=== PATIENT | female | born 1960 | race Caucasian/White ===

== ENCOUNTER 2017-08-02 22:30 | Emergency (ER) | payer OTHER ==
[2017-08-02] MEDS ORDERED: HYDROCODONE/APAP 5/325 MG TAB ONE (22:58)
--- NOTE | 2017-08-02 23:36 | EDPHYS ---
Physician Documentation [facility] Name: Vivian Fatima Age: 57 yrs Sex: Female : 1960 Arrival Date: 08/02/2017 Time: 22:31 Bed 12 Private MD: ED Physician Daniel White HPI: 08/03 03:52 This 57 yrs old Female presents to ER via Ambulatory with complaints of Foot tw4 Injury - Right/metal gate fell on foot. 03:52 The patient presents with an injury. The complaints affect the right foot. Context: The tw4 problem was sustained at home. Onset: The symptoms/episode began/occurred today. Modifying factors: The symptoms are alleviated by nothing, the symptoms are aggravated by nothing. Associated signs and symptoms: The patient has no apparent associated signs or symptoms. Severity of symptoms: At their worst the symptoms were moderate, in the emergency department the symptoms are unchanged. The patient has not experienced similar symptoms in the past. Historical: - Allergies: 08/02 22:41 Latex, Natural Rubber; fc - Home Meds: 22:41 Lamictal 300 mg Oral 1 tab once daily [Active]; Prozac 60 mg Oral once daily [Active]; fc Wellbutrin 150 mg Oral nightly [Active]; gabapentin 400 mg oral cap 2 cap nightly [Active]; - PMHx: 22:41 Bipolar disorder; fc - PSHx: 22:41 ; Hysterectomy; fc - Immunization history:: Last tetanus immunization: up to date. - Social history:: Smoking status: Patient/guardian denies using tobacco. - Ebola Screening: : Patient negative for fever greater than or equal to 101.5 degrees Fahrenheit, and additional compatible Ebola Virus Disease symptoms Patient denies exposure to infectious person Patient denies travel to an Ebola-affected area in the 21 days before illness onset. ROS: 08/03 03:52 MS/extremity: Positive for injury or acute deformity, pain, swelling, tenderness, tw4 Negative for abrasion, bite, contusion, decreased range of motion. Constitutional: Negative for fever, chills, and weight loss, Cardiovascular: Negative for chest pain, palpitations, and edema, Respiratory: Negative for shortness of breath, cough, wheezing, and pleuritic chest pain, Abdomen/GI: Negative for abdominal pain, nausea, vomiting, diarrhea, and constipation, Back: Negative for injury and pain. Exam: 03:52 Constitutional: This is a well developed, well nourished patient who is awake, alert, tw4 and in no acute distress. Chest/axilla: Normal chest wall appearance and motion. Nontender with no deformity. No lesions are appreciated. Cardiovascular: Regular rate and rhythm with a normal S1 and S2. No gallops, murmurs, or rubs. Normal PMI, no JVD. No pulse deficits. Respiratory: Lungs have equal breath sounds bilaterally, clear to auscultation and percussion. No rales, rhonchi or wheezes noted. No increased work of breathing, no retractions or nasal flaring. Abdomen/GI: Soft, non-tender, with normal bowel sounds. No distension or tympany. No guarding or rebound. No evidence of tenderness throughout. 03:52 Musculoskeletal/extremity: Extremities: grossly normal except: noted in the right first toe: decreased ROM, pain, There is no evidence of abrasion, laceration, puncture, ROM: no acute changes, Circulation is intact in all extremities. Vital Signs: 08/02 22:37 BP 141 / 84; Pulse 107; Resp 18; Temp 99.1(O); Pulse Ox 100% on R/A; Weight 78.93 kg fc (R); Height 5 ft. 6 in. (167.64 cm) (R); Pain 6/10; 22:37 Body Mass Index 28.08 (78.93 kg, 167.64 cm) fc MDM: 22:50 Patient medically screened. tw4 08/03 03:52 Differential diagnosis: fracture, sprain. Data reviewed: vital signs, nurses notes. tw4 Test interpretation: by ED physician or midlevel provider: ECG. Counseling: I had a detailed discussion with the patient and/or guardian regarding: the historical points, exam findings, and any diagnostic results supporting the discharge/admit diagnosis. Medication response: norco. Response to treatment: the patient's symptoms have markedly improved after treatment, and as a result, I will discharge patient. 08/02 22:46 Order name: Foot Right 3 View XRAY fc Administered Medications: 08/02 23:01 Drug: [place] 5 mg-325 mg 1 tabs Route: PO; 23:44 Follow up: Response: No adverse reaction; Pain is decreased bb Disposition: 08/02/17 23:36 Discharged to Home. Impression: Contusion of right foot. - Condition is Stable. - Discharge Instructions: Contusion. - Prescriptions for Ibuprofen 800 mg Oral Tablet - take 1 tablet by ORAL route every 8 hours As needed take with food; 30 tablet. Tylenol- Codeine #3 300-30 mg Oral Tablet - take 2 tablet by ORAL route every 6 hours As needed; 6 tablet. - Medication Reconciliation Form, Thank You Letter, Antibiotic Education, Prescription Opioid Use form. - Follow up: Private Physician; When: As needed; Reason: Recheck today's complaints, Continuance of care, Re-evaluation by your physician. - Problem is new. - Symptoms have improved. Signatures: Dispatcher [employer] EDAle Snow RN RN Maria A Pfeiffer RN RN Daniel Alba MD MD tw4 Corrections: (The following items were deleted from the chart) 23:45 23:36 08/02/2017 23:36 Discharged to Home. Impression: Contusion of right foot. bb Condition is Stable. Forms are Medication Reconciliation Form, Thank You Letter, Antibiotic Education, Prescription Opioid Use. Follow up: Private Physician; When: As needed; Reason: Recheck today's complaints, Continuance of care, Re-evaluation by your physician. Problem is new. Symptoms have improved. tw4
--- NOTE | 2017-08-02 23:36 | ER ---
Nurse's Notes [facility] Name: Vivian Fatima Age: 57 yrs Sex: Female : 1960 Arrival Date: 08/02/2017 Time: 22:31 Bed 12 Private MD: Diagnosis: Contusion of right foot Presentation: 08/02 22:36 Presenting complaint: Patient states: that a large gate feel on her right foot today. fc Area is red, swollen and tender to touch. 22:38 Transition of care: patient was not received from another setting of care. Onset of fc symptoms was August 02, 2017 at 12:00. Risk Assessment: Do you want to hurt yourself or someone else? Patient reports no desire to harm self or others. Initial Sepsis Screen: Does the patient meet any 2 criteria? HR > 90 bpm. Yes Does the patient have a suspected source of infection? No. Patient's initial sepsis screen is negative. Care prior to arrival: None. 22:38 Method Of Arrival: Ambulatory 22:38 Acuity: LAYO 4 Triage Assessment: 22:41 General: Appears uncomfortable, slender, Behavior is calm, cooperative, appropriate for age. Pain: Complains of pain in right foot Pain currently is 6 out of 10 on a pain scale. at worst was 10 out of 10 on a pain scale. Quality of pain is described as aching, dull, Pain began at noon Is continuous, Aggravated by increased activity, repositioning, weight bearing. EENT: No deficits noted. Neuro: Level of Consciousness is awake, alert, obeys commands, Oriented to person, place, time, situation. Cardiovascular: No deficits noted. Respiratory: No deficits noted. GI: No deficits noted. Derm: Skin is pink, warm \T\ dry. Bruising that is bright red, on dorsum of right foot. Musculoskeletal: Circulation, motion, and sensation intact. Capillary refill < 3 seconds, Range of motion: intact in all extremities, Reports pain in right foot. Injury Description: Bruise sustained to right foot is red. Historical: - Allergies: 22:41 Latex, Natural Rubber; fc - Home Meds: 22:41 Lamictal 300 mg Oral 1 tab once daily [Active]; Prozac 60 mg Oral once daily [Active]; fc Wellbutrin 150 mg Oral nightly [Active]; gabapentin 400 mg oral cap 2 cap nightly [Active]; - PMHx: 22:41 Bipolar disorder; fc - PSHx: 22:41 ; Hysterectomy; fc - Immunization history:: Last tetanus immunization: up to date. - Social history:: Smoking status: Patient/guardian denies using tobacco. - Ebola Screening: : Patient negative for fever greater than or equal to 101.5 degrees Fahrenheit, and additional compatible Ebola Virus Disease symptoms Patient denies exposure to infectious person Patient denies travel to an Ebola-affected area in the 21 days before illness onset. Screenin:43 Abuse screen: Denies threats or abuse. Nutritional screening: No deficits noted. fc Tuberculosis screening: No symptoms or risk factors identified. Fall Risk None identified. Assessment: 22:43 Reassessment: No changes from previously documented assessment. Patient and/or family fc updated on plan of care and expected duration. Pain level reassessed. Patient is alert, oriented x 3, equal unlabored respirations, skin warm/dry/pink. see triage assessment. 22:50 Reassessment: Dr White in to see and examine pt. fc 23:01 Reassessment: Radiology in room performing xrays on foot. fc 23:43 Reassessment: Patient is alert, oriented x 3, equal unlabored respirations, skin bb warm/dry/pink. pt instructed on crutch walking, demonstrated good technique, verbalized understanding of and agrees to plan of care discharge instructions given pt assisted to exit accompanied by family. Vital Signs: 22:37 BP 141 / 84; Pulse 107; Resp 18; Temp 99.1(O); Pulse Ox 100% on R/A; Weight 78.93 kg fc (R); Height 5 ft. 6 in. (167.64 cm) (R); Pain 6/10; 22:37 Body Mass Index 28.08 (78.93 kg, 167.64 cm) ED Course: 22:31 Patient arrived in ED. am2 22:38 Triage completed. fc 22:38 Arm band placed on Patient placed in waiting room, Patient notified of wait time. fc 22:43 Patient has correct armband on for positive identification. Call light in reach. fc 22:44 No provider procedures requiring assistance completed. Patient did not have IV access fc during this emergency room visit. 22:50 Daniel White MD is Attending Physician. tw4 22:53 Maria A Pfeiffer, RN is Primary Nurse. bb 23:15 X-ray completed. Portable x-ray completed in exam room. Patient tolerated procedure kw well. 23:15 Foot Right 3 View XRAY In Process Unspecified. EDMS 23:44 Crutch training done. Steven wrap to right foot. bb Administered Medications: 23:01 Drug: [place] 5 mg-325 mg 1 tabs Route: PO; 23:44 Follow up: Response: No adverse reaction; Pain is decreased bb Outcome: 23:36 Discharge ordered by . tw4 23:45 Discharged to home with crutches, with family. bb 23:45 Condition: stable 23:45 Discharge instructions given to patient, Instructed on discharge instructions, follow up and referral plans. no driving heavy equipment, medication usage, crutch walking, Demonstrated understanding of instructions, follow-up care, medications, crutch walking, Prescriptions given X 2. 23:45 Patient left the ED. bb Signatures: Dispatcher [employer] EDNJ Ale Faith RN RN Maria A Pfeiffer, JUAN RN Sada Kathleen Amanda am2 Daniel White MD MD tw4
--- NOTE | 2017-08-03 09:08 | RAD REPORT ---
EXAM DESCRIPTION: RAD - Foot Right 3 View - 08/02/2017 11:15 pm CLINICAL HISTORY: Right foot pain. COMPARISON: None. FINDINGS: Soft tissue swelling is seen at the level of the first MTP joint. No acute fracture or dis location is seen. Prominent posterior calcaneal spur.
== END 2017-08-02 23:45 | disposition home or self-care (01) ==
LOC: ER 22:30
DX: S90.31XA Contusion of right foot, initial encounter (principal); W23.0XXA Caught, crushed, jammed, or pinched between moving objects, initial encounter; Y93.9 Activity, unspecified; Y92.009 Unspecified place in unspecified non-institutional (private) residence as the place of occurrence of the external cause; Y99.9 Unspecified external cause status; Z91.040 Latex allergy status
CPT/HCPCS: 99284

== ENCOUNTER 2017-08-17 20:49 | Emergency (ER) | payer OTHER ==
[2017-08-17] MEDS ORDERED: KETOROLAC 30 MG/ML INJ ONE (21:58)
[2017-08-17] MEDS ORDERED: DIPHENHYDRAMINE 25 MG TAB/CAP ONE (23:20)
[2017-08-17] MEDS ORDERED: MORPHINE 4 MG/ML SYR ONE (23:20)
[2017-08-17] MEDS ORDERED: ONDANSETRON 4 MG (ODT) TAB ONE (23:21)
--- NOTE | 2017-08-17 23:35 | EDPHYS ---
Physician Documentation [facility] Name: Vivian Fatima Age: 57 yrs Sex: Female : 1960 Arrival Date: 08/17/2017 Time: 20:50 Bed 30 Private MD: ED Physician Jose Roberto Willett HPI: 08/17 23:35 This 57 yrs old Female presents to ER via Ambulatory with complaints of Fall ps1 Injury, rib pain, Back Pain. 23:35 patient fell out of chair at home. No hit head. No LOC. Patient has left rib pain. No ps1 obvious signs of trauma. Hurts to breathe. Pain rated moderate. . Historical: - Allergies: 21:01 Latex, Natural Rubber; fc - Home Meds: 21:01 gabapentin 400 mg Oral cap 2 cap nightly [Active]; Lamictal 300 mg Oral 1 tab once fc daily [Active]; Prozac 60 mg Oral once daily [Active]; Wellbutrin 150 mg Oral nightly [Active]; - PMHx: 21:01 Bipolar disorder; fc - PSHx: 21:01 ; Hysterectomy; fc - Immunization history:: Last tetanus immunization: up to date. - Social history:: Smoking status: Patient/guardian denies using tobacco. - Ebola Screening: : Patient negative for fever greater than or equal to 101.5 degrees Fahrenheit, and additional compatible Ebola Virus Disease symptoms Patient denies exposure to infectious person Patient denies travel to an Ebola-affected area in the 21 days before illness onset. ROS: 23:35 Constitutional: Negative for fever, chills, and weight loss, Eyes: Negative for injury, ps1 pain, redness, and discharge, Cardiovascular: Negative for chest pain, palpitations, and edema, Respiratory: Negative for shortness of breath, cough, wheezing, and pleuritic chest pain, Abdomen/GI: Negative for abdominal pain, nausea, vomiting, diarrhea, and constipation, Skin: Negative for injury, rash, and discoloration, Neuro: Negative for headache, weakness, numbness, tingling, and seizure. 23:35 MS/extremity: Positive for pain, of the left lateral anterior chest. Exam: 23:35 Constitutional: This is a well developed, well nourished patient who is awake, alert, ps1 and in no acute distress. Head/Face: Normocephalic, atraumatic. Eyes: Pupils equal round and reactive to light, extra-ocular motions intact. Lids and lashes normal. Conjunctiva and sclera are non-icteric and not injected. Chest/axilla: Normal chest wall appearance and motion. Nontender with no deformity. No lesions are appreciated. Cardiovascular: Regular rate and rhythm. No gallops, murmurs, or rubs. Normal PMI, no JVD. No pulse deficits. Respiratory: Lungs have equal breath sounds bilaterally, clear to auscultation and percussion. No rales, rhonchi or wheezes noted. No increased work of breathing, no retractions or nasal flaring. Abdomen/GI: Soft, non-tender, with normal bowel sounds. No distension or tympany. No guarding or rebound. No evidence of tenderness throughout. Skin: Warm, dry with normal turgor. Normal color with no rashes, no lesions, and no evidence of cellulitis. Neuro: Awake and alert, GCS 15, oriented to person, place, time, and situation. Cranial nerves II-XII grossly intact. Sensory grossly intact. Psych: Awake, alert, with orientation to person, place and time. Behavior, mood, and affect are within normal limits. 23:35 Musculoskeletal/extremity: Extremities: grossly normal except: noted in the left lateral anterior chest: pain. Vital Signs: 21:01 BP 136 / 97; Pulse 102; Resp 16; Temp 98.2; Pulse Ox 97% on R/A; Weight 78.47 kg (R); Height 5 ft. 6 in. (167.64 cm) (R); Pain 8/10; 23:45 BP 141 / 90; Pulse 75; Resp 16; Pulse Ox 99% ; rk2 21:01 Body Mass Index 27.92 (78.47 kg, 167.64 cm) Joe Coma Score: 21:01 Eye Response: spontaneous(4). Verbal Response: oriented(5). Motor Response: obeys commands(6). Total: 15. Trauma Score (Adult): 21:01 Eye Response: spontaneous(1); Verbal Response: oriented(1); Motor Response: obeys commands(2); Systolic BP: > 89 mm Hg(4); Respiratory Rate: 10 to 29 per min(4); Joe Score: 15; Trauma Score: 12 MDM: 21:55 Patient medically screened. ps1 23:37 Data reviewed: vital signs, nurses notes, radiologic studies, CT scan. ED course: ps1 incidental finding of pulmonary nodule. Follow up CT with primary care for change in 6 months. Incentive Spirometry given. Home with T3 and Anaprox. . 08/17 21:51 Order name: CT Chest Wo Con ps1 08/17 21:51 Order name: INCENTIVE SPIROMETRY ps1 Administered Medications: 22:02 Drug: TORadol 30 mg Route: IM; Site: left deltoid; rk2 23:48 Follow up: Response: No adverse reaction rk2 23:22 Drug: morphine 4 mg Route: IM; Site: right deltoid; rk2 23:48 Follow up: Response: No adverse reaction rk2 23:22 Drug: Benadryl 25 mg Route: PO; rk2 23:47 Follow up: Response: No adverse reaction rk2 23:22 Drug: Zofran 4 mg Route: PO; rk2 23:47 Follow up: Response: No adverse reaction rk2 Disposition: 08/17/17 23:34 Discharged to Home. Impression: Fall, Left Rib Contusion, Pulmonary Nodule. - Condition is Stable. - Discharge Instructions: Rib Contusion, Pulmonary Nodule. - Prescriptions for Anaprox DS 550 mg Oral Tablet - take 1 tablet by ORAL route every 12 hours As needed; 20 tablet. Tylenol- Codeine #3 300-30 mg Oral Tablet - take 2 tablet by ORAL route every 6 hours As needed; 30 tablet. Zofran 4 mg Oral Tablet - take 1 tablet by ORAL route every 12 hours As needed; 20 tablet. - Medication Reconciliation Form, Thank You Letter, Antibiotic Education, Prescription Opioid Use form. - Follow up: Private Physician; When: As needed; Reason: Recheck today's complaints, Continuance of care, Re-evaluation by your physician. Follow up: Emergency Department; When: As needed; Reason: Fever > 102 F, Trouble breathing, Worsening of condition. - Problem is new. - Symptoms have improved. Signatures: Dispatcher [employer] EDMS Ale Faith, RN RN fc Jose Roberto Willett MD MD ps1 Tamiko Zazueta RN RN rk2 Corrections: (The following items were deleted from the chart) 23:47 23:34 08/17/2017 23:34 Discharged to Home. Impression: Fall; Left Rib Contusion; rk2 Pulmonary Nodule. Condition is Stable. Forms are Medication Reconciliation Form, Thank You Letter, Antibiotic Education, Prescription Opioid Use. Follow up: Private Physician; When: As needed; Reason: Recheck today's complaints, Continuance of care, Re-evaluation by your physician. Follow up: Emergency Department; When: As needed; Reason: Fever > 102 F, Trouble breathing, Worsening of condition. Problem is new. Symptoms have improved. ps1
--- NOTE | 2017-08-17 23:35 | ER ---
Nurse's Notes [facility] Name: Vivian Fatima Age: 57 yrs Sex: Female : 1960 Arrival Date: 08/17/2017 Time: 20:50 Bed 30 Private MD: Diagnosis: Fall;Left Rib Contusion;Pulmonary Nodule Presentation: 08/17 20:59 Presenting complaint: Patient states: that she was standing on a chair and fell off. fc Hit left side and left back on stool. Has increased pain to left ribs when she breathes. Care prior to arrival: Ice pack applied to injury. Mechanism of Injury: Fall out of chair. Trauma event details: Injury occurred in the [facility], Injury occurred: at home. Injury occurred: August 17, 2017 Injury occurred at: 20:15. 20:59 Acuity: LAYO 4 20:59 Method Of Arrival: Ambulatory 21:00 Transition of care: patient was not received from another setting of care. Onset of fc symptoms was August 17, 2017 at 20:15. Risk Assessment: Do you want to hurt yourself or someone else? Patient reports no desire to harm self or others. Initial Sepsis Screen: Does the patient meet any 2 criteria? No. Patient's initial sepsis screen is negative. Does the patient have a suspected source of infection? No. Patient's initial sepsis screen is negative. Triage Assessment: 21:04 General: Appears uncomfortable, slender, Behavior is calm, cooperative, appropriate for age. Pain: Complains of pain in left side and left back Quality of pain is described as aching, Pain began suddenly, Is continuous. EENT: No deficits noted. Neuro: Level of Consciousness is awake, alert, obeys commands, Oriented to person, place, time, situation. Historical: - Allergies: 21:01 Latex, Natural Rubber; fc - Home Meds: 21:01 gabapentin 400 mg Oral cap 2 cap nightly [Active]; Lamictal 300 mg Oral 1 tab once fc daily [Active]; Prozac 60 mg Oral once daily [Active]; Wellbutrin 150 mg Oral nightly [Active]; - PMHx: 21:01 Bipolar disorder; fc - PSHx: 21:01 ; Hysterectomy; fc - Immunization history:: Last tetanus immunization: up to date. - Social history:: Smoking status: Patient/guardian denies using tobacco. - Ebola Screening: : Patient negative for fever greater than or equal to 101.5 degrees Fahrenheit, and additional compatible Ebola Virus Disease symptoms Patient denies exposure to infectious person Patient denies travel to an Ebola-affected area in the 21 days before illness onset. Screenin:29 Abuse screen: Denies threats or abuse. Nutritional screening: No deficits noted. rk2 Tuberculosis screening: No symptoms or risk factors identified. Fall Risk None identified. Assessment: 21:22 General: Appears in no apparent distress. uncomfortable, slender, well groomed, well rk2 developed, well nourished, Behavior is calm, cooperative, appropriate for age. Pain: Complains of pain in Left side/ribs and left back. Neuro: Level of Consciousness is alert, obeys commands, Oriented to person, place, time, situation, Appropriate for age. Respiratory: Reports pain with respiration. Respiratory: Breath sounds are clear Pt. having difficult time taking deep breath due to pain. GI: No signs and/or symptoms were reported involving the gastrointestinal system. EENT: No signs and/or symptoms were reported regarding the EENT system. Derm: Skin is pink, warm \T\ dry. 21:24 Injury Description: No obvious deformity noted to injury area. rk2 22:30 Reassessment: Patient appears in no apparent distress at this time. No changes from rk2 previously documented assessment. Patient and/or family updated on plan of care and expected duration. Pain level reassessed. 23:28 Reassessment: Patient appears in no apparent distress at this time. No changes from rk2 previously documented assessment. Patient and/or family updated on plan of care and expected duration. Pain level reassessed. \T\ bedside. No needs voiced \T\ this time. Vital Signs: 21:01 BP 136 / 97; Pulse 102; Resp 16; Temp 98.2; Pulse Ox 97% on R/A; Weight 78.47 kg (R); fc Height 5 ft. 6 in. (167.64 cm) (R); Pain 8/10; 23:45 BP 141 / 90; Pulse 75; Resp 16; Pulse Ox 99% ; rk2 21:01 Body Mass Index 27.92 (78.47 kg, 167.64 cm) fc Rumely Coma Score: 21:01 Eye Response: spontaneous(4). Verbal Response: oriented(5). Motor Response: obeys fc commands(6). Total: 15. Trauma Score (Adult): 21:01 Eye Response: spontaneous(1); Verbal Response: oriented(1); Motor Response: obeys fc commands(2); Systolic BP: > 89 mm Hg(4); Respiratory Rate: 10 to 29 per min(4); Rumely Score: 15; Trauma Score: 12 ED Course: 20:50 Patient arrived in ED. am2 21:00 Triage completed. fc 21:01 Arm band placed on right wrist. Patient placed in an exam room, on a stretcher. fc 21:13 Jose Roberto Willett MD is Attending Physician. ps1 21:14 Tamiko Zazueta RN is Primary Nurse. rk2 22:02 INCENTIVE SPIROMETRY Sent. rk2 22:[address] nj 22:24 CT Chest Wo Con In Process Unspecified. EDMS 22:27 CT completed. Patient tolerated procedure well. Patient moved back from CT. nj 23:29 Patient has correct armband on for positive identification. Placed in gown. Bed in low rk2 position. Call light in reach. cardiac monitor on. Pulse ox on. 23:46 No provider procedures requiring assistance completed. Patient did not have IV access rk2 during this emergency room visit. Administered Medications: 22:02 Drug: TORadol 30 mg Route: IM; Site: left deltoid; rk2 23:48 Follow up: Response: No adverse reaction rk2 23:22 Drug: morphine 4 mg Route: IM; Site: right deltoid; rk2 23:48 Follow up: Response: No adverse reaction rk2 23:22 Drug: Benadryl 25 mg Route: PO; rk2 23:47 Follow up: Response: No adverse reaction rk2 23:22 Drug: Zofran 4 mg Route: PO; rk2 23:47 Follow up: Response: No adverse reaction rk2 Outcome: 23:34 Discharge ordered by . ps1 23:46 Discharged to home ambulatory. rk2 23:46 Condition: good 23:46 Discharge instructions given to patient, Prescriptions given X 3. 23:47 Patient left the ED. rk2 Signatures: Dispatcher [employer] EDMS Ale Faith RN RN Sebastien Mari Amanda am2 Jose Roberto Willett MD MD ps1 Tamiko Zazueta RN RN rk2 Corrections: (The following items were deleted from the chart) 21:05 21:01 Pulse 102bpm; Resp 16bpm; Pulse Ox 97% RA; Temp 98.2F; 78.47 kg Reported; Height fc 5 ft. 6 in. Reported; BMI: 27.9; Pain 8/10; fc 23:30 23:29 Inserted saline lock: 24 gauge in left wrist, using aseptic technique. rk2 rk2
--- NOTE | 2017-08-18 07:41 | RAD REPORT ---
EXAM DESCRIPTION: CT - Thorax Wo Con - 08/18/2017 5:32 am CLINICAL HISTORY: Chest injury with chest pain status post fall. COMPARISON: None TECHNIQUE: Computed axial tomography of the chest was obtained. Contrast was not requested. A preliminary report was generated by [employer] and reviewed prior to this dictation All CT scans are performed using dose optimization technique as appropriate and may include automated exposure control or mA/KV adjustment according to patient size. FINDINGS: The evaluation of mediastinum, paco and vessels is limited secondary to lack of IV contras t administration. A lung contusion is not present. Calcified granuloma is present within the right lung. Multiple, tiny nodules are present within the lungs bilaterally. A mediastinal hematoma is not seen. A pleural effusion is not present. A trace pericardial effusion or thickening is seen. Low-density lesions within the liver are nonspecific without IV contrast but may represent cysts. IMPRESSION: No acute traumatic injury to the chest is seen. Multiple tiny lung nodules are nonspecific but probably benign. Per Fleischner guidelines if the rishi ent is high risk followup CT chest in 12 months would be recommended
== END 2017-08-17 23:47 | disposition home or self-care (01) ==
LOC: ER 20:49
DX: S20.219A Contusion of unspecified front wall of thorax, initial encounter (principal); R91.1 Solitary pulmonary nodule; F31.9 Bipolar disorder, unspecified; W07.XXXA Fall from chair, initial encounter; Y93.9 Activity, unspecified; Y92.009 Unspecified place in unspecified non-institutional (private) residence as the place of occurrence of the external cause; Z91.040 Latex allergy status; Z91.048 Other nonmedicinal substance allergy status
CPT/HCPCS: 71250; 96372; 99285

== ENCOUNTER 2018-11-16 15:35 | Emergency (ER) | payer OTHER ==
[2018-11-16] MEDS ORDERED: HYDROCODONE/APAP 7.5/325 MG TAB ONE (16:32)
--- NOTE | 2018-11-16 17:06 | RAD REPORT ---
EXAM DESCRIPTION: RAD - Chest Single View - 11/16/2018 4:42 pm CLINICAL HISTORY: Chest pain, shortness of breath, history of left ninth and tenth rib fractures 1 m onth earlier COMPARISON: Rib series October 21 TECHNIQUE: AP portable chest image was obtained 1636 hours . FINDINGS: No focal lung parenchymal process. Interstitial pattern matches comparison. Heart and vasc ulature are normal. No measurable pleural effusion and no pneumothorax. No acute bone finding. Prior rib fractures are poorly visualized on portable imaging. No gross evidence for a new rib process. No acute aortic findings suspected. IMPRESSION: No acute cardiopulmonary process.
--- NOTE | 2018-11-16 17:25 | ER ---
Nurse's Notes [facility] Name: Vivian Fatima Age: 58 yrs Sex: Female : 1960 Arrival Date: 11/16/2018 Time: 15:38 Bed 20 Private MD: Diagnosis: Chest pain, unspecified-chest wall pain Presentation: 11/16 15:49 Presenting complaint: Pt reports she fractured 9th and 10th left ribs approx 1 month hb ago, pain suddenly worse upon waking today. Transition of care: patient was not received from another setting of care. Onset of symptoms was November 16, 2018. Risk Assessment: Do you want to hurt yourself or someone else? Patient reports no desire to harm self or others. Initial Sepsis Screen: Does the patient meet any 2 criteria? No. Patient's initial sepsis screen is negative. Does the patient have a suspected source of infection? No. Patient's initial sepsis screen is negative. Care prior to arrival: Medication(s) given: naproxen sodium at 1300. 15:49 Method Of Arrival: Ambulatory hb 15:49 Acuity: LAYO 4 hb Historical: - Allergies: 15:52 Latex, Natural Rubber; hb - Immunization history:: Adult Immunizations up to date. - Social history:: Smoking status: Patient/guardian denies using tobacco. - Ebola Screening: : No symptoms or risks identified at this time. Screenin:39 Abuse screen: Denies threats or abuse. Denies injuries from another. Nutritional ca1 screening: No deficits noted. Tuberculosis screening: No symptoms or risk factors identified. Fall Risk Fall in past 12 months (25 points). Assessment: 16:39 General: Appears in no apparent distress. comfortable, Behavior is calm, cooperative, ca1 appropriate for age. Pain: Complains of pain in left lateral anterior chest Pain does not radiate. Pain currently is 4 out of 10 on a pain scale. at worst was 8 out of 10 on a pain scale. Pain began today Aggravated by repositioning. Neuro: Level of Consciousness is awake, alert, obeys commands, Oriented to person, place, time, situation. Cardiovascular: Heart tones S1 S2 present Capillary refill < 3 seconds Patient's skin is warm and dry. Pulses are all present. Respiratory: Airway is patent Respiratory effort is even, unlabored, Respiratory pattern is regular, symmetrical, Breath sounds are clear bilaterally. GI: Abdomen is flat, non-distended, Bowel sounds present X 4 quads. : No deficits noted. No signs and/or symptoms were reported regarding the genitourinary system. EENT: No deficits noted. No signs and/or symptoms were reported regarding the EENT system. Derm: Skin is intact, is healthy with good turgor, Skin is pink, warm \T\ dry. Musculoskeletal: Circulation, motion, and sensation intact. Capillary refill < 3 seconds, Range of motion: intact in all extremities. 17:32 Reassessment: Patient appears in no apparent distress at this time. Patient is alert, ca1 oriented x 3, equal unlabored respirations, skin warm/dry/pink. Vital Signs: 15:52 BP 153 / 83; Pulse 77; Resp 16; Temp 98.6; Pulse Ox 100% on R/A; Weight 76.2 kg; Height hb 5 ft. 5 in. (165.10 cm); Pain 8/10; 16:47 BP 138 / 45; Pulse 75; Resp 16 S; Pulse Ox 100% on R/A; ca1 17:32 BP 112 / 89; Pulse 67; Resp 17 S; Pulse Ox 99% on R/A; ca1 15:52 Body Mass Index 27.96 (76.20 kg, 165.10 cm) hb ED Course: 15:38 Patient arrived in ED. mr 15:51 Triage completed. hb 15:52 Arm band placed on. hb 16:18 Marie Dolan, JUAN is Primary Nurse. ca1 16:20 Brandie Tirado FNP-C is [facility]. kb 16:20 Epifanio Vargas MD is Attending Physician. kb 16:39 Patient has correct armband on for positive identification. Placed in gown. Call light ca1 in reach. Side rails up X 1. Pulse ox on. NIBP on. Warm blanket given. 16:39 No provider procedures requiring assistance completed. Patient did not have IV access ca1 during this emergency room visit. 16:43 Chest Single View XRAY In Process Unspecified. EDMS Administered Medications: 16:39 Drug: Red Devil (7.5 mg-325 mg) 1 tabs Route: PO; ca1 17:33 Follow up: Response: No adverse reaction; Pain is decreased ca1 Outcome: 17:24 Discharge ordered by . kb 17:33 Discharged to home ambulatory, with family. ca1 17:33 Condition: stable 17:33 Discharge instructions given to patient, Instructed on discharge instructions, follow up and referral plans. medication usage, Demonstrated understanding of instructions, follow-up care, medications, Prescriptions given X 1. 17:34 Patient left the ED. ca1 Signatures: Dispatcher [employer] EDMT Brandie Tirado, TAVIA ROBERTSON-Opal AsheraWendy Leticia Ibrahim RN RN Marie Dolan RN RN ca1 Corrections: (The following items were deleted from the chart) 15:51 15:49 Presenting complaint: hb hb
--- NOTE | 2018-11-16 17:25 | EDPHYS ---
Physician Documentation [facility] Name: Vivian Fatima Age: 58 yrs Sex: Female : 1960 Arrival Date: 11/16/2018 Time: 15:38 Bed 20 Private MD: ED Physician Epifanio Vargas HPI: 11/16 16:42 This 58 yrs old Female presents to ER via Ambulatory with complaints of Rib kb pain. 16:43 The patient or guardian reports chest pain that is located primarily in the left kb lateral anterior chest. Onset: 3 week(s) ago, and became worse this morning. The pain does not radiate. Associated signs and symptoms: Pertinent positives: None. Pertinent negatives: recent travel, shortness of breath. The chest pain is described as sharp. Duration: The patient or guardian reports a single episode. Modifying factors: The symptoms are alleviated by remaining still, rest, the symptoms are aggravated by activity, movement, palpation of area. Severity of pain: At its worst the pain was moderate in the emergency department the pain is unchanged. The patient has not experienced similar symptoms in the past. The patient has not recently seen a physician. 16:45 Pt reports she broke her ribs about 3 weeks ago. States she woke up with more pain than kb she had had previously. States the pain goes away when she is still. Pain only comes on when she moves. Historical: - Allergies: 15:52 Latex, Natural Rubber; hb - Immunization history:: Adult Immunizations up to date. - Social history:: Smoking status: Patient/guardian denies using tobacco. - Ebola Screening: : No symptoms or risks identified at this time. ROS: 16:41 Constitutional: Negative for fever, chills, and weight loss, ENT: Negative for injury, kb pain, and discharge, Neck: Negative for injury, pain, and swelling, Respiratory: Negative for shortness of breath, cough, wheezing, and pleuritic chest pain, Abdomen/GI: Negative for abdominal pain, nausea, vomiting, diarrhea, and constipation, Back: Negative for injury and pain, : Negative for injury, bleeding, discharge, and swelling, MS/Extremity: Negative for injury and deformity, Skin: Negative for injury, rash, and discoloration, Neuro: Negative for headache, weakness, numbness, tingling, and seizure. 16:41 Cardiovascular: Positive for chest pain, with movement, of the left lateral anterior chest, Negative for edema, orthopnea, palpitations, paroxysmal nocturnal dyspnea. Exam: 16:41 Constitutional: This is a well developed, well nourished patient who is awake, alert, kb and in no acute distress. Head/Face: Normocephalic, atraumatic. ENT: Nares patent. No nasal discharge, no septal abnormalities noted. Tympanic membranes are normal and external auditory canals are clear. Oropharynx with no redness, swelling, or masses, exudates, or evidence of obstruction, uvula midline. Mucous membranes moist. Neck: Trachea midline, no thyromegaly or masses palpated, and no cervical lymphadenopathy. Supple, full range of motion without nuchal rigidity, or vertebral point tenderness. No Meningismus. Cardiovascular: Regular rate and rhythm with a normal S1 and S2. No gallops, murmurs, or rubs. Normal PMI, no JVD. No pulse deficits. Respiratory: Lungs have equal breath sounds bilaterally, clear to auscultation and percussion. No rales, rhonchi or wheezes noted. No increased work of breathing, no retractions or nasal flaring. Abdomen/GI: Soft, non-tender, with normal bowel sounds. No distension or tympany. No guarding or rebound. No evidence of tenderness throughout. Back: No spinal tenderness. No costovertebral tenderness. Full range of motion. Skin: Warm, dry with normal turgor. Normal color with no rashes, no lesions, and no evidence of cellulitis. MS/ Extremity: Pulses equal, no cyanosis. Neurovascular intact. Full, normal range of motion. Neuro: Awake and alert, GCS 15, oriented to person, place, time, and situation. Cranial nerves II-XII grossly intact. Motor strength 5/5 in all extremities. Sensory grossly intact. Cerebellar exam normal. Normal gait. 16:41 Chest/axilla: Inspection: ecchymosis, that is mild, of the left lateral anterior chest Palpation: tenderness, that is moderate, of the left lateral anterior chest, that totally reproduces the patient's complaints. Vital Signs: 15:52 BP 153 / 83; Pulse 77; Resp 16; Temp 98.6; Pulse Ox 100% on R/A; Weight 76.2 kg; Height hb 5 ft. 5 in. (165.10 cm); Pain 8/10; 16:47 BP 138 / 45; Pulse 75; Resp 16 S; Pulse Ox 100% on R/A; ca1 17:32 BP 112 / 89; Pulse 67; Resp 17 S; Pulse Ox 99% on R/A; ca1 15:52 Body Mass Index 27.96 (76.20 kg, 165.10 cm) hb MDM: 16:21 Patient medically screened. kb 16:41 Data reviewed: vital signs, nurses notes. Data interpreted: Pulse oximetry: on room air kb is 100 %. Interpretation: normal. 17:20 The patient's pulmonary embolism risk score was calculated as follows: No Risks (0 kb Pts). Counseling: I had a detailed discussion with the patient and/or guardian regarding: the historical points, exam findings, and any diagnostic results supporting the discharge/admit diagnosis, radiology results, the need for outpatient follow up, a family practitioner, to return to the emergency department if symptoms worsen or persist or if there are any questions or concerns that arise at home. 11/16 16:25 Order name: Chest Single View XRAY; Complete Time: 17:19 kb Administered Medications: 16:39 Drug: Reading (7.5 mg-325 mg) 1 tabs Route: PO; ca1 17:33 Follow up: Response: No adverse reaction; Pain is decreased ca1 Disposition: 11/17 07:28 Co-signature as Attending Physician, Epifanio Vargas MD I agree with the assessment and kdr plan of care. Disposition: 11/16/18 17:24 Discharged to Home. Impression: Chest pain, unspecified - chest wall pain . - Condition is Stable. - Discharge Instructions: Chest Wall Pain, [id number], Rib Fracture, [id number]. - Prescriptions for Diclofenac Sodium 75 mg Oral Tablet, Delayed Release (E.C.) - take 1 tablet by ORAL route 2 times per day As needed; 30 tablet. - Medication Reconciliation Form, Thank You Letter, Antibiotic Education, Prescription Opioid Use form. - Follow up: Emergency Department; When: As needed; Reason: Worsening of condition. Follow up: Private Physician; When: 2 - 3 days; Reason: Recheck today's complaints, Continuance of care, Re-evaluation by your physician. Signatures: Dispatcher [employer] Brandie Boogie FNP-C FNP-Ckb Epifanio Vargas MD MD [facility] Leticia Ibrahim RN RN Marie Dolan RN RN ca1 Corrections: (The following items were deleted from the chart) 11/16 17:34 17:24 11/16/2018 17:24 Discharged to Home. Impression: Chest pain, unspecified - chest ca1 wall pain . Condition is Stable. Discharge Instructions: Chest Wall Pain, [id number], Rib Fracture, [id number]. Forms are Medication Reconciliation Form, Thank You Letter, Antibiotic Education, Prescription Opioid Use. Follow up: Emergency Department; When: As needed; Reason: Worsening of condition. Follow up: Private Physician; When: 2 - 3 days; Reason: Recheck today's complaints, Continuance of care, Re-evaluation by your physician. kb
[2018-11-16 17:58] VITALS: TEMP 98.6
[2018-11-16 18:00] VITALS: BP 112/89; O2SAT 99
== END 2018-11-16 17:34 | disposition home or self-care (01) ==
LOC: ER 15:35
DX: R07.89 Other chest pain (principal); Z91.040 Latex allergy status; Z91.048 Other nonmedicinal substance allergy status
CPT/HCPCS: 71045; 99284

== ENCOUNTER 2018-11-23 22:00 | Emergency (ER) | payer OTHER ==
[2018-11-23] MEDS ORDERED: LIDOCAINE 1% MPF 5 ML VIAL ONE ×2 (23:06→23:33)
--- NOTE | 2018-11-24 00:13 | ER ---
Nurse's Notes [facility] Name: Vivian Fatima Age: 58 yrs Sex: Female : 1960 Arrival Date: 11/23/2018 Time: 22:06 Bed 28 Private MD: Diagnosis: Laceration without foreign body of left hand Presentation: 11/23 22:14 Presenting complaint: Patient states: right hand with lac from box car washer while doing ak1 craft work. bleeding controlled. Transition of care: patient was not received from another setting of care. Complicating Factors: There are no complicating factors for this patient. Onset of symptoms was November 23, 2018. Risk Assessment: Do you want to hurt yourself or someone else? Patient reports no desire to harm self or others. Initial Sepsis Screen: Does the patient meet any 2 criteria? No. Patient's initial sepsis screen is negative. Does the patient have a suspected source of infection? No. Patient's initial sepsis screen is negative. Care prior to arrival: None. 22:14 Method Of Arrival: Ambulatory ak1 22:14 Acuity: LAYO 4 ak1 Triage Assessment: 22:15 General: Appears in no apparent distress. Behavior is calm, cooperative. ak1 Historical: - Allergies: 22:15 Latex, Natural Rubber; ak1 - Home Meds: 22:15 gabapentin 400 mg Oral cap 2 cap nightly [Active]; Lamictal 300 mg Oral 1 tab once ak1 daily [Active]; Wellbutrin 150 mg Oral nightly [Active]; Prozac 60 mg Oral once daily [Active]; - PMHx: 22:15 Bipolar disorder; ak1 - Immunization history:: Adult Immunizations unknown. - Social history:: Smoking status: Patient/guardian denies using tobacco. - Ebola Screening: : No symptoms or risks identified at this time. Screenin:55 Abuse screen: Denies threats or abuse. Denies injuries from another. Nutritional rv screening: No deficits noted. Tuberculosis screening: No symptoms or risk factors identified. Fall Risk None identified. Assessment: 22:54 General: Appears in no apparent distress. comfortable, Behavior is calm, cooperative. rv Pain: Complains of pain in left hand. Neuro: Level of Consciousness is awake, alert, obeys commands, Oriented to person, place, time, situation. Cardiovascular: Patient's skin is warm and dry. Respiratory: Airway is patent. GI: No signs and/or symptoms were reported involving the gastrointestinal system. : No signs and/or symptoms were reported regarding the genitourinary system. EENT: No signs and/or symptoms were reported regarding the EENT system. Derm: Wound noted left hand Wound is LACERATION. Musculoskeletal: Swelling absent. Injury Description: Laceration sustained to left hand is clean, 2.6 to 7.5 cm long, not bleeding. Vital Signs: 22:15 BP 130 / 74; Pulse 80; Resp 16; Temp 97.6; Pulse Ox 100% on R/A; Weight 76.2 kg (R); ak1 Height 5 ft. 6 in. (167.64 cm) (R); Pain 04/10; 11/24 00:30 BP 125 / 76; Pulse 76; Resp 16; Pulse Ox 100% on R/A; rv 11/23 22:15 Body Mass Index 27.12 (76.20 kg, 167.64 cm) ak1 ED Course: 11/23 22:06 Patient arrived in ED. cl3 22:15 Triage completed. ak1 22:15 Arm band placed on Patient placed in an exam room, on a stretcher, Patient notified of ak1 wait time. 22:36 Giuseppe Owusu RN is Primary Nurse. rv 22:56 Patient has correct armband on for positive identification. Call light in reach. Side rv rails up X 1. Pulse ox on. NIBP on. 22:59 Vernell Lovelace FNP-C is PHCP. snw 22:59 Ellis Juarez MD is Attending Physician. w 11/24 00:29 Assist provider with laceration repair on left hand that was between 2.6 to 7.5 cm rv using sutures. Set up tray. Performed by Vernell SQUIRES Dressed with 4X4s, Patient tolerated well. Patient did not have IV access during this emergency room visit. Administered Medications: 00:28 Drug: KeFLEX 500 mg Route: PO; rv 00:29 Follow up: Response: Medication administered at discharge. rv 00:28 Drug: traMADol 25 mg {Note: rass 0.} Route: PO; rv 00:29 Follow up: Response: Medication administered at discharge. rv 00:29 Drug: Tetanus-Diphtheria Toxoid Adult 0.5 ml {Community Health Advisor: [employer]. Exp: rv 07/12/2020. Lot #: [id number]. } {Note: rass 0.} Route: IM; Site: right deltoid; 00:29 Follow up: Response: Medication administered at discharge. rv Outcome: 00:12 Discharge ordered by . snleon 00:30 Discharged to home ambulatory, with family. rv 00:30 Condition: good 00:30 Discharge instructions given to patient, Instructed on discharge instructions, follow up and referral plans. medication usage, wound care, Demonstrated understanding of instructions, follow-up care, medications, Prescriptions given X 2. 00:31 Patient left the ED. rv Signatures: Vernell Lovelace, BEVELING MACHINE OPERATOR-C BEVELING MACHINE OPERATOR-Csnw Niki Nguyen RN RN ak1 Giuseppe Owusu RN RN Elizabet Flores cl3
--- NOTE | 2018-11-24 00:14 | EDPHYS ---
Physician Documentation [facility] Name: Vivian Fatima Age: 58 yrs Sex: Female : 1960 Arrival Date: 11/23/2018 Time: 22:06 Bed 28 Private MD: ED Physician Ellis Juarez HPI: 11/24 00:57 This 58 yrs old Female presents to ER via Ambulatory with complaints of snw Laceration To Hand. 00:57 The patient has a laceration related to: doing crafts, from a knife, occurred at home, snw and there are no complicating factors. The laceration(s) is(are) located on the heel of left hand. Onset: The symptoms/episode began/occurred suddenly, just prior to arrival. Associated signs and symptoms: The patient has no apparent associated signs or symptoms. The patient has not experienced similar symptoms in the past. It is unknown whether or not the patient has recently seen a physician. Historical: - Allergies: 11/23 22:15 Latex, Natural Rubber; ak1 - Home Meds: 22:15 gabapentin 400 mg Oral cap 2 cap nightly [Active]; Lamictal 300 mg Oral 1 tab once ak1 daily [Active]; Wellbutrin 150 mg Oral nightly [Active]; Prozac 60 mg Oral once daily [Active]; - PMHx: 22:15 Bipolar disorder; ak1 - Immunization history:: Adult Immunizations unknown. - Social history:: Smoking status: Patient/guardian denies using tobacco. - Ebola Screening: : No symptoms or risks identified at this time. ROS: 11/24 00:57 Constitutional: Negative for fever, chills, and weight loss, Eyes: Negative for injury, snw pain, redness, and discharge, ENT: Negative for injury, pain, and discharge, Neck: Negative for injury, pain, and swelling, Cardiovascular: Negative for chest pain, palpitations, and edema, Respiratory: Negative for shortness of breath, cough, wheezing, and pleuritic chest pain, Abdomen/GI: Negative for abdominal pain, nausea, vomiting, diarrhea, and constipation, Back: Negative for injury and pain, : Negative for injury, bleeding, discharge, and swelling, MS/Extremity: Negative for injury and deformity, Neuro: Negative for headache, weakness, numbness, tingling, and seizure, Psych: Negative for depression, anxiety, suicide ideation, homicidal ideation, and hallucinations. Skin: Positive for laceration(s), of the heel of left hand. Exam: 00:43 Constitutional: This is a well developed, well nourished patient who is awake, alert, snw and in no acute distress. Head/Face: Normocephalic, atraumatic. Eyes: Pupils equal round and reactive to light, extra-ocular motions intact. Lids and lashes normal. Conjunctiva and sclera are non-icteric and not injected. Cornea within normal limits. Periorbital areas with no swelling, redness, or edema. ENT: Nares patent. No nasal discharge, no septal abnormalities noted. Tympanic membranes are normal and external auditory canals are clear. Oropharynx with no redness, swelling, or masses, exudates, or evidence of obstruction, uvula midline. Mucous membranes moist. Neck: Trachea midline, no thyromegaly or masses palpated, and no cervical lymphadenopathy. Supple, full range of motion without nuchal rigidity, or vertebral point tenderness. No Meningismus. Chest/axilla: Normal chest wall appearance and motion. Nontender with no deformity. No lesions are appreciated. Cardiovascular: Regular rate and rhythm with a normal S1 and S2. No gallops, murmurs, or rubs. Normal PMI, no JVD. No pulse deficits. Respiratory: Lungs have equal breath sounds bilaterally, clear to auscultation and percussion. No rales, rhonchi or wheezes noted. No increased work of breathing, no retractions or nasal flaring. Abdomen/GI: Soft, non-tender, with normal bowel sounds. No distension or tympany. No guarding or rebound. No evidence of tenderness throughout. Back: No spinal tenderness. No costovertebral tenderness. Full range of motion. MS/ Extremity: Pulses equal, no cyanosis. Neurovascular intact. Full, normal range of motion. Neuro: Awake and alert, GCS 15, oriented to person, place, time, and situation. Cranial nerves II-XII grossly intact. Motor strength 5/5 in all extremities. Sensory grossly intact. Cerebellar exam normal. Normal gait. Psych: Awake, alert, with orientation to person, place and time. Behavior, mood, and affect are within normal limits. 00:43 Skin: Appearance: normal except for affected area, injury, laceration(s), the wound is approximately 3 cm(s), with a depth of 2 cm(s), of the heel of left hand, no weakness, muscle belly visible but intact, full rom and strength to left wrist. Vital Signs: 11/23 22:15 BP 130 / 74; Pulse 80; Resp 16; Temp 97.6; Pulse Ox 100% on R/A; Weight 76.2 kg (R); ak1 Height 5 ft. 6 in. (167.64 cm) (R); Pain 2/10; 11/24 00:30 BP 125 / 76; Pulse 76; Resp 16; Pulse Ox 100% on R/A; rv 11/23 22:15 Body Mass Index 27.12 (76.20 kg, 167.64 cm) ak1 MDM: 11/23 23:12 Patient medically screened. josh 11/24 00:57 Data reviewed: vital signs, nurses notes. Data interpreted: Pulse oximetry: on is 100 snw %. Interpretation: normal. Counseling: I had a detailed discussion with the patient and/or guardian regarding: the historical points, exam findings, and any diagnostic results supporting the discharge/admit diagnosis, the need for outpatient follow up, to return to the emergency department if symptoms worsen or persist or if there are any questions or concerns that arise at home. Special discussion: I discussed in detail with the patient the higher chance of wound infection based on his presenting history. Based on the history and exam findings, there is no indication for further emergent testing or inpatient evaluation. I discussed with the patient/guardian the need to see the primary care provider for further evaluation of the symptoms. 11/24 00:16 Order name: Wound dressing; Complete Time: :29 snw Administered Medications: 00:28 Drug: KeFLEX 500 mg Route: PO; rv 00:29 Follow up: Response: Medication administered at discharge. 00: Drug: traMADol 25 mg {Note: rass 0.} Route: PO; rv 00:29 Follow up: Response: Medication administered at discharge. 00:29 Drug: Tetanus-Diphtheria Toxoid Adult 0.5 ml {Engineer Byproduct: Electrolytic Ozone. Exp: 07/12/2020. Lot #: [id number]. } {Note: rass 0.} Route: IM; Site: right deltoid; 00:29 Follow up: Response: Medication administered at discharge. rv Disposition: 09:05 Co-signature as Attending Physician, Ellis Juarez MD I agree with the assessment and [facility] plan of care. Disposition: 11/24/18 00:12 Discharged to Home. Impression: Laceration without foreign body of left hand. - Condition is Stable. - Discharge Instructions: Laceration Care, Adult, Sutured Wound Care. - Prescriptions for Keflex 500 mg Oral Capsule - take 1 capsule by ORAL route every 8 hours for 10 days; 30 capsule. Mobic 7.5 mg Oral Tablet - take 1 tablet by ORAL route once daily take with food; 20 tablet. - Medication Reconciliation Form, Thank You Letter, Antibiotic Education, Prescription Opioid Use form. - Follow up: Private Physician; When: 7 - 10 days; Reason: Recheck today's complaints, Continuance of care, Staple/Suture removal, Re-evaluation by your physician. Follow up: Emergency Department; When: 7 - 10 days; Reason: Staple/Suture removal. Signatures: Ellis Juarez MD MD cha Therrien, Shelly, TOP TAPER MACHINE-C TOP TAPER MACHINE-CsnNiki Ahn, RN RN ak1 Giuseppe Owusu, RN RN rv Corrections: (The following items were deleted from the chart) 00:31 00:12 11/24/2018 00:12 Discharged to Home. Impression: Laceration without foreign body rv of left hand. Condition is Stable. Forms are Medication Reconciliation Form, Thank You Letter, Antibiotic Education, Prescription Opioid Use. Follow up: Private Physician; When: 7 - 10 days; Reason: Recheck today's complaints, Continuance of care, Staple/Suture removal, Re-evaluation by your physician. Follow up: Emergency Department; When: 7 - 10 days; Reason: Staple/Suture removal. snw
[2018-11-24] MEDS ORDERED: CEPHALEXIN 250 MG CAP ONE (00:21)
[2018-11-24] MEDS ORDERED: TRAMADOL HCL 50 MG TAB ONE (00:22)
[2018-11-24] MEDS ORDERED: TETANUS & DIPHTHERIA TOX,ADULT 0.5 ML VIAL ONE (00:22)
[2018-11-24] MEDS ORDERED: PROPOFOL 200 MG/20 ML VIAL IV ONE (01:25)
[2018-11-24] MEDS ORDERED: ROCURONIUM 50 MG/5 ML VIAL IV ONE (01:34)
[2018-11-24] MEDS ORDERED: OXYTOCIN 10 UNIT/ML ML IV ONE (01:35)
[2018-11-24 01:41] VITALS: TEMP 97.6; O2SAT 100
[2018-11-24 01:42] VITALS: BP 125/76
[2018-11-24] MEDS ORDERED: FENTANYL CITR 250 MCG/5 ML ONE (01:52)
[2018-11-24] MEDS ORDERED: SUCCINYLCHOLINE 20 MG/ML (10 ML) IV ONE (01:55)
[2018-11-24] MEDS ORDERED: GLYCOPYRROLATE 0.2 MG/ML SYR ONE (01:56)
[2018-11-24] MEDS ORDERED: NEOSTIGMINE 1 MG/ML -10 ML VIAL ONE (01:56)
== END 2018-11-24 00:31 | disposition home or self-care (01) ==
LOC: ER 22:00
DX: S61.412A Laceration without foreign body of left hand, initial encounter (principal); W26.0XXA Contact with knife, initial encounter; Y93.89 Activity, other specified; Y92.9 Unspecified place or not applicable; Z23 Encounter for immunization
CPT/HCPCS: 90471; 90714; 99284; J2704; J2590; J0330; J2710; J3010

== ENCOUNTER 2019-12-14 10:59 | Emergency (ER) | payer BC, OTHER ==
[2019-12-14] MEDS ORDERED: MORPHINE 4 MG/ML SYR ONE (11:39)
[2019-12-14] MEDS ORDERED: ONDANSETRON 4 MG/2 ML VIAL ONE (11:39)
--- NOTE | 2019-12-14 12:10 | RAD REPORT ---
EXAM DESCRIPTION: CT - Spine Lumbar Wo Con - 12/14/2019 11:54 am CLINICAL HISTORY: Radiculopathy. LOWER BACK PAIN COMPARISON: No comparisons TECHNIQUE: Axial noncontrast CT imaging of the lumbar spine was performed with coronal and sagittal re-formatted images. All CT scans are performed using dose optimization technique as appropriate and may include automated exposure control or mA/KV adjustment according to patient size. FINDINGS: Moderate anterior wedge compression fracture affects the T12 vertebral body, acute in appe arance. Loss of vertebral body height is estimated at 50%. Mild posterior retropulsion of the superio r vertebral body fracture component results in moderate central canal narrowing. Mild thickening of the paraspinal tissues at this level. Elsewhere, there is mild degenerative spondylosis of the lower lumbar spine with bulging of disc mate rial. No high-grade central canal stenosis seen. Tiny gallstone may be present in the gallbladder. IMPRESSION: Acute, moderate compression fracture of the T12 vertebral body with moderate central can al stenosis. Loss of vertebral body height estimated at 50%.
--- NOTE | 2019-12-14 12:17 | RAD REPORT ---
EXAM DESCRIPTION: RAD - Hip Right 2 View - 12/14/2019 12:02 pm CLINICAL HISTORY: PAIN Fall, pain COMPARISON: No comparisons FINDINGS: Bpel-[id number] osteoarthritis affects the right hip. No acute fracture, dislocation or A VN pattern observed.
--- NOTE | 2019-12-14 12:17 | RAD REPORT ---
EXAM DESCRIPTION: RAD - Pelvis - 12/14/2019 12:01 pm CLINICAL HISTORY: right hip pain Fall, right hip pain COMPARISON: Hip Right 2 View dated 12/14/2019; Spine Lumbar Wo Con dated 12/14/2019 FINDINGS: Mild osteoarthritic changes are present involving the hips. No acute fracture, dislocation or AVN.
[2019-12-14] MEDS ORDERED: FENTANYL CITR 100 MCG/2 ML ONE (12:32)
[2019-12-14] MEDS ORDERED: NA CHLORIDE 0.9% 100 ML IV ONE (14:00)
[2019-12-14] MEDS ORDERED: HYDROMORPHONE HCL 2 MG/ML inj ONE (14:00)
--- NOTE | 2019-12-14 14:04 | ER ---
Nurse's Notes [facility] Name: Vivian Fatima Age: 59 yrs Sex: Female : 1960 Arrival Date: 12/14/2019 Time: 11:05 Bed 14 Private MD: Diagnosis: T12 Compression fracature with 50% loss of height and retropulsion with moderate canal stenosis Presentation: 12/13 11:05 Chief complaint: EMS states: Low back and right hip pain that radiates to right thigh hb after mechanical fall from standing this morning. Denies other injuries. Pt ambulated to EMS stretcher with assistance. 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 Care prior to arrival: IV initiated. 20 GA, in the left antecubital area. Mechanism of Injury: Fall from standing position. Trauma event details: Injury occurred in the [facility], Injury occurred: at home. Injury occurred: December 14, 2019. 11:05 Acuity: LAYO 3 hb 11:05 Method Of Arrival: EMS: [facility] hb 11:07 Coronavirus screen: At this time, the client does not indicate any symptoms associated hb with coronavirus-19. Ebola Screen: No symptoms or risks identified at this time. Initial Sepsis Screen: Does the patient meet any 2 criteria? No. Patient's initial sepsis screen is negative. Does the patient have a suspected source of infection? No. Patient's initial sepsis screen is negative. Risk Assessment: Do you want to hurt yourself or someone else? Patient reports no desire to harm self or others. Onset of symptoms was December 14, 2019. Trauma Activation: Not Applicable Physician: ED Physician; Name: ; Notified At: ; Arrived At: Physician: General Surgeon; Name: ; Notified At: ; Arrived At: Physician: Radiology; Name: ; Notified At: ; Arrived At: Physician: Respiratory; Name: ; Notified At: ; Arrived At: Physician: Lab; Name: ; Notified At: ; Arrived At: Historical: - Allergies: 11: Latex, Natural Rubber; hb - Home Meds: 11: gabapentin 400 mg Oral cap 2 cap nightly [Active]; Lamictal 300 mg Oral 1 tab once hb daily [Active]; Prozac 60 mg Oral once daily [Active]; Wellbutrin 150 mg Oral nightly [Active]; - PMHx: 11:09 Bipolar disorder; hb - PSHx: 11:09 None; hb - Immunization history:: Adult Immunizations up to date. - Social history:: Smoking status: Patient denies any tobacco usage or history of. - Immunization history: Last tetanus immunization: - up to date. Screenin:10 Abuse screen: Denies threats or abuse. Denies injuries from another. Nutritional hb screening: No deficits noted. Tuberculosis screening: No symptoms or risk factors identified. Fall Risk None identified. Primary Survey: 11:05 NO uncontrolled hemorrhage observed. A: The patient is alert. Airway: patent, No hb supplemental oxygen in use on arrival. Breathing/Chest: Respiratory pattern: regular, Respiratory effort: spontaneous, unlabored, Chest inspection: symmetrical rise and fall of the chest. Circulation: Pulses: palpable . Skin color: pink, Skin temperature: warm, dry. Disability Alert. Exposure/Environment: There is no evidence of uncontrolled external bleeding. A warming method has been applied: A warm blanket has been provided to the patient. 11:45 Reassessment Airway Airway Patent Breathing/Chest Respiratory pattern Regular hb Respiratory effort Spontaneous Unlabored Chest inspection Symmetrical Circulation Color [place] Disability Alert. 12:45 Reassessment Airway Airway Patent Breathing/Chest Respiratory pattern Regular hb Respiratory effort Spontaneous Unlabored Chest inspection Symmetrical Circulation Color [place] Disability Alert. 13:45 Reassessment Airway Airway Patent Breathing/Chest Respiratory pattern Regular hb Respiratory effort Spontaneous Unlabored Chest inspection Symmetrical Circulation Color [place] Disability Alert. 14:45 Reassessment Airway Airway Patent Breathing/Chest Respiratory pattern Regular hb Respiratory effort Spontaneous Unlabored Chest inspection Symmetrical Circulation Color [place] Disability Alert. Secondary Survey: 11:05 HEENT: No deficits noted. Gastrointestinal: No deficits noted. : No deficits noted. hb No signs and/or symptoms were reported regarding the genitourinary system. Musculoskeletal: Reports right hip and low back pain. Assessment: 11:06 General: Appears in no apparent distress. uncomfortable, Behavior is cooperative, hb restless. Pain: Pain currently is 9 out of 10 on a pain scale. Neuro: Level of Consciousness is awake, alert, obeys commands, Oriented to person, place, time, situation. EENT: No signs and/or symptoms were reported regarding the EENT system. Cardiovascular: Capillary refill < 3 seconds Patient's skin is warm and dry. Respiratory: Airway is patent Respiratory effort is even, unlabored, Respiratory pattern is regular, symmetrical. GI: No signs and/or symptoms were reported involving the gastrointestinal system. : No signs and/or symptoms were reported regarding the genitourinary system. Derm: Skin is pink, warm \T\ dry. Musculoskeletal: Reports low back and right hip pain. 11:45 Reassessment: Patient appears in no apparent distress at this time. Patient and/or hb family updated on plan of care and expected duration. Pain level reassessed. Patient is alert, oriented x 3, equal unlabored respirations, skin warm/dry/pink. 11:56 Reassessment: Pt to radiology via stretcher. hb 12:17 Reassessment: Pt returned from radiology. hb 12:22 Reassessment: Pt c/o pain 7-8, requesting pain medication. Dr. Vargas notified, hb Fentanyl administered as ordered. 13:15 Reassessment: Patient appears in no apparent distress at this time. Patient and/or hb family updated on plan of care and expected duration. Pain level reassessed. Patient is alert, oriented x 3, equal unlabored respirations, skin warm/dry/pink. 13:46 Reassessment: Report called to Isa MARTINEZ at [facility]. hb 14:45 Reassessment: Patient appears in no apparent distress at this time. Patient and/or hb family updated on plan of care and expected duration. Pain level reassessed. Patient is alert, oriented x 3, equal unlabored respirations, skin warm/dry/pink. Vital Signs: 11:07 BP 147 / 100; Pulse 69; Resp 16; Temp 97.8; Pulse Ox 100% ; Weight 76.2 kg; Height 5 hb ft. 6 in. (167.64 cm); Pain 10/10; 11:45 BP 141 / 95; Pulse 66; Resp 15; Pulse Ox 99% on R/A; hb 12:45 BP 149 / 95; Pulse 64; Resp 14; Pulse Ox 97% on R/A; hb 13:45 BP 148 / 83; Pulse 71; Resp 15; Pulse Ox 99% ; Pain 8/10; hb 14:45 BP 123 / 57; Pulse 67; Resp 16; Temp 97.9; Pulse Ox 97% on R/A; Pain 7/10; hb 11:07 Body Mass Index 27.12 (76.20 kg, 167.64 cm) hb Prospect Coma Score: 11:05 Eye Response: spontaneous(4). Verbal Response: oriented(5). Motor Response: obeys hb commands(6). Total: 15. Trauma Score (Adult): 11:05 Eye Response: spontaneous(1); Verbal Response: oriented(1); Motor Response: obeys hb commands(2); Systolic BP: > 89 mm Hg(4); Respiratory Rate: 10 to 29 per min(4); Joe Score: 15; Trauma Score: 12 11:45 Eye Response: spontaneous(1); Verbal Response: oriented(1); Motor Response: obeys hb commands(2); Systolic BP: > 89 mm Hg(4); Respiratory Rate: 10 to 29 per min(4); Joe Score: 15; Trauma Score: 12 12:45 Eye Response: spontaneous(1); Verbal Response: oriented(1); Motor Response: obeys hb commands(2); Systolic BP: > 89 mm Hg(4); Respiratory Rate: 10 to 29 per min(4); Joe Score: 15; Trauma Score: 12 13:45 Eye Response: spontaneous(1); Verbal Response: oriented(1); Motor Response: obeys hb commands(2); Systolic BP: > 89 mm Hg(4); Respiratory Rate: 10 to 29 per min(4); Prospect Score: 15; Trauma Score: 12 14:45 Eye Response: spontaneous(1); Verbal Response: oriented(1); Motor Response: obeys hb commands(2); Systolic BP: > 89 mm Hg(4); Respiratory Rate: 10 to 29 per min(4); Joe Score: 15; Trauma Score: 12 ED Course: 11:05 Patient arrived in ED. hb 11:07 Triage completed. hb 11:08 Epifanio Vargas MD is Attending Physician. kdr 11:09 Arm band placed on. hb 11:11 Patient has correct armband on for positive identification. Bed in low position. Call hb light in reach. Side rails up X 1. 11:11 Maintain EMS IV. Dressing intact. Good blood return noted. Site clean \T\ dry. Gauge \T\ hb site: 20g LAC. 11:12 Patient maintains SpO2 saturation greater than 95% on room air. Thermoregulation: warm hb blanket given to patient. 11:28 Aliza Acevedo, RN is Primary Nurse. sv 11:31 Leticia Ibrahim, RN is Primary Nurse. hb 11:54 CT Lumbar Spine Wo Con In Process Unspecified. EDMS 12:01 Pelvis XRAY In Process Unspecified. EDMS 12:01 Hip Right 2 View XRAY In Process Unspecified. EDMS 12:36 Transfer initiated to [facility]. mt 12:55 Dr. crystal Rushing report given. mt 13:15 Dr. Vargas gave report to Dr. Potter, hospitalist, at [facility]. mt 13:45 Nurse to Nurse Report given. mt 13:47 [facility] called for transfer request, 15 min ETA. mt 13:56 No provider procedures requiring assistance completed. Patient transferred, IV remains hb in place. Administered Medications: 11:29 Drug: morphine 4 mg Route: IVP; Site: left antecubital; sv 12:22 Follow up: Response: No adverse reaction hb 11:29 Drug: Zofran (Ondansetron) 4 mg Route: IVP; Site: left antecubital; sv 12:22 Follow up: Response: No adverse reaction hb 11:33 CANCELLED (Duplicate Order): Zofran (Ondansetron) 4 mg IVP once; over 2 minutes hb 12:22 Drug: fentaNYL (PF) 50 mcg Route: IVP; Site: left antecubital; hb 13:00 Follow up: Response: No adverse reaction hb 13:57 Drug: Dilaudid 2 mg Route: IVP; Infused Over: 1 hrs; Site: left antecubital; hb 14:58 Follow up: Response: No adverse reaction hb Intake: 11:05 PO: 0ml; Total: 0ml. hb Output: 11:05 Urine: 0ml; Total: 0ml. hb Outcome: 13:56 Transferred by ground EMS to [facility]. hb 13:56 Condition: stable 13:56 Instructed on the need for transfer, Demonstrated understanding of instructions. 13:58 Patient's length of stay in the Emergency Department was greater than 2 hours. awaiting hb transfer to higher level of carePatient's length of stay extended due to 14:04 ER care complete, transfer ordered by . kdr 14:58 Patient left the ED. hb Signatures: Dispatcher [employer] Aliza Stock RN RN sv Rittger, Kevin, MD MD kdr Baxter, Heather, RN RN hb Thompson, Moriah wa
--- NOTE | 2019-12-14 14:05 | EDPHYS ---
Physician Documentation [facility] Name: Vivian Fatima Age: 59 yrs Sex: Female : 1960 Arrival Date: 12/14/2019 Time: 11:05 Bed 14 Private MD: ED Physician Epifanio Vargas HPI: 12/13 16:20 This 59 yrs old Female presents to ER via EMS with complaints of Fall Injury. kdr 16:20 Details of fall: The patient fell from an upright position, while walking. Onset: The kdr symptoms/episode began/occurred suddenly, just prior to arrival. Associated injuries: The patient sustained upper back injury, pain, pain with movement, injury to the low back. Severity of symptoms: At their worst the symptoms were moderate. 16:28 The patient has not experienced similar symptoms in the past. The patient has not kdr recently seen a physician. Slipped on 2 liter volume bottle an landed on bottom. Historical: - Allergies: 11:09 Latex, Natural Rubber; hb - Home Meds: 11:09 gabapentin 400 mg Oral cap 2 cap nightly [Active]; Lamictal 300 mg Oral 1 tab once hb daily [Active]; Prozac 60 mg Oral once daily [Active]; Wellbutrin 150 mg Oral nightly [Active]; - PMHx: 11:09 Bipolar disorder; hb - PSHx: 11:09 None; hb - Immunization history:: Adult Immunizations up to date. - Social history:: Smoking status: Patient denies any tobacco usage or history of. - Immunization history: Last tetanus immunization: - up to date. ROS: 16:28 Constitutional: Negative for fever, chills, and weight loss, Eyes: Negative for injury, kdr pain, redness, and discharge, Neck: Negative for injury, pain, and swelling, Cardiovascular: Negative for chest pain, palpitations, and edema, Respiratory: Negative for shortness of breath, cough, wheezing, and pleuritic chest pain, Abdomen/GI: Negative for abdominal pain, nausea, vomiting, diarrhea, and constipation, : Negative for injury, bleeding, discharge, and swelling, MS/Extremity: Negative for injury and deformity, Skin: Negative for injury, rash, and discoloration, Neuro: Negative for headache, weakness, numbness, tingling, and seizure activity. Psych: Negative for depression, anxiety, suicide ideation, homicidal ideation, and hallucinations, Allergy/Immunology: Negative for hives, rash, and allergies, Endocrine: Negative for neck swelling, polydipsia, polyuria, polyphagia, and marked weight changes, Hematologic/Lymphatic: Negative for swollen nodes, abnormal bleeding, and unusual bruising. 16:28 Back: Positive for pain at rest, pain with movement, of the lumbar area. Exam: 16:28 Constitutional: This is a well developed, well nourished patient who is awake, alert, kdr and in no acute distress. Head/Face: Normocephalic, atraumatic. Eyes: Pupils equal round and reactive to light, extra-ocular motions intact. Lids and lashes normal. Conjunctiva and sclera are non-icteric and not injected. Cornea within normal limits. Periorbital areas with no swelling, redness, or edema. Neck: Trachea midline, no thyromegaly or masses palpated, and no cervical lymphadenopathy. Supple, full range of motion without nuchal rigidity, or vertebral point tenderness. No Meningismus. Chest/axilla: Normal chest wall appearance and motion. Nontender with no deformity. No lesions are appreciated. Cardiovascular: Regular rate and rhythm with a normal S1 and S2. No gallops, murmurs, or rubs. Normal PMI, no JVD. No pulse deficits. Respiratory: Lungs have equal breath sounds bilaterally, clear to auscultation and percussion. No rales, rhonchi or wheezes noted. No increased work of breathing, no retractions or nasal flaring. Abdomen/GI: Soft, non-tender, with normal bowel sounds. No distension or tympany. No guarding or rebound. No evidence of tenderness throughout. Skin: Warm, dry with normal turgor. Normal color with no rashes, no lesions, and no evidence of cellulitis. MS/ Extremity: Pulses equal, no cyanosis. Neurovascular intact. Full, normal range of motion. Neuro: Awake and alert, GCS 15, oriented to person, place, time, and situation. Cranial nerves II-XII grossly intact. Motor strength 5/5 in all extremities. Sensory grossly intact. Cerebellar exam normal. Normal gait. Psych: Awake, alert, with orientation to person, place and time. Behavior, mood, and affect are within normal limits. 16:28 Back: pain, that is severe, of the lumbar area, ROM is painful, normal spinal alignment noted, CVA tenderness, is absent, vertebral tenderness, is appreciated at T11, T12, L1 and L2. Vital Signs: 11:07 BP 147 / 100; Pulse 69; Resp 16; Temp 97.8; Pulse Ox 100% ; Weight 76.2 kg; Height 5 hb ft. 6 in. (167.64 cm); Pain 10/10; 11:45 BP 141 / 95; Pulse 66; Resp 15; Pulse Ox 99% on R/A; hb 12:45 BP 149 / 95; Pulse 64; Resp 14; Pulse Ox 97% on R/A; hb 13:45 BP 148 / 83; Pulse 71; Resp 15; Pulse Ox 99% ; Pain 8/10; hb 14:45 BP 123 / 57; Pulse 67; Resp 16; Temp 97.9; Pulse Ox 97% on R/A; Pain 7/10; hb 11:07 Body Mass Index 27.12 (76.20 kg, 167.64 cm) hb Newkirk Coma Score: 11:05 Eye Response: spontaneous(4). Verbal Response: oriented(5). Motor Response: obeys hb commands(6). Total: 15. Trauma Score (Adult): 11:05 Eye Response: spontaneous(1); Verbal Response: oriented(1); Motor Response: obeys hb commands(2); Systolic BP: > 89 mm Hg(4); Respiratory Rate: 10 to 29 per min(4); Joe Score: 15; Trauma Score: 12 11:45 Eye Response: spontaneous(1); Verbal Response: oriented(1); Motor Response: obeys hb commands(2); Systolic BP: > 89 mm Hg(4); Respiratory Rate: 10 to 29 per min(4); Joe Score: 15; Trauma Score: 12 12:45 Eye Response: spontaneous(1); Verbal Response: oriented(1); Motor Response: obeys hb commands(2); Systolic BP: > 89 mm Hg(4); Respiratory Rate: 10 to 29 per min(4); Joe Score: 15; Trauma Score: 12 13:45 Eye Response: spontaneous(1); Verbal Response: oriented(1); Motor Response: obeys hb commands(2); Systolic BP: > 89 mm Hg(4); Respiratory Rate: 10 to 29 per min(4); Joe Score: 15; Trauma Score: 12 14:45 Eye Response: spontaneous(1); Verbal Response: oriented(1); Motor Response: obeys hb commands(2); Systolic BP: > 89 mm Hg(4); Respiratory Rate: 10 to 29 per min(4); Newkirk Score: 15; Trauma Score: 12 MDM: 14:04 Patient medically screened. kdr 16:28 Data reviewed: vital signs, nurses notes, radiologic studies. Counseling: I had a kdr detailed discussion with the patient and/or guardian regarding: the historical points, exam findings, and any diagnostic results supporting the discharge/admit diagnosis, radiology results, the need to transfer to another facility. ED course: The patient remained neurologically intact and without deficit in the ED prior to trransfer. 12/13 11:27 Order name: CT Lumbar Spine Wo Con; Complete Time: 12:30 kdr 12/13 11:27 Order name: Pelvis XRAY; Complete Time: 12:30 kdr 12/13 11:27 Order name: Hip Right 2 View XRAY; Complete Time: 12:30 kdr Administered Medications: 11:29 Drug: morphine 4 mg Route: IVP; Site: left antecubital; sv 12:22 Follow up: Response: No adverse reaction hb 11:29 Drug: Zofran (Ondansetron) 4 mg Route: IVP; Site: left antecubital; sv 12:22 Follow up: Response: No adverse reaction hb 11:33 CANCELLED (Duplicate Order): Zofran (Ondansetron) 4 mg IVP once; over 2 minutes hb 12:22 Drug: fentaNYL (PF) 50 mcg Route: IVP; Site: left antecubital; hb 13:00 Follow up: Response: No adverse reaction hb 13:57 Drug: Dilaudid 2 mg Route: IVP; Infused Over: 1 hrs; Site: left antecubital; hb 14:58 Follow up: Response: No adverse reaction hb Disposition: 12/14/19 14:04 Transfer ordered to [facility]. 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 - Reason for transfer: Higher level of care. - Accepting physician is Dr. Bland/Neuro \T\ Hospitalist. - Condition is Fair. - Problem is new. - Symptoms have improved. Signatures: Dispatcher [employer] Aliza Stock, RN RN Epifanio Vargas MD MD [facility] Leticia Ibrahim RN RN Corrections: (The following items were deleted from the chart) 11:33 11:31 Zofran (Ondansetron) 4 mg IVP once; over 2 minutes ordered. [facility] 14:58 14:04 12/14/2019 14:04 Transfer ordered to [facility]. 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 Reason for transfer: Higher level of care. Accepting physician is Dr. Bland/Neuro \T\ Hospitalist. Condition is Fair. Problem is new. Symptoms have improved. kdr
[2019-12-14 15:31] VITALS: BP 123/57; TEMP 97.9; O2SAT 97
== END 2019-12-14 14:58 | disposition short-term general hospital (02) ==
LOC: ER 10:59
DX: S22.089A Unspecified fracture of T11-T12 vertebra, initial encounter for closed fracture (principal); W01.0XXA Fall on same level from slipping, tripping and stumbling without subsequent striking against object, initial encounter; Y93.9 Activity, unspecified; Y92.9 Unspecified place or not applicable; Z91.040 Latex allergy status; Z91.048 Other nonmedicinal substance allergy status; F31.9 Bipolar disorder, unspecified
CPT/HCPCS: 72131; 72170; 73502; 96375; 96374; 99285; J1170; J3010; J2405

== ENCOUNTER 2020-01-31 14:22 | Emergency (ER) | payer BC ==
--- OUTSIDE RECORDS SUMMARY | 2020-01-31 14:33 | XMS REPORT | Clinical Summary ---
:1960 Author Organization [facility] Address [address] [place] [address] Care Team Providers Name Role Phone Unavailable Primary Care Provider Unavailable Allergies Active Allergy Reactions Severity Noted Date Comments Latex 12/14/2019 Medications Medication Sig Dispensed Refills Start Date End Date Status lamoTRIgine Take 150 mg by 0 Act chinyere (LaMICtal) 150 MG mouth daily tablet Bipolar disorder . buPROPion (WELLBUTRIN Take 150 mg by 0 Active XL) 150 MG 24 hr mouth daily. tabletIndications: depression associated with bipolar disorder fLUoxetine (PROzac) Take 20 mg by 0 Active 20 MG mouth daily. capsuleIndications: depression associated with bipolar disorder, adjunct senna-docusate Take 2 tablets by 30 tablet 0 12/20/20192020 Active (SENOKOT S) 8.6-50 mg mouth nightly. per tablet Additional Information Patient not taking. Reported on 01/02/2020 11:11 AM polyethylene glycol Take 17 g by mouth 10 each 0 12/21/2019 12/31/2019 (GLYCOLAX) 17 gram daily for 10 days. packet HYDROcodone-acetaminophe Take 1 tablet by 30 tablet 0 12/20/19 20 12/27/2019 n (NORCO 10-325) 10-325 mouth every 6 (six) mg per tablet hours as needed for Pain for up to 7 days. Max Daily Amount: 4 tablets Active Problems Problem Noted Date T12 compression fracture, initial encounter 12/15/2019 Bipolar affective disorder in remission 12/14/2019 T12 compression fracture 12/14/2019 Accident due to mechanical fall 12/14/2019 Encounters Date Type Specialty Care Team Description 01/02/2020 Office Visit Jcarlos Marc II, MD 12/19/2019 Anesthesia Event Mauricio Heart MD 12/19/2019 Surgery Virtual, Surgeon PROCEDURE D ONE OUTSIDE OR 12/14/2019 - Hospital Encounter General Internal Tariq, Roslyn T12 compression 12/20/2019 Medicine MD Angelia fracture, initial [place], encounter (HCC) MD Leo Draper Yashash D, MD 12/14/2019 Travel after 01/30/2019 Immunizations Name Administration Dates Next Due Influenza Four-QIV PF 3YR+ 12/15/2019 Social History Tobacco Use Types Packs/Day Years Used Date Former Smoker 6 Quit: 03/01/19 13 Smokeless Tobacco: Never Used Tobacco Cessation: Counseling Given: No Alcohol Use Drinks/Week oz/Week Comments Not Currently 0 Glasses of wine 0.0 socials only 0 Cans of beer 0 Shots of liquor Sex Assigned at Date Recorded Not on file Last Filed Vital Signs Vital Sign Reading Time Taken Comments Blood Pressure 128/72 01/02/2020 11:08 AM [employer] Pulse 73 01/02/2020 11:08 AM [employer] Temperature 36.8 C (98.3 F) 01/02/2020 11:08 AM [employer] Respiratory Rate 18 01/02/2020 11:08 AM [employer] Oxygen Saturation 100% 01/02/2020 11:08 AM [employer] Inhaled Oxygen Concentration - - Weight 76.7 kg (169 lb) 01/02/2020 11:08 AM [employer] Height 167.7 cm (5' 6.02") 01/02/2020 11:08 AM [employer] Body Mass Index 27.26 01/02/2020 11:08 AM [employer] Plan of Treatment Health Maintenance Due Date Last Done Comments BREAST CANCER SCREENING 1960 COLON CANCER SCREENING COLONOSCOPY 1960 CERVICAL CANCER SCREENING PAP ONLY (Age 21-65) 1981 LIPID PANEL 2005 INFLUENZA VACCINE Completed 12/15/2019 Procedures Procedure Name Priority Date/Time Associated Diagnosis Comme nts CBC W/PLT COUNT & Routine 12/20/2019 4:27 Result s for this AUTO DIFFERENTIAL AM CDT procedure are in the results section. BASIC METABOLIC PANEL Routine 12/20/2019 4:27 Re sults for this (7) AM CDT procedure are i n the results section. CBC W/PLT COUNT & Routine 12/20/2019 4:27 Result s for this AUTO DIFFERENTIAL AM CDT procedure are in the results section. IR KYPHOPLASTY Routine 12/19/2019 1:06 Results f or this THORACIC PM CDT procedure are i n the results section. PROCEDURE DONE 12/19/2019 10:00 Compression fracture OUTSIDE OR AM CDT of T12 vertebra, initial encounter (HCC) SARS-COV2/RT-PCR STAT 12/19/2019 8:48 Results for this ([facility]) AM CDT procedure are in the results section. CBC W/PLT COUNT & Routine 12/19/2019 4:20 Result s for this AUTO DIFFERENTIAL AM CDT procedure are in the results section. BASIC METABOLIC PANEL Routine 12/19/2019 4:20 Re sults for this (7) AM CDT procedure are i n the results section. CBC W/PLT COUNT & Routine 12/19/2019 4:20 Result s for this AUTO DIFFERENTIAL AM CDT procedure are in the results section. CBC W/PLT COUNT & Routine 12/18/2019 5:48 Result s for this AUTO DIFFERENTIAL AM CDT procedure are in the results section. BASIC METABOLIC PANEL Routine 12/18/2019 5:48 Re sults for this (7) AM CDT procedure are i n the results section. CBC W/PLT COUNT & Routine 12/18/2019 5:48 Result s for this AUTO DIFFERENTIAL AM CDT procedure are in the results section. CBC W/PLT COUNT & Routine 12/17/2019 4:31 Result s for this AUTO DIFFERENTIAL AM CDT procedure are in the results section. BASIC METABOLIC PANEL Routine 12/17/2019 4:31 Re sults for this (7) AM CDT procedure are i n the results section. CBC W/PLT COUNT & Routine 12/17/2019 4:31 Result s for this AUTO DIFFERENTIAL AM CDT procedure are in the results section. MR THORACIC SPINE Routine 12/15/2019 9:12 Result s for this WITH & WITHOUT IV PM CDT procedure are in CONTRAST the results section. CBC W/PLT COUNT & Routine 12/15/2019 6:09 Result s for this AUTO DIFFERENTIAL AM CDT procedure are in the results section. PROTHROMBIN TIME/INR Routine 12/15/2019 6:09 Res ults for this AM CDT procedure are i n the results section. BASIC METABOLIC PANEL Routine 12/15/2019 6:09 Re sults for this (7) AM CDT procedure are i n the results section. CBC W/PLT COUNT & Routine 12/15/2019 6:09 Result s for this AUTO DIFFERENTIAL AM CDT procedure are in the results section. CT LUMBAR SPINE STAT 12/14/2019 11:57 Results for this WITHOUT IV CONTRAST PM CDT procedur e are in the results section. CT THORACIC SPINE STAT 12/14/2019 11:57 Result s for this WITHOUT IV CONTRAST PM CDT procedur e are in the results section. after 01/30/2019 Results CBC with platelet count + automated diff (12/20/2019 4:27 AM CDT)Only the most recent of5 resultswithin the time period is included. Pathologist Sig nature WBC 6.0 3.5 - 10.5 [facility] K/L [facility] RBC 3.40 (L) 3.93 - 5.22 [facility] Hemoglobin 10.1 (L) 11.2 - 15.7 [facility] GM/DL [facility] Hematocrit 31.7 (L) 34.1 - 44.9 % [facility] MCV 93.2 79.4 - 94.8 fL [facility] MCH 29.7 25.6 - 32.2 pg [facility] MCHC 31.9 (L) 32.2 - 35.5 [facility] GM/DL [facility] RDW 13.0 11.7 - 14.4 % [facility] Platelets 239 150 - 450 K/CU [facility] MPV 9.6 9.4 - 12.3 fL [facility] nRBC 0 0 - 0 /100 WBC [facility] % Neutros 63 % [facility] % Lymphs 20 % [facility] % Monos 12 % [facility] % Eos 3 % [facility] % Baso 1 % [facility] # Neutros 3.79 1.56 - 6.13 [facility] # Lymphs 1.22 1.18 - 3.74 [facility] K/L [facility] # Monos 0.74 (H) 0.24 - 0.36 [facility]/L [facility] # Eos 0.20 0.04 - 0.36 [facility]/L [facility] # Baso 0.03 0.01 - 0.08 [facility]/L [facility] Immature 1 0 - 1 % [facility] Granulocytes-Relative [facility] Specimen Blood Performing Organization Address City/[facility]/Zipcode Phone Number [facility] [address] [place] [address] CENTER Basic Metabolic Panel (12/20/2019 4:27 AM CDT)Only the most recent of5 results within the time period is included. Sodium 134 (L) 136 - 145 meq/L [facility] Potassium 4.3 3.5 - 5.1 meq/L [facility] Chloride 101 98 - 107 meq/L [facility] CO2 26 22 - 29 meq/L [facility] BUN 12 7 - 21 mg/dL [facility] Creatinine 0.77 0.57 - 1.25 [facility] mg/dL [facility] Glucose 88 70 - 105 mg/dL [facility] Calcium 8.9 8.4 - 10.2 [facility] mg/dL [facility] EGFR 77Comment: ESTIMATED mL/min/1.[address] [facility] GFR IS NOT m [facility] ACCURATE [place] CREATININE CLEARANCE IN PREDICTING GLOMERULAR FILTRATION RATE. ESTIMATED GFR IS NOT APPLICABLE FOR DIALYSIS PATIENTS. Specimen Blood Narrative Performed At Shaft Repairer ID - PIA[facility] L [facility] [place] Performing Organization Address City/State/Zipcode Phone Number [facility] [address] [place] [address] CENTER IR kyphoplasty thoracic (12/19/2019 1:06 PM CDT) Specimen Narrative Performed At FINAL REPORT [facility] History: T12 vertebral compression fract ure and severe back pain despite conservative therapy. PROCEDURE: Following informed written consent, gene ral endotracheal anesthesia was administered and the patient was abby jessica in a prone position on the angiographic table. The patient's ba ck was prepped and draped in the usual sterile manner. Patient was gi ton 2 g IV Ancef prior the procedure for antibiotic prophylaxis. Us ing fluoroscopic guidance access was gained to the T12 vertebral b renetta using access cannulas and a bilateral transpedicular approach. The access cannulas were exchanged over K wires for a reamer gwen ce which was used to create tracts in each side of the T12 vertebral body. The reamer device was then removed and 5.0 spine jacks were pl aced into these cavities within the T12 vertebral body bilaterall y, again using the posterior transpedicular access. Under constant la teral fluoroscopic visualization, both jacks were deployed in the T12 vertebral body compression fracture was reduced. Approx imately 3 cc of methyl methacrylate was then infused into the T 12 vertebral body under AP and lateral fluoroscopic visualization. The working cannulas were then removed, hemostasis was achieved wi th manual compression and the small skin access sites in the back were closed using 3-0 Monocryl resorbable suture. Sterile bandages were applied. Overall, the patient tolerated the procedure well wit hout immediate complications and was discharged from the department i n stable condition. FINDINGS: Multiple images obtained during the proc edure show first the access cannulas and the reamer is in expected p osition within the T12 vertebral body bilaterally. Following de ployment of the bilateral spine jacks within the T12 vertebral bod y, the vertebral compression fracture is near completely reduced. Ector ority of the T12 vertebral body height loss was restored. Methacryl ate distribution within the T12 vertebral body surrounding the jacks is excellent. No extravasation. IMPRESSION: 1. Technically successful uncomplicated fluoroscopically guided T12 spine vikki vertebral augmentation as silas cribed in detail above. Total fluoroscopy time: 16.4 minutes. Estimated total patient dose reported as (Ka,r): 1425 mGy Signed: Jcarlos Wilson MD Report Verified Date/Time: 12/19/2019 18:11:28 Reading Location: [facility] P048 Angio Body Reading Room Procedure Note Interface, External Ris In - 12/19/2019 6:13 PM CDT FINAL REPORT History: T12 vertebral compression fract ure and severe back pain despite conservative therapy. PROCEDURE: Following informed written consent, gene ral endotracheal anesthesia was administered and the patient was abby jessica in a prone position on the angiographic table. The patient's ba ck was prepped and draped in the usual sterile manner. Patient was gi ton 2 g IV Ancef prior the procedure for antibiotic prophylaxis. Us ing fluoroscopic guidance access was gained to the T12 vertebral b renetta using access cannulas and a bilateral transpedicular approach. The access cannulas were exchanged over K wires for a reamer gwen ce which was used to create tracts in each side of the T12 vertebral body. The reamer device was then removed and 5.0 spine jacks were pl aced into these cavities within the T12 vertebral body bilaterall y, again using the posterior transpedicular access. Under constant la teral fluoroscopic visualization, both jacks were deployed in the T12 vertebral body compression fracture was reduced. Approx imately 3 cc of methyl methacrylate was then infused into the T 12 vertebral body under AP and lateral fluoroscopic visualization. The working cannulas were then removed, hemostasis was achieved wi th manual compression and the small skin access sites in the back were closed using 3-0 Monocryl resorbable suture. Sterile bandages were applied. Overall, the patient tolerated the procedure well wit hout immediate complications and was discharged from the department i n stable condition. FINDINGS: Multiple images obtained during the proc edure show first the access cannulas and the reamer is in expected p osition within the T12 vertebral body bilaterally. Following de ployment of the bilateral spine jacks within the T12 vertebral bod y, the vertebral compression fracture is near completely reduced. Ector ority of the T12 vertebral body height loss was restored. Methacryl ate distribution within the T12 vertebral body surrounding the jacks is excellent. No extravasation. IMPRESSION: 1. Technically successful uncomplicated fluoroscopically guided T12 spine vikki vertebral augmentation as silas cribed in detail above. Total fluoroscopy time: 16.4 minutes. Estimated total patient dose reported as (Ka,r): 1425 mGy Signed: Jcarlos Wilson MD Report Verified Date/Time: 12/19/2019 1 8:11:28 Reading Location: [facility] B1 P048 Angio Body Reading Room Performing Organization Address City/State/Zipcode Phone Number GE RIS SARS-CoV2/RT-PCR ([facility]) (12/19/2019 8:48 AM CDT) SARS-COV2/RT-PCR Negative Not Detected, [facility] Negative, See [facility] external report CENTER for linked test SARS-COV-2 [facility] PERFORMING LAB [facility] Specimen Other - Nasopharyngeal wall structure (b renetta structure) Narrative Performed At Negative results do not preclude SARS-CoV-2 [facility] infection and should not be used as the sole basis for patient management decisions. Negative results must be combined with clinical observations, patient history, and epidemiological information. A false negative result may occur if a specimen is improperly collected, transported or handled. The limit of detection for this assay is 250 copies/mL. This SARS CoV-2 test is a rapid, real-time RT-PCR test intended for the qualitative detection of nucleic acid from SARS-CoV-2 in a nasopharyngeal swab specimen collected from individuals suspected of COVID-19 by their healthcare provider. This test has not been Food and Drug Administration (FDA) cleared or approved and has been authorized by FDA under an Emergency Use Authorization (EUA). This EUA will be effective until the declaration that circumstances exist justifying the authorization of the emergency use of in vitro diagnostic tests for detection and/or diagnosis of COVID-19 is terminated under Section 564(b)(2) of the Act or the EUA is revoked under Section 564(g) of the Act. Fact Sheet for Healthcare Providers: https://www.[employer].OnBeep/Documents/Xpert%20Xpre ss%20SARS%20CoV-2/Fact%20Sheets/302-3584%20SAR S-COV-2%20HEALTHCARE%20PROVIDERS%20FACT%20SHEE T.pdf Fact Sheet for Healthcare Patients: https://www.[employer].OnBeep/Documents/Xpert%20Xpre ss%20SARS%20CoV-2/Fact%20Sheets/302-6191%20SAR S-COV-2%20PATIENT%20FACT%20SHEET.pdf Performing Laboratory: [address] [place] [address] Performing Organization Address City/State/Zipcode Phone Number [facility] [address] [place] [phone] CENTER MR thoracic spine without & with IV contrast (12/15/2019 9:12 PM CDT) Specimen Narrative Performed At FINAL REPORT [employer] MR Thoracic spine with and without contr ast. CLINICAL HISTORY: Mid-back pain, cornelio arturo fracture suspected T12 vertebral compression fracture TECHNIQUE: MRI of the thoracic spine uti lizing sagittal T1, T2, STIR, axial T1, T2; and postgadolinium axial a nd sagittal T1-weighted images. COMPARISON: None FINDINGS: Acute compression fracture of the T12 ve rtebral body with associated marrow edema. There is associated focal kyphosis at this level. Triple of posterior fracture fragments i nto the canal by approximately 3 mm resulting in mild spi nal canal stenosis. No significant neural foraminal stenosis. Otherwise no vertebral body height loss or marrow abnormality is identified. Prevertebral edema at T12. T here is disruption of the anterior longitudinal ligament at T11-12 . Increased signal in the posterior longitudinal ligament suggesti ng sprain. The ligamentum flavum is intact. The thoracic cord i s normal in contour and caliber without signal change. There is no abnormal enhancement in the thoracic spine or cord. No epidural hematoma is identified. Trace bilateral pleural effusions with a djacent atelectasis. Degenerative changes of the cervical sp ine with reversal the normal cervical lordosis centered at C5-6 seen on the after school tutor view. IMPRESSION: Acute compression fracture of the T12 ve rtebral body with 3 mm retropulsion of posterior fracture fragm ents into the canal resulting in mild spinal canal stenosis. There is likely disruption of the anterior longitudinal ligament at T11-12 with sprain of the posterior longitudinal ligament. No mass effect co rd signal abnormality. No abnormal enhancement in the thoracic spine. Signed: Rose Avina MD Report Verified Date/Time: 12/16/2019 01:29:28 Procedure Note Interface, External Ris In - 12/16/2019 1:31 AM CDT FINAL REPORT MR Thoracic spine with and without contr ast. CLINICAL HISTORY: Mid-back pain, cornelio arturo fracture suspected T12 vertebral compression fracture TECHNIQUE: MRI of the thoracic spine uti lizing sagittal T1, T2, STIR, axial T1, T2; and postgadolinium axial a nd sagittal T1-weighted images. COMPARISON: None FINDINGS: Acute compression fracture of the T12 ve rtebral body with associated marrow edema. There is associated focal kyphosis at this level. Triple of posterior fracture fragments i nto the canal by approximately 3 mm resulting in mild spi nal canal stenosis. No significant neural foraminal stenosis. Otherwise no vertebral body height loss or marrow abnormality is identified. Prevertebral edema at T12. T here is disruption of the anterior longitudinal ligament at T11-12 . Increased signal in the posterior longitudinal ligament suggesti ng sprain. The ligamentum flavum is intact. The thoracic cord is normal in contour and caliber without signal change. There is no abnormal enhancement in the thoracic spine or cord. No epidural hematoma is identified. Trace bilateral pleural effusions with a djacent atelectasis. Degenerative changes of the cervical sp ine with reversal the normal cervical lordosis centered at C5-6 seen on the after school tutor view. IMPRESSION: Acute compression fracture of the T12 ve rtebral body with 3 mm retropulsion of posterior fracture fragm ents into the canal resulting in mild spinal canal stenosis. There is likely disruption of the anterior longitudinal ligament at T11-12 with sprain of the posterior longitudinal ligament. No mass effect co rd signal abnormality. No abnormal enhancement in the thoracic spine. Signed: Rose Avina MD Report Verified Date/Time: 12/16/2019 0 1:29:28 Performing Organization Address City/State/Zipcode Phone Number RIS Prothrombin time/INR (12/15/2019 6:09 AM CDT) Pathologist Sig nature Protime 14.1 11.9 - 14.2 seconds [facility] INR 1.12 <=5.90 [facility] Specimen Blood Narrative Performed At Effective 07/27/2018: PT Reference Range [facility] Change New: 11.9-14.2 Previous: 11.7-14.7 RECOMMENDED COUMADIN/WARFARIN INR THERAPY RANGES STANDARD DOSE: 2.0-3.0 Includes: PROPHYLAXIS for venous thrombosis, systemic embolization; TREATMENT for venous thrombosis and/or pulmonary embolus. HIGH RISK: Target INR is 2.5-3.5 for patients wiht mechanical heart valves. Performing Organization Address City/State/Zipcode Phone Number [facility] [address] [place] [address] spine lumbar without IV contrast (12/14/2019 11:57 PM CDT) Specimen Narrative Performed At FINAL REPORT [employer] CT Thoracic and lumbar spine CLINICAL HISTORY: T-spine fracture, trau matic TECHNIQUE: Contiguous axial images of th e thoracic and lumbar spine with coronal and sagittal reformations t o assess the alignment. This exam was performed according to the depa rtmental dose optimization program which includes automated exposur e control, adjustment of the mA and/or kV according to the patient si ze, and/or use of an iterative reconstruction technique. COMPARISON: None FINDINGS: Thoracic spine: Age indeterminate compre ssion deformity of the T12 vertebral body with retropulsion of the posterior fracture fragments into the canal by approximately 3 mm res ulting in mild spinal canal stenosis. There is mild associated focal thoracic kyphosis at this level. Otherwise there is maintenance of the thoracic alignment and curvature. Remainder of the vertebral body heights are maintained. The visualized soft tissues are grossly unremarkable. Bilateral lower lobe dependent atelectasis. 4 mm pulmona ry nodule in the left upper lobe. No pleural effusion. Small hiatal hernia. 2.5 cm cyst in the left hepatic lobe. Lumbar spine: No lumbar spine or sacral fractures are evident. Levocurvature of the lumbar spine centered at L3.. Vertebral body heights are preserved. Paravertebral soft tissues are within no rmal limits. Please note that the lack of intrathecal contrast somewhat limits evaluation of the soft tissue contents o f the central canal. Multilevel degenerative changes with dis c space narrowing, facet hypertrophy and osteophytosis, worst at L2-3 where there is vacuum disc phenomenon.. Vascular calcifications of the normal ca liber thoracic aorta. IMPRESSION: Age indeterminate compression fracture o f T12 with retropulsion of the posterior fracture fragments into th e canal by approximately 3 mm resulting in mild spinal canal stenosis. No lumbar fracture or dislocation. 4 mm pulmonary nodule in the left upper lobe. Recommend follow-up CT chest in 12 months to ensure stability i f patient is high risk. Signed: Rose Avina MD Report Verified Date/Time: 12/15/2019 00:51:27 Procedure Note Interface, External Ris In - 12/15/2019 12:53 AM CDT FINAL REPORT CT Thoracic and lumbar spine CLINICAL HISTORY: T-spine fracture, trau matic TECHNIQUE: Contiguous axial images of th e thoracic and lumbar spine with coronal and sagittal reformations t o assess the alignment. This exam was performed according to the depa rtmental dose optimization program which includes automated exposur e control, adjustment of the mA and/or kV according to the patient si ze, and/or use of an iterative reconstruction technique. COMPARISON: None FINDINGS: Thoracic spine: Age indeterminate compre ssion deformity of the T12 vertebral body with retropulsion of the posterior fracture fragments into the canal by approximately 3 mm res ulting in mild spinal canal stenosis. There is mild associated focal thoracic kyphosis at this level. Otherwise there is maintenance o f the thoracic alignment and curvature. Remainder of the vertebral b renetta heights are maintained. The visualized soft tissues are grossly unremarkable. Bilateral lower lobe dependent atelectasis. 4 mm pulmona ry nodule in the left upper lobe. No pleural effusion. Small hiatal hernia. 2.5 cm cyst in the left hepatic lobe. Lumbar spine: No lumbar spine or sacral fractures are evident. Levocurvature of the lumbar spine centered at L3.. Vertebral body heights are preserved. Paravertebral soft tissues are within no rmal limits. Please note that the lack of intrathecal contrast somewhat limits evaluation of the soft tissue contents o f the central canal. Multilevel degenerative changes with dis c space narrowing, facet hypertrophy and osteophytosis, worst at L2-3 where there is vacuum disc phenomenon.. Vascular calcifications of the normal ca liber thoracic aorta. IMPRESSION: Age indeterminate compression fracture o f T12 with retropulsion of the posterior fracture fragments into th e canal by approximately 3 mm resulting in mild spinal canal stenosis. No lumbar fracture or dislocation. 4 mm pulmonary nodule in the left upper lobe. Recommend follow-up CT chest in 12 months to ensure stability i f patient is high risk. Signed: Rose Avina MD Report Verified Date/Time: 12/15/2019 0 0:51:27 Performing Organization Address City/State/Zipcode Phone Number [facility] [employer] [facility] spine thoracic without IV contrast (12/14/2019 11:57 PM CDT) Specimen Narrative Performed At FINAL REPORT [facility] Thoracic and lumbar spine CLINICAL HISTORY: T-spine fracture, trau matic TECHNIQUE: Contiguous axial images of th e thoracic and lumbar spine with coronal and sagittal reformations t o assess the alignment. This exam was performed according to the [facility] rtmental dose optimization program which includes automated exposur e control, adjustment of the mA and/or kV according to the patient si ze, and/or use of an iterative reconstruction technique. COMPARISON: None FINDINGS: Thoracic spine: Age indeterminate compre ssion deformity of the T12 vertebral body with retropulsion of the posterior fracture fragments into the canal by approximately 3 mm res ulting in mild spinal canal stenosis. There is mild associated focal thoracic kyphosis at this level. Otherwise there is maintenance of the thoracic alignment and curvature. Remainder of the vertebral body heights are maintained. The visualized soft tissues are grossly unremarkable. Bilateral lower lobe dependent atelectasis. 4 mm pulmona ry nodule in the left upper lobe. No pleural effusion. Small hiatal hernia. 2.5 cm cyst in the left hepatic lobe. Lumbar spine: No lumbar spine or sacral fractures are evident. Levocurvature of the lumbar spine centered at L3.. Vertebral body heights are preserved. Paravertebral soft tissues are within no rmal limits. Please note that the lack of intrathecal contrast somewhat limits evaluation of the soft tissue contents o f the central canal. Multilevel degenerative changes with dis c space narrowing, facet hypertrophy and osteophytosis, worst at L2-3 where there is vacuum disc phenomenon.. Vascular calcifications of the normal ca liber thoracic aorta. IMPRESSION: Age indeterminate compression fracture o f T12 with retropulsion of the posterior fracture fragments into th e canal by approximately 3 mm resulting in mild spinal canal stenosis. No lumbar fracture or dislocation. 4 mm pulmonary nodule in the left upper lobe. Recommend follow-up CT chest in 12 months to ensure stability i f patient is high risk. Signed: Rose Avina MD Report Verified Date/Time: 12/15/2019 00:51:27 Procedure Note Interface, External Ris In - 12/15/2019 12:53 AM CDT FINAL REPORT CT Thoracic and lumbar spine CLINICAL HISTORY: T-spine fracture, trau matic TECHNIQUE: Contiguous axial images of th e thoracic and lumbar spine with coronal and sagittal reformations t o assess the alignment. This exam was performed according to the [facility] rtmental dose optimization program which includes automated exposur e control, adjustment of the mA and/or kV according to the patient si ze, and/or use of an iterative reconstruction technique. COMPARISON: None FINDINGS: Thoracic spine: Age indeterminate compre ssion deformity of the T12 vertebral body with retropulsion of the posterior fracture fragments into the canal by approximately 3 mm res ulting in mild spinal canal stenosis. There is mild associated focal thoracic kyphosis at this level. Otherwise there is maintenance o f the thoracic alignment and curvature. Remainder of the vertebral b renetta heights are maintained. The visualized soft tissues are grossly unremarkable. Bilateral lower lobe dependent atelectasis. 4 mm pulmona ry nodule in the left upper lobe. No pleural effusion. Small hiatal hernia. 2.5 cm cyst in the left hepatic lobe. Lumbar spine: No lumbar spine or sacral fractures are evident. Levocurvature of the lumbar spine centered at L3.. Vertebral body heights are preserved. Paravertebral soft tissues are within no rmal limits. Please note that the lack of intrathecal contrast somewhat limits evaluation of the soft tissue contents o f the central canal. Multilevel degenerative changes with dis c space narrowing, facet hypertrophy and osteophytosis, worst at L2-3 where there is vacuum disc phenomenon.. Vascular calcifications of the normal ca liber thoracic aorta. IMPRESSION: Age indeterminate compression fracture o f T12 with retropulsion of the posterior fracture fragments into th e canal by approximately 3 mm resulting in mild spinal canal stenosis. No lumbar fracture or dislocation. 4 mm pulmonary nodule in the left upper lobe. Recommend follow-up CT chest in 12 months to ensure stability i f patient is high risk. Signed: Rose Avina MD Report Verified Date/Time: 12/15/2019 0 0:51:27 Performing Organization Address City/State/Zipcode Phone Number GE RIS after 01/30/2019 Insurance Payer Benefit Plan / Subscriber ID Effective Dates Phone Addre ss Type Group BLUE BCBS PPO POS [id number] 2019-Presen [phone] [id number] PPO CROSS/BLUE EPO CHOICE t 2 [facility] [id number] Advance Directives For more information, please contact: [phone] Code Status Date Activated Date Inactivated Comments Full Code 12/19/2019 2:35 PM 12/20/2019 8:38 PM This code status was determined by: Patient
--- OUTSIDE RECORDS SUMMARY | 2020-01-31 14:34 | XMS REPORT | Continuity of Care Document ---
:1960 Author Organization [facility] t Address [address] [place] [address] Care Team Providers Name Role Phone Martin Zepeda MD Attending Clinician Angelia Potter MD Attending Clinician Rhett Eid MD Attending Clinician Annie Bailey MD Attending Clinician Domingo Heart MD Attending Clinician Virtual Attending Clinician Unavailable ANGELIA POTTER Attending Clinician Unavailable RHETT EID Admitting Clinician Unavailable Payers Payer Name Policy Type Policy Effective Date Expiration Date Sour ce Number BLUE CROSS/BLUE [id number] [address] [facility] SHIELDBCBS PPO 00:00:00 - Medical POS EPO Center [id number] 2019-Present [phone] [id number], [place] [address]DJY Problems Condition Condition Condition Status Onset Resolution Last Treating Co mments Source Name Details Category Date Date Treatment Clinician Date T12 T12 Disease Active 2019-[address] [facility] compressio compressio 0-16 Mary kes - n n 00:00: Medical fracture, fracture, 00 Cent er initial initial encounter encounter Bipolar Bipolar Disease Active 2019-[address] [facility] [address] affective affective 0-15 [facility] - disorder disorder 00:00: Medica l in in 00 Center remission remission T12 T12 Disease Active 2019-[address] [facility] [address] compressio compressio 0-15 Mary kes - n fracture n fracture 00:00: Me dical 00 Center Accident Accident Disease Active 2019-03 [facility] due to due to 0[facility]15 [facility] - mechanical mechanical 00:00: Me dical fall Center Allergies, Adverse Reactions, Alerts Allergy Allergy Status Severity Reaction(s) Onset Inactive Treating Comm ents Source Name Type Date Date Clinician Latex Propensi Active 2019-[address] [facility] [address] ty to 0-15 [facility] - adverse 00:00: Medical reaction 00 Center s Social History Social Habit Start Date Stop Date Quantity Comments Source Sex Assigned At [facility] Mary kes [facility] Tobacco use and 2020-01-02 2020-01-[address] [facility] k[facility] - exposure 00:00:00 00:00:00 [facility] Alcohol intake 2020-01-02 2020-01-02 Ex-drinker [facility] - 00:00:00 00:00:00 (finding) [facility] Alcohol Comment 2019-12-14 2019-12-[address] [facility] - 00:00:00 00:00:00 [facility] History of 2012-03-[address] [facility] - tobacco use 00:00:00 [facility] r Smoking Status Start Date Stop Date Source Former smoker 2020-01-02 00:00:00 2020-01-02 00:00:[address] [facility] Medications Ordered Filled Start Stop Current Ordering Indication Dosage Frequency Signature Comments Components Source Medication Medication Date Date Medication? Clinician (SIG) Name Name polyethylen 2019-03- 17g QD Take [address] e glycol 0-22 12-30 by mouth [facility] - (GLYCOLAX) 00:00: 23:59 daily for Paul rodriguez 17 gram 00 :00 10 days. Center packet lamoTRIgine 2019-03 Yes 150mg QD Take [address] (LaMICtal) 0-21 mg by [facility] - 150 MG 18:38: mouth Medical tablet 44 daily Center Bipolar disorder . buPROPion 2019-03 Yes depression 150mg QD Take [address] (WELLBUTRIN 0-21 associated mg by L ukes - XL) 150 MG 18:38: with mouth Medica l 24 hr 44 bipolar daily. Center tablet disorder fLUoxetine 2019-03 Yes depression 20mg QD Take [address] (PROzac) 20 0-21 associated by mouth [facility] - MG capsule 18:38: with daily. Medic al 44 bipolar Center disorder, adjunct senna-docus 2019-03- Yes 2{tbl} QD Take [address] ate 0-21 10-21 tablets by Federica - (SENOKOT S) 00:00: 23:59 mouth Medi devang 8.6-50 mg 00 :00 nightly. Center per tablet HYDROcodone 2019-03 2020- No 1{tbl} Take [address] -acetaminop 0-21 10-28 tablet by Mary rousseau (NORCO 00:00: 23:59 mouth Medic al 10-325) 00 :00 every 6 Center 10-325 mg (six) per tablet hours as needed for Pain for up to 7 days. Max Daily Amount: 4 tablets Immunizations Ordered Immunization Filled Immunization Date Status Commen ts Source Name Name Influenza Four-QIV 2019-12-15 Completed [facility] 3YR+ 00:00:00 [facility] Vital Signs Vital Name Observation Time Observation Value Comments Source Systolic blood 2020-01-02 11:08:00 128 mm[Hg] [facility] Diastolic blood 2020-01-02 11:08:00 72 mm[Hg] [facility] Heart rate 2020-01-02 11:08:00 73 /min [facility] Body temperature 2020-01-02 11:08:00 36.83 [facility]ynn [facility] Respiratory rate 2020-01-02 11:08:00 18 /min [facility] Body height 2020-01-02 11:08:00 167.7 cm [facility] Body weight 2020-01-02 11:08:00 76.658 kg [facility] BMI 2020-01-02 11:08:00 27.26 kg/m2 [facility] Oxygen saturation in 2020-01-02 11:08:00 100 /min [facility] Arterial blood by Medical Ce nter Pulse oximetry Procedures Procedure Date / Time Performed Performing Clinician Sourc e BASIC METABOLIC PANEL 2019-12-20 04:27:00 Deni Bailey [facility] (7) [facility] CBC W/PLT COUNT & AUTO 2019-12-20 04:27:00 Deni Bailey [facility] IR KYPHOPLASTY THORACIC 2019-12-19 13:06:00 Emilia Eid [facility] PROCEDURE DONE OUTSIDE 2019-12-19 10:00:00 Virtual, Surgeon [facility] SARS-COV2/RT-PCR ([facility] & 2019-12-19 08:48:00 Kyra Cruz on [facility] - REF LABS) [facility] BASIC METABOLIC PANEL 2019-12-19 04:[facility] - (7) [facility] CBC W/PLT COUNT & AUTO 2019-12-19 04:20:00 [facility] - DIFFERENTIAL [facility] BASIC METABOLIC PANEL 2019-12-18 05:48:00 [facility] (7) [facility] CBC W/PLT COUNT & AUTO 2019-12-18 05:48:00 [facility] BASIC METABOLIC PANEL 2019-12-17 04:31:00 [facility] (7) [facility] CBC W/PLT COUNT & AUTO 2019-12-17 04:31:00 [facility] MR THORACIC SPINE WITH & 2019-12-15 21:12:00 Kyra Cruz on [facility] - WITHOUT IV CONTRAST Medical Cent er BASIC METABOLIC PANEL 2019-12-15 06:09:[address] Em[address] [facility] (7) [facility] PROTHROMBIN TIME/INR 2019-12-15 06:09:00 Emilia Eid [facility] CBC W/PLT COUNT & AUTO 2019-12-15 06:09:[address] [facility] DI[facility] CT THORACIC SPINE 2019-12-14 23:57:00 [facility]resham [facility]AST Medical Cent er CT LUMBAR SPINE WITHOUT 2019-12-14 23:57:[address] [facility] IV CONTRAST [facility] Plan of Care Planned Activity Planned Date Details Comments Source Future Scheduled 2005 Lipid panel [facility] - Test 00:00:00 (procedure) [code = Medical Center 12182169] Future Scheduled [address] [facility] [facility] - Test 00:00:00 malignant neoplasm Medical C enter of cervix (procedure) [code = 512413130] Future Scheduled [address] [facility] - Test 00:00:00 malignant neoplasm Medical C enter of breast (procedure) [code = 644874828] Future Scheduled [address] [facility] - Test 00:00:00 malignant neoplasm Medical C enter of colon (procedure) [code = 491875151] Results Test Description Test Time Test Comments Results Result Comments Source Basic Metabolic Panel 2019-12-20 05:32:00 Test Item Value Reference Range Interpretation Comme nts Sodium (test code = 134 meq/L 136-145 L 2951-2) Potassium (test code = 4.3 meq/L 3.5-5.1 2823-3) Chloride (test code = 101 meq/L 98-107 2075-0) CO2 (test code = 2027-9) 26 meq/L - BUN (test code = 3094-0) 12 mg/dL 7-21 Creatinine (test code = 0.77 mg/dL 0.57-1.25 2160-0) Glucose (test code = 88 mg/dL 70-105 2345-7) Calcium (test code = 8.9 mg/dL 8.4-10.2 87662-2) EGFR (test code = 24787-4) 77 mL/min/1.73 sq m ESTIMATED GFR IS NOT ACCURATE CREATININE DEDE PEDRO IN PREDICTING GLOMERULAR FILT RATION RATE. ESTIMATED GFR IS NOT APPLICAB LE FOR DIALYSIS PATIEN TSAaron SANJAY (test code = SANJAY) Wellness Coordinator ID - PIAYA L Lab Interpretation (test Abnormal code = 20578-8) [facility] [id number] 05:32:00 Test Item Value Reference Range Interpretation Comments SODIUM (BEAKER) 134 meq/L 136-145 L (test code = 381) POTASSIUM (BEAKER) 4.3 meq/L 3.5-5.1 (test code = 379) CHLORIDE (BEAKER) 101 meq/L 98-107 (test code = 382) CO2 (BEAKER) (test 26 meq/L -29 code = 355) BLOOD UREA NITROGEN 12 mg/dL 7-21 (BEAKER) (test code = 354) CREATININE (BEAKER) 0.77 mg/dL 0.57-1.25 (test code = 358) GLUCOSE RANDOM 88 mg/dL 70-105 (BEAKER) (test code = 652) CALCIUM (BEAKER) 8.9 mg/dL 8.4-10.2 (test code = 697) EGFR (BEAKER) (test 77 mL/min/1.73 ESTIMA LD GFR IS code = 1092) sq m NOT ACCURATE CREATININE CLEARANCE IN PREDICTING GLOMERULAR FILTRATION RATE . ESTIMATED GFR I S NOT APPLICABLE FOR DIALYSIS PATIEN TS. Wellness Coordinator ID - PIAYA LCBC with platelet count + automated [id number] 04:53:00 Test Item Value Reference Range Interpretation Comments WBC (test code = 6690-2) 6.0 3.5- 10.5 K/L RBC (test code = 789-8) 3.40 3.93- 5.22 M/L L MCHC (test code = 786-4) 31.9 32.2- 35.5 GM/DL L Hematocrit (test code = 4544-3) 31.7 % 34.1-44.9 L MCV (test code = 787-2) 93.2 fL 79.4-94.8 MCH (test code = 785-6) 29.7 pg 25.6-32.2 RDW (test code = 788-0) 13.0 % 11.7-14.4 Platelets (test code = 777-3) 239 150- 450 K/CU MM MPV (test code = 23048-4) 9.6 fL 9.4-12.3 nRBC (test code = 413) 0 0- 0 /100 WBC % Neutros (test code = 429) 63 % % Lymphs (test code = 430) 20 % % Monos (test code = 431) 12 % % Eos (test code = 432) 3 % % Baso (test code = 437) 1 % # Neutros (test code = 670) 3.79 1.56- 6.13 K/L # Lymphs (test code = 414) 1.22 1.18- 3.74 K/L # Monos (test code = 415) 0.74 0.24- 0.36 K/L H # Eos (test code = 416) 0.20 0.04- 0.36 K/L # Baso (test code = 417) 0.03 0.01- 0.08 K/L Immature Granulocytes-Relative 1 % 0-1 (test code = 2801) Lab Interpretation (test code = Abnormal 17042-9) [facility] W/PLT COUNT & AUTO [id number] 04:53:00 Test Item Value Reference Range Interpretation Comments WHITE BLOOD CELL COUNT (BEAKER) 6.0 K/ L 3.5-10.5 (test code = 775) RED BLOOD CELL COUNT (BEAKER) 3.40 M/ L 3.93-5.22 L (test code = 761) HEMOGLOBIN (BEAKER) (test code = 10.1 GM/DL 11.2-15.7 L 410) HEMATOCRIT (BEAKER) (test code = 31.7 % 34.1-44.9 L 411) MEAN CORPUSCULAR VOLUME (BEAKER) 93.2 fL 79.4-94.8 (test code = 753) MEAN CORPUSCULAR HEMOGLOBIN 29.7 pg 25.6-32.2 (BEAKER) (test code = 751) MEAN CORPUSCULAR HEMOGLOBIN CONC 31.9 GM/DL 32.2-35.5 L (BEAKER) (test code = 752) RED CELL DISTRIBUTION WIDTH 13.0 % 11.7-14.4 (BEAKER) (test code = 412) PLATELET COUNT (BEAKER) (test 239 K/CU MM 150-450 code = 756) MEAN PLATELET VOLUME (BEAKER) 9.6 fL 9.4-12.3 (test code = 754) NUCLEATED RED BLOOD CELLS 0 /100 WBC 0-0 (BEAKER) (test code = 413) NEUTROPHILS RELATIVE PERCENT 63 % (BEAKER) (test code = 429) LYMPHOCYTES RELATIVE PERCENT 20 % (BEAKER) (test code = 430) MONOCYTES RELATIVE PERCENT 12 % (BEAKER) (test code = 431) EOSINOPHILS RELATIVE PERCENT 3 % (BEAKER) (test code = 432) BASOPHILS RELATIVE PERCENT 1 % (BEAKER) (test code = 437) NEUTROPHILS ABSOLUTE COUNT 3.79 K/ L 1.56-6.13 (BEAKER) (test code = 670) LYMPHOCYTES ABSOLUTE COUNT 1.22 K/ L 1.18-3.74 (BEAKER) (test code = 414) MONOCYTES ABSOLUTE COUNT (BEAKER) 0.74 K/ L 0.24-0.36 H (test code = 415) EOSINOPHILS ABSOLUTE COUNT 0.20 K/ L 0.04-0.36 (BEAKER) (test code = 416) BASOPHILS ABSOLUTE COUNT (BEAKER) 0.03 K/ L 0.01-0.08 (test code = 417) IMMATURE GRANULOCYTES-RELATIVE 1 % 0-1 PERCENT (BEAKER) (test code = 2801) ANG, KYPHOPLASTY, THORACIC, [id number] 18:11:00What level(s) should be performed->V39Youxtp for exam:->compresion fracture 50 % [facility] 1960 Sex: FFINAL REPORT History: T12 vertebral compression fracture and severe back pain despite conservative therapy. PROCEDURE: Following informed written consent, general endotracheal anesthesia was administered and the patient was placed in a prone position on the angiographic table. The patient's back was prepped and draped in the usual sterile manner. Patient was given 2 g IV Ancef prior the procedure for antibiotic prophylaxis. Using fluoroscopic guidance access was gained to the T12 vertebral body using access cannulas and a bilateral transpedicular approach. The access cannulas were exchanged over K wires for a reamer device which was used to create tracts in each side of the T12 vertebral body. The reamer device was then removed and 5.0 spine jacks were placed into these cavities within the T12 vertebral body bilaterally, again using the posterior transpedicular access. Under constant lateral fluoroscopic visualization, both jacks were deployed in the T12 vertebral body compression fracture was reduced. Approximately 3 cc of methyl methacrylate was then infused intothe T12 vertebral body under AP and lateral fluoroscopic visualization. The working cannulas were then removed, hemostasis was achieved with manual compression and the small skin access sites in the back were closed using 3-0 Monocryl resorbable suture. Sterile bandages were applied. Overall, the patient tolerated the procedure well without immediate complications and was discharged from the department in stable condition. FINDINGS: Multiple images obtained during the procedure show first the accesscannulas and the reamer is in expected position within the T12 vertebral body bilaterally. Followingdeployment of the bilateral spine jacks within the T12 vertebral body, the vertebral compression fracture is near completely reduced. Majority of the T12 vertebral body height loss was restored. Methacrylate distribution within the T12 vertebral body surrounding the jacks is excellent. No extravasation. IMPRESSION: 1. Technically successful uncomplicated fluoroscopically guided T12 spine vikki vertebral augmentation as described in detail above. Total fluoroscopy time: 16.4 minutes. Estimated totalpatient dose reported as (Ka,r): 1425 mGy Signed: Jcarlos Zepedaeport Verified Date/Time: 12/19/2019 18:11:28 Reading Location: [place] [address] Angio Body Reading Room IR kyphoplasty [id number] 18:11:00Interface, External Ris In - 12/19/2019 6:13 PM CDTFINAL REPORT History: [id number] compression fracture and severe back pain despite conservative therapy. PROCEDURE: Following informed written consent, general endotracheal anesthesia was administered and the patient was placed in a prone position on the angiographic table. The patient's back was prepped and draped in the usual sterile manner. Patient was given 2 g IV Ancef prior the procedure for antibiotic prophylaxis. Using fluoroscopic guidance access was gained to the T12 vertebral body using access cannulas and a bilateral transpedicular approach. The access cannulas were exchanged over K wires for a reamer device which was used to create tracts in each side of the T12 vertebral body. The reamer device was then removed and 5.0 spine jacks were placed into these cavities within the T12 vertebral body bilaterally, again using the posterior transpedicular access. Under constant lateral fluoroscopic visualization, both jacks were deployed in the T12 vertebral body compression fracture was reduced. Approximately 3 cc of methyl methacrylate was then infused into the T12 vertebral body under AP and lateral fluoroscopic visualization. The working cannulas were then removed, hemostasis was achieved with manual compress ion and the small skin access sites in the back were closed using 3-0 Monocryl resorbable suture. Sterile bandages were applied. Overall, the patient tolerated the procedure well without immediate complications and was discharged from the department in stable condition. FINDINGS: Multiple images obtained during the procedure show first the access cannulas and the reamer is in expected position withinthe T12 vertebral body bilaterally. Following deployment of the bilateral spine jacks within the [id number] body, the vertebral compression fracture is near completely reduced. Majority of the T12 vertebral body height loss was restored. Methacrylate distribution within the T12 vertebral body surrounding the jacks is excellent. No extravasation. IMPRESSION: 1. Technically successful uncomplicated fluoroscopically guided T12 spine vikki vertebral augmentation as described in detail above. Total fluoroscopy time: 16.4 minutes. Estimated total patient dose reported as (Ka,r): 1425 mGy Signed: Jcarlos Zepeda MDReport Verified Date/Time: 12/19/2019 18:11:28 Reading Location: [place] [address] Angio Body [facility] & Ref Labs)2019-12-19 10:30:00 Test Item Value Reference Range Interpretation Comments SARS-COV2/RT-PCR Negative Not Detected, (test code = Negative, See 28696-7) external report for linked test SARS-COV-2 [facility] PERFORMING LAB (test code = 59496-3) SANJAY (test code = Negative results do not SANJAY) preclude SARS-CoV-2 infection and should not be used as [...] of the Act. Fact Sheet for Healthcare Providers:https://www.S3Bubble/Documents/Xper t%20Xpress%20SARS%20CoV- 2/Fact%20Sheets/302-3802 %41CDAX-CVL-6%20HEALTHCA RE%20PROVIDERS%20FACT%20 SHEET.pdf Fact Sheet for Healthcare Patients:https://www.Aircare/Documents/Xpert %20Xpress%20SARS%20CoV-2 /Fact%20Sheets/302-3801% 42WAGJ-BEB-1%20PATIENT%2 0FACT%20SHEET.pdf Performing Laboratory:[facility] [facility] [place] [address] [facility] & REF LABS)2019-12-19 10:30:00 Test Item Value Reference Range Interpretation Comments SARS-COV2/RT-PCR (test code Negative Not Detected, Negative, = [id number]) See external report for linked test SARS-COV-2 PERFORMING LAB [facility] (test code = 9475152) Negative results do not preclude SARS-CoV-2 infection and should not be used as the sole basis for patient management decisions. Negative results must be combined with clinical observations, patient history, and epidemiological information. A false negative result may occur if a specimen is improperly collected, transported or handled.The limit of detection for this assay is 250 copies/mL.This SARS CoV-2 test is a rapid, real-time RT-PCR test intended for the qualitative detection of nucleic acid from SARS-CoV-2 in a nasopharyngeal swab specimen collected from individuals suspected of COVID-19 by their healthcare provider.This test has not been Food and Drug [...] is revoked under Section 564(g) of the Act.Fact Sheet for Healthcare Pro viders:https://www.[employer]view Technologies/Documents/Xpert%20Xpress%20SARS%20CoV-2/Fact%20Sh eets/302-3802%52JACR-DAA-1%20HEALTHCARE%20PROVIDERS%20FACT%20SHEET.pdfFact Sheet for Healthcare Patients:https://www.iProcure.I-Tech/Documents/Xpert%20Xpress%20SARS%20CoV-2/Fact%20Sheets/302-3801%20SARS-COV -2%20PATIENT%20FACT%20SHEET.pdfPerforming Laboratory:[facility] [place] [address] 327[address]UCJCY METABOLIC [id number] 05:08:00 Test Item Value Reference Range Interpretation Comments SODIUM (BEAKER) 136 meq/L 136-145 (test code = 381) POTASSIUM (BEAKER) 3.8 meq/L 3.5-5.1 (test code = 379) CHLORIDE (BEAKER) 100 meq/L 98-107 (test code = 382) CO2 (BEAKER) (test 27 meq/L 22-29 code = 355) BLOOD UREA NITROGEN 13 mg/dL 7-21 (BEAKER) (test code = 354) CREATININE (BEAKER) 0.81 mg/dL 0.57-1.25 (test code = 358) GLUCOSE RANDOM 89 mg/dL 70-105 (BEAKER) (test code = 652) CALCIUM (BEAKER) 8.7 mg/dL 8.4-10.2 (test code = 697) EGFR (BEAKER) (test 72 mL/min/1.73 ESTIMA LD GFR IS code = 1092) sq m NOT ACCURATE CREATININE CLEARANCE IN PREDICTING GLOMERULAR FILTRATION RATE . ESTIMATED GFR I S NOT APPLICABLE FOR DIALYSIS PATIEN TS. Wellness Coordinator ID - EDASICBC W/PLT COUNT & AUTO [id number] 04:31:00 Test Item Value Reference Range Interpretation Comments WHITE BLOOD CELL COUNT (BEAKER) 6.0 K/ L 3.5-10.5 (test code = 775) RED BLOOD CELL COUNT (BEAKER) 3.62 M/ L 3.93-5.22 L (test code = 761) HEMOGLOBIN (BEAKER) (test code = 10.8 GM/DL 11.2-15.7 L 410) HEMATOCRIT (BEAKER) (test code = 33.2 % 34.1-44.9 L 411) MEAN CORPUSCULAR VOLUME (BEAKER) 91.7 fL 79.4-94.8 (test code = 753) MEAN CORPUSCULAR HEMOGLOBIN 29.8 pg 25.6-32.2 (BEAKER) (test code = 751) MEAN CORPUSCULAR HEMOGLOBIN CONC 32.5 GM/DL 32.2-35.5 (BEAKER) (test code = 752) RED CELL DISTRIBUTION WIDTH 12.8 % 11.7-14.4 (BEAKER) (test code = 412) PLATELET COUNT (BEAKER) (test 230 K/CU MM 150-450 code = 756) MEAN PLATELET VOLUME (BEAKER) 9.6 fL 9.4-12.3 (test code = 754) NUCLEATED RED BLOOD CELLS 0 /100 WBC 0-0 (BEAKER) (test code = 413) NEUTROPHILS RELATIVE PERCENT 55 % (BEAKER) (test code = 429) LYMPHOCYTES RELATIVE PERCENT 26 % (BEAKER) (test code = 430) MONOCYTES RELATIVE PERCENT 15 % (BEAKER) (test code = 431) EOSINOPHILS RELATIVE PERCENT 4 % (BEAKER) (test code = 432) BASOPHILS RELATIVE PERCENT 1 % (BEAKER) (test code = 437) NEUTROPHILS ABSOLUTE COUNT 3.29 K/ L 1.56-6.13 (BEAKER) (test code = 670) LYMPHOCYTES ABSOLUTE COUNT 1.56 K/ L 1.18-3.74 (BEAKER) (test code = 414) MONOCYTES ABSOLUTE COUNT (BEAKER) 0.88 K/ L 0.24-0.36 H (test code = 415) EOSINOPHILS ABSOLUTE COUNT 0.21 K/ L 0.04-0.36 (BEAKER) (test code = 416) BASOPHILS ABSOLUTE COUNT (BEAKER) 0.04 K/ L 0.01-0.08 (test code = 417) IMMATURE GRANULOCYTES-RELATIVE 1 % 0-1 PERCENT (BEAKER) (test code = 2801) BASIC METABOLIC [id number] 06:27:00 Test Item Value Reference Range Interpretation Comments SODIUM (BEAKER) 132 meq/L 136-145 L (test code = 381) POTASSIUM (BEAKER) 4.0 meq/L 3.5-5.1 (test code = 379) CHLORIDE (BEAKER) 98 meq/L 98-107 (test code = 382) CO2 (BEAKER) (test 27 meq/L 22-29 code = 355) BLOOD UREA NITROGEN 14 mg/dL 7-21 (BEAKER) (test code = 354) CREATININE (BEAKER) 0.91 mg/dL 0.57-1.25 (test code = 358) GLUCOSE RANDOM 98 mg/dL 70-105 (BEAKER) (test code = 652) CALCIUM (BEAKER) 8.9 mg/dL 8.4-10.2 (test code = 697) EGFR (BEAKER) (test 63 mL/min/1.73 ESTIMA LD GFR IS code = 1092) sq m NOT ACCURATE CREATININE CLEARANCE IN PREDICTING GLOMERULAR FILTRATION RATE . ESTIMATED GFR I S NOT APPLICABLE FOR DIALYSIS PATIEN TS. Wellness Coordinator ID - DBCBC W/PLT COUNT & AUTO [id number] 06:04:00 Test Item Value Reference Range Interpretation Comments WHITE BLOOD CELL COUNT (BEAKER) 6.3 K/ L 3.5-10.5 (test code = 775) RED BLOOD CELL COUNT (BEAKER) 3.57 M/ L 3.93-5.22 L (test code = 761) HEMOGLOBIN (BEAKER) (test code = 10.6 GM/DL 11.2-15.7 L 410) HEMATOCRIT (BEAKER) (test code = 33.3 % 34.1-44.9 L 411) MEAN CORPUSCULAR VOLUME (BEAKER) 93.3 fL 79.4-94.8 (test code = 753) MEAN CORPUSCULAR HEMOGLOBIN 29.7 pg 25.6-32.2 (BEAKER) (test code = 751) MEAN CORPUSCULAR HEMOGLOBIN CONC 31.8 GM/DL 32.2-35.5 L (BEAKER) (test code = 752) RED CELL DISTRIBUTION WIDTH 12.9 % 11.7-14.4 (BEAKER) (test code = 412) PLATELET COUNT (BEAKER) (test 213 K/CU MM 150-450 code = 756) MEAN PLATELET VOLUME (BEAKER) 9.7 fL 9.4-12.3 (test code = 754) NUCLEATED RED BLOOD CELLS 0 /100 WBC 0-0 (BEAKER) (test code = 413) NEUTROPHILS RELATIVE PERCENT 55 % (BEAKER) (test code = 429) LYMPHOCYTES RELATIVE PERCENT 25 % (BEAKER) (test code = 430) MONOCYTES RELATIVE PERCENT 15 % (BEAKER) (test code = 431) EOSINOPHILS RELATIVE PERCENT 3 % (BEAKER) (test code = 432) BASOPHILS RELATIVE PERCENT 1 % (BEAKER) (test code = 437) NEUTROPHILS ABSOLUTE COUNT 3.44 K/ L 1.56-6.13 (BEAKER) (test code = 670) LYMPHOCYTES ABSOLUTE COUNT 1.59 K/ L 1.18-3.74 (BEAKER) (test code = 414) MONOCYTES ABSOLUTE COUNT (BEAKER) 0.97 K/ L 0.24-0.36 H (test code = 415) EOSINOPHILS ABSOLUTE COUNT 0.20 K/ L 0.04-0.36 (BEAKER) (test code = 416) BASOPHILS ABSOLUTE COUNT (BEAKER) 0.05 K/ L 0.01-0.08 (test code = 417) IMMATURE GRANULOCYTES-RELATIVE 1 % 0-1 PERCENT (BEAKER) (test code = 2801) BASIC METABOLIC [id number] 05:22:00 Test Item Value Reference Range Interpretation Comments SODIUM (BEAKER) 136 meq/L 136-145 (test code = 381) POTASSIUM (BEAKER) 4.3 meq/L 3.5-5.1 (test code = 379) CHLORIDE (BEAKER) 102 meq/L 98-107 (test code = 382) CO2 (BEAKER) (test 25 meq/L 22-29 code = 355) BLOOD UREA NITROGEN 11 mg/dL 7-21 (BEAKER) (test code = 354) CREATININE (BEAKER) 0.75 mg/dL 0.57-1.25 (test code = 358) GLUCOSE RANDOM 101 mg/dL 70-105 (BEAKER) (test code = 652) CALCIUM (BEAKER) 9.1 mg/dL 8.4-10.2 (test code = 697) EGFR (BEAKER) (test 79 mL/min/1.73 ESTIMA LD GFR IS code = 1092) sq m NOT ACCURATE CREATININE CLEARANCE IN PREDICTING GLOMERULAR FILTRATION RATE . ESTIMATED GFR I S NOT APPLICABLE FOR DIALYSIS PATIEN TS. Wellness Coordinator ID - EDASICBC W/PLT COUNT & AUTO [id number] 04:49:00 Test Item Value Reference Range Interpretation Comments WHITE BLOOD CELL COUNT (BEAKER) 7.8 K/ L 3.5-10.5 (test code = 775) RED BLOOD CELL COUNT (BEAKER) 3.69 M/ L 3.93-5.22 L (test code = 761) HEMOGLOBIN (BEAKER) (test code = 11.0 GM/DL 11.2-15.7 L 410) HEMATOCRIT (BEAKER) (test code = 34.6 % 34.1-44.9 411) MEAN CORPUSCULAR VOLUME (BEAKER) 93.8 fL 79.4-94.8 (test code = 753) MEAN CORPUSCULAR HEMOGLOBIN 29.8 pg 25.6-32.2 (BEAKER) (test code = 751) MEAN CORPUSCULAR HEMOGLOBIN CONC 31.8 GM/DL 32.2-35.5 L (BEAKER) (test code = 752) RED CELL DISTRIBUTION WIDTH 12.8 % 11.7-14.4 (BEAKER) (test code = 412) PLATELET COUNT (BEAKER) (test 223 K/CU MM 150-450 code = 756) MEAN PLATELET VOLUME (BEAKER) 10.0 fL 9.4-12.3 (test code = 754) NUCLEATED RED BLOOD CELLS 0 /100 WBC 0-0 (BEAKER) (test code = 413) NEUTROPHILS RELATIVE PERCENT 71 % (BEAKER) (test code = 429) LYMPHOCYTES RELATIVE PERCENT 15 % (BEAKER) (test code = 430) MONOCYTES RELATIVE PERCENT 12 % (BEAKER) (test code = 431) EOSINOPHILS RELATIVE PERCENT 1 % (BEAKER) (test code = 432) BASOPHILS RELATIVE PERCENT 0 % (BEAKER) (test code = 437) NEUTROPHILS ABSOLUTE COUNT 5.52 K/ L 1.56-6.13 (BEAKER) (test code = 670) LYMPHOCYTES ABSOLUTE COUNT 1.13 K/ L 1.18-3.74 L (BEAKER) (test code = 414) MONOCYTES ABSOLUTE COUNT (BEAKER) 0.95 K/ L 0.24-0.36 H (test code = 415) EOSINOPHILS ABSOLUTE COUNT 0.11 K/ L 0.04-0.36 (BEAKER) (test code = 416) BASOPHILS ABSOLUTE COUNT (BEAKER) 0.02 K/ L 0.01-0.08 (test code = 417) IMMATURE GRANULOCYTES-RELATIVE 0 % 0-1 PERCENT (BEAKER) (test code = 2801) MR, SPINE, THORACIC, [id number] 01:29:00Unlisted Reason for Exam - Click Yes and Enter Reason Below->YesUnlisted Reason for Exam->T12 vertebral compression [facility] 1960 Sex: FFINAL REPORT MR Thoracic spine with and without contrast. CLINICAL HISTORY: Mid-back pain, compression fracture [id number] vertebral compression fracture TECHNIQUE: MRI of the thoracic spine utilizing sagittal T1, T2, STIR, axial T1, T2; and postgadolinium axial and sagittal T1-weighted images. COMPARISON: None FINDINGS: Acute compression fracture of the T12 vertebral body with associated marrow edema. There is associated focal kyphosis at this level. Triple of posterior fracture fragments into the canal by approximately 3 mm resulting in mild spinal canal stenosis. No significant neural foraminal stenosis. Otherwise no vertebral body height loss or marrow abnormality is identified. Prevertebral edema at T12. There is disruption of the anterior longitudinal ligament at T11-12. Increased signal in the posterior longitudinal ligament suggesting sprain. The ligamentum flavum is intact. The thoracic cord is normal in contour and caliber without signal change. There is no abnormal enhancement in the thoracic spine or cord.No epidural hematoma is identified. Trace bilateral pleural effusions with adjacent atelectasis. Degenerative changes of the cervical spine with reversal the normal cervical lordosis centered at C5-6 seen on the direct customer service representative view. IMPRESSION: Acute compression fracture of the T12 vertebral body with 3 mm retropulsion of posterior fracture fragments into the canal resulting in mild spinal canal stenosis. There is likely disruption of the anterior longitudinal ligament at T11-12 with sprain of the posterior longitudinal ligament. No mass effect cord signal abnormality. No abnormal enhancement in the thoracic spine. Signed: Rose Avina [facility] Verified Date/Time: 12/16/2019 01:29:28 MR thoracic spine without & with IV [id number] 01:29:00Interface, External Ris In - 12/16/2019 1:31 AM CDTFINAL REPORT MR Thoracic spine with and without contrast. CLINICAL HISTORY: Mid-back pain, compression fracture [id number] ve rtebral compression fracture TECHNIQUE: MRI of the thoracic spine utilizing sagittal T1, T2, STIR, axial T1, T2; and postgadolinium axial and sagittal T1- weighted images. COMPARISON: None FINDINGS: Acute compression fracture of the T12 vertebral body with associated marrow edema. There is associated focal kyphosis at this level. Triple of posterior fracture fragments into the canal by approximately 3mm resulting in mild spinal canal stenosis. No significant neural foraminal stenosis. Otherwise novertebral body height loss or marrow abnormality is identified. Prevertebral edema at T12. There is disruption of the anterior longitudinal ligament at T11-12. Increased signal in the posterior longitudinal ligament suggesting sprain. The ligamentum flavum is intact. The thoracic cord is normal in contour and caliber without signal change. There is no abnormal enhancement in the thoracic spine or cord.No epidural hematoma is identified. Trace bilateral pleural effusions with adjacent atelectasis. D egenerative changes of the cervical spine with reversal the normal cervical lordosis centered at C5-6 seen on the direct customer service representative view. IMPRESSION: Acute compression fracture of the T12 vertebral body with 3 mm retropulsion of posterior fracture fragments into the canal resulting in mild spinal canal stenosis. There is likely disruption of the anterior longitudinal ligament at T11-12 with sprain of the posterior longitudinal ligament. No mass effect cord signal abnormality. No abnormal enhancement in the thoracic spine. Signed: Rose Avina Verified Date/Time: 12/16/2019 01:29:28 [facility] [id number] 07:17:00 Test Item Value Reference Range Interpretation Comments SODIUM (BEAKER) 136 meq/L 136-145 (test code = 381) POTASSIUM (BEAKER) 4.6 meq/L 3.5-5.1 (test code = 379) CHLORIDE (BEAKER) 103 meq/L 98-107 (test code = 382) CO2 (BEAKER) (test 26 meq/L 22-29 code = 355) BLOOD UREA NITROGEN 18 mg/dL 7-21 (BEAKER) (test code = 354) CREATININE (BEAKER) 0.87 mg/dL 0.57-1.25 (test code = 358) GLUCOSE RANDOM 114 mg/dL 70-105 H (BEAKER) (test code = 652) CALCIUM (BEAKER) 9.0 mg/dL 8.4-10.2 (test code = 697) EGFR (BEAKER) (test 67 mL/min/1.73 ESTIMA LD GFR IS code = 1092) sq m NOT ACCURATE CREATININE CLEARANCE IN PREDICTING GLOMERULAR FILTRATION RATE . ESTIMATED GFR I S NOT APPLICABLE FOR DIALYSIS PATIEN TS. Wellness Coordinator ID - PIAYA LProthrombin time/[id number] 06:50:00 Test Item Value Reference Range Interpretation Comments Protime (test code = 14.1 11.9- 14.2 5902-2) seconds INR (test code = 1.12 <=5.90 6301-6) SANJAY (test code = SANJAY) Effective 07/27/2018: PT Reference Range ChangeNew: 11.9-14.2 Previous: 11.7-14.7 RECOMMENDED COUMADIN/WARFARIN INR THERAPY RANGESSTANDARD DOSE: 2.0-3.0 Includes: PROPHYLAXIS for venous thrombosis, systemic embolization; TREATMENT for venous thrombosis and/or pulmonary embolus.HIGH RISK: Target INR is 2.5-3.5 for patients wiht mechanical heart valves. Lab Interpretation Normal (test code = 81043-6) [facility]/[id number] 06:50:00 Test Item Value Reference Range Interpretation Comments PROTIME (BEAKER) (test code = 14.1 seconds 11.9-14.2 759) INR (BEAKER) (test code = 370) 1.12 <=5.90 Effective 07/27/2018: PT Reference Range ChangeNew: 11.9-14.2 Previous: 11.7- 14.7RECOMMENDED COUMADIN/WARFARIN INR THERAPY RANGESSTANDARD DOSE: 2.0-3.0 Includes: PROPHYLAXIS for venous thrombosis, systemic embolization; TREATMENT for venous thrombosis and/or pulmonary embolus.HIGH RISK: Target INR is2.5-3.5 for patients wiht mechanical heart valves.CBC W/PLT COUNT & AUTO [id number] 06:38:00 Test Item Value Reference Range Interpretation Comments WHITE BLOOD CELL COUNT (BEAKER) 6.9 K/ L 3.5-10.5 (test code = 775) RED BLOOD CELL COUNT (BEAKER) 3.64 M/ L 3.93-5.22 L (test code = 761) HEMOGLOBIN (BEAKER) (test code = 10.9 GM/DL 11.2-15.7 L 410) HEMATOCRIT (BEAKER) (test code = 34.9 % 34.1-44.9 411) MEAN CORPUSCULAR VOLUME (BEAKER) 95.9 fL 79.4-94.8 H (test code = 753) MEAN CORPUSCULAR HEMOGLOBIN 29.9 pg 25.6-32.2 (BEAKER) (test code = 751) MEAN CORPUSCULAR HEMOGLOBIN CONC 31.2 GM/DL 32.2-35.5 L (BEAKER) (test code = 752) RED CELL DISTRIBUTION WIDTH 13.2 % 11.7-14.4 (BEAKER) (test code = 412) PLATELET COUNT (BEAKER) (test 244 K/CU MM 150-450 code = 756) MEAN PLATELET VOLUME (BEAKER) 9.9 fL 9.4-12.3 (test code = 754) NUCLEATED RED BLOOD CELLS 0 /100 WBC 0-0 (BEAKER) (test code = 413) NEUTROPHILS RELATIVE PERCENT 77 % (BEAKER) (test code = 429) LYMPHOCYTES RELATIVE PERCENT 13 % (BEAKER) (test code = 430) MONOCYTES RELATIVE PERCENT 9 % (BEAKER) (test code = 431) EOSINOPHILS RELATIVE PERCENT 1 % (BEAKER) (test code = 432) BASOPHILS RELATIVE PERCENT 0 % (BEAKER) (test code = 437) NEUTROPHILS ABSOLUTE COUNT 5.31 K/ L 1.56-6.13 (BEAKER) (test code = 670) LYMPHOCYTES ABSOLUTE COUNT 0.89 K/ L 1.18-3.74 L (BEAKER) (test code = 414) MONOCYTES ABSOLUTE COUNT (BEAKER) 0.60 K/ L 0.24-0.36 H (test code = 415) EOSINOPHILS ABSOLUTE COUNT 0.07 K/ L 0.04-0.36 (BEAKER) (test code = 416) BASOPHILS ABSOLUTE COUNT (BEAKER) 0.03 K/ L 0.01-0.08 (test code = 417) IMMATURE GRANULOCYTES-RELATIVE 0 % 0-1 PERCENT (BEAKER) (test code = 2801) CT, SPINE, THORACIC, WO [id number] 00:51:00Unlisted Reason for Exam - Click Yes and Enter Reason Below->No [facility] : 1960 Sex: FFINAL REPORT CT Thoracic and lumbar spine CLINICAL HISTORY: T-spine fracture, traumatic TECHNIQUE: Contiguous axial images of the thoracic and lumbar spine with coronal andsagittal reformations to assess the alignment. This exam [facility] which includes automated exposure control, adjustment of the mA and/or kV according to the patient size, and/or use of an iterative reconstruction technique. COMPARISON: NoneFINDINGS:Thoracic spine: Age indeterminate compression deformity of the T12 vertebral body with retropulsion of the posterior fracture fragments into the canal by approximately 3 mm resulting in mild spinal canal stenosis. There is mild associated focal thoracic kyphosis at this level. Otherwise there is maintenance of the thoracic alignment and curvature. Remainder of the vertebral body heights are maintained. The visualized soft tissues are grossly unremarkable. Bilateral lower lobe dependent atelectasis. 4 mm pulmonary nodule in the left upper lobe. No pleural effusion. Small hiatal hernia.2.5cm cyst in the left hepatic lobe. Lumbar spine:No lumbar spine or sacral fractures are evident. Levocurvature of the lumbar spine centered at L3.. Vertebral body heights are preserved. Paravertebral soft tissues are within normal limits.Please note that the lack of intrathecal contrast somewhat limits evaluation of the soft tissue contents of the central canal. Multilevel degenerative changes with disc space narrowing, facet hypertrophy and osteophytosis, worst at L2-3 where there is vacuum disc phenomenon.. Vascular calcifications of the normal caliber thoracic aorta. IMPRESSION:Age indeterminatecompression fracture of T12 with retropulsion of the posterior fracture fragments into the canal by approximately 3 mm resulting in mild spinal canal stenosis. No lumbar fracture or dislocation. 4 mm pulmonary nodule in the left upper lobe. Recommend follow-up CT chest in 12 months to ensure stabilityif patient is high risk. Signed: Rose Avina [facility] Verified Date/Time: 12/15/2019 00:51:27 CT, SPINE, LUMBAR, WO [id number] 00:51:00Unlisted Reason for Exam - Click Yes and Enter Reason Below->No [facility] : 1960 Sex: FFINAL REPORT CT Thoracic and lumbar spine CLINICAL HISTORY: T-spine fracture, traumatic TECHNIQUE: Contiguous axial images of the thoracic and lumbar spine with coronal andsagittal reformations to assess the alignment. This exam was performed [facility] to the [facility] which includes automated exposure control, adjustment of the mA and/or kV according to the patient size, and/or use of an iterative reconstruction technique. COMPARISON: NoneFINDINGS:Thoracic spine: Age indeterminate compression deformity of the T12 vertebral body with retropulsion of the posterior fracture fragments into the canal by approximately 3 mm resulting in mild spinal canal stenosis. There is mild associated focal thoracic kyphosis at this level. Otherwise there is maintenance of the thoracic alignment and curvature. Remainder of the vertebral body heights are maintained. The visualized soft tissues are grossly unremarkable. Bilateral lower lobe dependent atelectasis. 4 mm pulmonary nodule in the left upper lobe. No pleural effusion. Small hiatal hernia.2.5cm cyst in the left hepatic lobe. Lumbar spine:No lumbar spine or sacral fractures are evident. Levocurvature of the lumbar spine centered at L3.. Vertebral body heights are preserved. Paravertebral soft tissues are within normal limits.Please note that the lack of intrathecal contrast somewhat limits evaluation of the soft tissue contents of the central canal. Multilevel degenerative changes with disc space narrowing, facet hypertrophy and osteophytosis, worst at L2-3 where there is vacuum disc phenomenon.. Vascular calcifications of the normal caliber thoracic aorta. IMPRESSION:Age indeterminatecompression fracture of T12 with retropulsion of the posterior fracture fragments into the canal by approximately 3 mm resulting in mild spinal canal stenosis. No lumbar fracture or dislocation. 4 mm pulmonary nodule in the left upper lobe. Recommend follow-up CT chest in 12 months to ensure stabilityif patient is high risk. Signed: Rose Avina [facility] Verified Date/Time: 12/15/2019 00:51:27 CT spine thoracic without IV [id number] 00:51:00 Interface, External Ris In - 12/15/2019 12:[address] Thoracic and lumbar spine CLINICAL HISTORY: T-spine fracture, traumatic TECHNIQUE: Contiguous axial images of the thoracic and lumbar spine with coronal and sagittal reformations to assess the alignment. This exam was performed according to the departmental dose optimization program which includes automated exposure control, adjustment of the mA and/or kV according to the patient size, and/or use of an iterative reconstruction technique. COMPARISON: None FINDINGS:Thoracic spine: Age indeterminate compressiondeformity of the T12 vertebral body with retropulsion of the posterior fracture fragments into the ca nal by approximately 3 mm resulting in mild spinal canal stenosis. There is mild associated focal thoracic kyphosis at this level. Otherwise there is maintenance of the thoracic alignment and curvature. Remainder of the vertebral body heights are maintained. The visualized soft tissues are grossly un remarkable. Bilateral lower lobe dependent atelectasis. 4 mm pulmonary nodule in the left upper lobe. No pleural effusion. Small hiatal hernia.2.5 cm cyst in the left hepatic lobe. Lumbar spine:No lumbar spine or sacral fractures are evident. Levocurvature of the lumbar spine centered at L3.. Vertebral body heights are preserved. Paravertebral soft tissues are within normal limits.Please note that the lack of intrathecal contrast somewhat limits evaluation of the soft tissue contents of the centralcanal. Multilevel degenerative changes with disc space narrowing, facet hypertrophy and osteophytosis, worst at L2-3 where there is vacuum disc phenomenon.. Vascular calcifications of the normal caliber thoracic aorta. IMPRESSION:Age indeterminate compression fracture of T12 with retropulsion of the posterior fracture fragments into the canal by approximately 3 mm resulting in mild spinal canal stenosis. No lumbar fracture or dislocation. 4 mm pulmonary nodule in the left upper lobe. Recommend follow-up CT chest in 12 months to ensure stability if patient is high risk. Signed: Rose Avina [facility] Verified Date/Time: 12/15/2019 00:51:27 [facility] [id number] 00:51:00Interface, External Ris In - 12/15/2019 12:[address] Thoracic and lumbar spine CLINICAL HISTORY: T-spine fracture, traumatic TECHNIQUE: Contiguous axial images of the thoracic and lumbar spine with coronal and sagittal reformations to assess the alignment. This exam was performed according to the departmental dose optimization program which includes automated exposure control, adjustment of the mA and/or kV according to the patient size, and/or use of an iterative reconstruction technique. COMPARISON: None FINDINGS:Thoracic spine: Age indeterminate compressiondeformity of the T12 vertebral body with retropulsion of the posterior fracture fragments into the canal by approximately 3 mm resulting in mild spinal canal stenosis. There is mild associated focal thoracic kyphosis at this level. Otherwise there is maintenance of the thoracic alignment and curvature. Remainder of the vertebral body heights are maintained. The visualized soft tissues are grossly unremarkable. Bilateral lower lobe dependent atelectasis. 4 mm pulmonary nodule in the left upper lobe. No pleural effusion. Small hiatal hernia.2.5 cm cyst in the left hepatic lobe. Lumbar spine:No lumbar spine or sacral fractures are evident. Levocurvature of the lumbar spine centered at L3.. Vertebral body heights are preserved. Paravertebral soft tissues are within normal limits.Please note that the lack of intrathecal contrast somewhat limits evaluation of the soft tissue contents of the centralcanal. Multilevel degenerative changes with disc space narrowing, facet hypertrophy and osteophytosis, worst at L2-3 where there is vacuum disc phenomenon.. Vascular calcifications of the normal caliber thoracic aorta.
--- NOTE | 2020-01-31 16:06 | RAD REPORT ---
EXAM DESCRIPTION: RAD - Chest Single View - 01/31/2020 3:54 pm CLINICAL HISTORY: COUGHintermittent fever, chest tightness, close family member admitted for COVID-1 9 symptoms COMPARISON: Portable October 2018 TECHNIQUE: AP portable chest image was obtained 01/31/2020 3:54 pm . FINDINGS: Patient has a baseline prominent interstitial lung pattern. Interstitial and patchy alveol ar opacities are present in both lung bases, left greater than right. Patchy interstitial and alveola r opacities are present in the mid upper right lung field. Trachea is midline. Heart and vasculature are normal. No measurable pleural effusion and no pneumothorax. No acute bony abnormality seen. No ac chemehuevi aortic findings suspected. IMPRESSION: Bilateral interstitial and alveolar opacities are present worse in the left lung base. Bilateral pneumonia is most likely. Given the provided history and current clinical environment, COVI D-19 pneumonia is certainly a primary consideration.
[2020-01-31] MEDS ORDERED: NA CHLORIDE 0.9% 1,000 ML ONE (17:20)
[2020-01-31] MEDS ORDERED: dexAMETHasone 10 MG/ML VIAL ONE (17:20)
[2020-01-31 17:23] LABS: Absolute Lymphocytes (CBC) 0.8 K/uL (0.7-4.9); Basophils % 0.4 % (0-1.3); Hematocrit 34.3 % (36.0-45.0); Lymphocytes % 16.7 % (15.3-44.8); MPV 8.5 fL (7.6-11.3); RBC Red Blood Cell Count 3.97 M/uL (3.86-4.86)
[2020-01-31 17:26] LABS: Protime INR 0.97
[2020-01-31 17:47] LABS: ALT/SGPT 54 U/L (12-78); AST/SGOT 56 U/L (15-37); Albumin 2.9 g/dL (3.4-5.0); Alkaline Phosphatase 116 U/L (45-117); BUN Blood Urea Nitrogen 12 mg/dL (7-18); Bicarbonate 25 mmol/L (21-32); Bilirubin Direct 0.1 mg/dL (0-0.2); Bilirubin Total 0.4 mg/dL (0.2-1.0); Ferritin 970.5 ng/mL (8-388); Glucose Level 93 mg/dL (74-106); Lipase 163 U/L (73-393); Potassium 3.5 mmol/L (3.5-5.1); Protein, Total 6.9 g/dL (6.4-8.2); Sodium Level 133 mmol/L (136-145); Troponin (Emerg Dept Use Only) < 0.02 ng/mL (0.0-0.045)
[2020-01-31] MEDS ORDERED: AZITHROMYCIN IV 500 MG in NA CHLORIDE 0.9% 250 ML IVPB ONE (18:00)
--- NOTE | 2020-01-31 19:02 | RAD REPORT ---
EXAM DESCRIPTION: CT - Chest For Pe Angio - 01/31/2020 6:33 pm CLINICAL HISTORY: DYSPNEA COMPARISON: Thorax Wo Con dated 08/17/2017; Chest Single View dated 01/31/2020 TECHNIQUE: Dynamically enhanced 3 mm thick images of the chest were obtained during administration o f approximately 150mL Isovue 370 IV contrast. Coronal and oblique MIP reconstruction images were gene rated and reviewed. Exam utilizes a protocol to evaluate the pulmonary arterial tree. All CT scans are performed using dose optimization technique as appropriate and may include automated exposure control or mA/KV adjustment according to patient size. FINDINGS: No pulmonary emboli are identified. The aorta as imaged shows no acute or suspicious finding. No pericardial thickening or effusion. Bilateral ground-glass opacification present in each upper lobe in a peripheral distribution. Broader areas of ground-glass opacification are present in the posterior aspect of each lower lobe. No pleur al effusion or pleural thickening. No mediastinal or hilar suspicious masses. No chest wall masses or abnormal axillary lymphadenopathy. IMPRESSION: No pulmonary emboli identified. Bilateral ground-glass opacification present suspicious for viral pneumonia. In the current clinical environment, COVID-19 pneumonia suspected.
--- NOTE | 2020-01-31 19:13 | ER ---
Nurse's Notes [facility] Name: Vivian Fatima Age: 59 yrs Sex: Female : 1960 Arrival Date: 01/31/2020 Time: 14:23 Bed 2 Private MD: Diagnosis: Pneumonia, unspecified organism Presentation: 01/30 14:30 Chief complaint: Patient states: Cough x 4 days. Fever off and on x 4 days. Diarrhea ca1 yesterday. Chest tightness with cough. Denies nasal congestion. Denies N/V. My daughter has just been admitted for Covid yesterday. Coronavirus screen: Client denies travel out of the [place] in the last 14 days. congestion, cough unrelated to allergies, diarrhea, fever, Client presents with at least one sign or symptom that may indicate coronavirus-19. Standard/surgical mask placed on the client. Provider contacted for isolation considerations. Staff notified of need for isolation. Ebola Screen: Patient negative for fever greater than or equal to 101.5 degrees Fahrenheit, and additional compatible Ebola Virus Disease symptoms Patient denies exposure to infectious person. Patient denies travel to an Ebola-affected area in the 21 days before illness onset. No symptoms or risks identified at this time. Initial Sepsis Screen: Does the patient meet any 2 criteria? No. Patient's initial sepsis screen is negative. Does the patient have a suspected source of infection? No. Patient's initial sepsis screen is negative. Risk Assessment: Do you want to hurt yourself or someone else? Patient reports no desire to harm self or others. Onset of symptoms was January 31, 2020. 14:30 Method Of Arrival: Ambulatory ca1 14:30 Acuity: LAYO 3 ca1 Historical: - Allergies: 14:34 Latex, Natural Rubber; ca1 - Home Meds: 14:34 gabapentin 400 mg Oral cap 2 cap nightly [Active]; Lamictal 300 mg Oral 1 tab once ca1 daily [Active]; Prozac 60 mg Oral once daily [Active]; Wellbutrin 150 mg Oral nightly [Active]; - PMHx: 14:34 Bipolar disorder; ca1 - PSHx: 14:34 None; ca1 - Immunization history:: Adult Immunizations up to date, Flu vaccine is up to date. - Social history:: Smoking status: Patient denies any tobacco usage or history of. Screenin:10 Abuse screen: Denies threats or abuse. Denies injuries from another. Nutritional iw screening: No deficits noted. Tuberculosis screening: No symptoms or risk factors identified. 19:30 Fall Risk None identified. rv Assessment: 17:30 General: Appears in no apparent distress. Behavior is calm, cooperative. Pain: Denies iw pain. Neuro: Level of Consciousness is awake, alert, obeys commands, Oriented to person, place, time, situation, Moves all extremities. Full function. Respiratory: Reports cough that is productive. Derm: Skin is intact, is healthy with good turgor. Vital Signs: 14:30 BP 100 / 62; Pulse 91; Resp 18 S; Temp 97.9(TE); Pulse Ox 95% on R/A; Weight 74.84 kg ca1 (R); Height 5 ft. 5 in. (165.10 cm) (R); Pain 0/10; 18:08 BP 116 / 65; Pulse 89; Resp 16; Pulse Ox 100% on R/A; iw 19:29 BP 121 / 66; Pulse 86; Resp 17; Temp 98; Pulse Ox 100% on R/A; rv 14:30 Body Mass Index 27.46 (74.84 kg, 165.10 cm) ca1 ED Course: 14:23 Patient arrived in ED. ag5 14:34 Triage completed. ca1 14:34 Arm band placed on right wrist. ca1 15:25 Flu Sent. ca1 15:27 Brandie Tirado FNP-C is [facility]. kb 15:27 Epifanio Vargas MD is Attending Physician. kb 15:49 Chest Single View XRAY In Process Unspecified. EDMS 16:40 Chasity Biggs, JUAN is Primary Nurse. iw 17:10 Initial lab(s) drawn, by me, sent to lab. Inserted saline lock: 20 gauge in right iw antecubital area, using aseptic technique. Blood collected. 17:31 Notified Nurse Practitioner and/or Physician Reel Film Inspector of a critical lab result(s), jd3 D-Dimer of [id number]. 18:33 CT Chest For PE Angio In Process Unspecified. EDMS 19:00 Patient has correct armband on for positive identification. rv 19:29 No provider procedures requiring assistance completed. IV discontinued, intact, rv bleeding controlled, No redness/swelling at site. Pressure dressing applied. Administered Medications: 17:34 Drug: NS 0.9% 1000 ml Route: IV; Rate: 1000 ml; Site: right antecubital; iw 19:29 Follow up: IV Status: Completed infusion; IV Intake: 1000ml rv 17:34 Drug: Zithromax 500 mg Route: IVPB; Infused Over: 1 hrs; Site: right antecubital; iw 19:28 Follow up: IV Status: Completed infusion; IV Intake: 250ml rv 17:35 Drug: Decadron - Dexamethasone 10 mg Route: IVP; Site: right antecubital; iw 19:29 Follow up: Response: No adverse reaction rv Intake: 19:28 IV: 250ml; Total: 250ml. rv 19:29 IV: 1000ml; Total: 1250ml. rv Outcome: 19:12 Discharge ordered by . kb 19:30 Discharged to home ambulatory, with family. rv 19:30 Condition: good 19:30 Discharge instructions given to patient, Instructed on discharge instructions, follow up and referral plans. medication usage, Demonstrated understanding of instructions, follow-up care, medications, Prescriptions given X 2. 19:30 Patient left the ED. rv Addendum: 02/02/2020 15:33 Addendum: COVID-19 Result: Positive result giiven to ED physician to notify pt. i w Physician: Ellis Juarez MD Physician was able to contact pt and pt was notified of positive COVID-19 swab result. Physician answered pt questions. Signatures: Dispatcher [employer] EDID Brandie Tirado, CREDIT RISK OFFICER-C CREDIT RISK OFFICER-Chasity Kwon RN RN Elver Talamantes RN RN jd3 Vicente, Ronaldo, RN RN rv Acob, Cheryl, RN RN ca1 Mei Saul [facility]
--- NOTE | 2020-01-31 19:13 | EDPHYS ---
Physician Documentation [facility] Name: Vivian Fatima Age: 59 yrs Sex: Female : 1960 Arrival Date: 01/31/2020 Time: 14:23 Bed 2 Private MD: ED Physician Epifanio Vargas HPI: 01/31 00:55 This 59 yrs old Female presents to ER via Ambulatory with complaints of kb Fever, Cough. 00:55 The patient or guardian reports cough, that is intermittent, described as moderate, kb with no sputum, flu symptoms, low-grade fever, myalgias. Onset: The symptoms/episode began/occurred 1 week(s) ago. Severity of symptoms: At their worst the symptoms were moderate, in the emergency department the symptoms are unchanged. Modifying factors: The symptoms are alleviated by nothing, the symptoms are aggravated by nothing. Associated signs and symptoms: Pertinent positives: fever, Pertinent negatives: chest pain, diarrhea, ear ache, nausea, rhinorrhea, sore throat, vomiting. The patient has not experienced similar symptoms in the past. The patient has not recently seen a physician. Pt reports she has had cough, body aches, intermittent sob, malaise, headache, fever and diarrhea for a week. Daughter recently tested positive for covid. . Historical: - Allergies: 01/30 14:34 Latex, Natural Rubber; ca1 - Home Meds: 14:34 gabapentin 400 mg Oral cap 2 cap nightly [Active]; Lamictal 300 mg Oral 1 tab once ca1 daily [Active]; Prozac 60 mg Oral once daily [Active]; Wellbutrin 150 mg Oral nightly [Active]; - PMHx: 14:34 Bipolar disorder; ca1 - PSHx: 14:34 None; ca1 - Immunization history:: Adult Immunizations up to date, Flu vaccine is up to date. - Social history:: Smoking status: Patient denies any tobacco usage or history of. ROS: 01/31 00:51 ENT: Negative for injury, pain, and discharge, Neck: Negative for injury, pain, and kb swelling, Cardiovascular: Negative for chest pain, palpitations, and edema, Back: Negative for injury and pain, MS/Extremity: Negative for injury and deformity, Skin: Negative for injury, rash, and discoloration. Constitutional: Positive for body aches, chills, fatigue, fever, malaise. Respiratory: Positive for cough, shortness of breath. Abdomen/GI: Positive for diarrhea. Neuro: Positive for headache. Exam: 00:51 Constitutional: This is a well developed, well nourished patient who is awake, alert, kb and in no acute distress. Head/Face: Normocephalic, atraumatic. Chest/axilla: Normal chest wall appearance and motion. Nontender with no deformity. No lesions are appreciated. Cardiovascular: Regular rate and rhythm with a normal S1 and S2. No gallops, murmurs, or rubs. Normal PMI, no JVD. No pulse deficits. Respiratory: Lungs have equal breath sounds bilaterally, clear to auscultation and percussion. No rales, rhonchi or wheezes noted. No increased work of breathing, no retractions or nasal flaring. Abdomen/GI: Soft, non-tender, with normal bowel sounds. No distension or tympany. No guarding or rebound. No evidence of tenderness throughout. Skin: Warm, dry with normal turgor. Normal color with no rashes, no lesions, and no evidence of cellulitis. MS/ Extremity: Pulses equal, no cyanosis. Neurovascular intact. Full, normal range of motion. Neuro: Awake and alert, GCS 15, oriented to person, place, time, and situation. Cranial nerves II-XII grossly intact. Motor strength 5/5 in all extremities. Sensory grossly intact. Cerebellar exam normal. Normal gait. Vital Signs: 01/30 14:30 BP 100 / 62; Pulse 91; Resp 18 S; Temp 97.9(TE); Pulse Ox 95% on R/A; Weight 74.84 kg ca1 (R); Height 5 ft. 5 in. (165.10 cm) (R); Pain 0/10; 18:08 BP 116 / 65; Pulse 89; Resp 16; Pulse Ox 100% on R/A; iw 19:29 BP 121 / 66; Pulse 86; Resp 17; Temp 98; Pulse Ox 100% on R/A; rv 14:30 Body Mass Index 27.46 (74.84 kg, 165.10 cm) ca1 MDM: 16:23 Patient medically screened. kb 19:11 Data reviewed: vital signs, nurses notes. Data interpreted: Pulse oximetry: on room air kb is 100 %. Interpretation: normal. Counseling: I had a detailed discussion with the patient and/or guardian regarding: the historical points, exam findings, and any diagnostic results supporting the discharge/admit diagnosis, lab results, radiology results, the need for outpatient follow up, a family practitioner, to return to the emergency department if symptoms worsen or persist or if there are any questions or concerns that arise at home. 01/30 14:41 Order name: Flu; Complete Time: 16:28 kb 01/30 16:36 Order name: Blood Culture Adult (2) kb 01/30 16:36 Order name: BMP; Complete Time: 17:50 kb 01/30 16:36 Order name: C-Reactive Protein; Complete Time: 17:50 kb 01/30 16:36 Order name: CBC with Diff; Complete Time: 17:35 kb 01/30 16:36 Order name: COVID-19 kb 01/30 16:36 Order name: D-Dimer; Complete Time: 17:35 kb 01/30 16:36 Order name: Ferritin; Complete Time: 17:50 kb 01/30 16:36 Order name: Lactate; Complete Time: 17:45 kb 01/30 16:36 Order name: LFT's; Complete Time: 17:50 kb 01/30 16:36 Order name: Lipase; Complete Time: 17:50 kb 01/30 16:36 Order name: Procalcitonin; Complete Time: 18:24 kb 01/30 16:36 Order name: PT-INR; Complete Time: 17:35 kb 01/30 16:36 Order name: Ptt, Activated; Complete Time: 17:35 kb 01/30 14:41 Order name: Chest Single View XRAY; Complete Time: 16:12 kb 01/30 16:36 Order name: Droplet/Contact Precautions; Complete Time: 18:09 kb 01/30 16:36 Order name: Strep; Complete Time: 18:53 kb 01/30 16:36 Order name: Troponin (emerg Dept Use Only); Complete Time: 17:50 kb 01/30 16:36 Order name: Cardiac monitoring kb 01/30 16:36 Order name: EKG - Nurse/Tech kb 01/30 16:36 Order name: IV Start kb 01/30 16:36 Order name: Labs collected and sent kb 01/30 16:36 Order name: O2 Per Protocol kb 01/30 16:36 Order name: O2 Sat Monitoring 01/30 17:35 Order name: CT Chest For PE Angio; Complete Time: 19:10 kb 01/30 18:54 Order name: Throat Culture [facility] 01/30 16:36 Order name: Urine Dipstick-Ancillary (obtain specimen) Administered Medications: 17:34 Drug: NS 0.9% 1000 ml Route: IV; Rate: 1000 ml; Site: right antecubital; iw 19:29 Follow up: IV Status: Completed infusion; IV Intake: 1000ml rv 17:34 Drug: Zithromax 500 mg Route: IVPB; Infused Over: 1 hrs; Site: right antecubital; iw 19:28 Follow up: IV Status: Completed infusion; IV Intake: 250ml rv 17:35 Drug: Decadron - Dexamethasone 10 mg Route: IVP; Site: right antecubital; iw 19:29 Follow up: Response: No adverse reaction rv Disposition: 01/31 07:13 Co-signature as Attending Physician, Epifanio Vargas MD I agree with the assessment and kdr plan of care. Disposition: 01/31/20 19:12 Discharged to Home. Impression: Pneumonia, unspecified organism. - Condition is Stable. - Discharge Instructions: Community-Acquired Pneumonia, Adult, [id number], COVID-19. - Prescriptions for Medrol (Armaan) 4 mg Oral Tablets, Dose Pack - take 1 tablet by ORAL route as directed - follow package instructions; 1 packet. Zithromax 500 mg Oral Tablet - take 1 tablet by ORAL route once daily for 5 days; 5 tablet. - Medication Reconciliation Form, Thank You Letter, Antibiotic Education, Prescription Opioid Use form. - Follow up: Emergency Department; When: As needed; Reason: Worsening of condition. Follow up: Private Physician; When: 2 - 3 days; Reason: Recheck today's complaints, Continuance of care, Re-evaluation by your physician. Signatures: Dispatcher [employer] [facility] Brandie Tirado, TAVIA ROBERTSON-Epifanio Lee MD MD kdr Chasity Biggs, RN RN iw Giuseppe Owusu, RN RN rv AcMarie garcia RN RN ca1 Corrections: (The following items were deleted from the chart) 01/30 19:30 19:12 01/31/2020 19:12 Discharged to Home. Impression: Pneumonia, unspecified organism. rv Condition is Stable. Forms are Medication Reconciliation Form, Thank You Letter, Antibiotic Education, Prescription Opioid Use. Follow up: Emergency Department; When: As needed; Reason: Worsening of condition. Follow up: Private Physician; When: 2 - 3 days; Reason: Recheck today's complaints, Continuance of care, Re-evaluation by your physician. kb
== END 2020-01-31 19:30 | disposition home or self-care (01) ==
LOC: ER 14:22
DX: U07.1 COVID-19 (principal); J18.9 Pneumonia, unspecified organism; F31.9 Bipolar disorder, unspecified; Z91.040 Latex allergy status; Z91.048 Other nonmedicinal substance allergy status
CPT/HCPCS: 96365; 87040 ×2; 87070; 85025; 80048; 36415; 85610; 85379; 80076; 87081; 83605; 85730; 84484; 82728; 83690; 84145; 86140; 87804 ×2; 71275; 71045; 96375; 99284; 96366; U0002; Q9967; J0456; J1100; J7050; J7030

== ENCOUNTER 2020-11-19 17:47 | Emergency (ER) | payer BC ==
--- NOTE | 2020-11-19 20:32 | RAD REPORT ---
EXAM DESCRIPTION: CT - [id number] - 11/19/2020 8:05 pm CLINICAL HISTORY: fall, head injury, neck injury COMPARISON: CT head and cervical November 2012 TECHNIQUE: Axial 5 mm thick images of the head were obtained. Axial 2 mm thick images of the cervic al spine were obtained with sagittal and coronal reconstruction images generated and reviewed. All CT scans are performed using dose optimization technique as appropriate and may include automated exposure control or mA/KV adjustment according to patient size. FINDINGS: No intracranial hemorrhage, mass, edema or acute intracranial finding. No suspicion for ac quechan infarction. No extra-axial fluid collections. Mastoid air cells and paranasal sinuses are clear. No globe or orbit abnormality seen. Cervical bodies are normal in height. There is a slight retrolisthesis of C5 relative to C4 and C6. S ignificant C5-6 disc space narrowing and endplate spurring changes are present progressive from 2012. Bony foraminal encroachment is present at this level. No fracture or acute bony abnormality. Centra l canal detail is inherently limited. No paraspinal mass or hematoma. IMPRESSION: Negative CT head examination for acute or significant finding. Significant C5-6 disc and endplate degenerative changes are present with bilateral bony foraminal enc roachment.
--- NOTE | 2020-11-19 22:21 | ER ---
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 R knee pain also. No LOC. Coronavirus screen: Client denies travel out of the [place] in the last 14 days. At this time, the client does not indicate any symptoms associated with coronavirus-19. Ebola Screen: Patient denies travel to an Ebola-affected area in the 21 days before illness onset. Complicating Factors: There are no complicating factors for this patient. Initial Sepsis Screen: Does the patient meet any 2 criteria? No. Patient's initial sepsis screen is negative. Does the patient have a suspected source of infection? No. Patient's initial sepsis screen is negative. Risk Assessment: Do you want to hurt yourself or someone else? Patient reports no desire to harm self or others. Onset of symptoms was November 19, 2020. 18:02 Method Of Arrival: Ambulatory ll1 18:02 Acuity: LAYO 4 ll1 Historical: - Allergies: 18:03 Latex, Natural Rubber; ll1 - PMHx: 18:03 Bipolar disorder; ll1 - PSHx: 18:03 back SX; section; hysterectomy; ll1 - Immunization history:: Client reports receiving the 2nd dose of the Covid vaccine, Last tetanus immunization: < 10 years ago. - Social history:: Smoking status: Patient denies any tobacco usage or history of. Screenin:00 Abuse screen: Denies threats or abuse. Denies injuries from another. Nutritional ld1 screening: No deficits noted. Tuberculosis screening: No symptoms or risk factors identified. Fall Risk None identified. Assessment: 19:00 General: Appears in no apparent distress. comfortable, Behavior is calm, cooperative, ld1 appropriate for age. Pain: Complains of pain in mouth Pain does not radiate. Pain currently is 8 out of 10 on a pain scale. Quality of pain is described as throbbing, Pain began 2 hours ago. Is continuous. 19:00 Neuro: Level of Consciousness is awake, alert, obeys commands, Oriented to person, ld1 place, time, situation, Appropriate for age. Cardiovascular: Capillary refill < 3 seconds Patient's skin is warm and dry. Respiratory: Airway is patent Respiratory effort is even, unlabored, Respiratory pattern is regular, symmetrical. GI: Abdomen is flat, non-distended. : No signs and/or symptoms were reported regarding the genitourinary system. EENT: No signs and/or symptoms were reported regarding the EENT system. Derm: No signs and/or symptoms reported regarding the dermatologic system. Musculoskeletal: No deficits noted. Injury Description: Laceration sustained to upper hang border is clean. Vital Signs: 18:02 BP 161 / 102; Pulse 83; Resp 17; Temp 98.8; Pulse Ox 96% ; Weight 78.47 kg; Height 5 ll1 ft. 6 in. (167.64 cm); Pain 7/10; 19:00 BP 156 / 100; Pulse 86; Resp 18; Pulse Ox 97% on R/A; Pain 8/10; ld1 19:44 BP 143 / 75 RA Sitting (auto/reg); Pulse 64; Resp 16; Temp 97.1; Pulse Ox 98% ; Pain sj1 4/10; 18:02 Body Mass Index 27.92 (78.47 kg, 167.64 cm) ll1 ED Course: 17:48 Patient arrived in ED. as 18:03 Triage completed. 1 18:04 Arm band placed on. 1 18:31 Carlo Pillai PA is PHCP. [facility] 18:31 Sigifredo Angeles MD is Attending Physician. [facility] 19:00 Patient has correct armband on for positive identification. Bed in low position. Call ld1 light in reach. Side rails up X2. Pulse ox on. NIBP on. Door closed. Noise minimized. 19:00 No provider procedures requiring assistance completed. ld1 20:05 CT Head C Spine In Process Unspecified. EDMS 22:31 Patient did not have IV access during this emergency room visit. sj1 Administered Medications: No medications were administered Outcome: 22:20 Discharge ordered by . [facility] 22:30 Discharged to home ambulatory. sj1 22:30 Condition: stable 22:30 Discharge instructions given to patient, Instructed on discharge instructions, follow up and referral plans. Demonstrated understanding of instructions, follow-up care. 22:31 Patient left the ED. sj1 Signatures: Dispatcher [employer] EDMS Carlo Pillai PA PA jmm Martinez, Amelia as Lewis, Lynsay, RN RN ll1 Antionette Teague RN RN ld1 Joanie Cantu RN RN sj1
--- NOTE | 2020-11-19 22:21 | EDPHYS ---
Physician Documentation [facility] Name: Vivian Fatima Age: 60 yrs Sex: Female : 1960 Arrival Date: 11/19/2020 Time: 17:48 Bed Treatment Private MD: ED Physician Sigifredo Angeles HPI: 11/19 22:20 This 60 yrs old Female presents to ER via Ambulatory with complaints of jmm Laceration To Lip. 22:20 Onset: The symptoms/episode began/occurred acutely, just prior to arrival. The patient jmm has not experienced similar symptoms in the past. Patient states she slipped hitting her head against furniture. Denies vomiting, increased pain. . Historical: - Allergies: 18:03 Latex, Natural Rubber; ll1 - PMHx: 18:03 Bipolar disorder; ll1 - PSHx: 18:03 back SX; section; hysterectomy; ll1 - Immunization history:: Client reports receiving the 2nd dose of the Covid vaccine, Last tetanus immunization: < 10 years ago. - Social history:: Smoking status: Patient denies any tobacco usage or history of. ROS: 22:20 Constitutional: Negative for fever, chills, and weight loss, Cardiovascular: Negative jmm for chest pain, palpitations, and edema, Respiratory: Negative for shortness of breath, cough, wheezing, and pleuritic chest pain. 22:20 All other systems are negative. Exam: 22:20 Constitutional: This is a well developed, well nourished patient who is awake, alert, jmm and in no acute distress. Eyes: EOMI, no conjunctival erythema appreciated ENT: Moist Mucus Membranes Neck: Trachea midline, Supple Chest/axilla: Normal chest wall appearance and motion. 22:20 Respiratory: Normal respirations, no respiratory distress appreciated Abdomen/GI: Non distended, soft Back: Normal ROM Skin: General appearance color normal MS/ Extremity: Moves all extremities, no obvious deformities appreciated, no edema noted to the lower extremities Neuro: Awake and alert, normal gait Psych: Behavior is normal, Mood is normal, Patient is cooperative and pleasant 22:20 Head/face: 2 cm laceration noted to the upper lip. Vital Signs: 18:02 BP 161 / 102; Pulse 83; Resp 17; Temp 98.8; Pulse Ox 96% ; Weight 78.47 kg; Height 5 ll1 ft. 6 in. (167.64 cm); Pain 7/10; 19:00 BP 156 / 100; Pulse 86; Resp 18; Pulse Ox 97% on R/A; Pain 8/10; ld1 19:44 BP 143 / 75 RA Sitting (auto/reg); Pulse 64; Resp 16; Temp 97.1; Pulse Ox 98% ; Pain sj1 4/10; 18:02 Body Mass Index 27.92 (78.47 kg, 167.64 cm) ll1 Laceration: 22:19 Wound Repair of 2cm ( 0.8in ) subcutaneous laceration to face. Distal jmm neuro/vascular/tendon intact. Anesthesia: Local anesthetic administered with 2 mls of 1% lidocaine. Wound prep: Simple cleansing with betadine by me. Skin closed with 4 5-0 Prolene using simple sutures and sterile technique. Patient tolerated well. MDM: 18:49 Patient medically screened. [facility] 22:19 Data reviewed: vital signs, nurses notes. Counseling: I had a detailed discussion with roxann the patient and/or guardian regarding: the historical points, exam findings, and any diagnostic results supporting the discharge/admit diagnosis, radiology results, the need for outpatient follow up, to return to the emergency department if symptoms worsen or persist or if there are any questions or concerns that arise at home. 11/19 19:05 Order name: CT Head C Spine; Complete Time: 20:33 [facility] Administered Medications: No medications were administered Disposition Summary: 11/19/20 22:20 Discharge Ordered Location: Home [facility] Condition: Stable [facility] Diagnosis - Head Injury [facility] - Laceration of Face [facility] Followup: [facility] - With: Private Physician - When: 7 - 10 days - Reason: Recheck today's complaints, Continuance of care, Staple/Suture removal, Re-evaluation by your physician Discharge Instructions: - Discharge Summary Sheet [facility] - Head Injury, Adult [facility] - Facial Laceration [facility] Forms: - Medication Reconciliation Form [facility] - Thank You Letter [facility] - Antibiotic Education [facility] - Prescription Opioid Use [facility] Addendum: 11/23/2020 19:34 Co-signature as Attending Physician, Sigifredo Angeles MD I agree with the assessment and r n plan of care. Attestation: The patient's history, exam findings, diagnostics, and a summary of any interventions or procedures was reviewed in detail with Carlo SANTIAGO. Signatures: Dispatcher [employer] Carlo Cho PA PA jmm Nieto, Roman, MD MD rn Lewis, Lynsay, RN RN ll1
[2020-11-20 00:34] VITALS: BP 143/75; TEMP 97.1; O2SAT 98
== END 2020-11-19 22:31 | disposition home or self-care (01) ==
LOC: ER 17:47
PROC: 0CQ0XZZ Repair Upper Lip, External Approach (ICD-10-PCS; principal; 2020-11-19)
DX: S01.511A Laceration without foreign body of lip, initial encounter (principal); S09.90XA Unspecified injury of head, initial encounter; W01.190A Fall on same level from slipping, tripping and stumbling with subsequent striking against furniture, initial encounter; Z91.040 Latex allergy status; Z91.048 Other nonmedicinal substance allergy status
CPT/HCPCS: 70450; 72125; 99283

== ENCOUNTER 2021-02-04 19:32 | Emergency (ER) | payer BC ==
--- OUTSIDE RECORDS SUMMARY | 2021-02-04 19:35 | XMS REPORT | Continuity of Care Document ---
:1960 Author Organization [facility] t Address [address] [place] [address] Care Team Providers Name Role Phone KAUSHAL SWAIN Attending Clinician Unavailable KAUSHAL SWAIN Admitting Clinician Unavailable RHETT CAPUTO Admitting Clinician Unavailable Payers Payer Name Policy Type Policy Number Effective Date Expiration Date S ource BCBS PPO POS EPO [id number] 2019 00:00:00 CHOICE Problems This patient has no known problems. Allergies, Adverse Reactions, Alerts Allergy Allergy Status Severity Reaction(s) Onset Inactive Treating Comm ents Source Name Type Date Date Clinician LATEX Allergy Active 2019-[address] [facility] Medications This patient has no known medications. Vital Signs Vital Name Observation Time Observation Value Comments Source HEIGHT 2019-12-14 17:00:00 167.6 cm WEIGHT 2019-12-14 17:00:00 80.74 kg HEIGHT 2019-12-14 17:00:00 167.6 cm WEIGHT 2019-12-14 17:00:00 80.74 kg Procedures This patient has no known procedures. Encounters Start End Encounter Admission Attending Care Care Encounter Source Date/Time Date/Time Type Type Clinicians Facility Department ID 2019-12-14 Inpatient ER WILIAM, JULIO Neurosurger [id number] SLE 16:09:00 CHIMKAMA y 2020-01-02 2020-01-02 Outpatient [facility] [id number] [facility] 00:00:00 00:00:00 Results Test Description Test Time Test Comments Results Result Comments Source BASIC METABOLIC PANEL 2019-12-20 05:32:00 Test Item Value Reference Range Interpretation Comme nts SODIUM (BEAKER) (test code 134 meq/L 136-145 L = 381) POTASSIUM (BEAKER) (test 4.3 meq/L 3.5-5.1 code = 379) CHLORIDE (BEAKER) (test 101 meq/L 98-107 code = 382) CO2 (BEAKER) (test code = 26 meq/L 22-29 355) BLOOD UREA NITROGEN 12 mg/dL 7-21 (BEAKER) (test code = 354) CREATININE (BEAKER) (test 0.77 mg/dL 0.57-1.25 code = 358) GLUCOSE RANDOM (BEAKER) 88 mg/dL 70-105 (test code = 652) CALCIUM (BEAKER) (test code 8.9 mg/dL 8.4-10.2 = 697) EGFR (BEAKER) (test code = 77 mL/min/1.73 sq m ESTIMATED GFR IS NOT 1092) ACCURATE CRE ATININE CLEARANCE IN WI EDICTING GLOMERULAR FILT RATION RATE. ESTIMATED GFR IS NOT APPLICABLE FOR DIALYSIS PATIENTS. [employer]person [employer] ID - PIAYA LCBC W/PLT COUNT & AUTO [id number] 04:53:00 Test Item Value Reference Range Interpretation [...] (test code = 2801) ANG, KYPHOPLASTY, THORACIC, [id number] 18:11:00What level(s) should be performed->[id number] for exam:->compresion fracture 50 % [facility] 1960 Sex: FFINAL [...] dose reported as (Ka,r): 1425 mGy Signed: [facility] Verified Date/Time: 12/19/2019 18:11:28 Reading Location: [place] [address] Angio Body Reading Room SARS-COV2/RT-PCR ([facility]) 2019-12-19 10:30:00 Test Item Value Reference Range Interpretation Comments SARS-COV2/RT-PCR (test code Negative Not Detected, Negative, = [id number]) See external report for linked test SARS-COV-2 PERFORMING LAB [facility] (test code = 1113507) Negative results do not preclude SARS-CoV-2 infection [...] of the Act.Fact Sheet for Healthcare Pro viders:https://www.[employer]/Documents/Xpert%20Xpress%20SARS%20CoV-2/Fact%20Sh eets/302-3802%72BPBJ-JYU-5%20HEALTHCARE%20PROVIDERS%20FACT%20SHEET.pdfFact Sheet for Healthcare Patients:https://www.[employer]thing/Documents/Xpert%20Xpress%20SARS%20CoV-2/Fact%20Sheets/302-3801%20SARS-COV -2%20PATIENT%20FACT%20SHEET.pdfPerforming Laboratory:[facility].[place], [place] [address]FHYBT METABOLIC [id number] 05:08:00 Test Item Value Reference Range Interpretation [...] S NOT APPLICABLE FOR DIALYSIS PATIEN TS. [employer] ID - EDASICBC W/PLT COUNT & AUTO [id number] 04:31:00 Test Item Value Reference Range Interpretation [...] (BEAKER) (test code = 2801) BASIC METABOLIC [id number] 06:27:00 Test Item Value Reference Range Interpretation [...] S NOT APPLICABLE FOR DIALYSIS PATIEN TS. [employer] ID - DBCBC W/PLT COUNT & AUTO [id number] 06:04:00 Test Item Value Reference Range Interpretation [...] (BEAKER) (test code = 2801) BASIC METABOLIC [id number] 05:22:00 Test Item Value Reference Range Interpretation [...] S NOT APPLICABLE FOR DIALYSIS PATIEN TS. [employer] ID - EDASICBC W/PLT COUNT & AUTO [id number] 04:49:00 Test Item Value Reference Range Interpretation [...] (test code = 2801) MR, SPINE, THORACIC, [id number] 01:29:00Unlisted Reason for Exam - Click Yes and Enter Reason Below->YesUnlisted Reason for Exam->T12 vertebral compression fracture [facility] 1960 Sex: FFINAL REPORT MR Thoracic spine with and without contrast. CLINICAL HISTORY: Mid-back pain, compression fracture [id number] vertebral compression fracture TECHNIQUE: MRI of the [...] lordosis centered at C5-6 seen on the ux designer view. IMPRESSION: Acute compression fracture of the T12 vertebral body with 3 mm retropulsion of posterior fracture fragments into the canal resulting in mild spinal canal stenosis. There is likely disruption of the anterior longitudinal ligament at T11-12 with sprain of the posterior longitudinal ligament. No mass effect cord signal abnormality. No abnormal enhancement in the thoracic spine. Signed: Rose Avina [facility] Verified Date/Time: 12/16/2019 01:29:28 BASIC METABOLIC [id number] 07:17:00 Test Item Value Reference Range Interpretation [...] S NOT APPLICABLE FOR DIALYSIS PATIEN TS. [employer] ID - PIAYA LPROTHROMBIN [id number] 06:50:00 Test Item Value Reference Range Interpretation [...] mechanical heart valves.CBC W/PLT COUNT & AUTO [id number] 06:38:00 Test Item Value Reference Range Interpretation [...] code = 2801) CT, SPINE, THORACIC, WO [id number] 00:51:00Unlisted Reason for Exam - Click Yes and Enter Reason Below->No [facility] [place] : 1960 Sex: FFINAL REPORT CT Thoracic and lumbar spine CLINICAL HISTORY: T-spine fracture, traumatic TECHNIQUE: Contiguous axial images of the thoracic and lumbar spine with coronal andsagittal reformations to assess the alignment. This exam was performed according to the departmentfranciscan health optimization program which includes automated exposure control, [...] patient is high risk. Signed: Rose Avina [facility] Verified Date/Time: 12/15/2019 00:51:27 CT, SPINE, LUMBAR, WO [id number] 00:51:00Unlisted Reason for Exam - Click Yes and Enter Reason Below->No [facility] : 1960 Sex: FFINAL REPORT CT Thoracic and lumbar spine CLINICAL HISTORY: T-spine fracture, traumatic TECHNIQUE: Contiguous axial images of the thoracic and lumbar spine with coronal andsagittal reformations to assess the alignment. This exam was performed according to the departmentaldose optimization program which includes automated exposure control, [...] stabilityif patient is high risk. Signed: Rose [facility]estern [facility] Verified Date/Time: 12/15/2019 00:51:27
[2021-02-04] MEDS ORDERED: ACETAMINOPHEN 500 MG TAB ONE (21:35)
--- NOTE | 2021-02-04 22:03 | RAD REPORT ---
EXAM DESCRIPTION: RAD - Forearm Right - 02/04/2021 9:56 pm CLINICAL HISTORY: Right arm pain status post fall FINDINGS: No fracture is seen.
--- NOTE | 2021-02-04 22:05 | RAD REPORT ---
EXAM DESCRIPTION: RAD - Hand Right 3 View - 02/04/2021 9:56 pm CLINICAL HISTORY: Right hand pain status post injury FINDINGS: No fracture or dislocation is seen.
[2021-02-04] MEDS ORDERED: TETANUS & DIPHTHERIA TOX,ADULT 0.5 ML VIAL ONE (22:37)
--- NOTE | 2021-02-04 23:12 | EDPHYS ---
Physician Documentation [facility] Name: Vivian Fatima Age: 60 yrs Sex: Female : 1960 Arrival Date: 02/04/2021 Time: 19:34 Bed 10 Private MD: ED Physician Maurice Maynard HPI: 02/04 21:50 This 60 yrs old Female presents to ER via Wheelchair with complaints of Closed Head mh7 Injury-Adult, Fall Injury. 21:50 Details of fall: The patient fell from a height, down approximately 3 stairs, and mh7 struck wood dianelys. Onset: The symptoms/episode began/occurred today, at 19:00. Associated injuries: The patient sustained injury to the head, abrasion, contusion, pain, swelling. Associated injuries: The patient sustained Right forearm, abrasion, contusion, right hand, painful injury. Severity of symptoms: At their worst the symptoms were moderate, earlier today, in the emergency department the symptoms have improved, moderately. Patient states that she tripped and fell down 3 stairs this evening. She states that she hit her head, right forearm, right hand. She denies any LOC or neck pain. She denies any symptoms prior to falling including headache, chest pain, abdominal pain, shortness of breath, fever, cough, nausea, vomiting, dizziness, numbness/tingling, or weakness.. Historical: - Allergies: 21:30 Latex, Natural Rubber; as6 - Home Meds: 21:30 gabapentin 400 mg Oral cap 2 cap nightly [Active]; Lamictal 300 mg Oral 1 tab once as6 daily [Active]; Prozac 60 mg Oral once daily [Active]; Wellbutrin 150 mg Oral nightly [Active]; - PMHx: 21:30 Bipolar disorder; as6 - PSHx: 21:30 back sx; section; hysterectomy; as6 - Immunization history:: Adult Immunizations Client reports receiving the 2nd dose of the Covid vaccine. - Social history:: Smoking status: unknown. ROS: 21:50 Constitutional: Negative for fever, chills, and weight loss, Eyes: Negative for injury, mh7 pain, redness, and discharge, ENT: Negative for injury, pain, and discharge, Neck: Negative for injury, pain, and swelling, Cardiovascular: Negative for chest pain, palpitations, and edema, Respiratory: Negative for shortness of breath, cough, wheezing, and pleuritic chest pain, Abdomen/GI: Negative for abdominal pain, nausea, vomiting, diarrhea, and constipation, Back: Negative for injury and pain, : Negative for injury, bleeding, discharge, and swelling, Neuro: Negative for headache, weakness, numbness, tingling, and seizure, Psych: Negative for depression, anxiety, suicide ideation, homicidal ideation, and hallucinations, Allergy/Immunology: Negative for hives, rash, and allergies, Endocrine: Negative for neck swelling, polydipsia, polyuria, polyphagia, and marked weight changes, Hematologic/Lymphatic: Negative for swollen nodes, abnormal bleeding, and unusual bruising. Exam: 21:50 Constitutional: This is a well developed, well nourished patient who is awake, alert, mh7 and in no acute distress. Eyes: Pupils equal round and reactive to light, extra-ocular motions intact. Lids and lashes normal. Conjunctiva and sclera are non-icteric and not injected. Cornea within normal limits. Periorbital areas with no swelling, redness, or edema. ENT: Nares patent. No nasal discharge, no septal abnormalities noted. Tympanic membranes are normal and external auditory canals are clear. Oropharynx with no redness, swelling, or masses, exudates, or evidence of obstruction, uvula midline. Mucous membranes moist. Neck: Trachea midline, no thyromegaly or masses palpated, and no cervical lymphadenopathy. Supple, full range of motion without nuchal rigidity, or vertebral point tenderness. No Meningismus. Chest/axilla: Normal chest wall appearance and motion. Nontender with no deformity. No lesions are appreciated. Cardiovascular: Regular rate and rhythm with a normal S1 and S2. No gallops, murmurs, or rubs. Normal PMI, no JVD. No pulse deficits. Respiratory: Lungs have equal breath sounds bilaterally, clear to auscultation and percussion. No rales, rhonchi or wheezes noted. No increased work of breathing, no retractions or nasal flaring. Abdomen/GI: Soft, non-tender, with normal bowel sounds. No distension or tympany. No guarding or rebound. No evidence of tenderness throughout. Back: No spinal tenderness. No costovertebral tenderness. Full range of motion. Neuro: Awake and alert, GCS 15, oriented to person, place, time, and situation. Cranial nerves II-XII grossly intact. Motor strength 5/5 in all extremities. Sensory grossly intact. Cerebellar exam normal. Normal gait. Psych: Awake, alert, with orientation to person, place and time. Behavior, mood, and affect are within normal limits. 21:50 Head/face: Noted is abrasion(s), that are mild, of the forehead, contusion, that is superficial, of the forehead. 21:50 Musculoskeletal/extremity: Extremities: noted in the Right forearm: abrasion, contusion, noted in the right hand: tenderness, ROM: intact in all extremities, Circulation is intact in all extremities. Sensation intact. Compartment Syndrome exam of affected extremity: is normal. no numbness, no tingling, no sensation deficit, no palor, no weak pulses, Joints: All joints appear normal with full range of motion. Weight bearing: able to fully bear weight, without difficulty, Tendon exam: specific tendon testing normal through active and passive range of motion 21:50 Skin: injury, abrasion(s), very small abrasion noted, of the forehead, right forearm, contusion(s), that are superficial, of the Forehead, right forearm. Vital Signs: 19:52 BP 175 / 81; Pulse 87; Resp 22; Temp 98.7; Pulse Ox 99% on R/A; Weight 77.11 kg; Height da3 5 ft. 6 in. (167.64 cm); 23:16 BP 146 / 68; Pulse 61; Resp 18 S; Pulse Ox 98% on R/A; as6 19:52 Body Mass Index 27.44 (77.11 kg, 167.64 cm) da3 Distant Coma Score: 19:52 Eye Response: spontaneous(4). Verbal Response: oriented(5). Motor Response: obeys da3 commands(6). Total: 15. MDM: 23:09 Differential diagnosis: abrasion, closed head injury, contusion, fracture. Data 7 reviewed: vital signs, nurses notes, radiologic studies, CT scan, plain films. Data interpreted: Pulse oximetry: on room air is 99 %. Interpretation: normal. Counseling: I had a detailed discussion with the patient and/or guardian regarding: the historical points, exam findings, and any diagnostic results supporting the discharge/admit diagnosis, the presence of at least one elevated blood pressure reading (>120/80) during this emergency department visit, radiology results, the need for outpatient follow up, to return to the emergency department if symptoms worsen or persist or if there are any questions or concerns that arise at home. Response to treatment: the patient's symptoms have markedly improved after treatment. 23:11 Patient medically screened. 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 Exp: as6 05/03/2022. Lot #: [id number]. } Route: IM; Site: right deltoid; 23:30 Follow up: Response: No adverse reaction as6 Disposition Summary: 02/04/21 23:11 Discharge Ordered Location: Home [facility] Problem: new 7 Symptoms: have improved mh7 Condition: Stable 7 Diagnosis - Fall (on) (from) other stairs and steps mh7 - Contusion-Head, Right Forearm, Right Hand mh7 - Abrasions 7 Followup: mh7 - With: Private Physician - When: 1 - 2 days - Reason: Worsening of condition, Recheck today's complaints, Continuance of care, Re-evaluation by your physician Discharge Instructions: - Discharge Summary Sheet 7 - Hand Contusion, Pfln-so-Qosn mh7 - Contusion, Yrvt-uj-Sukc mh7 - Abrasion, Jxqt-am-Oboh 7 - Fall Prevention in the Home, Adult, Yqcx-sl-Nymc mh7 - Facial or Scalp Contusion, Jgpb-nc-Gxju 7 Forms: - Medication Reconciliation Form 7 - Thank You Letter 7 - Antibiotic Education 7 - Prescription Opioid Use 7 Signatures: Dispatcher [employer] Maurice Caal MD MD mh7 Lee Nugent RN RN da3 Eduardo Stokes RN RN as6
--- NOTE | 2021-02-04 23:12 | ER ---
Nurse's Notes [facility] Name: Vivian Fatima Age: 60 yrs Sex: Female : 1960 Arrival Date: 02/04/2021 Time: 19:34 Bed 10 Private MD: Diagnosis: Fall (on) (from) other stairs and steps;Contusion-Head, Right Forearm, Right Hand;Abrasions Presentation: 02/04 19:52 Chief complaint: Patient states: head injury secondary to fall. Coronavirus screen: da3 Vaccine status: Patient reports receiving the 2nd dose of the covid vaccine. Ebola Screen: No symptoms or risks identified at this time. Mechanism of Injury: The problem was sustained at home, resulted from Fall from height greater than 5 stairs;. Risk considerations:. 19:52 Method Of Arrival: Wheelchair da3 19:52 Acuity: LAYO 3 da3 21:00 Initial Sepsis Screen: Does the patient meet any 2 criteria? No. Patient's initial as6 sepsis screen is negative. Does the patient have a suspected source of infection? No. Patient's initial sepsis screen is negative. Risk Assessment: Do you want to hurt yourself or someone else? Patient reports no desire to harm self or others. 21:00 Onset of symptoms was February 04, 2021. as6 Triage Assessment: 19:55 General: Appears in no apparent distress. uncomfortable, Behavior is calm, cooperative, da3 appropriate for age, Reports Denies Patient fell down about 3-4 steeps denies loc. Pt states tripped fall ,was not from loc.. Pain: Complains of pain in pain to both hands, forehead, both kees and forearm Pain currently is 7 out of 10 on a pain scale. Historical: - Allergies: 21:30 Latex, Natural Rubber; as6 - Home Meds: 21:30 gabapentin 400 mg Oral cap 2 cap nightly [Active]; Lamictal 300 mg Oral 1 tab once as6 daily [Active]; Prozac 60 mg Oral once daily [Active]; Wellbutrin 150 mg Oral nightly [Active]; - PMHx: 21:30 Bipolar disorder; as6 - PSHx: 21:30 back sx; section; hysterectomy; as6 - Immunization history:: Adult Immunizations Client reports receiving the 2nd dose of the Covid vaccine. - Social history:: Smoking status: unknown. Screenin:25 Abuse screen: Denies threats or abuse. Nutritional screening: No deficits noted. bb Tuberculosis screening: No symptoms or risk factors identified. Fall Risk None identified. Assessment: 21:37 General: Appears in no apparent distress. Neuro: Level of Consciousness is awake, as6 alert, obeys commands, Oriented to person, place, time, situation. 23:24 Reassessment: Patient and/or family updated on plan of care and expected duration. Pain bb level reassessed. Patient is alert, oriented x 3, equal unlabored respirations, skin warm/dry/pink. pt verbalized understanding of and agrees to plan of care discharge instructions given pt ambulated with steady gait to exit accompanied by family. Vital Signs: 19:52 BP 175 / 81; Pulse 87; Resp 22; Temp 98.7; Pulse Ox 99% on R/A; Weight 77.11 kg; Height da3 5 ft. 6 in. (167.64 cm); 23:16 BP 146 / 68; Pulse 61; Resp 18 S; Pulse Ox 98% on R/A; as6 19:52 Body Mass Index 27.44 (77.11 kg, 167.64 cm) da3 Gladys Coma Score: 19:52 Eye Response: spontaneous(4). Verbal Response: oriented(5). Motor Response: obeys da3 commands(6). Total: 15. ED Course: 19:34 Patient arrived in ED. bp1 19:54 Triage completed. da3 21:17 Maurice Maynard MD is Attending Physician. mh7 21:32 Eduardo Stokes, JUAN is Primary Nurse. as6 21:55 Forearm Right XRAY In Process Unspecified. EDMS 21:56 Hand Right 3 View XRAY In Process Unspecified. EDMS 21:56 CT Head Brain wo Cont In Process Unspecified. EDMS 23:25 Patient has correct armband on for positive identification. bb 23:25 No provider procedures requiring assistance completed. Patient did not have IV access bb during this emergency room visit. 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 Exp: as6 05/03/2022. Lot #: [id number]. } Route: IM; Site: right deltoid; 23:30 Follow up: Response: No adverse reaction as6 Outcome: 23:11 Discharge ordered by . anisa 23:25 Discharged to home ambulatory, with family. chalino 23:25 Condition: stable 23:25 Discharge instructions given to patient, Instructed on discharge instructions, follow up and referral plans. Demonstrated understanding of instructions, follow-up care. 23:26 Patient left the ED. chalino Signatures: Dispatcher [employer] EDMaria A Benítez, RN RN bb Debra Caballero Maurice, MD MD mh7 Lee Nugent, RN RN da3 Eduardo Stokes RN RN as6
[2021-02-04 23:31] VITALS: TEMP 98.7
[2021-02-04 23:32] VITALS: BP 146/68; O2SAT 98
--- NOTE | 2021-02-05 13:24 | RAD REPORT ---
EXAM DESCRIPTION: CT - Head Brain Wo Cont - 02/05/2021 6:47 am CLINICAL HISTORY: 60 years Female TRAUMA COMPARISON: None TECHNIQUE: Contiguous axial images of the brain were obtained without the administration of intraven ous contrast.This exam was performed according to our departmental dose-optimization program which in cludes use of Automated Exposure Control, adjustment of the mA and/or kV according to patient size an d/or use of iterative reconstruction technique. DLP: 894 mGy*cm FINDINGS: Brain: No acute intracranial hemorrhage. No extra-axial collection. No mass effect or scott iation. Mild prominence of the sulci and cisterns. Confluent periventricular and subcortical white matter hypodensity is noted. Ventricles: Within normal limits in size. Globes and orbits: No acute abnormality. Bones: No acute osseous finding Paranasal sinuses: Paranasal sinuses are clear. Mastoid air cells: Well pneumatized. Soft tissues: Right frontal/supraorbital swelling and hematoma IMPRESSION: No acute intracranial hemorrhage, hydrocephalus or herniation. Mild cerebral volume loss and chronic small vessel ischemic changes. Consider MRI brain for further e valuation. Right frontal/supraorbital swelling and hematoma Electronically signed by: Patrice Rojas DO 02/04/2021 10:36 PM GAMING COMMISSIONER Due to temporary technical issues with the PACS/Fluency reporting system, reports are being signed by the in house radiologist without review as a courtesy to ensure prompt reporting. The interpreting r adiologist is fully responsible for the content of the report.
== END 2021-02-04 23:26 | disposition home or self-care (01) ==
LOC: ER 19:32
DX: S00.83XA Contusion of other part of head, initial encounter (principal); S60.221A Contusion of right hand, initial encounter; S50.11XA Contusion of right forearm, initial encounter; W10.8XXA Fall (on) (from) other stairs and steps, initial encounter; F31.9 Bipolar disorder, unspecified; Z23 Encounter for immunization
CPT/HCPCS: 70450; 90471; 90714; 99283

== ENCOUNTER 2021-05-09 16:39 | Emergency (ER) | payer BC ==
--- OUTSIDE RECORDS SUMMARY | 2021-05-09 16:42 | XMS REPORT | Continuity of Care Document ---
:1960 Author Organization [facility] t Address [address] [place] [address] Care Team Providers Name Role Phone Graham Attending Clinician Unavailable KAUSHAL SWAIN Attending Clinician Unavailable KAUSHAL SWAIN Admitting Clinician Unavailable RHETT CAPUTO Admitting Clinician Unavailable Payers Payer Name Policy Type Policy Number Effective Date Expiration Date S ource BCBS PPO POS EPO [id number] 2019 00:00:00 CHOICE Problems This patient has [...] Date/Time Type Type Clinicians Facility Department ID 2021-03-26 Out[facility] [id number] 14:19:10 Maria Esther [address] [facility] 2019-12-14 Inpatient ER WILIAM, JULIO Neurosurger [id number] [facility] 16:09:00 CHIMKAMA y 2020-01-02 2020-01-02 Outpatient [facility] [id number] [facility] 00:00:00 00:00:00 Results Test Description [...] GFR IS NOT APPLICABLE FOR DIALYSIS PATIENTS. [place] Roofer ID - PIAYA LCBC W/PLT COUNT & AUTO [id number] 04:53:00 Test Item Value Reference Range Interpretation [...] (test code = 2801) ANG, KYPHOPLASTY, THORACIC, [id number] 18:11:00What level(s) should be performed->[id number] for exam:->compresion fracture 50 % [facility] 1960 Sex: FFINAL REPORT [...] reported as (Ka,r): 1425 mGy Signed: Remy Zepeda Verified Date/Time: 12/19/2019 18:11:28 Reading Location: [facility] B1 P048 Angio Body Reading Room SARS-COV2/RT-PCR ([facility]) 2019-12-19 10:30:00 Test Item Value Reference Range Interpretation Comments SARS-COV2/RT-PCR (test code Negative Not Detected, Negative, = [id number]) See external report for linked test SARS-COV-[address] [facility] (test code = 4229846) Negative results do not preclude SARS-CoV-2 infection [...] of the Act.Fact Sheet for Healthcare Pro viders:https://www.[employer]Documents/Xpert%20Xpress%20SARS%20CoV-2/Fact%20Sh eets/3023802%49WRQO-KDD-7%20HEALTHCARE%20PROVIDERS%20FACT%20SHEET.pdfFact Sheet for Healthcare Patients:https://www.[employer]/Documents/Xpert%20Xpress%20SARS%20CoV-2/Fact%20Sheets/3023801%20SARS-COV -2%20PATIENT%20FACT%20SHEET.pdfPerforming Laboratory:[facility], [place] [address]BFSSA METABOLIC [id number] 05:08:00 Test Item Value Reference Range Interpretation [...] S NOT APPLICABLE FOR DIALYSIS PATIEN TS. [place] Roofer ID - EDASICBC W/PLT COUNT & AUTO [id number] 04:31:00 Test Item Value Reference Range Interpretation [...] (BEAKER) (test code = 2801) BASIC METABOLIC [id number] 06:27:00 Test Item Value Reference Range Interpretation [...] S NOT APPLICABLE FOR DIALYSIS PATIEN TS. [place] Roofer ID - DBCBC W/PLT COUNT & AUTO [id number] 06:04:00 Test Item Value Reference Range Interpretation [...] (BEAKER) (test code = 2801) BASIC METABOLIC [id number] 05:22:00 Test Item Value Reference Range Interpretation [...] S NOT APPLICABLE FOR DIALYSIS PATIEN TS. [place]ta Roofer ID - EDASICBC W/PLT COUNT & AUTO [id number] 04:49:00 Test Item Value Reference Range Interpretation [...] (test code = 2801) MR, SPINE, THORACIC, [id number] 01:29:00Unlisted Reason for Exam - Click Yes and Enter Reason Below->YesUnlisted Reason for Exam->T12 vertebral compression [facility] 1960 Sex: FFINAL REPORT MR Thoracic spine with and without contrast. CLINICAL HISTORY: Mid-back pain, compression fracture [id number] vertebral compression fracture TECHNIQUE: MRI of the [...] lordosis centered at C5-6 seen on the report writer view. IMPRESSION: Acute compression fracture of the T12 vertebral body with 3 mm retropulsion of posterior fracture fragments into the canal resulting in mild spinal canal stenosis. There is likely disruption of the anterior longitudinal ligament at T11-12 with sprain of the posterior longitudinal ligament. No mass effect cord signal abnormality. No abnormal enhancement in the thoracic spine. Signed: Rose Avina [facility] Verified Date/Time: 12/16/2019 01:29:28 BASIC METABOLIC [id number] 07:17:00 Test Item Value Reference Range Interpretation [...] S NOT APPLICABLE FOR DIALYSIS PATIEN TS. [place]ra [place]ta Roofer ID - PIAYA LPROTHROMBIN [id number] 06:50:00 Test Item Value Reference Range Interpretation [...] mechanical heart valves.CBC W/PLT COUNT & AUTO [id number] 06:38:00 Test Item Value Reference Range Interpretation [...] code = 2801) CT, SPINE, THORACIC, WO [id number] 00:51:00Unlisted Reason for Exam - Click Yes and Enter Reason Below->No [facility] : 1960 Sex: FFINAL REPORT CT Thoracic and lumbar spine CLINICAL HISTORY: T-spine fracture, traumatic TECHNIQUE: Contiguous axial images of the thoracic and lumbar spine with coronal andsagittal reformations to assess the alignment. This exam was performed according to the [facility] optimization program which includes automated exposure control, [...] patient is high risk. Signed: Rose [facility] Verified Date/Time: 12/15/2019 00:51:27 CT, SPINE, LUMBAR, WO [id number] 00:51:00Unlisted Reason for Exam - Click Yes and Enter Reason Below->No [facility] : 1960 Sex: FFINAL REPORT CT Thoracic and lumbar spine CLINICAL HISTORY: T-spine fracture, traumatic TECHNIQUE: Contiguous axial images of the thoracic and lumbar spine with coronal andsagittal reformations to assess the alignment. This exam was performed according to the [facility] optimization program which includes automated exposure control, [...] patient is high risk. Signed: Rose Avina Verified Date/Time: 12/15/2019 00:51:27
--- NOTE | 2021-05-09 20:50 | RAD REPORT ---
EXAM DESCRIPTION: USExtremity Venous Uni Ltd05/09/2021 8:36 pm CLINICAL HISTORY: Right arm pain COMPARISON: None FINDINGS: The right internal jugular, right subclavian, right cephalic, right axillary, right brach ial, right basilic, right ulnar and right radial veins are generally compressible and demonstrate au gmentation. Doppler demonstrates good flow. Grayscale, color and spectral analysis performed on all vessels IMPRESSION: No evidence of thrombus within the veins of the right upper extremity
--- NOTE | 2021-05-09 21:00 | EDPHYS ---
Physician Documentation [facility] Name: Vivian Fatima Age: 60 yrs Sex: Female : 1960 Arrival Date: 05/09/2021 Time: 16:41 Bed 27 Private MD: ED Physician Sigifredo Angeles HPI: 05/09 20:29 This 60 yrs old Female presents to ER via Ambulatory with complaints of Arm Pain. rn 20:29 The patient or guardian complains of pain, that is acute. The complaints affect the rn right antecubital area. Onset: The symptoms/episode began/occurred 5 day(s) ago. Modifying factors: The symptoms are alleviated by remaining still, the symptoms are aggravated by movement, bending arm. Severity of symptoms: At their worst the symptoms were mild, in the emergency department the symptoms are unchanged. The patient has not experienced similar symptoms in the past. REports donated blood 5 days ago, immediately bruised, and swelling worse now with painful ROM. NO hx of dvt/PE. Pt came to make sure nothing serious. No chest pain or sob.. Historical: - Allergies: 17:22 Latex, Natural Rubber; ap3 - Home Meds: 17:22 gabapentin 400 mg Oral cap 2 cap nightly [Active]; Prozac 60 mg Oral once daily ap3 [Active]; Wellbutrin 150 mg Oral nightly [Active]; Lamictal 300 mg Oral 1 tab once daily [Active]; - PMHx: 17:22 Bipolar disorder; ap3 - PSHx: 17:22 back sx; section; hysterectomy; ap3 - Immunization history:: Client reports receiving the 2nd dose of the Covid vaccine, Flu vaccine is up to date. - Social history:: Smoking status: Patient denies any tobacco usage or history of. - Family history:: not pertinent. - Hospitalizations: : No recent hospitalization is reported. ROS: 20:29 Constitutional: Negative for fever, chills, and weight loss, Neck: Negative for injury, rn pain, and swelling, Cardiovascular: Negative for chest pain, palpitations, and edema, Respiratory: Negative for shortness of breath, cough, wheezing, and pleuritic chest pain, MS/Extremity: + swelling and bruising to RUE Skin: + bruising to RUE Neuro: Negative for weakness, numbness, tingling Exam: 20:29 Constitutional: This is a well developed, well nourished patient who is awake, alert, rn and in no acute distress. Neck: Trachea midline, no masses palpated, and no cervical lymphadenopathy. Supple, full range of motion without nuchal rigidity, or vertebral point tenderness. No Meningismus. Cardiovascular: Regular rate and rhythm. No pulse deficits. Respiratory: Speaking full sentences, unlabored. No increased work of breathing, no retractions or nasal flaring. Abdomen/GI: soft, non-tender MS/ Extremity: Pulses equal, no cyanosis. Neurovascular intact. Full, normal range of motion. + mild ecchymoss to right antecubital region, no masses palpated. No cellulitis. No tenderness along deep venous system. Vital Signs: 17:20 BP 133 / 103 LA Sitting (auto/reg); Pulse 83; Resp 17; Temp 97.9; Pulse Ox 100% ; ap3 Weight 80.74 kg; Height 5 ft. 6 in. (167.64 cm); Pain 7/10; 20:23 BP 119 / 67 LA Supine (auto/reg); Pulse 67 MON; Resp 16 S; Temp 97.7; Pulse Ox 100% on sv1 R/A; 21:20 BP 127 / 74 LA Supine (auto/reg); Pulse 78 MON; Resp 18 S; Pulse Ox 100% on R/A; Pain sv1 2/10; 17:20 Body Mass Index 28.73 (80.74 kg, 167.64 cm) ap3 MDM: 19:40 Patient medically screened. rn 20:57 Differential diagnosis: superficial phlebitis, DVT, trauma from blood draw. Data rn reviewed: vital signs, nurses notes, radiologic studies, ultrasound, and as a result, I will discharge patient. Counseling: I had a detailed discussion with the patient and/or guardian regarding: the historical points, exam findings, and any diagnostic results supporting the discharge/admit diagnosis, radiology results, the need for outpatient follow up, to return to the emergency department if symptoms worsen or persist or if there are any questions or concerns that arise at home. Special discussion: I discussed with the patient/guardian in detail that at this point there is no indication for admission to the hospital. It is understood, however, that if the symptoms persist or worsen the patient needs to return immediately for re-evaluation. 05/09 19:38 Order name: Extremity Venous Uni Ltd US; Complete Time: 20:57 rn Administered Medications: No medications were administered Disposition Summary: 05/09/21 20:59 Discharge Ordered Location: Home rn Problem: new rn Symptoms: have improved rn Condition: Stable rn Diagnosis - Phlebitis of superficial vessels of right upper extremity rn Followup: rn - With: Private Physician - When: As needed - Reason: Recheck today's complaints, Re-evaluation by your physician Discharge Instructions: - Discharge Summary Sheet rn - Phlebitis rn Forms: - Medication Reconciliation Form rn - Thank You Letter rn - 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
--- NOTE | 2021-05-09 21:00 | ER ---
Nurse's Notes [facility] Name: Vivian Fatima Age: 60 yrs Sex: Female : 1960 Arrival Date: 05/09/2021 Time: 16:41 Bed 27 Private MD: Diagnosis: Phlebitis of superficial vessels of right upper extremity Presentation: 05/09 17:20 Chief complaint: Patient states: she gave blood on Wednesday05/05/2021. She reports that ap3 the arm that was accessed for the blood donation immediately bruised. Patient reports the bruising has gotten worse, and now is swelling. She is concerned about the swelling under the bruised and is here to have it evaluated. Coronavirus screen: At this time, the client does not indicate any symptoms associated with coronavirus-19. Ebola Screen: No symptoms or risks identified at this time. Initial Sepsis Screen: Does the patient meet any 2 criteria? No. Patient's initial sepsis screen is negative. Does the patient have a suspected source of infection? No. Patient's initial sepsis screen is negative. Risk Assessment: Do you want to hurt yourself or someone else? Patient reports no desire to harm self or others. Onset of symptoms was May 05, 2021. 17:20 Method Of Arrival: Ambulatory ap3 17:20 Acuity: LAYO 4 ap3 Triage Assessment: 17:23 General: Appears in no apparent distress. Behavior is calm, cooperative, appropriate ap3 for age. Pain: Complains of pain in right arm. Neuro: Level of Consciousness is awake, alert, obeys commands, Oriented to person, place, time, situation, Appropriate for age. Respiratory: Airway is patent Respiratory effort is even, unlabored, Respiratory pattern is regular, symmetrical. Derm: Bruising that is dark purple, on right bicep and right antecubital area. Historical: - Allergies: 17:22 Latex, Natural Rubber; ap3 - Home Meds: 17:22 gabapentin 400 mg Oral cap 2 cap nightly [Active]; Prozac 60 mg Oral once daily ap3 [Active]; Wellbutrin 150 mg Oral nightly [Active]; Lamictal 300 mg Oral 1 tab once daily [Active]; - PMHx: 17:22 Bipolar disorder; ap3 - PSHx: 17:22 back sx; section; hysterectomy; ap3 - Immunization history:: Client reports receiving the 2nd dose of the Covid vaccine, Flu vaccine is up to date. - Social history:: Smoking status: Patient denies any tobacco usage or history of. - Family history:: not pertinent. - Hospitalizations: : No recent hospitalization is reported. Screenin:24 Abuse screen: Denies threats or abuse. Nutritional screening: No deficits noted. ap3 Tuberculosis screening: No symptoms or risk factors identified. Fall Risk Fall in past 12 months (25 points). Assessment: 20:25 Reassessment: radiology completed. sv1 21:24 Reassessment: Cleared for discharge to home byu the provider. . sv1 Vital Signs: 17:20 BP 133 / 103 LA Sitting (auto/reg); Pulse 83; Resp 17; Temp 97.9; Pulse Ox 100% ; ap3 Weight 80.74 kg; Height 5 ft. 6 in. (167.64 cm); Pain 7/10; 20:23 BP 119 / 67 LA Supine (auto/reg); Pulse 67 MON; Resp 16 S; Temp 97.7; Pulse Ox 100% on sv1 R/A; 21:20 BP 127 / 74 LA Supine (auto/reg); Pulse 78 MON; Resp 18 S; Pulse Ox 100% on R/A; Pain sv1 2/10; 17:20 Body Mass Index 28.73 (80.74 kg, 167.64 cm) ap3 ED Course: 16:41 Patient arrived in ED. ds1 17:22 Triage completed. ap3 17:24 Arm band placed on right wrist. ap3 19:40 Sigifredo Angeles MD is Attending Physician. rn 20:18 Leonel Nelson RN is Primary Nurse. sv1 20:25 Patient has correct armband on for positive identification. Placed in gown. Bed in low sv1 position. Call light in reach. Side rails up X2. Adult w/ patient. 20:36 Extremity Venous Uni Ltd US In Process Unspecified. EDMS 21:20 No provider procedures requiring assistance completed. Patient did not have IV access sv1 during this emergency room visit. Administered Medications: No medications were administered Outcome: 20:59 Discharge ordered by MD. rn 21:24 Discharged to home ambulatory, with family. sv1 21:24 Condition: stable 21:24 Discharge instructions given to patient, family. 21:25 Patient left the ED. sv1 Signatures: Dispatcher [employer] EDMS Brittany Lama ds1 Sigifredo Angeles MD MD rn Prokisch, Amanda, RN RN ap3 Leonel Nelson RN RN sv1
[2021-05-09 21:59] VITALS: O2SAT 100
[2021-05-09 22:26] VITALS: TEMP 97.7
[2021-05-09 22:27] VITALS: BP 127/74
== END 2021-05-09 21:25 | disposition home or self-care (01) ==
LOC: ER 16:39
DX: I80.8 Phlebitis and thrombophlebitis of other sites (principal); F31.9 Bipolar disorder, unspecified; Z91.040 Latex allergy status; Z91.048 Other nonmedicinal substance allergy status
CPT/HCPCS: 93971; 99283

== ENCOUNTER 2022-10-20 14:44 | Emergency (ER) | payer BC ==
--- OUTSIDE RECORDS SUMMARY | 2022-10-20 14:51 | XMS REPORT | Continuity of Care Document ---
:1960 Author Organization [facility] t Address [address] [facility] [address] [place] [address] Care Team Providers Name Role Phone GISELL ERDDY Primary Care Physician Unavailable Maria Esther Stevenson Attending Clinician Unavailable GILSON SWAIN Attending Clinician Unavailable GISELL REDDY Attending Clinician Unavailable GISELL REDDY Attending Clinician Unavailable Taryn Skelton MD Attending Clinician TARYN SKELTON Attending Clinician Unavailable Doctor Unassigned, [place] Attending Clinician Unavailable MADDIE SCHAFER Attending Clinician Unavailable Maddie Schafer DPM Attending Clinician DENISSE LOZANO Attending Clinician Unavailable Denisse Renee Attending Clinician Lab, Ang - Db Attending Clinician Unavailable GILSON SWAIN Admitting Clinician Unavailable GISELL REDDY Admitting Clinician Unavailable TARYN SKELTON Admitting Clinician Unavailable Taryn Skelton MD Admitting Clinician MADDIE SCHAFER Admitting Clinician Unavailable Maddie Schafer DPM Admitting Clinician WONG CAPUTO Admitting Clinician Unavailable Payers Payer Name Policy Type Policy Number Effective Date Expiration Date S sriramcarlos BCBS PPO POS EPO [id number] 2019 00:00:00 CHOICE [place] [facility] [id number] 2019 00:00:00 Problems Condition Condition Condition Status Onset Resolution Last Treating Co mments Source Name Details Category Date Date Treatment Clinician Date Obesity Obesity Disease Active 2021-03 Univers (BMI (BMI 1-11 ity of 30-39.9) 30-39.9) 00:00: [place] 00 Medical Branch Encounter Encounter Disease Active 2021-03 Overview: Univers for for 03-04 Formattin ity of colorectal colorectal 00:00: g of this [place] cancer cancer 00 note Medical screening screening might be Br anch different from the original. Added automatic ally from request for surgery [id number] Family Family Disease Active 2021-03 Overview: Univer s history of history of 03-04 Formattin ity of colon colon 00:00: g of this [place] cancer cancer 00 note Medical might be Branch different from the original. Added automatic ally from request for surgery [id number] T12 T12 Disease Recurre 2019-[address] [facility] compressio compressio nce 0-16 Mary kes n n 00:00: Medical fracture, fracture, 00 Cent er initial initial encounter encounter Bipolar Bipolar Disease Recurre 2019-[address] [facility] affective affective nce 0-15 [facility] s disorder disorder 00:00: Medica l in in 00 Center remission remission T12 T12 Disease Recurre 2019-[address] [facility] [address] compressio compressio nce 0-15 Mary kes n fracture n fracture 00:00: Me dical 00 Center Accident Accident Disease Active 2019-03 [facility] mechanical mechanical 00:[facility]: Me dical fall fall 00 Center No known No known Disease Unive rs active active ity of problems problems [facility] Allergies, Adverse Reactions, Alerts Allergy Allergy Status Severity Reaction(s) Onset Inactive Treating Comm ents Source Name Type Date Date Clinician Latex Propensi Active Rash 2021-03 Patient Univers ty to 0-13 states ity of adverse 00:00: that she [place] reaction 00 gets Medical s blisters Branch LATEX DRUG Active Low Rash 2021-03 Univers INGREDI 0-13 ity of 00:00: [place] 00 Medical Branch Latex Propensi Active Rash 2021-03 Patient Univers ty to 0-13 states ity of adverse 00:00: that she [place] reaction 00 gets Medical s to blisters Branch drug LATEX Allergy Active 2019-[address] [facility] 0-15 [facility] 00:[facility]: Medical 00 Center Latex Propensi Active 2019-[address] [facility] ty to 0-15 [facility] adverse 00:00: Medical reaction 00 Center s NO KNOWN Drug Active [facility] ALLERGIE Class ity of S [facility] Social History Social Habit Start Date Stop Date Quantity Comments Source History SDOH University o f Alcohol Frequency [place] M edical Branch History SDOH University o f Alcohol Std Drinks [facility] History [facility] University o f Alcohol Binge [place] Medic al Branch Exposure to 2022-07-11 2022-07-21 Not sure University SARS-CoV-2 (event) 00:00:00 13:27:00 [facility] Cigarettes smoked 2021-12-11 2021-12-11 Univers ity of current (pack per 00:00:00 00:00:00 [facility] ) - Reported Branch Tobacco use and 2021-12-11 2021-12-11 Smokeless Universit y of exposure 00:00:00 00:00:00 tobacco non-user [facility] dical [place] Tobacco Comment 2021-12-11 2021-12-11 Quit 8 years Univers ity of 00:00:00 00:00:00 ago, 40 pack [place] Medic l year history Branch Alcohol intake 2020-01-02 2020-01-02 Ex-drinker [facility] 00:00:00 00:00:00 (finding) [facility] Alcohol Comment 2019-12-14 2019-12-[address] [facility] 00:00:00 00:00:00 [facility] History of tobacco 1973-03-01 2013-03-01 Cigarette Smoker University of use 00:00:00 00:00:00 [facility] Sex Assigned At [address] [facility] 00:00:00 00:00:00 [facility] Smoking Status Start Date Stop Date Source Tobacco smoking [facility] [place] consumption unknown Medical Bran ch Ex-smoker 2021-12-11 00:00:00 2021-12-11 University o f [place] 00:00:00 [facility] Medications Ordered Filled Start Stop Current Ordering Indication Dosage Frequency Signature Comments Components Source Medication Medication Date Date Medication? Clinician (SIG) Name Name FLUoxetine Yes .5{caps Take 0.5 Univers 40 mg 6-19 ule} capsules ity of capsule 00:00: by mouth [place] 00 in the Medical morning. Branch FLUoxetine Yes .5{caps Take 0.5 Univers 40 mg 6-19 ule} capsules ity of capsule 00:00: by mouth [place] 00 in the Medical morning. Branch buPROPion 2023-0 Yes 300mg Take 1 Unive rs XL 300 mg 5-23 tablet by ity o f 24 hr 13:41: mouth in [place] tablet 44 the Medical morning. Branch lamoTRIgine 2023-0 Yes 150mg Take 1 Uni vers 150 mg 5-23 tablet by ity of tablet 13:41: mouth in [place] [address] the Medical morning. Branch FLUoxetine 2023-0 Yes 40mg Take 2 Unive rs 20 mg 5-23 capsules ity of capsule 13:41: by mouth [place] [address] in the Medical morning. Branch propranoloL 2023-0 Yes 40mg Take 1 Univ ers 40 mg 5-23 tablet by ity of tablet 13:41: mouth in [place] [address] the Medical morning. Branch buPROPion 2023-0 Yes 300mg Take 1 Unive rs XL 300 mg 5-23 tablet by ity o f 24 hr 13:41: mouth in [place] tablet 44 the Medical morning. Branch lamoTRIgine 2023-0 Yes 150mg Take 1 Uni vers 150 mg 5-23 tablet by ity of tablet 13:41: mouth in [place] [address] the Medical morning. Branch FLUoxetine 2023-0 Yes 40mg Take 2 Unive rs 20 mg 5-23 capsules ity of capsule 13:41: by mouth [place] [address] in the Medical morning. Branch propranoloL 2023-0 Yes 40mg Take 1 Univ ers 40 mg 5-23 tablet by ity of tablet 13:41: mouth in [place] [address] the Medical morning. Branch buPROPion 2023-0 Yes 300mg Take 1 Unive rs XL 300 mg 5-23 tablet by ity o f 24 hr 13:41: mouth in [place] tablet 44 the Medical morning. Branch lamoTRIgine 2023-0 Yes 150mg Take 1 Uni vers 150 mg 5-23 tablet by ity of tablet 13:41: mouth in [place] [address] the Medical morning. Branch propranoloL 2023-0 Yes 40mg Take 1 Univ ers 40 mg 5-23 tablet by ity of tablet 13:41: mouth in [place] [address] the Medical morning. Branch buPROPion 2023-0 Yes 300mg Take 1 Unive rs XL 300 mg 5-23 tablet by ity o f 24 hr 13:41: mouth in [place] tablet 44 the Medical morning. Branch lamoTRIgine 2023-0 Yes 150mg Take 1 Uni vers 150 mg 5-23 tablet by ity of tablet 13:41: mouth in [place] 44 the Medical morning. Branch propranoloL 3-0 Yes 40mg Take 1 Univ ers 40 mg 5-23 tablet by ity of tablet 13:41: mouth in [place] 44 the Medical morning. Branch cyclobenzap 2022-0 Yes [id number] 10mg Take 1 Univers rine 10 mg 5-23 tablet by ity of tablet 00:00: mouth 3 [place] 00 (three) Medical times Branch daily as needed for Muscle Spasms (May make sleepy, do not use before driving). cyclobenzap 2022-0 Yes [id number] 10mg Take 1 Univers rine 10 mg 5-23 tablet by ity of tablet 00:00: mouth 3 [place] 00 (three) Medical times Branch daily as needed for Muscle Spasms (May make sleepy, do not use before driving). cyclobenzap 2022-0 Yes [id number] 10mg Take 1 Univers rine 10 mg 5-23 tablet by ity of tablet 00:00: mouth 3 [place] 00 (three) Medical times Branch daily as needed for Muscle Spasms (May make sleepy, do not use before driving). cyclobenzap 2022-0 Yes [id number] 10mg Take 1 Univers rine 10 mg 5-23 tablet by ity of tablet 00:00: mouth 3 [place] 00 (three) Medical times Branch daily as needed for Muscle Spasms (May make sleepy, do not use before driving). buPROPion 3-0 Yes 300mg Take 1 Unive rs XL 300 mg 4-27 tablet by ity o f 24 hr 13:18: mouth in [place] tablet 17 the Medical morning. Branch FLUoxetine 3-0 Yes 40mg Take 2 Unive rs 20 mg 4-27 capsules ity of capsule 13:18: by mouth [place] [address] in the Medical morning. Branch buPROPion 3-0 Yes 300mg Take 1 Unive rs XL 300 mg 4-27 tablet by ity o f 24 hr 13:18: mouth in [place] tablet 17 the Medical morning. Branch FLUoxetine 3-0 Yes 40mg Take 2 Unive rs 20 mg 4-27 capsules ity of capsule 13:18: by mouth [place] 17 in the Medical morning. Branch baclofen 10 2022-0 Yes [id number] 5mg Take 0.5 Univers mg tablet 4-27 tablets by ity of 00:00: mouth in [place] [address] the Medical morning Branch and 0.5 tablets at noon and 0.5 tablets in the evening. baclofen 10 0 Yes [id number] 5mg Take 0.5 Univers mg tablet 4-27 tablets by ity of 00:00: mouth in [place] 00 the morning Branch and 0.5 tablets at noon and 0.5 tablets in the evening. buPROPion 0 Yes 150mg Take 1 Unive rs SR 150 mg 4-27 tablet by ity o f SR tablet 00:00: mouth in [facility] [place] [facility] the morning. Branch buPROPion 0 Yes 150mg Take 1 Unive rs SR 150 mg 4-27 tablet by ity o f SR tablet 00:00: mouth in [facility] [place] [facility] the morning. Branch baclofen 10 2022- No [id number] 5mg Take 0.5 Univers mg tablet 4-25 07-23 tablets by ity of 00:00: 00:00 mouth in [place] 00 :00 the morning Branch and 0.5 tablets at noon and 0.5 tablets in the evening. baclofen 10 0 2022- No [id number] 5mg Take 0.5 Univers mg tablet 4-25 07-23 tablets by ity of 00:00: 00:00 mouth in [place] 00 :00 the morning Branch and 0.5 tablets at noon and 0.5 tablets in the evening. water for 2021-03- No PRN, Univers irrigation 04-02 Starting ity of irrigation 14:58: 16:12 on Wed s solution 00 :43 01/30/22 at Medic al 0858, Branch Until Wed01/30/22 at 1012, Routine, Intra-op simethicone 2021-03- No PRN, Unive rs (GAS RELIEF 04-02 Starting ity of (SIMETHICON 14:58: 16:12 on Wed as E)) 40 00 :43 01/30/22 at Medical mg/0.6 mL 0858, Branch drops Until Wed01/30/22 at 1012, Routine, Intra-op lactated 2021-03- No 1000mL at 42 Unive rs ringers IV 2-02 12-02 mL/hr, ity of infusion 14:15: 14:14 1,000 mL, Rudy as 1,000 mL 00 :00 IV Medical Infusion, Branch ONCE, 1 dose, On Wed01/30/22 at 0815, Routine, DSU Pre-op lactated 2021-03- No 1000mL at 42 Unive rs ringers IV 2-02 12-02 mL/hr, ity of infusion 14:15: 14:14 1,000 mL, Rudy as 1,000 mL 00 :00 IV Medical Infusion, Branch ONCE, 1 dose, On Wed01/30/22 at 0815, Routine, DSU Pre-op buPROPion 2021-03 Yes 150mg Take 150 Uni vers XL 150 mg 2-02 mg by ity of 24 hr 10:56: mouth in [place] [address] the Medical morning. Branch lamoTRIgine 2021-03 Yes 150mg Take 150 U nivers 150 mg 2-02 mg by ity of tablet 10:56: mouth in [place] [address] the Medical morning. Branch FLUoxetine 2021-03 Yes 40mg Take 40 mg U nivers 40 mg 2-02 by mouth ity of capsule 10:56: in the [place] [address] morning. Medical Branch propranoloL 2021-03 Yes 40mg Take 40 mg Univers 40 mg 2-02 by mouth ity of tablet 10:56: in the [place] [address] morning. Medical Branch buPROPion 2021-03 Yes 150mg Take 150 Uni vers XL 150 mg 2-02 mg by ity of 24 hr 10:56: mouth in [place] [address] the Medical morning. Branch lamoTRIgine 2021-03 Yes 150mg Take 150 U nivers 150 mg 2-02 mg by ity of tablet 10:56: mouth in [place] [address] the Medical morning. Branch FLUoxetine 2021-03 Yes 40mg Take 40 mg U nivers 40 mg 2-02 by mouth ity of capsule 10:56: in the [place] [address] morning. Medical Branch propranoloL 2021-03 Yes 40mg Take 40 mg Univers 40 mg 2-02 by mouth ity of tablet 10:56: in the [place] [address] morning. Medical Branch buPROPion 2021-03 Yes 150mg Take 150 Uni vers XL 150 mg 2-02 mg by ity of 24 hr 10:56: mouth in [place] [address] the Medical morning. Branch lamoTRIgine 2022-1 Yes 150mg Take 150 U nivers 150 mg 2-02 mg by ity of tablet 10:56: mouth in [place] the Medical morning. Branch FLUoxetine 2021-03 Yes 40mg Take 40 mg U nivers 40 mg 2-02 by mouth ity of capsule 10:56: in the [place] morning. Medical Branch propranoloL 2021- Yes 40mg Take 40 mg Univers 40 mg 2-02 by mouth ity of tablet 10:56: in the [place] morning. Medical Branch buPROPion 2021-03 Yes 150mg Take 150 Uni vers XL 150 mg 2-02 mg by ity of 24 hr 10:56: mouth in [place] tablet the Medical morning. Branch lamoTRIgine 2021-03 Yes 150mg Take 150 U nivers 150 mg 2-02 mg by ity of tablet 10:56: mouth in [place] [address] the Medical morning. Branch FLUoxetine 2021-03 Yes 40mg Take 40 mg U nivers 40 mg 2-02 by mouth ity of capsule 10:56: in the [place] morning. Medical Branch propranoloL 2021- Yes 40mg Take 40 mg Univers 40 mg 2-02 by mouth ity of tablet 10:56: in the [place] morning. Medical Branch buPROPion 2021-03 Yes 150mg Take 150 Uni vers XL 150 mg 2-02 mg by ity of 24 hr 10:56: mouth in [place] tablet the Medical morning. Branch lamoTRIgine 2021-03 Yes 150mg Take 150 U nivers 150 mg 2-02 mg by ity of tablet 10:56: mouth in [place] [address] the Medical morning. Branch FLUoxetine 2021- Yes 40mg Take 40 mg U nivers 40 mg 2-02 by mouth ity of capsule 10:56: in the [place] morning. Medical Branch propranoloL 2021- Yes 40mg Take 40 mg Univers 40 mg 2-02 by mouth ity of tablet 10:56: in the [place] morning. Medical Branch buPROPion 2021- Yes 150mg Take 150 Uni vers XL 150 mg 2-02 mg by ity of 24 hr 10:56: mouth in [place] tablet the Medical morning. Branch lamoTRIgine 2021-03 Yes 150mg Take 150 U nivers 150 mg 2-02 mg by ity of tablet 10:56: mouth in [place] [address] the Medical morning. Branch FLUoxetine 2021- Yes 40mg Take 40 mg U nivers 40 mg 2-02 by mouth ity of capsule 10:56: in the [place] morning. Medical Branch propranoloL 2021-03 Yes 40mg Take 40 mg Univers 40 mg 2-02 by mouth ity of tablet 10:56: in the [place] morning. Medical Branch lamoTRIgine 2021-03 Yes 150mg Take 150 U nivers 150 mg 2-02 mg by ity of tablet 10:56: mouth in [place] the morning. Branch propranoloL 2021-03 Yes 40mg Take 40 mg Univers 40 mg 2-02 by mouth ity of tablet 10:56: in the [place] morning. Medical Branch lamoTRIgine 2021-03 Yes 150mg Take 150 U nivers 150 mg 2-02 mg by ity of tablet 10:56: mouth in [place] the [facility] morning. Branch propranoloL 2021-03 Yes 40mg Take 40 mg Univers 40 mg 2-02 by mouth ity of tablet 10:56: in the [place] morning. Medical Branch lactated 2021-03 Yes 1000mL at 75 Univer s ringers IV 1-11 mL/hr, ity of infusion 15:30: 1,000 [place], [place] 1,000 [place] 00 IV Medical Infusion, Branch CONTINUOUS , Starting on Wed01/09/22 at 0930, Until Discontinu ed, Routine, PACU lactated 2021-03 1000mL at 75 Unive rs ringers IV 1-11 11-11 mL/hr, ity of infusion 15:30: 18:44 1,000 mL, Rudy as 1,000 mL 00 :30 IV Medical Infusion, Branch CONTINUOUS , Starting on Wed01/09/22 at 0930, Until Wed01/09/22 at 1244, Routine, PACU FENTanyl PF 2021-03 Yes 25ug 25 mcg, Uni vers (SUBLIMAZE 1-11 Slow IV ity of (PF)) 15:26: Push, [place] injection 52 Q5MIN PRN, Medi devang 25 mcg 4 doses, Branch Starting on Wed01/09/22 at 0926, Until Discontinu ed, Routine, Pain (scale 4-6), PACU ondansetron 2021-03 Yes 4mg 4 mg, Slow Univers (ZOFRAN 1-11 IV Push, ity of (PF)) 15:26: PRN, 1 [place] injection 4 52 dose, Medical mg Starting Branch on Wed01/09/22 at 0926, Until Discontinu ed, Routine, Nausea and Vomiting (N/V), PACU FENTanyl PF 2021-03 25ug 25 mcg, Un emily (SUBLIMAZE 03-11 Slow IV ity o f (PF)) 15:26: 18:44 Push, [place] injection 52 :30 Q5MIN PRN, Medi devang 25 mcg 4 doses, Branch Starting on Wed01/09/22 at 0926, Until Wed01/09/22 at 1244, Routine, Pain (scale 4-6), PACU ondansetron 2021-03 4mg 4 mg, Slow Univers (ZOFRAN 03-11 IV Push, ity of (PF)) 15:26: 18:44 PRN, 1 [place] injection 4 52 :30 dose, Medical mg Starting Branch on Wed01/09/22 at 0926, Until Wed01/09/22 at 1244, Routine, Nausea and Vomiting (N/V), PACU sodium 2021-03 No PRN, Univers chloride 03-11 Starting ity of 0.9 % 14:55: 15:26 on Wed [place] irrigation 00 :39 01/09/22 Medic al solution at 0855, Branch Until Wed01/09/22 at 0926, Intra-op bupivacaine 2021-03 No PRN, Unive rs (preserv 03-11 Starting ity of free) 0.5% 14:11: 15:26 on Wed [place] (SENSORCAIN 00 :39 01/09/22 Medi devang E MPF) 0.5 at 0811, Branc h % (5 mg/mL) Intra-op 5 mL, lidocaine 1% (PF) (XYLOCAINE) 5 mL lactated 2021-03- No 1000mL at 42 Unive rs ringers IV 03-11 mL/hr, ity of infusion 12:45: 13:13 1,000 mL, [place] 1,000 mL 00 :00 IV Medical Infusion, Branch ONCE, 1 dose, On Wed01/09/22 at 0645, Routine, DSU Pre-op lactated 2021-03- No 1000mL at 42 Unive rs ringers IV 1-11 11-11 mL/hr, ity of infusion 12:45: 13:13 1,000 mL, [place] as 1,000 mL 00 :00 IV Medical Infusion, [place] ONCE, 1 dose, On Wed01/09/22 at 0645, Routine, DSU Pre-op buPROPion 2021-03 Yes 150mg Take 150 Uni vers XL 150 mg 1-11 mg by ity of 24 hr 10:39: mouth in [place] tablet 24 the Medical morning. Branch Takes 3 a day lamoTRIgine 2021-03 Yes 150mg Take 150 U nivers 150 mg 1-11 mg by ity of tablet 10:39: mouth in [place] [address] the Medical morning. Branch FLUoxetine 2021-03 Yes 40mg Take 40 mg U nivers 40 mg 1-11 by mouth ity of capsule 10:39: in the [place] [address] morning. Medical Branch propranoloL 2021-03 Yes 40mg Take 40 mg Univers 40 mg 1-11 by mouth ity of tablet 10:39: in the [place] [address] morning. Medical Branch buPROPion 2021-03 Yes 150mg Take 150 Uni vers XL 150 mg 1-11 mg by ity of 24 hr 10:39: mouth in [place] tablet 24 the Medical morning. Branch Takes 3 a day lamoTRIgine 2021-03 Yes 150mg Take 150 U nivers 150 mg 1-11 mg by ity of tablet 10:39: mouth in [place] [address] the Medical morning. Branch FLUoxetine 2021-03 Yes 40mg Take 40 mg U nivers 40 mg 1-11 by mouth ity of capsule 10:39: in the [place] [address] morning. Medical Branch propranoloL 2021-03 Yes 40mg Take 40 mg Univers 40 mg 1-11 by mouth ity of tablet 10:39: in the [place] [address] morning. Medical Branch buPROPion 2021-03 Yes 150mg Take 150 Uni vers XL 150 mg 1-11 mg by ity of 24 hr 10:39: mouth in [place] tablet 24 the Medical morning. Branch Takes 3 a day lamoTRIgine 2021-03 Yes 150mg Take 150 U nivers 150 mg 1-11 mg by ity of tablet 10:39: mouth in [place] [address] the Medical morning. Branch FLUoxetine 2021-03 Yes 40mg Take 40 mg U nivers 40 mg 1-11 by mouth ity of capsule 10:39: in the [place] 24 morning. Medical Branch propranoloL 2021-03 Yes 40mg Take 40 mg Univers 40 mg 1-11 by mouth ity of tablet 10:39: in the [place] 24 morning. [facility] aspirin 325 2021-03- No [id number] 325mg Take 1 Univers mg tablet 1- 12-10 tablet by ity of 00:00: 05:59 mouth in [place] 00 :00 the [facility] and 1 tablet in the evening. Take with meals. Do all this for 28 days. aspirin 325 2021-03- No [id number] 325mg Take 1 Univers mg tablet - 12-10 tablet by ity of 00:00: 05:59 mouth in [place] 00 :00 the [facility] and 1 tablet in the evening. Take with meals. Do all this for 28 days. aspirin 325 2021-03- No [id number] 325mg Take 1 Univers mg tablet - 12-10 tablet by ity of 00:00: 05:59 mouth in [place] 00 :00 the [facility] and 1 tablet in the evening. Take with meals. Do all this for 28 days. aspirin 325 2021-03- No [id number] 325mg Take 1 Univers mg tablet - 12-10 tablet by ity of 00:00: 05:59 mouth in [place] 00 :00 the [facility] and 1 tablet in the evening. Take with meals. Do all this for 28 days. aspirin 325 2021-03- No [id number] 325mg Take 1 Univers mg tablet - 12-10 tablet by ity of 00:00: 05:59 mouth in [place] 00 :00 the [facility] and 1 tablet in the evening. Take with meals. Do all this for 28 days. aspirin 325 2021-03- No [id number] 325mg Take 1 Univers mg tablet - 12-10 tablet by ity of 00:00: 05:59 mouth in [place] 00 :00 [facility] and 1 tablet in the evening. Take with meals. Do all this for 28 days. sodium,pota 2021-03- No 117mL Take 117 Univers ssium,mag - 11-05 mL by ity of sulfates 00:00: 04:59 mouth once [place] 17.5-3.13-1 00 :00 now for 1 Med ical .6 gram dose. Branch sodium,krystlea 2021-03- No 117mL Take 117 Univers ssium,mag -04 11-05 mL by ity of sulfates 00:00: 04:59 mouth once [place] 17.5-3.13-1 00 :00 now for 1 Med ical .6 gram dose. Branch sodium,pota 2021-03- No 117mL Take 117 Univers ssium,mag -04 11-05 mL by ity of sulfates 00:00: 04:59 mouth once [place] 17.5-3.13-1 00 :00 now for 1 Med ical .6 gram dose. Branch buPROPion 2021-03 Yes 150mg Take 150 Uni vers XL 0-13 mg by ity of (WELLBUTRIN 13:07: mouth in [place] XL) 150 mg 47 the Medical 24 hr morning. Branch tablet Takes 3 a day lamoTRIgine 2021-03 Yes 150mg Take 150 U nivers (LAMICTAL) 0-13 mg by ity of 150 mg 13:07: mouth in [place] tablet the Medical morning Branch and 150 mg in the evening. FLUoxetine 2021-03 Yes 40mg Take 40 mg U nivers (PROZAC) 40 0-13 by mouth ity of mg capsule 13:07: in the [place] [address] morning Medical and 40 mg Branch in the evening. propranoloL 2021-03 Yes 20mg Take 20 mg Univers 20 mg 0-13 by mouth ity of tablet 13:07: in the [place] [address] morning Medical and 20 mg Branch in the evening. buPROPion 2021-03 Yes 150mg Take 150 Uni vers XL 0-13 mg by ity of (WELLBUTRIN 13:07: mouth in [place] XL) 150 mg 47 the Medical 24 hr morning. Branch tablet Takes 3 a day lamoTRIgine 2021-03 Yes 150mg Take 150 U nivers (LAMICTAL) 0-13 mg by ity of 150 mg 13:07: mouth in [place] tablet 47 the Medical morning Branch and 150 mg in the evening. FLUoxetine 2021-03 Yes 40mg Take 40 mg U nivers (PROZAC) 40 0-13 by mouth ity of mg capsule 13:07: in the [place] [address] morning Medical and 40 mg Branch in the evening. propranoloL 2021-03 Yes 20mg Take 20 mg Univers 20 mg 0-13 by mouth ity of tablet 13:07: in the [place] [address] morning Medical and 20 mg Branch in the evening. buPROPion 2021-03 Yes 150mg Take 150 Uni vers XL 0-13 mg by ity of (WELLBUTRIN 13:07: mouth in [place] XL) 150 mg 47 the Medical 24 hr morning. Branch tablet Takes 3 a day lamoTRIgine 2021-03 Yes 150mg Take 150 U nivers (LAMICTAL) 0-13 mg by ity of 150 mg 13:07: mouth in [place] tablet 47 the Medical morning Branch and 150 mg in the evening. FLUoxetine 2021-03 Yes 40mg Take 40 mg U nivers (PROZAC) 40 0-13 by mouth ity of mg capsule 13:07: in the [place] [address] morning Medical and 40 mg Branch in the evening. propranoloL 2021-03 Yes 20mg Take 20 mg Univers 20 mg 0-13 by mouth ity of tablet 13:07: in the [place] [address] morning Medical and 20 mg Branch in the evening. buPROPion 2021-03 Yes 150mg Take 150 Uni vers XL 0-13 mg by ity of (WELLBUTRIN 13:07: mouth in [place] XL) 150 mg 47 the Medical 24 hr morning. Branch tablet Takes 3 a day lamoTRIgine 2021-03 Yes 150mg Take 150 U nivers (LAMICTAL) 0-13 mg by ity of 150 mg 13:07: mouth in [place] tablet 47 the Medical morning Branch and 150 mg in the evening. FLUoxetine 2021-03 Yes 40mg Take 40 mg U nivers (PROZAC) 40 0-13 by mouth ity of mg capsule 13:07: in the [place] [address] morning Medical and 40 mg Branch in the evening. propranoloL 2021-03 Yes 20mg Take 20 mg Univers 20 mg 0-13 by mouth ity of tablet 13:07: in the [place] [address] morning Medical and 20 mg Branch in the evening. buPROPion 2021-03 Yes 150mg Take 150 Uni vers XL 0-13 mg by ity of (WELLBUTRIN 13:07: [place] in [place] XL) 150 mg 47 the Medical 24 hr morning. Branch tablet Takes 3 a day lamoTRIgine 2021-03 Yes 150mg Take 150 U nivers (LAMICTAL) 0-13 mg by ity of 150 mg 13:07: mouth in [place] tablet 47 the Medical morning Branch and 150 mg in the evening. FLUoxetine 2021-03 Yes 40mg Take 40 mg U nivers (PROZAC) 40 0-13 by mouth ity of mg capsule 13:07: in the [place] [address] morning Medical and 40 mg Branch in the evening. propranoloL 2021-03 Yes 20mg Take 20 mg [facility] 20 mg 0-13 by mouth ity of tablet 13:07: in the [place] [address] morning Medical and 20 mg Branch in the evening. buPROPion 2021-03 Yes 150mg Take 150 Uni vers XL 0-13 mg by ity of (WELLBUTRIN 13:07: mouth in [place] XL) 150 mg 47 the Medical 24 hr morning. Branch tablet Takes 3 a day lamoTRIgine 2021-03 Yes 150mg Take 150 [facility]ivers (LAMICTAL) 0-13 mg by ity of 150 mg 13:07: mouth in [place] tablet the Medical morning Branch and 150 mg in the evening. FLUoxetine 2021-03 Yes 40mg Take 40 mg [facility] (PROZAC) 40 0-13 by mouth ity of mg capsule 13:07: in the [place] [address] morning Medical and 40 mg Branch in the evening. propranoloL 2021-03 Yes 20mg Take 20 mg [facility] 20 mg 0-13 by mouth ity of tablet 13:07: in the [place] [address] morning Medical and 20 mg Branch in the evening. buPROPion 2021-03 Yes 150mg Take 150 Uni vers XL 0-13 mg by ity of (WELLBUTRIN 13:07: mouth in [place] XL) 150 mg 47 the Medical 24 hr morning. Branch tablet Takes 3 a day lamoTRIgine 2021-03 Yes 150mg Take 150 [facility] (LAMICTAL) 0-13 mg by ity of 150 mg 13:07: mouth in [place] tablet 47 the Medical morning Branch and 150 mg in the evening. FLUoxetine 2021-03 Yes 40mg Take 40 mg [facility]ivers (PROZAC) 40 0-13 by mouth ity of mg capsule 13:07: in the [place] [address] morning Medical and 40 mg Branch in the evening. propranoloL 2021-03 Yes 20mg Take 20 mg [facility] 20 mg 0-13 by mouth ity of tablet 13:07: in the [place] [address] morning Medical and 20 mg Branch in the evening. buPROPion 2021-03 Yes 150mg Take 150 Uni vers XL 0-13 mg by ity of (WELLBUTRIN 13:07: mouth in [place] XL) 150 mg 47 the Medical 24 hr morning. Branch tablet Takes 3 a day lamoTRIgine 2021-03 Yes 150mg Take 150 [facility]ivers (LAMICTAL) 0-13 mg by ity of 150 mg 13:07: mouth in [place] tablet 47 the Medical morning Branch and 150 mg in the evening. FLUoxetine 2021-03 Yes 40mg Take 40 mg [facility]ivers (PROZAC) 40 0-13 by mouth ity of mg capsule 13:07: in the [place] [address] morning Medical and 40 mg Branch in the evening. propranoloL 2021-03 Yes 20mg Take 20 mg [facility] 20 mg 0-13 by mouth ity of tablet 13:07: in the [place] [address] morning Medical and 20 mg Branch in the evening. buPROPion 2021-03 Yes 150mg Take 150 Uni vers XL 0-13 mg by ity of (WELLBUTRIN 13:07: mouth in [place] XL) 150 mg 47 the Medical 24 hr morning. Branch tablet Takes 3 a day lamoTRIgine 2021-03 Yes 150mg Take 150 [facility]ivers (LAMICTAL) 0-13 mg by ity of 150 mg 13:07: mouth in [place] tablet 47 the Medical morning Branch and 150 mg in the evening. FLUoxetine 2021-03 Yes 40mg Take 40 mg [facility] (PROZAC) 40 0-13 by mouth ity of mg capsule 13:07: in the [place] [address] morning Medical and 40 mg Branch in the evening. propranoloL 2021-03 Yes 20mg Take 20 mg [facility] 20 mg 0-13 by mouth ity of tablet 13:07: in the [place] [address] morning Medical and 20 mg Branch in the evening. buPROPion 2021-03 Yes 150mg Take 150 Uni vers XL 0-13 mg by ity of (WELLBUTRIN 13:07: mouth in [place] XL) 150 mg 47 the Medical 24 hr morning. Branch tablet Takes 3 a day lamoTRIgine 2021-03 Yes 150mg Take 150 [facility]ivers (LAMICTAL) 0-13 mg by ity of 150 mg 13:07: mouth in [place] tablet 47 the Medical morning Branch and 150 mg in the evening. FLUoxetine 2021-03 Yes 40mg Take 40 mg [facility] (PROZAC) 40 0-13 by mouth ity of mg capsule 13:07: in the [place] [address] morning Medical and 40 mg Branch in the evening. propranoloL 2021-03 Yes 20mg Take 20 mg [facility] 20 mg 0-13 by mouth ity of tablet 13:07: in the [place] [address] morning Medical and 20 mg Branch in the evening. clonazePAM 2021-03 Yes 1{tbl} Take 1 Uni vers 1 mg tablet 0-11 tablet by ity of 00:00: mouth as [place] 00 needed. Medical Branch clonazePAM 2021-03 Yes 1{tbl} Take 1 Uni vers 1 mg tablet 0-11 tablet by ity of 00:00: mouth as [place] 00 needed. Medical Branch clonazePAM 2021-03 Yes 1{tbl} Take 1 Uni vers 1 mg tablet 0-11 tablet by ity of 00:00: mouth as [place] 00 needed. Medical Branch clonazePAM 2021-03 Yes 1{tbl} Take 1 Uni vers 1 mg tablet 0-11 tablet by ity of 00:00: mouth as [place] 00 needed. Medical Branch clonazePAM 2021-03 Yes 1{tbl} Take 1 Uni vers 1 mg tablet 0-11 tablet by ity of 00:00: mouth as [place] 00 needed. Medical Branch clonazePAM 2021-03 Yes 1{tbl} Take 1 Uni vers 1 mg tablet 0-11 tablet by ity of 00:00: mouth as [place] 00 needed. Medical Branch clonazePAM 2021-03 Yes 1{tbl} Take 1 Uni vers 1 mg tablet 0-11 tablet by ity of 00:00: mouth as [place] 00 needed. Medical Branch clonazePAM 2021-03 Yes 1{tbl} Take 1 Uni vers 1 mg tablet 0-11 tablet by ity of 00:00: mouth as [place] 00 needed. Medical Branch clonazePAM 2021- Yes 1{tbl} Take 1 Uni vers 1 mg tablet 0-11 tablet by ity of 00:00: mouth as [place] 00 needed. Medical Branch clonazePAM 2021- Yes 1{tbl} Take 1 Uni vers 1 mg tablet 0-11 tablet by ity of 00:00: mouth as [place] 00 needed. Medical Branch clonazePAM 2021- Yes 1{tbl} Take 1 Uni vers 1 mg tablet 0-11 tablet by ity of 00:00: mouth as [place] 00 needed. Medical Branch clonazePAM 2021-1 Yes 1{tbl} Take 1 Uni vers 1 mg tablet 0-11 tablet by ity of 00:00: mouth as [place] 00 needed. Medical Branch clonazePAM 2021-1 Yes 1{tbl} Take 1 Uni vers 1 mg tablet 0-11 tablet by ity of 00:00: mouth as [place] 00 needed. Medical Branch clonazePAM 2021-1 Yes 1{tbl} Take 1 Uni vers 1 mg tablet 0-11 tablet by ity of 00:00: mouth as [place] 00 needed. Medical Branch clonazePAM 2021- Yes 1{tbl} Take 1 Uni vers 1 mg tablet 0-11 tablet by ity of 00:00: mouth as [place] 00 needed. Medical Branch clonazePAM 2021- Yes 1mg Take 1 Unive rs 1 mg tablet 0-11 tablet by ity of 00:00: mouth as [place] 00 needed. Medical Branch clonazePAM 2021- Yes 1mg Take 1 Unive rs 1 mg tablet 0-11 tablet by ity of 00:00: mouth as [place] 00 needed. Medical Branch clonazePAM 2021- Yes 1mg Take 1 Unive rs 1 mg tablet 0-11 tablet by ity of 00:00: mouth as [place] 00 needed. Medical Branch clonazePAM 2021- Yes 1mg Take 1 Unive rs 1 mg tablet 0-11 tablet by ity of 00:00: mouth as [place] 00 needed. Medical Branch temazepam 2-0 Yes 1{capsu Take 1 Uni vers 15 mg 9-20 le} capsule by ity of capsule 00:00: mouth as [place] 00 needed. Medical Branch temazepam 2021-0 Yes 1{capsu Take 1 Uni vers 15 mg 9-20 le} capsule by ity of capsule 00:00: mouth as [place] 00 needed. Medical Branch temazepam 2-0 Yes 1{capsu Take 1 Uni vers 15 mg 9-20 le} capsule by ity of capsule 00:00: mouth as [place] 00 needed. Medical Branch temazepam 2021-0 Yes 1{capsu Take 1 Uni vers 15 mg 9-20 le} capsule by ity of capsule 00:00: mouth as [place] 00 needed. Medical Branch temazepam 2021-0 Yes 1{capsu Take 1 Uni vers 15 mg 9-20 le} capsule by ity of capsule 00:00: mouth as [place] 00 needed. Medical Branch temazepam 2021-0 Yes 1{capsu Take 1 Uni vers 15 mg 9-20 le} capsule by ity of capsule 00:00: mouth as [place] 00 needed. Medical Branch temazepam 2021-0 Yes 1{capsu Take 1 Uni vers 15 mg 9-20 le} capsule by ity of capsule 00:00: mouth as [place] 00 needed. Medical Branch temazepam 2021-0 Yes 1{capsu Take 1 Uni vers 15 mg 9-20 le} capsule by ity of capsule 00:00: mouth as [place] 00 needed. Medical Branch temazepam 0 Yes 1{capsu Take 1 Uni vers 15 mg 9-20 le} capsule by ity of capsule 00:00: mouth as [place] 00 needed. Medical Branch temazepam 0 Yes 1{capsu Take 1 Uni vers 15 mg 9-20 le} capsule by ity of capsule 00:00: mouth as [place] 00 needed. Medical Branch temazepam 2021-0 Yes 1{capsu Take 1 Uni vers 15 mg 9-20 le} capsule by ity of capsule 00:00: mouth as [place] 00 needed. Medical Branch temazepam 0 Yes 1{capsu Take 1 Uni vers 15 mg 9-20 le} capsule by ity of capsule 00:00: mouth as [place] 00 needed. Medical Branch temazepam 2021-0 Yes 1{capsu Take 1 Uni vers 15 mg 9-20 le} capsule by ity of capsule 00:00: mouth as [place] 00 needed. Medical Branch temazepam 2021-0 Yes 1{capsu Take 1 Uni vers 15 mg 9-20 le} capsule by ity of capsule 00:00: mouth as [place] 00 needed. Medical Branch temazepam 2021-0 Yes 1{capsu Take 1 Uni vers 15 mg 9-20 le} capsule by ity of capsule 00:00: mouth as [place] 00 needed. Medical Branch temazepam 2021-0 Yes 15mg Take 1 Univer s 15 mg 9-20 capsule by ity of capsule 00:00: mouth as [place] 00 needed. Medical Branch temazepam 2021-0 Yes 15mg Take 1 Univer s 15 mg 9-20 capsule by ity of capsule 00:00: mouth as [place] 00 needed. Medical Branch temazepam 2021-0 Yes 15mg Take 1 Univer s 15 mg 9-20 capsule by ity of capsule 00:00: mouth as [place] 00 needed. Medical Branch temazepam Yes 15mg Take 1 Univer s 15 mg 9-20 capsule by ity of capsule 00:00: mouth as [place] 00 needed. Medical Branch lamoTRIgine 2019-03 Yes 150mg QD Take [address] [facility] (LaMICtal) 0-21 [facility] 18:38: mouth Medical tablet 44 daily Center Bipolar disorder . buPROPion 2019-03 Yes depression 150mg QD Take [address] [facility] (WELLBUTRIN 0-21 associated mg by [facility] XL) 150 MG 18:38: with mouth Medica l 24 hr 44 bipolar daily. Center tablet disorder fLUoxetine 2019-03 Yes depression 20mg QD Take [address] [facility] (PROzac) 20 0-21 associated by [facility] MG capsule 18:38: with daily. Medic al 44 bipolar Center disorder, adjunct Immunizations Ordered Filled Immunization Date Status Comments [facility] e Immunization Name Name SARS-COV-2 COVID-19 2021-12-11 Completed Unive rsity of VACCINE 18 YRS+, 00:00:00 [place] [facility] BIVALENT 0.5ML, IM, Branc h (MODERNA BOOSTER) Influenza Virus 2021-12-11 Completed Universit y of Vaccine Quad IM, 00:00:00 [place] [facility] Preserv and ABX Branch Free 6 MO-64 YRS SARS-COV-2 COVID-19 2021-12-11 Completed Unive rsity of VACCINE 18 YRS+, 00:00:00 [place] [facility] BIVALENT 0.5ML, IM, Branc h (MODERNA BOOSTER) Influenza Virus 2021-12-11 Completed Universit y of Vaccine Quad IM, 00:00:00 [place] [facility] Preserv and ABX Branch Free 6 MO-64 YRS SARS-COV-2 COVID-19 2021-12-11 Completed Unive rsity of VACCINE 18 YRS+, 00:00:00 [place] [facility] BIVALENT 0.5ML, IM, Branc h (MODERNA BOOSTER) Influenza Virus 2021-12-11 Completed Universit y of Vaccine Quad IM, 00:00:00 [place] [facility] Preserv and ABX Branch Free 6 MO-64 YRS SARS-COV-2 COVID-19 2021-12-11 Completed Unive rsity of VACCINE 12 YRS+, 00:00:00 [place] [facility] BIVALENT 0.5ML, IM, Branc h (MODERNA BOOSTER) Influenza Virus 2021-12-11 Completed Universit y of Vaccine Quad IM, 00:00:00 [place] [facility] Preserv and ABX Branch Free 6 MO-64 YRS SARS-COV-2 COVID-19 2021-12-11 Completed Unive rsity of VACCINE 12 YRS+, 00:00:00 [place] [facility] BIVALENT 0.5ML, IM, Branc h (MODERNA BOOSTER) Influenza Virus 2021-12-11 Completed Universit y of Vaccine Quad IM, 00:00:00 [place] [facility] Preserv and ABX Branch Free 6 MO-64 YRS SARS-COV-2 COVID-19 2021-12-11 Completed Unive rsity of VACCINE 12 YRS+, 00:00:00 [place] [facility] BIVALENT 0.5ML, IM, Branc h (MODERNA BOOSTER) Influenza Virus 2021-12-11 Completed Universit y of Vaccine Quad IM, 00:00:00 [place] [facility] Preserv and ABX Branch Free 6 MO-64 YRS SARS-COV-2 COVID-19 2021-12-11 Completed Unive rsity of VACCINE 12 YRS+, 00:00:00 [place] [facility] BIVALENT 0.5ML, IM, Branc h (MODERNA BOOSTER) Influenza Virus 2021-12-11 Completed Universit y of Vaccine Quad IM, 00:00:00 [place] [facility] Preserv and ABX Branch Free 6 MO-64 YRS SARS-COV-2 COVID-19 2021-12-11 Completed Unive rsity of VACCINE 12 YRS+, 00:00:00 [place] [facility] BIVALENT 0.5ML, IM, Branc h (MODERNA BOOSTER) Influenza Virus 2021-12-11 Completed Universit y of Vaccine Quad IM, 00:00:00 [place] [facility] Preserv and ABX Branch Free 6 MO-64 YRS SARS-COV-2 COVID-19 2021-12-11 Completed Unive rsity of VACCINE 12 YRS+, 00:00:00 [place] [facility] BIVALENT 0.5ML, IM, Branc h (MODERNA BOOSTER) Influenza Virus 2021-12-11 Completed Universit y of Vaccine Quad IM, 00:00:00 [place] [facility] Preserv and ABX Branch Free 6 MO-64 YRS SARS-COV-2 COVID-19 2021-12-11 Completed Unive rsity of VACCINE 12 YRS+, 00:00:00 [place] [facility] BIVALENT 0.5ML, IM, Branc h (MODERNA BOOSTER) Influenza Virus 2021-12-11 Completed Universit y of Vaccine Quad IM, 00:00:00 [place] [facility] Preserv and ABX Branch Free 6 MO-64 YRS SARS-COV-2 COVID-19 2021-12-11 Completed Unive rsity of VACCINE 12 YRS+, 00:00:00 [place] [facility] BIVALENT 0.5ML, IM, Branc h (MODERNA BOOSTER) Influenza Virus 2021-12-11 Completed Universit y of Vaccine Quad IM, 00:00:00 [place] [facility] Preserv and ABX Branch Free 6 MO-64 YRS SARS-COV-2 COVID-19 2021-12-11 Completed Unive rsity of VACCINE 12 YRS+, 00:00:00 [place] [facility] BIVALENT 0.5ML, IM, Branc h (MODERNA BOOSTER) Influenza Virus 2021-12-11 Completed Universit y of Vaccine Quad IM, 00:00:00 [place] [facility] Preserv and ABX Branch Free 6 MO-64 YRS SARS-COV-2 COVID-19 2021-12-11 Completed Unive rsity of VACCINE 12 YRS+, 00:00:00 [place] [facility] BIVALENT 0.5ML, IM, Branc h (MODERNA BOOSTER) Influenza Virus 2021-12-11 Completed Universit y of Vaccine Quad IM, 00:00:00 [place] [facility] Preserv and ABX Branch Free 6 MO-64 YRS SARS-COV-2 COVID-19 2021-12-11 Completed Unive rsity of VACCINE 12 YRS+, 00:00:00 [place] [facility] BIVALENT 0.5ML, IM, Branc h (MODERNA BOOSTER) Influenza Virus 2021-12-11 Completed Universit y of Vaccine Quad IM, 00:00:00 [place] [facility] Preserv and ABX Branch Free 6 MO-64 YRS SARS-COV-2 COVID-19 2021-12-11 Completed Unive rsity of VACCINE 12 YRS+, 00:00:00 [place] [facility] BIVALENT 0.5ML, IM, Branc h (MODERNA BOOSTER) Influenza Virus 2021-12-11 Completed Universit y of Vaccine Quad IM, 00:00:00 [place] [facility] Preserv and ABX Branch Free 6 MO-64 YRS SARS-COV-2 COVID-19 2021-12-11 Completed Unive rsity of VACCINE 12 YRS+, 00:00:00 [place] [facility] BIVALENT 0.5ML, IM, Branc h (MODERNA BOOSTER) Influenza Virus 2021-12-11 Completed Universit y of Vaccine Quad IM, 00:00:00 [place] [facility] Preserv and ABX Branch Free 6 MO-64 YRS SARS-COV-2 COVID-19 2021-12-11 Completed Unive rsity of VACCINE 12 YRS+, 00:00:00 [place] [facility] BIVALENT 0.5ML, IM, Branc h (MODERNA) Influenza Virus 2021-12-11 Completed Universit y of Vaccine Quad IM, 00:00:00 [place] [facility] Preserv and ABX Branch Free 6 MO-64 YRS Influenza Virus 2021-12-11 Completed Universit y of Vaccine Quad IM, 00:00:00 [place] [facility] Preserv and ABX Branch Free 6 MO-64 YRS SARS-COV-2 COVID-19 2021-12-11 Completed Unive rsity of VACCINE 12 YRS+, 00:00:00 [place] [facility] BIVALENT 0.5ML, IM, Branc h (MODERNA) SARS-COV-2 COVID-19 2021-12-11 Completed Unive rsity of VACCINE 18 YRS+, 00:00:00 [place] [facility] BIVALENT 0.5ML, IM, Branc h (MODERNA BOOSTER) Influenza Virus 2021-12-11 Completed Universit y of Vaccine Quad IM, 00:00:00 [place] [facility] Preserv and ABX Branch Free 6 MO-64 YRS SARS-COV-2 COVID-19 2021-12-11 Completed Unive rsity of VACCINE 12 YRS+, 00:00:00 [place] [facility] BIVALENT 0.5ML, IM, Branc h (MODERNA-BLUE TOP) Influenza Virus 2021-12-11 Completed Universit y of Vaccine Quad IM, 00:00:00 [place] [facility] Preserv and ABX Branch Free 6 MO-64 YRS SARS-COV-2 COVID-19 2021-12-11 Completed Unive rsity of VACCINE 12 YRS+, 00:00:00 [place] [facility] BIVALENT 0.5ML, IM, Branc h (MODERNA-BLUE TOP) Influenza Virus 2021-12-11 Completed Universit y of Vaccine Quad IM, 00:00:00 [place] [facility] Preserv and ABX Branch Free 6 MO-64 YRS SARS-COV-2 COVID-19 2021-12-11 Completed Unive rsity of VACCINE 12 YRS+, 00:00:00 [place] [facility] BIVALENT 0.5ML, IM, Branc h (MODERNA-BLUE TOP) Influenza Virus 2021-12-11 Completed Universit y of Vaccine Quad IM, 00:00:00 [place] [facility] Preserv and ABX Branch Free 6 MO-64 YRS SARS-COV-2 COVID-19 2021-12-11 Completed Unive rsity of VACCINE 12 YRS+, 00:00:00 [place] [facility] BIVALENT 0.5ML, IM, Branc h (MODERNA-BLUE TOP) Influenza Virus 2021-12-11 Completed Universit y of Vaccine Quad IM, 00:00:00 [place] [facility] Preserv and ABX Branch Free 6 MO-64 YRS SARS-COV-2 COVID-19 2021-12-11 Completed Unive rsity of VACCINE 18 YRS+, 00:00:00 [place] [facility] BIVALENT 0.5ML, IM, Branc h (MODERNA BOOSTER) Influenza Virus 2021-12-11 Completed Universit y of Vaccine Quad IM, 00:00:00 [place] [facility] Preserv and ABX Branch Free 6 MO-64 YRS SARS-COV-2 COVID-19 2021-12-11 Completed Unive rsity of VACCINE 18 YRS+, 00:00:00 [place] [facility] BIVALENT 0.5ML, IM, Branc h (MODERNA BOOSTER) Influenza Virus 2021-12-11 Completed Universit y of Vaccine Quad IM, 00:00:00 [place] [facility] Preserv and ABX Branch Free 6 MO-64 YRS SARS-COV-2 COVID-19 2020-05-15 Completed Unive rsity of MODERNA 12+ YRS 00:00:00 [facility] VACCINE Branch SARS-COV-2 COVID-19 2020-05-15 Completed Unive rsity of MODERNA 12+ YRS 00:00:00 [place] [facility] VACCINE Branch SARS-COV-2 COVID-19 2020-05-15 Completed Unive rsity of MODERNA 12+ YRS 00:00:00 [place] [facility] VACCINE Branch SARS-COV-2 COVID-19 2020-05-15 Completed Unive rsity of MODERNA 12+ YRS 00:00:00 [place] [facility] VACCINE Branch SARS-COV-2 COVID-19 2020-05-15 Completed Unive rsity of MODERNA 12+ YRS 00:00:00 [place] [facility] VACCINE Branch SARS-COV-2 COVID-19 2020-05-15 Completed Unive rsity of MODERNA 12+ YRS 00:00:00 [place] [facility] VACCINE Branch SARS-COV-2 COVID-19 2020-05-15 Completed Unive rsity of MODERNA 12+ YRS 00:00:00 [place] [facility] ical VACCINE Branch SARS-COV-2 COVID-19 2020-05-15 Completed Unive rsity of MODERNA 12+ YRS 00:00:00 [place] [facility] VACCINE Branch SARS-COV-2 COVID-19 2020-05-15 Completed Unive rsity of MODERNA 12+ YRS 00:00:00 [place] [facility] ical VACCINE Branch SARS-COV-2 COVID-19 2020-05-15 Completed Unive rsity of MODERNA 12+ YRS 00:00:00 [place] [facility] VACCINE Branch SARS-COV-2 COVID-19 2020-05-15 Completed Unive rsity of MODERNA 12+ YRS 00:00:00 [place] [facility] ical VACCINE Branch SARS-COV-2 COVID-19 2020-05-15 Completed Unive rsity of MODERNA 12+ YRS 00:00:00 [place] [facility] ical VACCINE Branch SARS-COV-2 COVID-19 2020-05-15 Completed Unive rsity of MODERNA 12+ YRS 00:00:00 [place] [facility] VACCINE Branch SARS-COV-2 COVID-19 2020-05-15 Completed Unive rsity of MODERNA 12+ YRS 00:00:00 [place] [facility] VACCINE Branch SARS-COV-2 COVID-19 2020-05-15 Completed Unive rsity of MODERNA 12+ YRS 00:00:00 [place] [facility] ical VACCINE Branch SARS-COV-2 COVID-19 2020-05-15 Completed Unive rsity of MODERNA 12+ YRS 00:00:00 [place] [facility] VACCINE Branch SARS-COV-2 COVID-19 2020-05-15 Completed Unive rsity of MODERNA 12+ YRS 00:00:00 [place] [facility] VACCINE Branch SARS-COV-2 COVID-19 2020-05-15 Completed Unive rsity of MODERNA 12+ YRS 00:00:00 [place] [facility] ical VACCINE Branch SARS-COV-2 COVID-19 2020-05-15 Completed Unive rsity of MODERNA 12+ YRS 00:00:00 [place] [facility] ical VACCINE Branch SARS-COV-2 COVID-19 2020-05-15 Completed Unive rsity of MODERNA 12+ YRS 00:00:00 [place] [facility] ical VACCINE Branch SARS-COV-2 COVID-19 2020-05-15 Completed Unive rsity of MODERNA 12+ YRS 00:00:00 [place] [facility] VACCINE Branch SARS-COV-2 COVID-19 2020-05-15 Completed Unive rsity of MODERNA 12+ YRS 00:00:00 [place] [facility] VACCINE Branch SARS-COV-2 COVID-19 2020-05-15 Completed Unive rsity of MODERNA 12+ YRS 00:00:00 [place] [facility] VACCINE Branch SARS-COV-2 COVID-19 2020-05-15 Completed Unive rsity of MODERNA 12+ YRS 00:00:00 [place] [facility] VACCINE Branch SARS-COV-2 COVID-19 2020-05-15 Completed Unive rsity of MODERNA 12+ YRS 00:00:00 [place] [facility] VACCINE Branch SARS-COV-2 COVID-19 2020-05-15 Completed Unive rsity of MODERNA 12+ YRS 00:00:00 [place] [facility] VACCINE Branch SARS-COV-2 COVID-19 2020-03-20 Completed Unive rsity of MODERNA 12+ YRS 00:00:00 [place] [facility] VACCINE Branch SARS-COV-2 COVID-19 2020-03-20 Completed Unive rsity of MODERNA 12+ YRS 00:00:00 [place] [facility] VACCINE Branch SARS-COV-2 COVID-19 2020-03-20 Completed Unive rsity of MODERNA 12+ YRS 00:00:00 [place] [facility] VACCINE Branch SARS-COV-2 COVID-19 2020-03-20 Completed Unive rsity of MODERNA 12+ YRS 00:00:00 [place] [facility] VACCINE Branch SARS-COV-2 COVID-19 2020-03-20 Completed Unive rsity of MODERNA 12+ YRS 00:00:00 [place] [facility] VACCINE Branch SARS-COV-2 COVID-19 2020-03-20 Completed Unive rsity of MODERNA 12+ YRS 00:00:00 [place] [facility] VACCINE Branch SARS-COV-2 COVID-19 2020-03-20 Completed Unive rsity of MODERNA 12+ YRS 00:00:00 [place] [facility] ical VACCINE Branch SARS-COV-2 COVID-19 2020-03-20 Completed Unive rsity of MODERNA 12+ YRS 00:00:00 [place] [facility] VACCINE Branch SARS-COV-2 COVID-19 2020-03-20 Completed Unive rsity of MODERNA 12+ YRS 00:00:00 [place] [facility] VACCINE Branch SARS-COV-2 COVID-19 2020-03-20 Completed Unive rsity of MODERNA 12+ YRS 00:00:00 [place] [facility] VACCINE Branch SARS-COV-2 COVID-19 2020-03-20 Completed Unive rsity of MODERNA 12+ YRS 00:00:00 [place] [facility] VACCINE Branch SARS-COV-2 COVID-19 2020-03-20 Completed Unive rsity of MODERNA 12+ YRS 00:00:00 [place] [facility] VACCINE Branch SARS-COV-2 COVID-19 2020-03-20 Completed Unive rsity of MODERNA 12+ YRS 00:00:00 [place] [facility] VACCINE Branch SARS-COV-2 COVID-19 2020-03-20 Completed Unive rsity of MODERNA 12+ YRS 00:00:00 [place] [facility] VACCINE Branch SARS-COV-2 COVID-19 2020-03-20 Completed Unive rsity of MODERNA 12+ YRS 00:00:00 [place] [facility] VACCINE Branch SARS-COV-2 COVID-19 2020-03-20 Completed Unive rsity of MODERNA 12+ YRS 00:00:00 [place] [facility] VACCINE Branch SARS-COV-2 COVID-19 2020-03-20 Completed Unive rsity of MODERNA 12+ YRS 00:00:00 [place] [facility] VACCINE Branch SARS-COV-2 COVID-19 2020-03-20 Completed Unive rsity of MODERNA 12+ YRS 00:00:00 [place] [facility] VACCINE Branch SARS-COV-2 COVID-19 2020-03-20 Completed Unive rsity of MODERNA 12+ YRS 00:00:00 [place] [facility] ical VACCINE Branch SARS-COV-2 COVID-19 2020-03-20 Completed Unive rsity of MODERNA 12+ YRS 00:00:00 [place] [facility] VACCINE Branch SARS-COV-2 COVID-19 2020-03-20 Completed Unive rsity of MODERNA 12+ YRS 00:00:00 [place] [facility] ical VACCINE Branch SARS-COV-2 COVID-19 2020-03-20 Completed Unive rsity of MODERNA 12+ YRS 00:00:00 [place] [facility] ical VACCINE Branch SARS-COV-2 COVID-19 2020-03-20 Completed Unive rsity of MODERNA 12+ YRS 00:00:00 [place] [facility] ical VACCINE Branch SARS-COV-2 COVID-19 2020-03-20 Completed Unive rsity of MODERNA 12+ YRS 00:00:00 [place] [facility] ical VACCINE Branch SARS-COV-2 COVID-19 2020-03-20 Completed Unive rsity of MODERNA 12+ YRS 00:00:00 [facility] ical VACCINE Branch SARS-COV-2 COVID-19 2020-03-20 Completed Unive rsity of MODERNA 12+ YRS 00:00:00 [facility] VACCINE Branch Influenza Virus 2019-12-15 Completed Universit y of Vaccine Quad IM 3+ 00:00:00 [facility] Influenza Virus 2019-12-15 Completed Universit y of Vaccine Quad IM 3+ 00:00:00 [facility] Influenza Four-QIV 2019-12-[address] [facility] PF 3YR+ (LPT662) 00:00:00 [facility] TDAP 2016-03-03 Completed University of 00:00:00 [facility] TDAP 2016-03-03 Completed University of 00:00:00 [facility] TDAP 2016-03-03 Completed University of 00:00:00 [facility] TD 2016-03-03 Completed University of 00:00:00 [facility] Branch TDAP 2016-03-03 Completed University of 00:00:00 [facility] Branch TDAP 2016-03-03 Completed University of 00:00:00 [facility] Branch TDAP 2016-03-03 Completed University of 00:00:00 [facility] TDAP 2016-03-03 Completed University of 00:00:00 [facility] Branch TDAP 2016-03-03 Completed University of 00:00:00 [facility] Branch TDAP 2016-03-03 Completed University of 00:00:00 [facility] Branch TDAP 2016-03-03 Completed University of 00:00:00 [facility] Branch TDAP 2016-03-03 Completed University of 00:00:00 [facility] Branch TDAP 2016-03-03 Completed University of 00:00:00 [facility] TDAP 2016-03-03 Completed University of 00:00:00 [facility] TDAP 2016-03-03 Completed University of 00:00:00 [facility] TDAP 2016-03-03 Completed University of 00:00:00 [facility] TDAP 2016-03-03 Completed University of 00:00:00 [facility] TDAP 2016-03-03 Completed University of 00:00:00 [facility] TDAP 2016-03-03 Completed University of 00:00:00 [facility] TDAP 2016-03-03 Completed [facility] 00:[facility]00 [facility] [facility]AP 2016-03-03 Completed [facility] of 00:00:00 [facility] TDAP 2016-03-03 Completed [facility] of 00:00:00 [facility] TDAP 2016-03-03 Completed [facility] of 00:00:00 [facility] TDAP 2016-03-03 Completed [facility] of 00:00:00 [facility] TDAP 2016-03-03 Completed [facility] of 00:00:00 [facility] TDAP 2016-03-03 Completed [facility] of 00:00:00 [facility] Vital Signs Vital Name Observation Time Observation Value Comments Source HEIGHT 2019-12-14 17:00:00 167.6 cm WEIGHT 2019-12-14 17:00:00 80.74 kg Systolic blood 2022-08-24 18:27:00 118 mm[Hg] Univer sity of pressure [facility] Diastolic blood 2022-08-24 18:27:00 70 mm[Hg] Unive rsity of pressure [facility] Heart rate 2022-08-24 18:27:00 77 /min [facility] Body temperature 2022-08-24 18:27:00 36.61 Carolynn Univ ers[facility] Respiratory rate 2022-08-24 18:27:00 16 /min Univ [facility] Body height 2022-08-24 18:27:00 167.6 cm [facility] Body weight 2022-08-24 18:27:00 83.462 kg [facility] BMI 2022-08-24 18:27:00 29.70 kg/m2 [facility] Oxygen saturation in 2022-08-24 18:27:00 99 /min University of Arterial blood by [facility] Pulse oximetry Branch Systolic blood 2022-07-21 18:35:00 104 mm[Hg] Univer sity of pressure [facility] Diastolic blood 2022-07-21 18:35:00 65 mm[Hg] Unive rsity of pressure [facility] Heart rate 2022-07-21 18:35:00 73 /min [facility] Body height 2022-07-21 18:35:00 167.6 cm [facility] Body weight 2022-07-21 18:35:00 83.19 kg [facility] BMI 2022-07-21 18:35:00 29.60 kg/m2 [facility] Oxygen saturation in 2022-07-21 18:35:00 98 /min University of Arterial blood by [facility] [employer] Pulse oximetry Branch Systolic blood 2022-06-25 18:12:00 118 mm[Hg] Univer sity of pressure [facility] Diastolic blood 2022-06-25 18:12:00 70 mm[Hg] Unive rsity of pressure [facility] Heart rate 2022-06-25 18:12:00 60 /min [facility] Body temperature 2022-06-25 18:12:00 36.78 Carolynn [facility] Body height 2022-06-25 18:12:00 167.6 cm [facility] Body weight 2022-06-25 18:12:00 83.915 kg [facility] BMI 2022-06-25 18:12:00 29.86 kg/m2 [facility] Oxygen saturation in 2022-06-25 18:12:00 100 /min University of Arterial blood by [facility] Pulse oximetry Branch Systolic blood 2022-01-30 16:35:00 134 mm[Hg] Univer sity of pressure [facility] Diastolic blood 2022-01-30 16:35:00 59 mm[Hg] Unive rsity of pressure [facility] Heart rate 2022-01-30 16:35:00 64 /min [facility] Respiratory rate 2022-01-30 16:35:00 16 /min Univ [facility] Oxygen saturation in 2022-01-30 16:35:00 100 /min University of Arterial blood by [facility] Pulse oximetry Branch Body temperature 2022-01-30 14:06:00 37.11 Carolynn [facility] Body weight 2022-01-21 20:00:00 79.833 kg [facility] BMI 2022-01-21 20:00:00 27.98 kg/m2 [facility] Systolic blood 2022-01-30 16:35:00 134 mm[Hg] Univer sity of pressure [facility] Diastolic blood 2022-01-30 16:35:00 59 mm[Hg] Unive rsity of pressure [facility] Heart rate 2022-01-30 16:35:00 64 /min [facility] Respiratory rate 2022-01-30 16:35:00 16 /min Univ [facility] Oxygen saturation in 2022-01-30 16:35:00 100 /min University of Arterial blood by [facility] Pulse oximetry Branch Body temperature 2022-01-30 14:06:00 37.11 Carolynn [facility] Body weight 2022-01-21 20:00:00 79.833 kg [facility] BMI 2022-01-21 20:00:00 27.98 kg/m2 [facility] Systolic blood 2022-01-09 16:06:00 128 mm[Hg] Univer sity of pressure [facility] Diastolic blood 2022-01-09 16:06:00 65 mm[Hg] Unive rsity of pressure [facility] Respiratory rate 2022-01-09 16:03:00 13 /min Univ [facility] Heart rate 2022-01-09 16:02:00 64 /min [facility] Oxygen saturation in 2022-01-09 16:02:00 96 /min University of Arterial blood by [place] [employer] Pulse oximetry Branch Body temperature 2022-01-09 15:31:00 36.72 Carolynn [facility] Body height 2021-12-30 15:19:00 152.4 cm [facility] Body weight 2021-12-30 15:19:00 83 kg [facility] BMI 2021-12-30 15:19:00 35.74 kg/m2 [facility] Systolic blood 2022-01-09 12:49:00 108 mm[Hg] Univer sity of pressure [facility] Diastolic blood 2022-01-09 12:49:00 53 mm[Hg] Unive rsity of pressure [facility] Heart rate 2022-01-09 12:49:00 64 /min [facility] Body temperature 2022-01-09 12:49:00 36.78 Carolynn [facility] Respiratory rate 2022-01-09 12:49:00 14 /min Univ [facility] Oxygen saturation in 2022-01-09 12:49:00 99 /min University of Arterial blood by [place] [employer] Pulse oximetry Branch Body height 2021-12-30 15:19:00 152.4 cm [facility] Body weight 2021-12-30 15:19:00 83 kg [facility] BMI 2021-12-30 15:19:00 35.74 kg/m2 [facility] Systolic blood 2022-01-02 14:41:00 123 mm[Hg] Univer sity of pressure [facility] Diastolic blood 2022-01-02 14:41:00 84 mm[Hg] Unive rsity of pressure [facility] Heart rate 2022-01-02 14:41:00 68 /min [facility] Body temperature 2022-01-02 14:41:00 36.33 Carolynn Univ ersity of [facility] Respiratory rate 2022-01-02 14:41:00 18 /min Univ ersity of [facility] Body height 2022-01-02 14:41:00 168.9 cm [facility] [place] [facility] [place] Body weight 2022-01-02 14:41:00 81.92 kg Universi ty of [facility] BMI 2022-01-02 14:41:00 28.71 kg/m2 Universi ty of [facility] Oxygen saturation in 2022-01-02 14:41:00 95 /min University of Arterial blood by [facility] Pulse oximetry Branch Systolic blood 2021-12-11 18:09:00 136 mm[Hg] Univer sity of pressure [facility] Diastolic blood 2021-12-11 18:09:00 71 mm[Hg] Unive rsity of pressure [facility] Heart rate 2021-12-11 18:08:00 82 /min Universi ty of [facility] Body height 2021-12-11 18:08:00 152.4 cm [facility] [place] [facility] [place] Body weight 2021-12-11 18:08:00 83.008 kg Universi ty of [facility] BMI 2021-12-11 18:08:00 35.74 kg/m2 Universi ty of [facility] Oxygen saturation in 2021-12-11 18:08:00 98 /min University of Arterial blood by [facility] Pulse oximetry Branch HEIGHT 2019-12-14 17:00:00 167.6 cm WEIGHT 2019-12-14 17:00:00 80.74 kg Procedures Procedure Date / Time Performing Clinician Source Performed COLONOSCOPY (ENDO) 2022-01-30 15:16:30 Doctor Unassigned, No Uni versity of [facility] COLONOSCOPY (ENDO) 2022-01-30 15:16:30 Doctor Unassigned, No Uni versity of [facility] COLONOSCOPY 2022-01-30 15:14:00 Taryn Skelton [facility] DAY SURGERY - [facility] 2022-01-30 06:01:00 Doctor Unassigned, No Univ ersity of [facility] METATARSAL OSTEOTOMY 2022-01-09 13:45:00 Maddie Schafer [facility] ity of [facility] DAY SURGERY - ADC 2022-01-09 06:01:00 Doctor Unassigned, No [facility] Name Medical Branch AUTHORIZATION TO RELEASE 2022-01-02 05:01:00 Doctor Unassigned, No [facility] PHI TO [facility] Name Medical Branch AUTHORIZATION TO RELEASE 2022-01-02 05:01:00 Doctor Unassigned, No [facility] PHI TO [facility] Name Medical Branch EXTERNAL PROVIDER 2021-12-30 05:01:00 Doctor Unassigned, No [facility] RECORDS Name Medical Branch EXTERNAL PROVIDER 2021-12-30 05:01:00 Doctor Unassigned, No [facility] RECORDS Name Medical Branch CBC WITH DIFF 2021-12-15 16:58:00 [facility] o f [facility] FLU VACC ([id number]), 6 2021-12-11 18:49:11 [facility] MO-64 YRS, .5ML, IM, Medical Bra nc QUAD (FLUCELVAX) SARS-COV-2 COVID-19 2021-12-11 18:49:11 [facility] VACCINE 18 YRS+, Medical Branch BIVALENT 0.5ML, IM (MODERNA BOOSTER) HB ECG ROUTINE & RHYTHM 2021-12-11 18:08:41 [facility] MEDICAL 2021-12-07 05:01:00 Doctor Unassigned, No [facility] RELEASE/CLEARANCE FORMS Name [facility] Plan of Care Planned Activity Planned Date Details Comments Source Future Scheduled 2022-10-30 Influenza Vaccine (#1) [facility] 00:[facility]00 [code = Influenza Vaccine [facility] Center (#1)] Future Scheduled 2021-01-[address] [facility] Test 00:00:00 Counseling and Screening [facility] Center (12+) [code = Tobacco Cessation Counseling and Screening (12+)] Future Scheduled 2010 SHINGLES VACCINES ([address] [facility] Test 00:00:00 2) [code = SHINGLES [facility] VACCINES (1 of 2)] Future Scheduled 2005 Lipid panel (procedure) [facility] Test 00:00:00 [code = 06627935] Medical Ce nter Future Scheduled 1981 Screening for malignant [facility] Test 00:00:00 neoplasm of cervix Medical C enter (procedure) [code = 403028913] Future Scheduled 1979-06-03 DTAP/TDAP/TD VACCINES ([address] [facility] Test 00:00:00 - Tdap) [code = Medical Cent er DTAP/TDAP/TD VACCINES (1 - Tdap)] Future Scheduled 1978 HEPATITIS C SCREENING [facility] 00:00:00 [code = HEPATITIS C Medical Center SCREENING] Future Scheduled 1975-06-[address] Human immunodeficiency [facility] 00:00:00 virus screening Medical Cent er (procedure) [code = 003032173] Future Scheduled 1960 COVID-19 VACCINE (#1) [facility] 00:00:00 [code = COVID-19 VACCINE [facility] (#1)] Future Scheduled 1960 Screening for malignant [facility] Test 00:00:00 neoplasm of breast Medical C enter (procedure) [code = 534121806] Future Scheduled 1960 CT Colonography (combo) [facility] Test 00:00:00 [code = CT Colonography [facility] Center (combo)] Future Scheduled 1960 Screening for malignant [facility] Test 00:00:00 neoplasm of colon Medical Ce nter (procedure) [code = 654061354] Future Scheduled 1960 Screening for malignant [facility] Test 00:00:00 neoplasm of colon Medical Ce nter (procedure) [code = 766888751] Future Scheduled 1960 Screening for malignant [facility] Test 00:00:00 neoplasm of colon Medical Ce nter (procedure) [code = 002395046] Future Scheduled 1960 Screening for malignant [facility] Test 00:00:00 neoplasm of colon Medical Ce nter (procedure) [code = 069287172] Future Scheduled 1960 Sigmoidoscopy [code = [facility] 00:[facility]:00 Sigmoidoscopy] Medical Cente r Encounters Start End Encounter Admission Attending Care Care Encounter Source Date/Time Date/Time Type Type Clinicians Facility Department ID 2021-03-26 Outpatient Graham, STLMLC STLMLC [id number] [facility] 14:19:10 Maria Esther 9[address] [facility] 2019-12-14 Inpatient ER WILIAM, [facility] Neurosurger [id number] [facility] 16:09:00 GILSON cotter 2023-02-23 2023-02-23 Outpatient R GISELL REDDY [facility] [id number] Univers 08:00:00 08:00:00 GISELL REDDY [facility] 2022-10-20 2022-10-20 Outpatient R GISELL REDDY [facility] [id number] Univers 14:20:00 14:20:00 GISELL REDDY [facility] 2022-08-24 2022-08-24 Outpatient R GISELL REDDY [facility] [id number] Univers 13:40:00 14:28:19 SEAGISELL Cotter [facility] 2022-08-24 2022-08-[address] [facility] [id number] Univers 13:40:00 14:28:19 Visit [facility] [id number] ity of [facility] 4.2.7.2.686 Rudy as JULIO?BLEA [id number] [address] OFFICE [facility] 2022-08-11 2022-08-11 Outpatient [facility] [id number] Univers 10:20:00 10:20:00 SEAGISELL Cotter [facility] 2022-07-21 2022-07-21 Outpatient R GISELL REDDY [facility] [id number] Univers 14:11:04 23:59:00 GISELL REDDY [facility] 2022-07-21 2022-07-[address] [facility] [id number] Univers 13:40:00 14:14:12 Visit [facility] [id number] ity of [facility] 4.2.7.2.686 Rudy as JULIO?BLEA [id number] [address] OFFICE BUILDING 2022-06-25 2022-06-25 [facility] 1.2.840.114 [id number] Univers 13:20:00 13:40:00 Visit Gisellvernon HUSAIN 350.1.13.10 ity of [facility] 4.2.7.2.686 Rudy as JULIO?BLEA [id number] Ri dana [address] MEDICAL OFFICE BUILDING 2022-06-25 2022-06-25 Outpatient R GISELL REDDY [facility] [id number] Univers 13:20:00 13:20:00 SEALiyah GISELL bocanegra [facility] 2022-03-11 2022-03-11 Outpatient R SEALiyah [facility] [id number] Univers 11:08:26 23:59:00 GISELL ity [facility] 2022-03-11 2022-03-11 [facility] [id number] Univers 11:08:26 23:59:00 Encounter Gisell ANGLECHRISTIANO 350.1.13.10 ity of [place] 4.2.7.2.686 [facility] [id number] [facility] [address] Branch 2022-02-27 2022-02-27 Telephone [facility] [id number] Univers 00:00:00 00:00:00 Taryn HEALTH 350.1.13.10 it y of CANCER 4.2.7.2.686 [facility] [id number] [facility] [address] 2022-01-30 2022-01-[address] [facility] D[facility]TER [id number] Univers 08:02:00 10:45:00 TARYN ity [facility] 2022-01-30 2022-01-30 [facility] 1.2.840.114 [id number] Univers 08:02:00 10:45:00 Encounter Taryn LOWRY 350.1.13.10 ity of [facility] 4.2.7.2.686 [facility] [id number] [facility] 071 Branch 2022-01-30 2022-01-30 Surgery [facility] 1.2.840.114 [id number] Univers 09:25:00 10:42:00 Tarynmei [place] 350.1.13.10 i ty [place] [id number] [facility] 020 Branch 2022-01-30 2022-01-30 Orders Doctor JCARLOS 1.2.840.114 [id number] Univers 00:00:00 00:00:00 Only Unassigned, DAMARIS 350.1.13.10 ity of [place] [facility] 4.2.7.2.686 Rudy as [phone] [address] 2022-01-09 2022-01-09 Outpatient R [facility] SOR [id number] Univers 06:39:00 10:17:00 MADDIE bocanegra of [facility] 2022-01-09 2022-01-09 [facility] 1.2.840.114 [id number] Univers 06:39:00 10:17:00 Encounter Maddie LOWRY 350.1.13.10 [place] [id number] [facility] [address] [place] 2022-01-09 2022-01-09 Surgery [facility] 1.2.840.114 [id number] Univers 07:15:00 08:52:00 Maddie LOWRY 350.1.13.10 [place] [id number] [facility] [address] [place] 2022-01-09 2022-01-09 Orders Doctor JCARLOS 1.2.840.114 [id number] Univers 00:00:00 00:00:00 Only Unassigned, DAMARIS 350.1.13.10 ity of [place] [facility] 4.2.7.2.686 Rudy as [id number] [address] 2022-01-02 2022-01-02 [facility] [id number] Univers 09:30:00 10:09:45 DENISSE wright f [facility] 2022-01-02 2022-01-02 Office [facility] 1.2.840.114 [id number] Univers 09:30:00 10:09:45 Visit Denisse LOWRY 350.1.13.10 ity of [facility] 4.2.[place] [id number] Ri dana MUSTAFA 188 [facility] 2021-12-19 2021-12-19 Telephone [facility] [id number] [id number] Univers 00:00:00 00:00:00 [facility] 350.1.13.10 ity of [place] 4.2.7.2.686 Rudy as JULIO?BLEA [phone] Ri dana MAXWELL 044 [facility] OFFICE [facility] 2021-12-19 2021-12-19 Telephone [facility] [id number] Univers 00:00:00 00:00:00 [facility] 350.1.13.10 ity of [place] 4.2.7.2.686 Rudy as JULIO?BLEA [id number] [facility] [address] 2021-12-15 2021-12-15 Manager [facility], [facility] 1.2.840.1 [id number] Univers 11:45:00 12:00:[address] [facility] 350.1.13.10 ity of [place] 4.2.7.2.686 Rudy as JULIO?BLEA [id number] Ri dana MAXWELL [facility] 2021-12-15 2021-12-15 Outpatient [facility] [id number] Univers 11:45:00 11:45:00 [facility] 2021-12-11 2021-12-11 Office [facility] 1.2.840.114 [id number] Univers 13:00:00 14:24:20 Visit [facility] 350.1.13.10 ity of [place] 4.2.7.2.686 Rudy as JULIO?BLEA [id number] [address] 2021-12-11 2021-12-11 Outpatient R [facility] [id number] Univers 13:00:00 14:24:20 [facility] 2021-12-07 2021-12-07 Orders Doctor JCARLOS 1.2.840.114 [id number] Univers 00:00:00 00:00:00 Only Unassigned, DAMARIS 350.1.13.10 ity of [place] [facility] 4.2.7.2.686 Rudy as [phone] [place] [address] Branch 2020-01-02 2020-01-02 Outpatient SLE SLE [id number] SLE 00:00:00 00:00:00 Results Test Description Test Time Test Comments Results Result Comments Source CBC WITH DIFF 2021-12-15 21:39:56 Test Item Value Reference Range Interpretation Comme nts WBC (test code = 6690-2) See_Comment [A utomated message] The system which ge nerated this result transmit ld reference range: 4.30 - 1 1.10 10*3/?L. The reference r amaury was not used to interpr et this result as normal/abnor mal. RBC (test code = 789-8) See_Comment L [Au tomated message] The system which ge nerated this result transmit ld reference range: 3.93 - 5 .25 10*6/?L. The reference r amaury was not used to interpr et this result as normal/abnor mal. HGB (test code = 718-7) 12.0 g/dL 11.6-15 HCT (test code = 4544-3) 36.0 % 35.7-45.2 MCV (test code = 787-2) 92.1 fL 80.6-95.5 MCH (test code = 785-6) 30.7 pg 25.9-32.8 MCHC (test code = 786-4) 33.3 g/dL 31.6-35.1 RDW-SD (test code = 27429-6) 43.5 fL 39-49.9 RDW-CV (test code = 788-0) 12.9 % 12-15.5 PLT (test code = 777-3) See_Comment [Au tomated message] The system which ge nerated this result transmit ld reference range: 166 - 35 8 10*3/?L. The reference range was not used to interpret th is result as normal/abnormal . MPV (test code = 18783-3) 11.1 fL 9.5-12.9 NRBC/100 WBC (test code = See_Comment [ Automated message] The [id number]) system which [place] nerated this result transmit ld reference range: 0.0 - 10 .0 /100 WBCs. The reference r amaury was not used to interpr et this result as normal/abnor mal. NRBC x10^3 (test code = See_Comment [Au tomated message] The [id number]) system which [place] nerated this result transmit ld reference range: 10*3/?L. The reference range was not u sed to interpret this result as normal/abnormal . GRAN MAT (NEUT) % (test code 66.2 % = 770-8) IMM GRAN % (test code = 0.20 % [id number]) LYMPH % (test code = 736-9) 16.2 % MONO % (test code = 5905-5) 11.9 % EOS % (test code = 713-8) 4.7 % BASO % (test code = 706-2) 0.8 % GRAN MAT x10^3(ANC) (test 3.40 10*3/uL 1.88-7.09 code = 2195097842) IMM GRAN x10^3 (test code = 0-0.06 7550446360) LYMPH x10^3 (test code = 0.83 10*3/uL 1.32-3.29 L 731-0) MONO x10^3 (test code = 0.61 10*3/uL 0.33-0.92 742-7) EOS x10^3 (test code = 0.24 10*3/uL 0.03-0.39 711-2) BASO x10^3 (test code = 0.04 10*3/uL 0.01-0.07 704-7) Lab Interpretation (test Abnormal code = 89976-9) [facility]OL[facility] [id number] 05:32:00 Test Item Value Reference Range Interpretation Comments SODIUM (BEAKER) 134 meq/L 136-145 L (test code = 381) POTASSIUM (BEAKER) 4.3 meq/L 3.5-5.1 (test code = 379) CHLORIDE (BEAKER) 101 meq/L 98-107 (test code = 382) CO2 (BEAKER) (test 26 meq/L 22-29 code = 355) BLOOD UREA NITROGEN 12 [...] S NOT APPLICABLE FOR DIALYSIS PATIEN TS. Receptionist Telephone Operator ID - PIAYA LCBC W/PLT COUNT & AUTO [id number] 04:53:00 Test Item Value Reference Range Interpretation [...] (test code = 2801) ANG, KYPHOPLASTY, THORACIC, [id number] 18:11:00What level(s) should be performed->F68Dmekls for exam:->compresion fracture 50 % [facility] 1960 Sex: FFINAL REPORT History: T12 vertebral compression fracture and severe back pain despite conservative therapy. PROCEDURE: Following informed written consent, general endotracheal anesthesia was administered and the patient was placed in a prone position on the angiographic table. The patient's back was prepped and draped in the usual sterile manner. Patient was given 2 g IV Ancef prior theprocedure for antibiotic prophylaxis. Using fluoroscopic guidance access [...] position within the T12 vertebral body bilaterally. Following deployment of the bilateral spine jacks within the T12 vertebral body, the vertebral compression fracture is near completely reduced. Majority of the T12 vertebral body height loss was restored. Methacrylate distribution within the T12 vertebral body surrounding the jacks is excellent. No extravasation. IMPRESSION: 1. Technically successful uncomplicated fluoroscopically guided T12 spine vikki vertebral augmentationas described in detail above. Total fluoroscopy time: 16.4 minutes. Estimated total patient dose reported as (Ka,r): 1425 mGy Signed: Jcarlos Wilsonort Verified Date/Time: 12/19/2019 18:11:28 Reading Location: [place] [address] Angio Body Reading Room SARS-COV2/RT-PCR ([facility]) 2019-12-19 10:30:00 Test Item Value Reference Range Interpretation Comments SARS-COV2/RT-PCR (test code Negative Not Detected, Negative, = 8107034) See external report for linked test SARS-COV-2 PERFORMING LAB [facility] (test code = 4362020) Negative results do not preclude SARS-CoV-2 infection [...] of the Act.Fact Sheet for Healthcare Pro viders:https://www.[employer]/Documents/Xpert%20Xpress%20SARS%20CoV-2/Fact%20Sh eets/302-3802%41WAVW-FJC-4%20HEALTHCARE%20PROVIDERS%20FACT%20SHEET.pdfFact Sheet for Healthcare Patients:https://www.[employer]/Documents/Xpert%20Xpress%20SARS%20CoV-2/Fact%20Sheets/302-3801%20SARS-COV -2%20PATIENT%20FACT%20SHEET.pdfPerforming Laboratory:[facility] [place] [address].[place], [place] [address]LOIQV METABOLIC [id number] 05:08:00 Test Item Value Reference Range Interpretation [...] S NOT APPLICABLE FOR DIALYSIS PATIEN TS. Receptionist Telephone Operator ID - EDASICBC W/PLT COUNT & AUTO [id number] 04:31:00 Test Item Value Reference Range Interpretation [...] (BEAKER) (test code = 2801) BASIC METABOLIC [id number] 06:27:00 Test Item Value Reference Range Interpretation [...] S NOT APPLICABLE FOR DIALYSIS PATIEN TS. Receptionist Telephone Operator ID - DBCBC W/PLT COUNT & AUTO [id number] 06:04:00 Test Item Value Reference Range Interpretation [...] (BEAKER) (test code = 2801) BASIC METABOLIC [id number] 05:22:00 Test Item Value Reference Range Interpretation [...] S NOT APPLICABLE FOR DIALYSIS PATIEN TS. Receptionist Telephone Operator ID - [id number] W/PLT COUNT & AUTO [id number] 04:49:00 Test Item Value Reference Range Interpretation [...] (test code = 2801) MR, SPINE, THORACIC, [id number] 01:29:00Unlisted Reason for Exam - Click Yes and Enter Reason Below->YesUnlisted Reason for Exam->T12 vertebral compression fracture [facility] 1960 Sex: FFINAL REPORT MR Thoracic spine with and without contrast. CLINICAL HISTORY: Mid-back pain, compression fracture [id number] vertebral compression fracture TECHNIQUE: MRI of the thoracic spine utilizing sagittal T1, T2, STIR, axial T1, T2; and postgadolinium axial and sagittal T1-weightedimages. COMPARISON: None FINDINGS: Acute compression fracture of the T12 vertebral body with associated marrow edema. There is associated focal kyphosis at this level. Triple of posterior fracture fragments into the canal by approximately 3 mm resulting in mild spinal canal stenosis. No significant neural foraminal stenosis. Otherwise no vertebral body height loss or marrow abnormality is identified.Prevertebral edema at T12. There is disruption of [...] lordosis centered at C5-6 seen on the terrapin fisher view. IMPRESSION: Acute compression fracture of the [...] Rose Avina MDReport Verified Date/Time: 12/16/2019 01:29:28 BASIC METABOLIC [id number] 07:17:00 Test Item Value Reference Range Interpretation [...] S NOT APPLICABLE FOR DIALYSIS PATIEN TS. Receptionist Telephone Operator ID - PIAYA [id number] [id number] 06:50:00 Test Item Value Reference Range Interpretation [...] is 2.5-3.5 for patients wiht mechanical heart valves.CBC W/PLT COUNT & AUTO [id number] 06:38:00 Test Item Value Reference Range Interpretation [...] code = 2801) CT, SPINE, THORACIC, WO [id number] 00:51:00Unlisted Reason for Exam - Click Yes and Enter Reason Below->No [facility] 1960 Sex: FFINAL REPORT CT Thoracic and lumbar spine CLINICAL HISTORY: T-spine fracture, traumaticTECHNIQUE: Contiguous axial images of the thoracic and lumbar spine with coronal and sagittal reformations to assess the alignment. This exam was performed according to the departmental dose optimization program which includes automated exposure control, adjustment of the mA and/or kV according to thepatient size, and/or use of an iterative reconstruction technique. COMPARISON: None FINDINGS:Thoracic spine: Age indeterminate compression deformity of the [...] canal. Multilevel degenerative changes with disc space narrowing,facet hypertrophy and osteophytosis, worst at L2-3 where there is vacuum disc phenomenon.. Vascular c alcifications of the normal caliber thoracic aorta. IMPRESSION:Age [...] patient is high risk. Signed: Rose Avina MDRep[facility] Verified Date/Time: 12/15/2019 00:51:27 CT, SPINE, LUMBAR, WO [id number] 00:51:00Unlisted Reason for Exam - Click Yes and Enter Reason Below->No [facility] [place] : 1960 Sex: FFINAL REPORT CT Thoracic and lumbar spine CLINICAL HISTORY: T-spine fracture, traumaticTECHNIQUE: Contiguous axial images of the thoracic and lumbar spine with coronal and sagittal reformations to assess the alignment. This exam was performed according to the departmental dose optimization program which includes automated exposure control, adjustment of the mA and/or kV according to thepatient size, and/or use of an iterative reconstruction technique. COMPARISON: None FINDINGS:Thoracic spine: Age indeterminate compression deformity of the [...] canal. Multilevel degenerative changes with disc space narrowing,facet hypertrophy and osteophytosis, worst at L2-3 where there is vacuum disc phenomenon.. Vascular c alcifications of the normal caliber thoracic aorta. IMPRESSION:Age [...]
[2022-10-20] MEDS ORDERED: DIAZEPAM 5 MG TABLET ONE (15:21)
[2022-10-20] MEDS ORDERED: KETOROLAC 30 MG/ML INJ ONE (15:21)
[2022-10-20] MEDS ORDERED: FENTANYL CITR 100 MCG/2 ML ONE (15:21)
[2022-10-20] MEDS ORDERED: ONDANSETRON 4 MG/2 ML VIAL ONE (15:21)
[2022-10-20] MEDS ORDERED: NA CHLORIDE 0.9% 1,000 ML ONE (15:22)
[2022-10-20 15:23] LABS: Absolute Lymphocytes (CBC) 0.7 K/uL (0.7-4.9); Hematocrit 35.8 % (36.0-45.0); Lymphocytes % 6.9 % (15.3-44.8); MCV 92.1 fL (80-100); MPV 7.5 fL (7.6-11.3); Platelets 242 thou/uL (152-406); RBC Red Blood Cell Count 3.89 M/uL (3.86-4.86)
--- NOTE | 2022-10-20 15:41 | RAD REPORT ---
EXAM DESCRIPTION: CT - Head C Spine Cap Wo Con - 10/20/2022 3:02 pm CLINICAL HISTORY: Trauma, head and neck injury. Chest, abdomen and pelvis pain. PAIN COMPARISON: No comparisons TECHNIQUE: CT head without contrast. CT cervical spine without contrast with coronal and sagittal reformatted images. CT chest, abdomen and pelvis without contrast with coronal and sagittal reformatted images of the spi ne. All CT scans are performed using dose optimization technique as appropriate and may include automated exposure control or mA/KV adjustment according to patient size. FINDINGS: CT HEAD WITHOUT CONTRAST: No intracranial hemorrhage, hydrocephalus or extra-axial fluid collection. Mild brain atrophy. No are as of brain edema or midline shift. The paranasal sinuses and mastoids are clear. The calvarium is intact. CT CERVICAL SPINE WITHOUT CONTRAST: No fracture or subluxation. Prominent lower cervical degenerative change with large posterior osteoph yte at C5-6. 4 mm degenerative anterolisthesis of C4 on 5. The prevertebral soft tissues are normal i n thickness. CT CHEST, ABDOMEN, PELVIS WITHOUT CONTRAST: NOTE: Lack of contrast is a significant limitation in the assessment of trauma related findings. Spec ifically, solid organ, vascular and bowel evaluation is significantly limited. Mild diffuse COPD is present.No pneumothorax or pericardial/pleural fluid. No evidence of intra-abdominal visceral injury, free fluid or free air is seen within the above detai led limitations. No concerning pelvic findings. T12 vertebroplasty cement noted. There is a L2 compression fracture present, mild in severity with vertebral body loss of 15%. No sign ificant central canal narrowing. IMPRESSION: Acute L2 compression fractures seen without canal compromise. The fracture is mild with 15% loss of vertebral body height.
[2022-10-20 15:44] LABS: Albumin 3.7 g/dL (3.4-5.0); Bilirubin Total 0.3 mg/dL (0.2-1.0); Potassium 4.5 mEq/L (3.5-5.1); Protein, Total 6.6 g/dL (6.4-8.2)
--- NOTE | 2022-10-20 16:06 | ER ---
Nurse's Notes [facility] Name: Vivian Fatima Age: 62 yrs Sex: Female : 1960 Arrival Date: 10/20/2022 Time: 14:44 Bed 7 Private MD: Diagnosis: Fall on same level, unspecified;Low back pain;Strain of muscle, fascia and tendon of lower back;Fracture of thoracic vertebra-lumbar 2, 15% compression Presentation: 10/20 14:45 Chief complaint: EMS states: toned out to patient home for fall. Pt fell back onto her ld1 buttocks - c/o severe pain to lower back. Pt has previous surgical history to back. Coronavirus screen: At this time, the client does not indicate any symptoms associated with coronavirus-19. Ebola Screen: No symptoms or risks identified at this time. Risk Assessment: Do you want to hurt yourself or someone else? Patient reports no desire to harm self or others. Onset of symptoms was October 20, 2022 at 14:47. 14:45 Method Of Arrival: EMS: [facility] ld1 14:45 Acuity: LAYO 3 ld1 16:24 Initial Sepsis Screen: Does the patient meet any 2 criteria? No. Patient's initial ld1 sepsis screen is negative. Does the patient have a suspected source of infection? No. Patient's initial sepsis screen is negative. Triage Assessment: 14:47 General: Appears in no apparent distress. uncomfortable, Behavior is calm, cooperative, ld1 appropriate for age. Pain: Complains of pain in low back area Pain does not radiate. Pain currently is 10 out of 10 on a pain scale. Quality of pain is described as throbbing. EENT: No signs and/or symptoms were reported regarding the EENT system. Neuro: Level of Consciousness is awake, alert, obeys commands, Oriented to person, place, time, situation. Cardiovascular: Capillary refill < 3 seconds Patient's skin is warm and dry. Respiratory: Airway is patent Respiratory effort is even, unlabored. GI: Abdomen is flat, non-distended. : No signs and/or symptoms were reported regarding the genitourinary system. Derm: No signs and/or symptoms reported regarding the dermatologic system. Musculoskeletal: No signs and/or symptoms reported regarding the musculoskeletal system. Historical: - Allergies: 14:47 Latex, Natural Rubber; ld1 - PMHx: 14:47 Bipolar disorder; ld1 - PSHx: 14:47 back sx; section; hysterectomy; ld1 - Immunization history:: Adult Immunizations up to date. - Social history:: Smoking status: Patient denies any tobacco usage or history of. Patient/guardian denies using alcohol. Screenin:50 [facility] ED Fall Risk Assessment (Adult) History of falling in the last 3 months, ld1 including since admission Yes- single mechanical fall (1 pt) Confusion or Disorientation No (0 pts). Abuse screen: Denies threats or abuse. Denies injuries from another. Nutritional screening: No deficits noted. Tuberculosis screening: No symptoms or risk factors identified. Assessment: 14:52 Reassessment: See triage assessment. ld1 Vital Signs: 14:50 Pulse 76; Resp 18; Temp 98.2(O); Pulse Ox 98% on R/A; Weight 85.73 kg; Height 5 ft. 6 ld1 in. ; Pain 10/10; 14:50 BP 156 / 64; ld1 15:20 BP 135 / 69; Pulse 69; Resp 18; Pulse Ox 97% on R/A; ld1 16:23 BP 131 / 70; Pulse 71; Resp 18; Pulse Ox 100% on R/A; ld1 14:50 Body Mass Index 30.51 (85.73 kg, 167.64 cm) ld1 14:50 Pain Scale: Adult ld1 ED Course: 14:45 Patient arrived in ED. ld1 14:47 Triage completed. ld1 14:47 Ellis Juarez MD is Attending Physician. [facility] 14:47 Arm band placed on right wrist. ld1 14:50 Antionette Ricci, JUAN is Primary Nurse. ld1 14:50 Patient has correct armband on for positive identification. Placed in gown. Bed in low ld1 position. Call light in reach. Side rails up X2. gate watchman on. Pulse ox on. NIBP on. Door closed. Noise minimized. Warm blanket given. 14:50 No provider procedures requiring assistance completed. ld1 15:04 CT Traumagram (Head C Spine CAP wo con) In Process Unspecified. EDMS 15:13 Comprehensive Metabolic Panel Sent. me1 15:13 CBC with Diff Sent. me1 15:14 Inserted saline lock: 22 gauge in right antecubital area, using aseptic technique. me1 16:02 Herbie Sal MD is Referral Physician. [facility] 16:24 IV discontinued, intact, bleeding controlled, No redness/swelling at site. ld1 Administered Medications: 15:18 Drug: NS 0.9% IV 1000 ml Route: IV; Rate: 1 bolus; Site: right antecubital; ld1 15:18 Drug: Ketorolac IVP 30 mg Route: IVP; Site: right antecubital; ld1 15:18 Drug: Diazepam PO 10 mg Route: PO; ld1 15:18 Drug: fentaNYL (PF) IVP 50 mcg Route: IVP; Site: right antecubital; ld1 15:18 Drug: Ondansetron IVP 4 mg Route: IVP; Site: right antecubital; ld1 Medication: 16:24 VIS not applicable for this client. ld1 Outcome: 16:05 Discharge ordered by . [facility] 16:24 Discharged to home ambulatory, with family. ld1 16:24 Condition: stable 16:24 Discharge instructions given to patient, family, Instructed on discharge instructions, follow up and referral plans. medication usage, Demonstrated understanding of instructions, follow-up care, medications, Prescriptions given X 3. 16:24 Patient left the ED. ld1 Signatures: Dispatcher [employer] Ellis Mahmood MD MD cha Sims, Lauren, RN RN ld1 Naheed Kearns, JUAN RN me1
--- NOTE | 2022-10-20 16:06 | EDPHYS ---
Physician Documentation [facility] Name: Vivian Fatima Age: 62 yrs Sex: Female : 1960 Arrival Date: 10/20/2022 Time: 14:44 Bed 7 Private MD: ED Physician Ellis Juarez HPI: 10/20 15:15 This 62 yrs old Female presents to ER via EMS with complaints of Fall Injury. josh Historical: - Allergies: 14:47 Latex, Natural Rubber; ld1 - PMHx: 14:47 Bipolar disorder; ld1 - PSHx: 14:47 back sx; section; hysterectomy; ld1 - Immunization history:: Adult Immunizations up to date. - Social history:: Smoking status: Patient denies any tobacco usage or history of. Patient/guardian denies using alcohol. ROS: 15:39 Constitutional: Negative for fever, chills, and weight loss, Eyes: Negative for injury, josh pain, redness, and discharge, ENT: Negative for injury, pain, and discharge, Neck: Negative for injury, pain, and swelling, Cardiovascular: Negative for chest pain, palpitations, and edema, Respiratory: Negative for shortness of breath, cough, wheezing, and pleuritic chest pain, Abdomen/GI: Negative for abdominal pain, nausea, vomiting, diarrhea, and constipation, : Negative for injury, bleeding, discharge, and swelling, MS/Extremity: Negative for injury and deformity, Skin: Negative for injury, rash, and discoloration, Neuro: Negative for headache, weakness, numbness, tingling, and seizure, Psych: Negative for depression, anxiety, suicide ideation, homicidal ideation, and hallucinations, Allergy/Immunology: Negative for hives, rash, and allergies, Endocrine: Negative for neck swelling, polydipsia, polyuria, polyphagia, and marked weight changes, Hematologic/Lymphatic: Negative for swollen nodes, abnormal bleeding, and unusual bruising. 15:39 Back: Positive for decreased range of motion, pain with movement, of the lumbar area. Exam: 15:39 Constitutional: This is a well developed, well nourished patient who is awake, alert, josh and in no acute distress. Head/Face: Normocephalic, atraumatic. Eyes: Pupils equal round and reactive to light, extra-ocular motions intact. Lids and lashes normal. Conjunctiva and sclera are non-icteric and not injected. Cornea within normal limits. Periorbital areas with no swelling, redness, or edema. ENT: Nares patent. No nasal discharge, no septal abnormalities noted. Tympanic membranes are normal and external auditory canals are clear. Oropharynx with no redness, swelling, or masses, exudates, or evidence of obstruction, uvula midline. Mucous membranes moist. Neck: Trachea midline, no thyromegaly or masses palpated, and no cervical lymphadenopathy. Supple, full range of motion without nuchal rigidity, or vertebral point tenderness. No Meningismus. Chest/axilla: Normal chest wall appearance and motion. Nontender with no deformity. No lesions are appreciated. Cardiovascular: Regular rate and rhythm with a normal S1 and S2. No gallops, murmurs, or rubs. Normal PMI, no JVD. No pulse deficits. Respiratory: Lungs have equal breath sounds bilaterally, clear to auscultation and percussion. No rales, rhonchi or wheezes noted. No increased work of breathing, no retractions or nasal flaring. Abdomen/GI: Soft, non-tender, with normal bowel sounds. No distension or tympany. No guarding or rebound. No evidence of tenderness throughout. Female : Normal external genitalia. Skin: Warm, dry with normal turgor. Normal color with no rashes, no lesions, and no evidence of cellulitis. MS/ Extremity: Pulses equal, no cyanosis. Neurovascular intact. Full, normal range of motion. Neuro: Awake and alert, GCS 15, oriented to person, place, time, and situation. Cranial nerves II-XII grossly intact. Motor strength 5/5 in all extremities. Sensory grossly intact. Cerebellar exam normal. Normal gait. Psych: Awake, alert, with orientation to person, place and time. Behavior, mood, and affect are within normal limits. 15:39 Back: ROM is painful, with all movement, with rotation to the right, with rotation to the left, with flexion, with extension, normal spinal alignment noted, CVA tenderness, is absent, vertebral tenderness, is appreciated at T11, T12, L1 and L2, muscle spasm, is not present, is appreciated in the lumbar area. Vital Signs: 14:50 Pulse 76; Resp 18; Temp 98.2(O); Pulse Ox 98% on R/A; Weight 85.73 kg; Height 5 ft. 6 ld1 in. ; Pain 10/10; 14:50 BP 156 / 64; ld1 15:20 BP 135 / 69; Pulse 69; Resp 18; Pulse Ox 97% on R/A; ld1 16:23 BP 131 / 70; Pulse 71; Resp 18; Pulse Ox 100% on R/A; ld1 14:50 Body Mass Index 30.51 (85.73 kg, 167.64 cm) ld1 14:50 Pain Scale: Adult ld1 MDM: 14:47 Patient medically screened. [facility] 15:42 Data reviewed: vital signs, nurses notes, lab test result(s), radiologic studies, CT josh scan. Consideration of Admission/Observation Escalation of care including admission/observation considered. I considered the following discharge prescriptions or medication management in the emergency department Medications were administered in the Emergency Department. See MAR. Independent interpretation of the following test(s) in the Emergency Department CT Scan: My interpretation is ct trauma. Test considered but Not performed: MRI: no mri L spine. Historians other than the Patient: Spouse/Significant Other: , informed. Care significantly affected by the following chronic conditions: back issues, bipolar. Counseling: I had a detailed discussion with the patient and/or guardian regarding the historical points, exam findings, and any diagnostic results supporting the discharge/admit diagnosis, lab results, radiology results, the need for outpatient follow up, for definitive care, a family practitioner, a neurologist. 10/20 14:48 Order name: CBC with Diff; Complete Time: 15:39 [facility] 10/20 14:48 Order name: Comprehensive Metabolic Panel; Complete Time: 15:48 [facility] 10/20 14:48 Order name: CT Traumagram (Head C Spine CAP wo con); Complete Time: 15:48 [facility] Administered Medications: 15:18 Drug: NS 0.9% IV 1000 ml Route: IV; Rate: 1 bolus; Site: right antecubital; ld1 15:18 Drug: Ketorolac IVP 30 mg Route: IVP; Site: right antecubital; ld1 15:18 Drug: Diazepam PO 10 mg Route: PO; ld1 15:18 Drug: fentaNYL (PF) IVP 50 mcg Route: IVP; Site: right antecubital; ld1 15:18 Drug: Ondansetron IVP 4 mg Route: IVP; Site: right antecubital; ld1 Disposition Summary: 10/20/22 16:05 Discharge Ordered Location: Home [facility] Problem: new josh Symptoms: have improved josh Condition: Stable josh Diagnosis - Fall on same level, unspecified josh - Low back pain josh - Strain of muscle, fascia and tendon of lower back josh - Fracture of thoracic vertebra - lumbar 2, 15% compression josh Followup: josh - With: Private Physician - When: 2 - 3 days - Reason: Recheck today's complaints, Continuance of care, Re-evaluation by your physician Followup: josh - With: Herbie Sal MD - When: 2 - 3 days - Reason: Recheck today's complaints, Re-evaluation by your physician Discharge Instructions: - Discharge Summary Sheet josh - Acute Back Pain, Adult josh - Thoracic Spine Fracture josh - Musculoskeletal Pain josh - Thoracic Spine Fracture, [id number] Forms: - Medication Reconciliation Form [facility] - Thank You Letter [facility] - Antibiotic Education josh - Prescription Opioid Use josh - Patient Portal Instructions [facility] - Leadership Thank You Letter [facility] Prescriptions: - acetaminophen-codeine 300-30 mg Oral tablet - take 1 tablet by ORAL route every 6 months as needed for pain; 2 tablet; [facility] Refills: 0, Product Selection Permitted - Valium 5 mg Oral Tablet - take 1 tablet by ORAL route every 8 hours As needed; 20 tablet; Refills: 0, [facility] Product Selection Permitted - Motrin IB 200 mg Oral Tablet - take 2 tablet by ORAL route every 6 hours As needed as needed with food; 30 josh tablet; Refills: 0, Product Selection Permitted Signatures: Dispatcher [employer] Ellis Mahmood MD MD cha Sims, Lauren, RN RN ld1
[2022-10-20 16:45] VITALS: TEMP 98.2
[2022-10-20 17:00] VITALS: BP 131/70; O2SAT 100
== END 2022-10-20 16:24 | disposition home or self-care (01) ==
LOC: ER 14:44
DX: S39.012A Strain of muscle, fascia and tendon of lower back, initial encounter (principal); S32.020A Wedge compression fracture of second lumbar vertebra, initial encounter for closed fracture; W18.30XA Fall on same level, unspecified, initial encounter; Z91.040 Latex allergy status; Z91.048 Other nonmedicinal substance allergy status
CPT/HCPCS: 85025; 36415; 80053; 70450; 71250; 72125; 96375; 96374; 99285; J3010; J2405; J7030

== ENCOUNTER 2023-01-03 11:59 | Emergency (ER) | payer BC ==
--- OUTSIDE RECORDS SUMMARY | 2023-01-03 12:06 | XMS REPORT | Continuity of Care Document ---
:1960 Author Organization [facility] t Address [address] [facility] [address] [place] [address] Care Team Providers Name Role Phone Gisell Valentin MD Primary Care Physician Maria Esther Stevenson Attending Clinician Unavailable GILSON SWAIN Attending Clinician Unavailable GISELL VALENTIN Attending Clinician Unavailable GISELL VALENTIN Attending Clinician Unavailable MADDIE SCHAFER Attending Clinician Unavailable Maddie Schafer DPM Attending Clinician Doctor Unassigned, Pierce Attending Clinician Unavailable Taryn Skelton MD Attending Clinician TARYN SKELTON Attending Clinician Unavailable DENISSE LOZANO Attending Clinician Unavailable Denisse Renee Attending Clinician Lab, Ang - Db Attending Clinician Unavailable GILSON SWAIN Admitting Clinician Unavailable MADDIE SCHAFER Admitting Clinician Unavailable Maddie Schafer DPM Admitting Clinician GISELL VALENTIN Admitting Clinician Unavailable TARYN SKELTON Admitting Clinician Unavailable Taryn Skelton MD Admitting Clinician WONG CAPUTO Admitting Clinician Unavailable Payers Payer Name Policy Type Policy Number Effective Date Expiration Date S milli BCBS PPO POS EPO [id number] 2019 00:00:00 CHOICE [employer] [place] [id number] 2019 00:00:00 Problems Condition Condition Condition Status Onset Resolution Last Treating Co mments Source Name Details Category Date Date Treatment Clinician Date Obesity Obesity Disease Active 2021-03 Univers (BMI (BMI 1-11 ity of 30-39.9) 30-39.9) 00:00: [place] 00 Medical Branch Encounter Encounter Disease Active 2021-03 Overview: Univers for for 03-04 Formattin ity of colorectal colorectal 00:00: g of this [place] cancer cancer 00 note Medical screening screening might be Br anch different from the original. Added automatic ally from request for surgery [id number] Family Family Disease Active 2021-03 Overview: Univer s history of history of 03-04 Formattin ity of colon colon 00:00: g of this [place] cancer cancer 00 note Medical might be Branch different from the original. Added automatic ally from request for surgery [id number] T12 T12 Disease Recurre 2019-[address] [facility] [...] rs active active ity of problems problems [facility] Allergies, Adverse Reactions, Alerts Allergy Allergy [...] 00 Center s NO KNOWN Drug Active Univers ALLERGIE Class ity of S [facility] Social History Social Habit Start Date Stop Date Quantity Comments Source History SDOH University o f Alcohol Frequency [facility] edical Branch History [facility] University o f Alcohol Std Drinks [facility] History [facility] University o f Alcohol Binge [facility] [place] Gender identity Universit y of [facility] Sexual orientation Univer sity of [facility] History of Social 2023-01-01 2023-01-01 Univers ity of function 00:00:00 00:00:00 [facility] Exposure to 2022-07-11 2022-07-21 Not sure [facility] SARS-CoV-2 (event) 00:00:00 13:27:00 [facility] Cigarettes smoked 2021-12-11 2021-12-11 Univers ity of current (pack per 00:00:00 00:00:00 [facility]) - Reported Branch Tobacco use and 2021-12-11 2021-12-11 Smokeless Universit y of exposure 00:00:00 00:00:00 tobacco non-user [facility] Tobacco Comment 2021-12-11 2021-12-11 Quit 8 years Univers ity of 00:00:00 00:00:00 ago, [facility] year [facility] Branch Alcohol intake 2020-01-02 2020-01-02 Ex-drinker [facility] 00:[facility] 00:00:00 (finding) [facility] Alcohol Comment 2019-12-14 2019-12-[address] [facility] 00:00:00 00:00:00 [facility] History of tobacco 1973-03-01 2013-03-01 Cigarette Smoker University of use 00:00:00 00:00:00 [facility] Sex Assigned At [address] [facility] 00:00:00 00:00:00 [facility] Smoking Status Start Date Stop Date Source Tobacco smoking [facility] [place] consumption unknown Medical Bran ch Ex-smoker 2021-12-11 00:00:00 2021-12-11 University o f [place] 00:00:00 [facility] Medications Ordered Filled Start Stop Current Ordering Indication Dosage Frequency Signature Comments Components Source Medication Medication Date Date Medication? Clinician (SIG) Name Name lactated 2022-03 Yes 1000mL at 75 Univer s ringers IV 1-03 mL/hr, ity of infusion 14:30: 1,000 [place] 1[place]000 [place] 00 IV Medical Infusion, Branch CONTINUOUS , Starting on Wed01/01/23 at 0930, Until Discontinu ed, Routine, PACU FENTanyl PF 2022-03 Yes 25ug 25 mcg, Uni vers (SUBLIMAZE 03-03 Slow IV ity of (PF)) 14:25: Push, [place] injection 31 Q5MIN PRN, Medi devang 25 mcg 4 doses, Branch Starting on Wed01/01/23 at 0925, Until Discontinu ed, Routine, Pain (scale 4-6), PACU ondansetron 2022-03- No 4mg 4 mg, Slow Univers (ZOFRAN 03-03 IV Push, ity of (PF)) 14:25: 14:36 PRN, 1 [place] injection 4 31 :00 dose, Medical mg Starting Branch on Wed01/01/23 at 0925, Until Wed01/01/23 at 0936, Routine, Nausea and Vomiting (N/V), PACU sodium 2022-03 Yes PRN, Univers chloride 03-03 Starting ity of 0.9 % 13:00: on Wed [place] irrigation 00 01/01/23 at [facility] ical solution 0800, Branch Until Discontinu ed, Intra-op bupivacaine 2022-03 Yes PRN, Univer s (preserv 03-03 Starting ity of free) 0.5% 12:47: on Wed [place] (SENSORCAIN 00 01/01/[address] [facility]) 10 0747, Branch mL, Intra-op lidocaine 1% (PF) (XYLOCAINE) 10 mL lactated 2022-03- No 1000mL at 42 Unive rs ringers IV 03-0303 mL/hr, ity of infusion 12:00: 12:09 1,000 mL, [place] 1,000 mL 00 :00 IV Medical Infusion, Branch ONCE, 1 dose, On Wed01/01/23 at 0700, Routine, DSU Pre-op buPROPion 2022-03 Yes 300mg Take 1 Unive rs XL 300 mg 03-03 tablet by ity o f 24 hr 11:18: mouth in [place] tablet 01 the Medical morning. Branch lamoTRIgine 2022-03 Yes 150mg Take 1 Uni vers 150 mg 1-03 tablet by ity of tablet 11:18: mouth in [place] the Medical morning. Branch propranoloL 2022-03 Yes 40mg Take 1 Univ ers 40 mg 1-03 tablet by ity of tablet 11:18: mouth in [place] 01 the Medical morning. Branch buPROPion 2022-03 Yes 300mg Take 1 Unive rs XL 300 mg 0-31 tablet by ity o f 24 hr 10:38: mouth in [place] tablet 48 the Medical morning. Branch lamoTRIgine 2022-03 Yes 150mg Take 1 Uni vers 150 mg 0-31 tablet by ity of tablet 10:38: mouth in [place] 48 the Medical morning. Branch propranoloL 2022-03 Yes 40mg Take 1 Univ ers 40 mg 0-31 tablet by ity of tablet 10:38: mouth in [place] 48 the Medical morning. Branch baclofen 10 2022-03 Yes [id number] 5mg Take 0.5 Univers mg tablet 0-27 tablets by ity of 00:00: mouth in [place] the Medical morning Branch and 0.5 tablets at noon and 0.5 tablets in the evening. ibuprofen 2022-03 Yes [id number] 600mg Take 1 Univers 600 mg 0-27 9102 tablet by ity of tablet 00:00: mouth [place] 00 every 8 Medical (eight) Branch hours as needed for Pain (scale 4-6) (with meals). baclofen 10 2022-03 Yes [id number] 5mg Take 0.5 Univers mg tablet 0-27 tablets by ity of 00:00: mouth in [place] the morning Branch and 0.5 tablets at noon and 0.5 tablets in the evening. ibuprofen 2022-03 Yes [id number] 600mg Take 1 Univers 600 mg 0-27 9102 tablet by ity of tablet 00:00: mouth [place] 00 every 8 Medical (eight) Branch hours as needed for Pain (scale 4-6) (with meals). baclofen 10 2022-03 Yes [id number] 5mg Take 0.5 Univers mg tablet 0-27 tablets by ity of 00:00: mouth in [place] the Medical morning Branch and 0.5 tablets at noon and 0.5 tablets in the evening. ibuprofen 2022-03 Yes [id number] 600mg Take 1 Univers 600 mg 0-27 9102 tablet by ity of tablet 00:00: mouth [place] 00 every 8 Medical (eight) Branch hours as needed for Pain (scale 4-6) (with meals). baclofen 2022-03 Yes [id number] 5mg Take 0.5 Univers mg tablet 0-27 tablets by ity of 00:00: mouth in [place] 00 the Medical morning Branch and 0.5 tablets at noon and 0.5 tablets in the evening. ibuprofen 2022-03 Yes [id number] 600mg Take 1 Univers 600 mg 0-27 9102 tablet by ity of tablet 00:00: mouth [place] 00 every 8 Medical (eight) Branch hours as needed for Pain (scale 4-6) (with meals). baclofen Yes [id number] 5mg Take 0.5 Univers mg tablet 9-15 tablets by ity of 00:00: mouth in [place] 00 the Medical morning Branch and 0.5 tablets at noon and 0.5 tablets in the evening. baclofen Yes [id number] 5mg Take 0.5 Univers mg tablet 9-15 tablets by ity of 00:00: mouth in [place] 00 the Medical morning Branch and 0.5 tablets at noon and 0.5 tablets in the evening. baclofen 10 Yes [id number] 5mg Take 0.5 Univers mg tablet 9-15 tablets by ity of 00:00: mouth in [place] 00 the Medical morning Branch and 0.5 tablets at noon and 0.5 tablets in the evening. baclofen 10 2022- No [id number] 5mg Take 0.5 Univers mg tablet 9-15 10-27 tablets by ity of 00:00: 00:00 mouth in [place] 00 :00 the Medical morning Branch and 0.5 tablets at noon and 0.5 tablets in the evening. baclofen 2022- No [id number] 5mg Take 0.5 Univers mg tablet 9-15 10-27 tablets by ity of 00:00: 00:00 mouth in [place] 00 :00 the Medical morning Branch and 0.5 tablets at noon and 0.5 tablets in the evening. lidocaine Yes [id number] Apply 1 Univers % (700 9- patch for ity of mg/patch) 00:00: 12 hours [place] patch 00 then Medical remove for Branch 12 hours, may replace daily lidocaine 5 2022-0 Yes [id number] Apply 1 Univers % (700 9-07 patch for ity of mg/patch) 00:00: 12 hours [place] patch 00 then Medical remove for Branch 12 hours, may replace daily lidocaine 5 2022-0 Yes [id number] Apply 1 Univers % (700 9-07 patch for ity of mg/patch) 00:00: 12 hours [place] patch 00 then Medical remove for Branch 12 hours, may replace daily lidocaine 5 2022-0 Yes [id number] Apply 1 Univers % (700 9-07 patch for ity of mg/patch) 00:00: 12 hours [place] patch 00 then Medical remove for Branch 12 hours, may replace daily lidocaine 5 2022-0 Yes [id number] Apply 1 Univers % (700 9-07 patch for ity of mg/patch) 00:00: 12 hours [place] patch 00 then Medical remove for Branch 12 hours, may replace daily lidocaine 5 2022-0 Yes [id number] Apply 1 Univers % (700 9-07 patch for ity of mg/patch) 00:00: 12 hours [place] patch 00 then Medical remove for Branch 12 hours, may replace daily lidocaine 5 2022-0 Yes [id number] Apply 1 Univers % (700 9-07 patch for ity of mg/patch) 00:00: 12 hours [place] patch 00 then Medical remove for Branch 12 hours, may replace daily lidocaine 5 2022-0 Yes [id number] Apply 1 Univers % (700 9-07 patch for ity of mg/patch) 00:00: 12 hours [place] patch 00 then Medical remove for Branch 12 hours, may replace daily lidocaine 5 2022-0 Yes [id number] Apply 1 Univers % (700 9-07 patch for ity of mg/patch) 00:00: 12 hours [place] patch 00 then Medical remove for Branch 12 hours, may replace daily baclofen 10 2022-0 Yes [id number] 5mg Take 0.5 Univers mg tablet 8-30 tablets by ity of 00:00: mouth in [place] 00 the Medical morning Branch and 0.5 tablets at noon and 0.5 tablets in the evening. baclofen 10 2022-0 Yes [id number] 5mg Take 0.5 Univers mg tablet 8-30 tablets by ity of 00:00: mouth in [place] 00 the Medical morning Branch and 0.5 tablets at noon and 0.5 tablets in the evening. baclofen 10 Yes [id number] 5mg Take 0.5 Univers mg tablet 8-30 tablets by ity of 00:00: mouth in [place] 00 the Medical morning Branch and 0.5 tablets at noon and 0.5 tablets in the evening. baclofen 10 Yes [id number] 5mg Take 0.5 Univers mg tablet 8-30 tablets by ity of 00:00: mouth in [place] 00 the Medical morning Branch and 0.5 tablets at noon and 0.5 tablets in the evening. baclofen 10 Yes [id number] 5mg Take 0.5 Univers mg tablet 8-30 tablets by ity of 00:00: mouth in [place] 00 the Medical morning Branch and 0.5 tablets at noon and 0.5 tablets in the evening. baclofen 10 2022- No [id number] 5mg Take 0.5 Univers mg tablet 8-30 -15 tablets by ity of 00:00: 00:00 mouth in [place] 00 :00 the Medical morning Branch and 0.5 tablets at noon and 0.5 tablets in the evening. HYDROcodone 2022- Yes [id number] 1{tbl} Take 1 U nivers -acetaminop 8-30 - tablet by it y of hen (NORCO) 00:00: 04:59 mouth [place] 5-325 mg 00 :00 every 6 Medical tablet (six) Branch hours as needed for Pain (scale 7-10) for up to 7 days. Indication s: acute pain HYDROcodone 2022- Yes [id number] 1{tbl} Take 1 U nivers -acetaminop 8-30 09-07 tablet by it y of hen (NORCO) 00:00: 04:59 mouth [place] 5-325 mg 00 :00 every 6 Medical tablet (six) Branch hours as needed for Pain (scale 7-10) for up to 7 days. Indication s: acute pain HYDROcodone 2022- Yes [id number] 1{tbl} Take 1 U nivers -acetaminop 8-30 09-07 tablet by it y of hen (NORCO) 00:00: 04:59 mouth [place] 5-325 mg 00 :00 every 6 Medical tablet (six) Branch hours as needed for Pain (scale 7-10) for up to 7 days. Indication s: acute pain FLUoxetine 2023-0 Yes .5{caps Take 0.5 Univers 40 mg 6-19 ule} capsules ity of capsule 00:00: by mouth [place] 00 in the Medical morning. Branch FLUoxetine 2023-0 Yes .5{caps Take 0.5 Univers 40 mg 6-19 ule} capsules ity of capsule 00:00: by mouth [place] 00 in the Medical morning. Branch FLUoxetine 2023-0 Yes .5{caps Take 0.5 Univers 40 mg 6-19 ule} capsules ity of capsule 00:00: by mouth [place] 00 in the Medical morning. Branch FLUoxetine 2023-0 Yes .5{caps Take 0.5 Univers 40 mg 6-19 ule} capsules ity of capsule 00:00: by mouth [place] 00 in the Medical morning. Branch FLUoxetine 2023-0 Yes .5{caps Take 0.5 Univers 40 mg 6-19 ule} capsules ity of capsule 00:00: by mouth [place] 00 in the Medical morning. Branch FLUoxetine 2023-0 Yes .5{caps Take 0.5 Univers 40 mg 6-19 ule} capsules ity of capsule 00:00: by mouth [place] 00 in the Medical morning. Branch FLUoxetine 2023-0 Yes .5{caps Take 0.5 Univers 40 mg 6-19 ule} capsules ity of capsule 00:00: by mouth [place] 00 in the Medical morning. Branch FLUoxetine 2023-0 Yes .5{caps Take 0.5 Univers 40 mg 6-19 ule} capsules ity of capsule 00:00: by mouth [place] 00 in the Medical morning. Branch FLUoxetine 2023-0 Yes .5{caps Take 0.5 Univers 40 mg 6-19 ule} capsules ity of capsule 00:00: by mouth [place] 00 in the Medical morning. Branch FLUoxetine 2023-0 Yes .5{caps Take 0.5 Univers 40 mg 6-19 ule} capsules ity of capsule 00:00: by mouth [place] 00 in the Medical morning. Branch FLUoxetine 2023-0 Yes .5{caps Take 0.5 Univers 40 mg 6-19 ule} capsules ity of capsule 00:00: by mouth [place] 00 in the Medical morning. Branch FLUoxetine 2023-0 Yes .5{caps Take 0.5 Univers 40 mg 6-19 ule} capsules ity of capsule 00:00: by mouth [place] 00 in the Medical morning. Branch FLUoxetine 2023-0 Yes .5{caps Take 0.5 Univers 40 mg 6-19 ule} capsules ity of capsule 00:00: by mouth [place] 00 in the Medical morning. Branch FLUoxetine 2023-0 Yes 40mg Take 1 Unive rs 40 mg 6-19 capsule by ity of capsule 00:00: mouth in [place] 00 the Medical morning. Branch FLUoxetine 2023-0 Yes 40mg Take 1 Unive rs 40 mg 6-19 capsule by ity of capsule 00:00: mouth in [place] [address] the Medical morning. Branch buPROPion 2023-0 Yes 300mg Take 1 Unive rs XL 300 mg 5-23 tablet by ity o f 24 hr 13:41: mouth in [place] tablet 44 the Medical morning. Branch lamoTRIgine 2023-0 Yes 150mg Take 1 Uni vers 150 mg 5-23 tablet by ity of tablet 13:41: mouth in [place] [address] the Medical morning. Branch FLUoxetine 2023-0 Yes 40mg Take 2 Unive rs 20 mg 5-23 capsules ity of capsule 13:41: by mouth [place] [address] in the Medical morning. Branch propranoloL 2023-0 Yes 40mg Take 1 Univ ers 40 mg 5-23 tablet by ity of tablet 13:41: mouth in [place] [address] the Medical morning. Branch buPROPion 2023-0 Yes 300mg Take 1 Unive rs XL 300 mg 5-23 tablet by ity o f 24 hr 13:41: mouth in [place] tablet 44 the Medical morning. Branch lamoTRIgine 2023-0 Yes 150mg Take 1 Uni vers 150 mg 5-23 tablet by ity of tablet 13:41: mouth in [place] [address] the Medical morning. Branch FLUoxetine 2023-0 Yes 40mg Take 2 Unive rs 20 mg 5-23 capsules ity of capsule 13:41: by mouth [place] [address] in the Medical morning. Branch propranoloL 2023-0 Yes 40mg Take 1 Univ ers 40 mg 5-23 tablet by ity of tablet 13:41: mouth in [place] [address] the Medical morning. Branch buPROPion 2023-0 Yes 300mg Take 1 Unive rs XL 300 mg 5-23 tablet by ity o f 24 hr 13:41: mouth in [place] tablet 44 the Medical morning. Branch lamoTRIgine 2023-0 Yes 150mg Take 1 Uni vers 150 mg 5-23 tablet by ity of tablet 13:41: mouth in [place] [address] the Medical morning. Branch propranoloL 2023-0 Yes 40mg Take 1 Univ ers 40 mg 5-23 tablet by ity of tablet 13:41: mouth in [place] [address] the Medical morning. Branch buPROPion 2023-0 Yes 300mg Take 1 Unive rs XL 300 mg 5-23 tablet by ity o f 24 hr 13:41: mouth in [place] tablet 44 the Medical morning. Branch lamoTRIgine 2023-0 Yes 150mg Take 1 Uni vers 150 mg 5-23 tablet by ity of tablet 13:41: mouth in [place] [address] the Medical morning. Branch propranoloL 2023-0 Yes 40mg Take 1 Univ ers 40 mg 5-23 tablet by ity of tablet 13:41: mouth in [place] [address] the Medical morning. Branch buPROPion 2023-0 Yes 300mg Take 1 Unive rs XL 300 mg 5-23 tablet by ity o f 24 hr 13:41: mouth in [place] tablet 44 the Medical morning. Branch lamoTRIgine 2023-0 Yes 150mg Take 1 Uni vers 150 mg 5-23 tablet by ity of tablet 13:41: mouth in [place] [address] the Medical morning. Branch propranoloL 2023-0 Yes 40mg Take 1 Univ ers 40 mg 5-23 tablet by ity of tablet 13:41: mouth in [place] [address] the Medical morning. Branch buPROPion 2023-0 Yes 300mg Take 1 Unive rs XL 300 mg 5-23 tablet by ity o f 24 hr 13:41: mouth in [place] tablet 44 the Medical morning. Branch lamoTRIgine 2023-0 Yes 150mg Take 1 Uni vers 150 mg 5-23 tablet by ity of tablet 13:41: mouth in [place] [address] the Medical morning. Branch propranoloL 2023-0 Yes 40mg Take 1 Univ ers 40 mg 5-23 tablet by ity of tablet 13:41: mouth in [place] [address] the Medical morning. Branch buPROPion 2023-0 Yes 300mg Take 1 Unive rs XL 300 mg 5-23 tablet by ity o f 24 hr 13:41: mouth in [place] tablet 44 the Medical morning. Branch lamoTRIgine 2023-0 Yes 150mg Take 1 Uni vers 150 mg 5-23 tablet by ity of tablet 13:41: mouth in [place] [address] the Medical morning. Branch propranoloL 2023-0 Yes 40mg Take 1 Univ ers 40 mg 5-23 tablet by ity of tablet 13:41: mouth in [place] [address] the Medical morning. Branch buPROPion 2023-0 Yes 300mg Take 1 Unive rs XL 300 mg 5-23 tablet by ity o f 24 hr 13:41: mouth in [place] tablet 44 the Medical morning. Branch lamoTRIgine 2023-0 Yes 150mg Take 1 Uni vers 150 mg 5-23 tablet by ity of tablet 13:41: mouth in [place] [address] the Medical morning. Branch propranoloL 2023-0 Yes 40mg Take 1 Univ ers 40 mg 5-23 tablet by ity of tablet 13:41: mouth in [place] [address] the Medical morning. Branch buPROPion 2023-0 Yes 300mg Take 1 Unive rs XL 300 mg 5-23 tablet by ity o f 24 hr 13:41: mouth in [facility] 44 the Medical morning. Branch lamoTRIgine 2023-0 Yes 150mg Take 1 Uni vers 150 mg 5-23 tablet by ity of tablet 13:41: mouth in [place] [address] the Medical morning. Branch propranoloL 2023-0 Yes 40mg Take 1 Univ ers 40 mg 5-23 tablet by ity of tablet 13:41: mouth in [place] [address] the Medical morning. Branch buPROPion 2023-0 Yes 300mg Take 1 Unive rs XL 300 mg 5-23 tablet by ity o f 24 hr 13:41: mouth in [facility] 44 the Medical morning. Branch lamoTRIgine 2023-0 Yes 150mg Take 1 Uni vers 150 mg 5-23 tablet by ity of tablet 13:41: mouth in [place] [address] the Medical morning. Branch propranoloL 2023-0 Yes 40mg Take 1 Univ ers 40 mg 5-23 tablet by ity of tablet 13:41: mouth in [place] [address] the Medical morning. Branch buPROPion 2023-0 Yes 300mg Take 1 Unive rs XL 300 mg 5-23 tablet by ity o f 24 hr 13:41: mouth in [place] tablet 44 the Medical morning. Branch lamoTRIgine 2023-0 Yes 150mg Take 1 Uni vers 150 mg 5-23 tablet by ity of tablet 13:41: mouth in [place] 44 the Medical morning. Branch propranoloL 2023-0 Yes 40mg Take 1 Univ ers 40 mg 5-23 tablet by ity of tablet 13:41: mouth in [place] [address] the Medical morning. Branch buPROPion 2023-0 Yes 300mg Take 1 Unive rs XL 300 mg 5-23 tablet by ity o f 24 hr 13:41: mouth in [place] tablet 44 the Medical morning. Branch lamoTRIgine 2023-0 Yes 150mg Take 1 Uni vers 150 mg 5-23 tablet by ity of tablet 13:41: mouth in [place] [address] the Medical morning. Branch propranoloL 2023-0 Yes 40mg Take 1 Univ ers 40 mg 5-23 tablet by ity of tablet 13:41: mouth in [place] [address] the Medical morning. Branch buPROPion 2023-0 Yes 300mg Take 1 Unive rs XL 300 mg 5-23 tablet by ity o f 24 hr 13:41: mouth in [place] tablet 44 the Medical morning. Branch lamoTRIgine 2023-0 Yes 150mg Take 1 Uni vers 150 mg 5-23 tablet by ity of tablet 13:41: mouth in [place] [address] the Medical morning. Branch propranoloL 2023-0 Yes 40mg Take 1 Univ ers 40 mg 5-23 tablet by ity of tablet 13:41: mouth in [place] [address] the Medical morning. Branch buPROPion 2023-0 Yes 300mg Take 1 Unive rs XL 300 mg 5-23 tablet by ity o f 24 hr 13:41: mouth in [place] tablet 44 the Medical morning. Branch lamoTRIgine 2023-0 Yes 150mg Take 1 Uni vers 150 mg 5-23 tablet by ity of tablet 13:41: mouth in [place] [address] the Medical morning. Branch propranoloL 2023-0 Yes 40mg Take 1 Univ ers 40 mg 5-23 tablet by ity of tablet 13:41: mouth in [place] [address] the Medical morning. Branch buPROPion 2023-0 Yes 300mg Take 1 Unive rs XL 300 mg 5-23 tablet by ity o f 24 hr 13:41: mouth in [place] tablet 44 the Medical morning. Branch lamoTRIgine 2023-0 Yes 150mg Take 1 Uni vers 150 mg 5-23 tablet by ity of tablet 13:41: mouth in [place] [address] the Medical morning. Branch propranoloL 2023-0 Yes 40mg Take 1 Univ ers 40 mg 5-23 tablet by ity of tablet 13:41: mouth in [place] 44 the Medical morning. Branch cyclobenzap 2022-0 Yes [id number] 10mg Take 1 Univers rine 10 mg 5-23 tablet by ity of tablet 00:00: mouth (three) Medical times Branch daily as needed for Muscle Spasms (May make sleepy, do not use before driving). cyclobenzap 2022-0 Yes [id number] 10mg Take 1 Univers rine 10 mg 5-23 tablet by ity of tablet 00:00: mouth (three) Medical times Branch daily as needed for Muscle Spasms (May make sleepy, do not use before driving). cyclobenzap 2022-0 Yes [id number] 10mg Take 1 Univers rine 10 mg 5-23 tablet by ity of tablet 00:00: mouth (three) Medical times Branch daily as needed for Muscle Spasms (May make sleepy, do not use before driving). cyclobenzap 2022-0 Yes [id number] 10mg Take 1 Univers rine 10 mg 5-23 tablet by ity of tablet 00:00: mouth (three) Medical times Branch daily as needed for Muscle Spasms (May make sleepy, do not use before driving). cyclobenzap 2022-0 Yes [id number] 10mg Take 1 Univers rine 10 mg 5-23 tablet by ity of tablet 00:00: mouth (three) Medical times Branch daily as needed for Muscle Spasms (May make sleepy, do not use before driving). cyclobenzap 2022-0 Yes [id number] 10mg Take 1 Univers rine 10 mg 5-23 tablet by ity of tablet 00:00: mouth (three) Medical times Branch daily as needed for Muscle Spasms (May make sleepy, do not use before driving). cyclobenzap 2022-0 Yes [id number] 10mg Take 1 Univers rine 10 mg 5-23 tablet by ity of tablet 00:00: mouth (three) Medical times Branch daily as needed for Muscle Spasms (May make sleepy, do not use before driving). cyclobenzap 2022-0 Yes [id number] 10mg Take 1 Univers rine 10 mg 5-23 tablet by ity of tablet 00:00: mouth (three) Medical times Branch daily as needed for Muscle Spasms (May make sleepy, do not use before driving). cyclobenzap 2022-0 Yes [id number] 10mg Take 1 Univers rine 10 mg 5-23 tablet by ity of tablet 00:00: mouth 3 (three) Medical times Branch daily as needed for Muscle Spasms (May make sleepy, do not use before driving). cyclobenzap 2022-0 Yes [id number] 10mg Take 1 Univers rine 10 mg 5-23 tablet by ity of tablet 00:00: mouth 3 (three) Medical times Branch daily as needed for Muscle Spasms (May make sleepy, do not use before driving). cyclobenzap 2022-0 Yes [id number] 10mg Take 1 Univers rine 10 mg 5-23 tablet by ity of tablet 00:00: mouth (three) Medical times Branch daily as needed for Muscle Spasms (May make sleepy, do not use before driving). cyclobenzap 2022-0 Yes [id number] 10mg Take 1 Univers rine 10 mg 5-23 tablet by ity of tablet 00:00: mouth (three) Medical times Branch daily as needed for Muscle Spasms (May make sleepy, do not use before driving). cyclobenzap 2022-0 Yes [id number] 10mg Take 1 [facility] rine 10 mg 5-23 tablet by ity of tablet 00:00: mouth (three) Medical times Branch daily as needed for Muscle Spasms (May make sleepy, do not use before driving). cyclobenzap 2022-0 Yes [id number] 10mg Take 1 [facility] rine 10 mg 5-23 tablet by ity of tablet 00:00: mouth (three) Medical times Branch daily as needed for Muscle Spasms (May make sleepy, do not use before driving). cyclobenzap 2022-0 Yes [id number] 10mg Take 1 [facility] rine 10 mg 5-23 tablet by ity of tablet 00:00: mouth 3 (three) Medical times Branch daily as needed for Muscle Spasms (May make sleepy, do not use before driving). cyclobenzap 2022-0 Yes [id number] 10mg Take 1 [facility] rine 10 mg 5-23 tablet by ity of tablet 00:00: mouth 3 [place] (three) Medical times Branch daily as needed for Muscle Spasms (May make sleepy, do not use before driving). cyclobenzap 3-0 Yes [id number] 10mg Take 1 [facility] rine 10 mg 5-23 tablet by ity of tablet 00:00: mouth 3 [place] (three) Medical times Branch daily as needed for Muscle Spasms (May make sleepy, do not use before driving). buPROPion 3-0 Yes 300mg Take 1 Unive rs XL 300 mg 4-27 tablet by ity o f 24 hr 13:18: mouth in [place] tablet 17 the Medical morning. Branch FLUoxetine 2022-0 Yes 40mg Take 2 Unive rs 20 mg 4-27 capsules ity of capsule 13:18: by mouth [place] [address] in the Medical morning. Branch buPROPion 2022-0 Yes 300mg Take 1 Unive rs XL 300 mg 4-27 tablet by ity o f 24 hr 13:18: mouth in [place] tablet 17 the Medical morning. Branch FLUoxetine 2022-0 Yes 40mg Take 2 Unive rs 20 mg 4-27 capsules ity of capsule 13:18: by mouth [place] [address] in the Medical morning. Branch baclofen 10 2022-0 Yes [id number] 5mg Take 0.5 [facility] mg tablet 4-27 tablets by ity of 00:00: mouth in [place] the Medical morning Branch and 0.5 tablets at noon and 0.5 tablets in the evening. baclofen 10 2022-0 Yes [id number] 5mg Take 0.5 [facility] mg tablet 4-27 tablets by ity of 00:00: mouth in [place] the Medical morning Branch and 0.5 tablets at noon and 0.5 tablets in the evening. buPROPion 3-0 Yes 150mg Take 1 Unive rs SR 150 mg 4-27 tablet by ity o f SR tablet 00:00: mouth in [facility] 00 the Medical morning. Branch buPROPion 3-0 Yes 150mg Take 1 Unive rs SR 150 mg 4-27 tablet by ity o f SR tablet 00:00: mouth in [facility] 00 the Medical morning. Branch buPROPion 2023-0 Yes 150mg Take 1 Unive rs SR 150 mg 4-27 tablet by ity o f SR tablet 00:00: mouth in [facility] the Medical morning. Branch buPROPion 2023-0 Yes 150mg Take 1 Unive rs SR 150 mg 4-27 tablet by ity o f SR tablet 00:00: mouth in [place] the Medical morning. Branch buPROPion 2023-0 Yes 150mg Take 1 Unive rs SR 150 mg 4-27 tablet by ity o f SR tablet 00:00: mouth [place] the Medical morning. Branch buPROPion 2023-0 Yes 150mg Take 1 Unive rs SR 150 mg 4-27 tablet by ity o f SR tablet 00:00: mouth in [place] the Medical morning. Branch buPROPion 2023-0 Yes 150mg Take 1 Unive rs SR 150 mg 4-27 tablet by ity o f SR tablet 00:00: mouth in [place] the Medical morning. Branch buPROPion 2023-0 Yes 150mg Take 1 Unive rs SR 150 mg 4-27 tablet by ity o f SR tablet 00:00: mouth in [place] the Medical morning. Branch buPROPion 2023-0 Yes 150mg Take 1 Unive rs SR 150 mg 4-27 tablet by ity o f SR tablet 00:00: mouth in [place] the Medical morning. Branch buPROPion 2023-0 Yes 150mg Take 1 Unive rs SR 150 mg 4-27 tablet by ity o f SR tablet 00:00: mouth in [place] the Medical morning. Branch buPROPion 2023-0 Yes 150mg Take 1 Unive rs SR 150 mg 4-27 tablet by ity o f SR tablet 00:00: mouth in [place] the Medical morning. Branch buPROPion 2023-0 Yes 150mg Take 1 Unive rs SR 150 mg 4-27 tablet by [place]y o f SR tablet 00:00: mouth in [place] the Medical morning. Branch buPROPion 2023-0 Yes 150mg Take 1 Unive rs SR 150 mg 4-27 tablet by ity o f SR tablet 00:00: mouth [place] the Medical morning. Branch buPROPion 2023-0 Yes 150mg Take 1 Unive rs SR 150 mg 4-27 tablet by ity o f SR tablet 00:00: mouth [place] the Medical morning. Branch buPROPion 2023-0 Yes 150mg Take 1 Unive rs SR 150 mg - tablet by [place] o f SR tablet 00:00: mouth [place] 00 the morning. Branch baclofen 10 2022- No [id number] 5mg Take 0.5 [facility] mg tablet 06-25 tablets by ity of 00:00: 00:00 mouth in 00 :00 the Medical morning Branch and 0.5 tablets at noon and 0.5 tablets in the evening. baclofen 10 2022- No [id number] 5mg Take 0.5 [facility] mg tablet 06-25 tablets by ity of 00:00: 00:00 mouth in 00 :00 the morning Branch and 0.5 tablets at noon and 0.5 tablets in the evening. water for 2021-03- No PRN, [facility] irrigation 04-02 Starting ity of irrigation 14:58: 16:12 on Fri [place] solution 00 :43 01/30/22 at Medic al 0858, Branch Until Wed01/30/22 at 1012, Routine, Intra-op simethicone 2021-03- No PRN, Unive rs (GAS RELIEF 04-02 Starting ity of (SIMETHICON 14:58: 16:12 on Fri [place] E)) 40 00 :43 01/30/22 at Medical mg/0.6 mL 0858, Branch drops Until Wed01/30/22 at 1012, Routine, Intra-op lactated 2021-03- No 1000mL at 42 Unive rs ringers IV 04-02 1202 mL/hr, ity of infusion 14:15: 14:14 1,000 mL, [place] 1,000 mL 00 :00 IV Medical Infusion, Branch ONCE, 1 dose, On Wed01/30/22 at 0815, Routine, DSU Pre-op lactated 2021-03- No 1000mL at 42 Unive rs ringers IV 04-02 1202 mL/hr, ity of infusion 14:15: 14:14 1,000 mL, [place] 1,000 mL 00 :00 IV Medical Infusion, Branch ONCE, 1 dose, On Wed01/30/22 at 0815, Routine, DSU Pre-op buPROPion 2021-03 Yes 150mg Take 150 Uni vers XL 150 mg 2-02 mg by ity of 24 hr 10:56: mouth in [place] tablet 07 the Medical morning. Branch lamoTRIgine 2021-03 Yes 150mg Take 150 U nivers 150 mg 2-02 mg by ity of tablet 10:56: mouth in [place] the Medical morning. Branch FLUoxetine 2021- Yes [...] ity of 24 hr 10:56: mouth in [place] tablet the Medical morning. Branch lamoTRIgine 2021-03 Yes 150mg Take 150 U nivers 150 mg 2-02 mg by ity of tablet 10:56: mouth in [place] [address] the Medical morning. Branch FLUoxetine 2021- Yes 40mg Take 40 mg U nivers 40 mg 2-02 by mouth ity of capsule 10:56: in the [place] morning. Medical Branch propranoloL 2021- Yes 40mg Take 40 mg [facility] 40 mg 2-02 by mouth ity of tablet 10:56: in the [place] morning. Medical Branch buPROPion 2021-03 Yes 150mg Take 150 Uni vers XL 150 mg 2-02 mg by ity of 24 hr 10:56: mouth in [place] tablet the Medical morning. Branch lamoTRIgine 2021- Yes 150mg Take 150 U nivers 150 mg 2-02 mg by ity of tablet 10:56: mouth in [place] [address] the Medical morning. Branch FLUoxetine 2021- Yes [...] ity of 24 hr 10:56: mouth in [place] tablet the Medical morning. Branch lamoTRIgine 2021- Yes 150mg Take 150 U nivers 150 mg 2-02 mg by ity of tablet 10:56: mouth in [place] [address] the Medical morning. Branch FLUoxetine 2021- Yes 40mg Take 40 mg U nivers 40 mg 2-02 by mouth ity of capsule 10:56: in the [place] [address] morning. Medical Branch propranoloL 2021- Yes 40mg Take 40 mg [facility] 40 mg 2-02 by mouth ity of tablet 10:56: in the [place] morning. Medical Branch buPROPion 2021-03 Yes 150mg Take 150 Uni vers XL 150 mg 2-02 mg by ity of 24 hr 10:56: mouth in [place] tablet the Medical morning. Branch lamoTRIgine 2021-03 Yes 150mg Take 150 U nivers 150 mg 2-02 mg by ity of tablet 10:56: mouth in [place] [address] the Medical morning. Branch FLUoxetine 2021- Yes 40mg Take 40 mg U nivers 40 mg 2-02 by mouth ity of capsule 10:56: in the [place] morning. Medical Branch propranoloL 2021- Yes 40mg Take 40 mg [facility] 40 mg 2-02 by mouth ity of tablet 10:56: in the [place] morning. Medical Branch buPROPion 2021-03 Yes 150mg Take 150 Uni vers XL 150 mg 2-02 mg by ity of 24 hr 10:56: mouth in [place] tablet the Medical morning. Branch lamoTRIgine 2021-03 Yes 150mg Take 150 U nivers 150 mg 2-02 mg by ity of tablet 10:56: mouth in [place] [address] the Medical morning. Branch FLUoxetine 2021- Yes 40mg Take 40 mg U nivers 40 mg 2-02 by mouth ity of capsule 10:56: in the [place] morning. Medical Branch propranoloL 2021- Yes 40mg Take 40 mg [facility] 40 mg 2-02 by mouth ity of tablet 10:56: in the [place] morning. Medical Branch lamoTRIgine 2021- Yes 150mg Take 150 U nivers 150 mg 2-02 mg by ity of tablet 10:56: mouth in [place] [address] the Medical morning. Branch propranoloL 2021-1 Yes 40mg Take 40 mg [facility] 40 mg 2-02 by mouth ity of tablet 10:56: in the [place] morning. Medical Branch lamoTRIgine 2021-1 Yes 150mg Take 150 U nivers 150 mg 2-02 mg by ity of tablet 10:56: mouth in [place] the morning. Branch propranoloL 2021-03 Yes 40mg Take 40 mg [facility] 40 mg 2-02 by mouth ity of tablet 10:56: in the [place] morning. Medical Branch lactated 2021-03 Yes 1000mL at 75 Univer s ringers IV 1-11 mL/hr, ity of infusion 15:30: 1,000 mL, [place] 1,000 mL 00 IV Medical Infusion, Branch CONTINUOUS , Starting on Wed01/09/22 at 0930, Until Discontinu ed, Routine, PACU lactated 2021-03- No 1000mL at 75 Unive rs ringers IV 111 11-11 mL/hr, ity of infusion 15:30: 18:44 1,000 mL, [place] 1,000 mL 00 :30 IV Medical Infusion, Branch CONTINUOUS , Starting on Wed01/09/22 at 0930, Until Wed01/09/22 at 1244, Routine, PACU FENTanyl PF 2021-03 Yes 25ug 25 mcg, Uni vers (SUBLIMAZE 03-11 Slow IV ity of (PF)) 15:26: Push, [place] injection 52 Q5MIN PRN, Medi devang 25 mcg 4 doses, Branch Starting on Wed01/09/22 at 0926, Until Discontinu ed, Routine, Pain (scale 4-6), PACU ondansetron 2021-03 Yes 4mg 4 mg, Slow Univers (ZOFRAN 03-11 IV Push, ity of (PF)) 15:26: PRN, 1 [place] injection 4 52 dose, Medical mg Starting Branch on Wed01/09/22 at 0926, Until Discontinu ed, Routine, Nausea and Vomiting (N/V), PACU FENTanyl PF 2021-03- No 25ug 25 mcg, Un emily (SUBLIMAZE 03-11 Slow IV ity o f (PF)) 15:26: 18:44 Push, [place] injection 52 :30 Q5MIN PRN, Medi devang 25 mcg 4 doses, Branch Starting on Wed01/09/22 at 0926, Until Wed01/09/22 at 1244, Routine, Pain (scale 4-6), PACU ondansetron 2021-03- No 4mg 4 mg, Slow Univers (ZOFRAN 03-11 IV Push, ity of (PF)) 15:26: 18:44 PRN, 1 [place] injection 4 52 :30 dose, Medical mg Starting Branch on Wed01/09/22 at 0926, Until Wed01/09/22 at 1244, Routine, Nausea and Vomiting (N/V), PACU sodium 2021-03- No PRN, Univers chloride 03-11 Starting ity of 0.9 % 14:55: 15:26 on Wed [place] irrigation 00 :39 01/09/22 Medic al solution at 0855, Branch Until Wed01/09/22 at 0926, Intra-op bupivacaine 2021-03- No PRN, Unive rs (preserv 03-11 Starting ity of free) 0.5% 14:11: 15:26 [place] (SENSORCAIN 00 :39 01/09/22 Medi devang E MPF) 0.5 at 0811, Branc h % (5 mg/mL) Intra-op 5 mL, lidocaine 1% (PF) (XYLOCAINE) 5 mL lactated 2021-03- No 1000mL at 42 Unive rs ringers IV 03-11 11-11 mL/hr, ity of infusion 12:45: 13:13 1,000 mL, [place] 1,000 mL 00 :00 IV Medical Infusion, Branch ONCE, 1 dose, On Wed01/09/22 at 0645, Routine, DSU Pre-op lactated 2021-03- No 1000mL at 42 Unive rs ringers IV 03-11 11-11 mL/hr, ity of infusion 12:45: 13:13 1,000 mL, [place] 1,000 mL 00 :00 IV Medical Infusion, Branch ONCE, 1 dose, On Wed01/09/22 at 0645, Routine, DSU Pre-op buPROPion 2021-03 Yes 150mg Take 150 Uni vers XL 150 mg 1-11 mg by ity of 24 hr 10:39: mouth in [place] tablet 24 the Medical morning. Branch Takes 3 a day lamoTRIgine 2021-03 Yes 150mg Take 150 U nivers 150 mg 1-11 mg by ity of tablet 10:39: mouth in [place] 24 the Medical morning. Branch FLUoxetine 2021-03 Yes 40mg Take 40 mg U nivers 40 mg 1-11 by mouth ity of capsule 10:39: in the [place] 24 morning. Medical Branch propranoloL 2021-03 Yes 40mg Take 40 mg [facility] 40 mg 1-11 by mouth ity of tablet 10:39: in the [place] [address] morning. Medical Branch buPROPion 2021-03 Yes 150mg Take 150 Uni vers XL 150 mg 1-11 mg by ity of 24 hr 10:39: mouth in [place] tablet 24 the Medical morning. Branch Takes 3 a day lamoTRIgine 2021-03 Yes 150mg Take 150 U nivers 150 mg 1-11 mg by ity of tablet 10:39: mouth in [place] [address] the Medical morning. Branch FLUoxetine 2021-03 Yes 40mg Take 40 mg U nivers 40 mg 1-11 by mouth ity of capsule 10:39: in the [place] [address] morning. Medical Branch propranoloL 2021-03 Yes 40mg Take 40 mg [facility] 40 mg 1-11 by mouth ity of tablet 10:39: in the [place] [address] morning. Medical Branch buPROPion 2021-03 Yes 150mg Take 150 Uni vers XL 150 mg 1-11 mg by ity of 24 hr 10:39: mouth in [place] tablet 24 the Medical morning. Branch Takes 3 a day lamoTRIgine 2021-03 Yes 150mg Take 150 U nivers 150 mg 1-11 mg by ity of tablet 10:39: mouth in [place] [address] the Medical morning. Branch FLUoxetine 2021-03 Yes 40mg Take 40 mg U nivers 40 mg 1-11 by mouth ity of capsule 10:39: in the [place] [address] morning. Medical Branch propranoloL 2021-03 Yes 40mg Take 40 mg [facility] 40 mg 1-11 by mouth ity of tablet 10:39: in the [place] [address] morning. Medical Branch aspirin 325 2021-03- No [id number] 325mg Take 1 [facility] mg tablet 1-11 12-10 tablet by ity of 00:00: 05:59 mouth in [place] 00 :00 the Medical morning Branch and 1 tablet in the evening. Take with meals. Do all this for 28 days. aspirin 325 2021-03- No [id number] 325mg Take 1 [facility] mg tablet 1-11 12-10 tablet by ity of 00:00: 05:59 mouth in [place] 00 :00 the Medical morning Branch and 1 tablet in the evening. Take with meals. Do all this for 28 days. aspirin 325 2021-03- No [id number] 325mg Take 1 [facility] mg tablet 03-11 12-10 tablet by ity of 00:00: 05:59 mouth in [place] 00 :00 the Medical morning Branch and 1 tablet in the evening. Take with meals. Do all this for 28 days. aspirin 325 2021-03- No [id number] 325mg Take 1 [facility] mg tablet 03-11 12-10 tablet by ity of 00:00: 05:59 mouth in [place] 00 :00 the Medical morning Branch and 1 tablet in the evening. Take with meals. Do all this for 28 days. aspirin 325 2021-03- No [id number] 325mg Take 1 [facility] mg tablet 03-11 12-10 tablet by ity of 00:00: 05:59 mouth in [place] 00 :00 the Medical morning Branch and 1 tablet in the evening. Take with meals. Do all this for 28 days. aspirin 325 2021-03- No [id number] 325mg Take 1 [facility] mg tablet 03-11-10 tablet by ity of 00:00: 05:59 mouth in [place] 00 :00 the [facility] morning [place] and 1 tablet in the evening. Take with meals. Do all this for 28 days. sodium,pota 2021-03- No 117mL Take 117 Univers ssium,mag 1-04 11-05 mL by ity of sulfates 00:00: 04:59 mouth once [place] 17.5-3.13-1 00 :00 now for 1 Med ical .6 gram dose. Branch sodium,pota 2021-03- No 117mL Take 117 [facility] ssium,mag 1-04 11-05 mL by ity of sulfates 00:00: 04:59 mouth once [place] 17.5-3.13-1 00 :00 now for 1 Med ical .6 gram dose. Branch sodium,pota 2021-03- No 117mL Take 117 [facility] ssium,mag 1-04 11-05 mL by ity of sulfates 00:00: [...] ity of mg capsule 13:07: in the [place] [address] morning Medical and 40 mg Branch in the evening. propranoloL 2021-03 Yes 20mg Take 20 mg [facility] 20 mg 0-13 by mouth ity of tablet 13:07: in the [place] [address] morning Medical and 20 mg Branch in [...] ity of mg capsule 13:07: in the [place] [address] morning Medical and 40 mg Branch in the evening. propranoloL 2021-03 Yes 20mg Take 20 mg [facility] 20 mg 0-13 by mouth ity of tablet 13:07: in the [place] [address] morning Medical and 20 mg Branch in [...] ity of mg capsule 13:07: in the [place] [address] morning Medical and 40 mg Branch in the evening. propranoloL 2021-03 Yes 20mg Take 20 mg [facility] 20 mg 0-13 by mouth ity of tablet 13:07: in the [place] [address] morning Medical and 20 mg Branch in the evening. buPROPion 2021-03 Yes 150mg Take 150 Uni vers XL 0-13 mg by ity of (WELLBUTRIN 13:07: mouth in [place] XL) 150 mg 47 the Medical 24 hr morning. Branch tablet Takes 3 a day lamoTRIgine 2021-03 Yes 150mg Take 150 U nivers (LAMICTAL) 0-13 mg by ity of 150 mg 13:07: mouth in [place] tablet 47 the Medical morning Branch and 150 mg in the evening. FLUoxetine 2021-03 Yes 40mg Take 40 mg U nivers (PROZAC) 40 0-13 by mouth ity of mg capsule 13:07: in the [place] [address] morning Medical and 40 mg Branch in the evening. propranoloL 2021-03 Yes 20mg Take 20 mg [facility] 20 mg 0-13 by mouth ity of tablet 13:07: in the [place] [address] morning Medical and 20 mg Branch in the evening. buPROPion 2021-03 Yes 150mg Take 150 Uni vers XL 0-13 mg by ity of (WELLBUTRIN 13:07: mouth in [place] XL) 150 mg 47 the Medical 24 hr morning. Branch tablet Takes 3 a day lamoTRIgine 2021-03 Yes 150mg Take 150 U nivers (LAMICTAL) 0-13 mg by ity of 150 mg 13:07: mouth in [place] tablet 47 the Medical morning Branch and 150 mg in the evening. FLUoxetine 2021-03 Yes 40mg Take 40 mg U nivers (PROZAC) 40 0-13 by mouth ity of mg capsule 13:07: in the [place] [address] morning Medical and 40 mg Branch in the evening. propranoloL 2021-03 Yes 20mg Take 20 mg [facility] 20 mg 0-13 by mouth ity of tablet 13:07: in the [place] [address] morning Medical and 20 mg Branch in the evening. buPROPion 2021-03 Yes 150mg Take 150 Uni vers XL 0-13 mg by ity of (WELLBUTRIN 13:07: mouth in [place] XL) 150 mg 47 the Medical 24 hr morning. Branch tablet Takes 3 a day lamoTRIgine 2021-03 Yes 150mg Take 150 U nivers (LAMICTAL) 0-13 mg by ity of 150 mg 13:07: mouth in [place] tablet 47 the Medical morning Branch and 150 mg in the evening. FLUoxetine 2021-03 Yes 40mg Take 40 mg U nivers (PROZAC) 40 0-13 by mouth ity of mg capsule 13:07: in the [place] [address] morning Medical and 40 mg Branch in the evening. propranoloL 2021-03 Yes 20mg Take 20 mg [facility] 20 mg 0-13 by mouth ity of tablet 13:07: in the [place] [address] morning Medical and 20 mg Branch in the evening. buPROPion 2021-03 Yes 150mg Take 150 Uni vers XL 0-13 mg by ity of (WELLBUTRIN 13:07: mouth in [place] XL) 150 mg 47 the Medical 24 hr morning. Branch tablet Takes 3 a day lamoTRIgine 2021-03 Yes 150mg Take 150 U nivers (LAMICTAL) 0-13 mg by ity of 150 mg 13:07: mouth in [place] tablet the Medical morning Branch and 150 mg in the evening. FLUoxetine 2021-03 Yes 40mg Take 40 mg U nivers (PROZAC) 40 0-13 by mouth ity of mg capsule 13:07: in the [place] [address] morning Medical and 40 mg Branch in the evening. propranoloL 2021-03 Yes 20mg Take 20 mg [facility] 20 mg 0-13 by mouth ity of tablet 13:07: in the [place] [address] morning Medical and 20 mg Branch in the evening. buPROPion 2021-03 Yes 150mg Take 150 Uni vers XL 0-13 mg by ity of (WELLBUTRIN 13:07: mouth in [place] XL) 150 mg 47 the Medical 24 hr morning. Branch tablet Takes 3 a day lamoTRIgine 2021-03 Yes 150mg Take 150 U nivers (LAMICTAL) 0-13 mg by ity of 150 mg 13:07: mouth in [place] tablet the Medical morning Branch and 150 mg in the evening. FLUoxetine 2021-03 Yes 40mg Take 40 mg U nivers (PROZAC) 40 0-13 by mouth ity of mg capsule 13:07: in the [place] [address] morning Medical and 40 mg Branch in the evening. propranoloL 2021-03 Yes 20mg Take 20 mg [facility] 20 mg 0-13 by mouth ity of tablet 13:07: in the [place] [address] morning Medical and 20 mg Branch in the evening. buPROPion 2021-03 Yes 150mg Take 150 Uni vers XL 0-13 mg by ity of (WELLBUTRIN 13:07: mouth in [place] XL) 150 mg 47 the Medical 24 hr morning. Branch tablet Takes 3 a day lamoTRIgine 2021-03 Yes 150mg Take 150 U nivers (LAMICTAL) 0-13 mg by ity of 150 mg 13:07: mouth in [place] tablet 47 the Medical morning Branch and 150 mg in the evening. FLUoxetine 2021-03 Yes 40mg Take 40 mg U nivers (PROZAC) 40 0-13 by mouth ity of mg capsule 13:07: in the [place] [address] morning Medical and 40 mg Branch in the evening. propranoloL 2021-03 Yes 20mg Take 20 mg [facility] 20 mg 0-13 by mouth ity of tablet 13:07: in the [place] [address] morning Medical and 20 mg Branch in the evening. buPROPion 2021-03 Yes 150mg Take 150 Uni vers XL 0-13 mg by ity of (WELLBUTRIN 13:07: mouth in [place] XL) 150 mg 47 the Medical 24 hr morning. Branch tablet Takes 3 a day lamoTRIgine 2021-03 Yes 150mg Take 150 U nivers (LAMICTAL) 0-13 mg by ity of 150 mg 13:07: mouth in [place] tablet 47 the Medical morning Branch and 150 mg in the evening. FLUoxetine 2021-03 Yes 40mg Take 40 mg U nivers (PROZAC) 40 0-13 by mouth ity of mg capsule 13:07: in the [place] [address] morning Medical and 40 mg Branch in the evening. propranoloL 2021-03 Yes 20mg Take 20 mg [facility] 20 mg 0-13 by mouth ity of tablet 13:07: in the [place] [address] morning Medical and 20 mg Branch in the evening. clonazePAM 2021-03 Yes 1{tbl} Take 1 Uni vers 1 mg tablet 0-11 tablet by ity of 00:00: mouth as [place] 00 needed. Medical Branch clonazePAM 2021-03 Yes 1{tbl} Take 1 Uni vers 1 mg tablet 0-11 tablet by ity of 00:00: mouth as [place] 00 needed. Medical Branch clonazePAM 2-1 Yes 1{tbl} Take 1 Uni vers 1 [...] as [place] 00 needed. Medical Branch clonazePAM 2- Yes 1{tbl} Take 1 Uni vers 1 mg tablet 0-11 tablet by ity of 00:00: mouth as [place] 00 needed. Medical Branch clonazePAM 2-1 Yes 1{tbl} Take 1 Uni vers 1 mg tablet 0-11 tablet by ity of 00:00: mouth as [place] 00 needed. Medical Branch clonazePAM 2-1 Yes 1{tbl} Take 1 Uni vers 1 mg tablet 0-11 tablet by ity of 00:00: mouth as [place] 00 needed. Medical Branch clonazePAM 2- Yes 1{tbl} Take 1 Uni vers 1 mg tablet 0-11 tablet by ity of 00:00: mouth as [place] 00 needed. Medical Branch clonazePAM 2- Yes 1{tbl} Take 1 Uni vers 1 mg tablet 0-11 tablet by ity of 00:00: mouth as [place] 00 needed. Medical Branch clonazePAM 2-1 Yes 1mg Take 1 Unive rs 1 mg tablet 0-11 tablet by ity of 00:00: mouth as [place] 00 needed. Medical Branch clonazePAM 2021-1 Yes 1mg Take 1 Unive rs 1 mg tablet 0-11 tablet by ity of 00:00: mouth as [place] 00 needed. Medical Branch clonazePAM 2-1 Yes 1mg Take 1 Unive rs 1 mg tablet 0-11 tablet by ity of 00:00: mouth as [place] 00 needed. Medical Branch clonazePAM 2021-1 Yes 1mg Take 1 Unive rs 1 mg tablet 0-11 tablet by ity of 00:00: mouth as [place] 00 needed. Medical Branch clonazePAM 2021-1 Yes 1mg Take 1 Unive rs 1 mg tablet 0-11 tablet by ity of 00:00: mouth as [place] 00 needed. Medical Branch clonazePAM 2021-1 Yes 1mg Take 1 Unive rs 1 mg tablet 0-11 tablet by ity of 00:00: mouth as [place] 00 needed. Medical Branch clonazePAM 2021-1 Yes 1mg Take 1 Unive rs 1 mg tablet 0-11 tablet by ity of 00:00: mouth as [place] 00 needed. Medical Branch clonazePAM 2021-1 Yes 1mg Take 1 Unive rs 1 mg tablet 0-11 tablet by ity of 00:00: mouth as [place] 00 needed. Medical Branch clonazePAM 2-1 Yes 1mg Take 1 Unive rs 1 mg tablet 0-11 tablet by ity of 00:00: mouth as [place] 00 needed. Medical Branch clonazePAM 2-1 Yes 1mg Take 1 Unive rs 1 mg tablet 0-11 tablet by ity of 00:00: mouth as [place] 00 needed. Medical Branch clonazePAM 2-1 Yes 1mg Take 1 Unive rs 1 mg tablet 0-11 tablet by ity of 00:00: mouth as [place] 00 needed. Medical Branch clonazePAM 2-1 Yes 1mg Take 1 Unive rs 1 mg tablet 0-11 tablet by ity of 00:00: mouth as [place] 00 needed. Medical Branch clonazePAM 2-1 Yes 1mg Take 1 Unive rs 1 mg tablet 0-11 tablet by ity of 00:00: mouth as [place] 00 needed. Medical Branch clonazePAM 2022-1 Yes 1mg Take 1 Unive rs 1 mg tablet 0-11 tablet by ity of 00:00: mouth as [place] 00 needed. Medical Branch clonazePAM 2021-03 Yes 1mg Take 1 Unive rs 1 mg tablet 0-11 tablet by ity of 00:00: mouth as [place] 00 needed. Medical Branch clonazePAM 2021-03 Yes 1mg Take 1 Unive rs 1 mg tablet 0-11 tablet by ity of 00:00: mouth as [place] 00 needed. Medical Branch clonazePAM 2021-03 Yes 1mg Take 1 Unive rs 1 [...] as [place] 00 needed. Medical Branch temazepam 2022-0 Yes 1{capsu Take 1 Uni vers 15 [...] 00 needed. Medical Branch temazepam 2-0 Yes 15mg Take 1 Univer s 15 mg 9-20 capsule by ity of capsule 00:00: mouth as [place] 00 needed. Medical Branch temazepam 2-0 Yes 15mg Take 1 Univer s 15 mg 9-20 capsule by ity of capsule 00:00: mouth as [place] 00 needed. Medical Branch temazepam 2-0 Yes 15mg Take 1 Univer s 15 mg 9-20 capsule by ity of capsule 00:00: mouth as [place] 00 needed. Medical Branch temazepam 2-0 Yes 15mg Take 1 Univer s 15 mg 9-20 capsule by ity of capsule 00:00: mouth as [place] 00 needed. Medical Branch temazepam 2022-0 Yes 15mg Take 1 Univer s 15 mg 9-20 capsule by ity of capsule 00:00: mouth as [place] 00 needed. Medical Branch temazepam 2-0 Yes 15mg Take 1 Univer s 15 mg 9-20 capsule by ity of capsule 00:00: mouth as [place] 00 needed. Medical Branch temazepam 2-0 Yes 15mg Take 1 Univer s 15 mg 9-20 capsule by ity of capsule 00:00: mouth as [place] 00 needed. Medical Branch temazepam 2-0 Yes 15mg Take 1 Univer s 15 mg 9-20 capsule by ity of capsule 00:00: mouth as [place] 00 needed. Medical Branch temazepam 2-0 Yes 15mg Take 1 Univer s 15 mg 9-20 capsule by ity of capsule 00:00: mouth as [place] 00 needed. Medical Branch temazepam 2-0 Yes 15mg Take 1 Univer s 15 mg 9-20 capsule by ity of capsule 00:00: mouth as [place] 00 needed. Medical Branch temazepam 2021-0 Yes 15mg Take 1 Univer s 15 mg 9-20 capsule by ity of capsule 00:00: mouth as [place] 00 needed. Medical Branch temazepam 2-0 Yes 15mg Take 1 Univer s 15 mg 9-20 capsule by ity of capsule 00:00: mouth as [place] 00 needed. Medical Branch temazepam 2-0 Yes 15mg Take 1 Univer s 15 mg 9-20 capsule by ity of capsule 00:00: mouth as [place] 00 needed. Medical Branch temazepam 2-0 Yes 15mg Take 1 Univer s 15 [...] Medic al 44 bipolar Center disorder, adjunct lamoTRIgine 2019-03 Yes 150mg QD Take 150 [...] bipolar Center disorder, adjunct Immunizations Ordered Filled Date Status Comments Source Immunization Name Immunization Name SARS-COV-2 COVID-19 2021-12-11 Completed Unive rsity [...] and ABX Branch Free 6 MO-64 YRS (FLUCELVAX) SARS-COV-2 COVID-19 2021-12-11 Completed Unive rsity of VACCINE 12 YRS+, 00:00:00 [place] [facility] dical BIVALENT 0.5ML, IM, Branc h (MODERNA-BLUE TOP) Influenza Virus 2021-12-11 Completed Universit y of [facility] IM, 00:00:00 [place] [facility] Preserv and ABX Branch Free 6 MO-64 YRS (FLUCELVAX) SARS-COV-2 COVID-19 2021-12-11 Completed Unive rsity of VACCINE 12 YRS+, 00:00:00 [place] [facility] BIVALENT 0.5ML, IM, Branc h (MODERNA-BLUE TOP) Influenza Virus 2021-12-11 Completed Universit y of [facility] IM, 00:00:00 [place] [facility] Preserv and ABX Branch Free 6 MO-64 YRS (FLUCELVAX) SARS-COV-2 COVID-19 2021-12-11 Completed Unive rsity of VACCINE 12 YRS+, 00:00:00 [place] [facility] BIVALENT 0.5ML, IM, Branc h (MODERNA-BLUE TOP) Influenza Virus 2021-12-11 Completed Universit y of [facility] IM, 00:00:00 [place] [facility] Preserv and ABX Branch Free 6 MO-64 YRS (FLUCELVAX) SARS-COV-2 COVID-19 2021-12-11 Completed Unive rsity of [...] YRS 00:00:00 [place] [facility] ical VACCINE Branch Influenza Four-QIV 2019-12-[address] [facility] PF 3YR+ ([id number]) 00:00:00 [facility] [place] Influenza Virus 2019-12-15 Completed Universit y of Vaccine [facility] IM 3+ 00:00:00 [facility] Influenza Virus 2019-12-15 Completed Universit y of [facility]ine [facility] IM 3+ 00:00:00 [facility] Influenza Virus 2019-12-15 Completed Universit y of [facility] IM 3+ 00:00:00 [facility] Influenza Virus 2019-12-15 Completed Universit y of [facility] IM 3+ 00:00:00 [facility] Influenza Virus 2019-12-15 Completed Universit y of [facility] IM 3+ 00:00:00 [facility] Influenza Virus 2019-12-15 Completed Universit y of [facility] IM 3+ 00:00:00 [facility] Influenza Virus 2019-12-15 Completed Universit y of [facility] IM 3+ 00:00:00 [facility] Influenza Virus 2019-12-15 Completed Universit y of [facility] IM 3+ 00:00:00 [facility] Influenza Virus 2019-12-15 Completed Universit y of Vaccine [facility] IM 3+ 00:00:00 [facility] TDAP 2016-03-03 Completed University of 00:00:00 [facility] TDAP 2016-03-03 Completed University of 00:00:00 [facility] TDAP 2016-03-03 Completed University of 00:00:00 [facility] TDAP 2016-03-03 Completed University of 00:00:00 [facility] TDAP 2016-03-03 Completed University of 00:00:00 [facility] TDAP 2016-03-03 Completed University of 00:00:00 [facility] TDAP 2016-03-03 Completed University of 00:00:00 [facility] TDAP 2016-03-03 Completed University of 00:00:00 [facility] TDAP 2016-03-03 Completed University of 00:00:00 [facility] TDAP 2016-03-03 Completed University of 00:00:00 [facility] TDAP 2016-03-03 Completed University of 00:00:00 [facility] TDAP 2016-03-03 Completed University of 00:00:00 [facility] TDAP 2016-03-03 Completed University of 00:00:00 [facility] TDAP 2016-03-03 Completed University of 00:00:00 [facility] TDAP 2016-03-03 Completed University of 00:00:00 [facility] TDAP 2016-03-03 Completed University of 00:00:00 [facility] TDAP 2016-03-03 Completed University of 00:00:00 [facility] TDAP 2016-03-03 Completed University of 00:00:00 [facility] TDAP 2016-03-03 Completed University of 00:00:00 [facility] TDAP 2016-03-03 Completed University of 00:00:00 [facility] TDAP 2016-03-03 Completed University of 00:00:00 [facility] TDAP 2016-03-03 Completed University of 00:00:00 [facility] TDAP 2016-03-03 Completed University of 00:00:00 [facility] TDAP 2016-03-03 Completed University of 00:00:00 [facility] TDAP 2016-03-03 Completed University of 00:00:00 [facility] TDAP 2016-03-03 Completed University of 00:00:00 [facility] TDAP 2016-03-03 Completed University of 00:00:00 [facility] TDAP 2016-03-03 Completed University of 00:00:00 [facility] TDAP 2016-03-03 Completed University of 00:00:00 [facility] TDAP 2016-03-03 Completed University of 00:00:00 [facility] TDAP 2016-03-03 Completed University of 00:00:00 [facility] TDAP 2016-03-03 Completed University of 00:00:00 [facility] TDAP 2016-03-03 Completed University of 00:00:00 [facility] TDAP Unknown Completed [facility] [place] SARS-COV-2 COVID-19 Unknown Completed Unive rsity of MODERNA 12+ YRS [facility] ical VACCINE Branch SARS-COV-2 COVID-19 Unknown Completed Unive rsity of MODERNA 12+ YRS [place] [facility] ical VACCINE Branch Influenza Virus Unknown Completed Universit y of Vaccine [facility] IM, [place] [facility] Preserv and ABX Branch Free 6 MO-64 YRS (FLUCELVAX) SARS-COV-2 COVID-19 Unknown Completed Unive rsity of VACCINE 12 YRS+, [place] Me dical BIVALENT 0.5ML, IM, Branc h (MODERNA-BLUE TOP) Influenza Virus Unknown Completed Universit y of Vaccine [facility] IM 3+ [place] [facility] YRS Branch TDAP Unknown Completed [facility] SARS-COV-2 COVID-19 Unknown Completed Unive rsity of MODERNA 12+ YRS [facility] VACCINE Branch SARS-COV-2 COVID-19 Unknown Completed Unive rsity of MODERNA 12+ YRS [facility] VACCINE Branch Influenza Virus Unknown Completed Universit y of Vaccine [facility] IM, [place] Me dical Preserv and ABX Branch Free 6 MO-64 YRS (FLUCELVAX) SARS-COV-2 COVID-19 Unknown Completed Unive rsity of VACCINE 12 YRS+, [place] Me [facility] BIVALENT 0.5ML, IM, Branc h (MODERNA-BLUE TOP) Influenza Virus Unknown Completed Universit y of Vaccine [facility] IM 3+ [facility] TDAP Unknown Completed [facility] SARS-COV-2 COVID-19 Unknown Completed Unive rsity of MODERNA 12+ YRS [facility] VACCINE Branch SARS-COV-2 COVID-19 Unknown Completed Unive rsity of MODERNA 12+ YRS [facility] VACCINE Branch Influenza Virus Unknown Completed Universit y of Vaccine [facility] IM, [place] [facility] Preserv and ABX Branch Free 6 MO-64 YRS (FLUCELVAX) SARS-COV-2 COVID-19 Unknown Completed Unive rsity of VACCINE 12 YRS+, [place] Me [facility]ical BIVALENT 0.5ML, IM, Branc h (MODERNA-BLUE TOP) Influenza Virus Unknown Completed Universit y of Vaccine [facility] IM 3+ [facility] SARS-COV-2 COVID 19 Unknown Completed Unive rsity of BERNICE SUCROSE [place] [facility] l VACCINE 12+, Branch [id number], 0.3 ML (30 MCG), IM PFIZER (STARR TOP) TDAP Unknown Completed [facility] SARS-COV-2 COVID-19 Unknown Completed Unive rsity of MODERNA 12+ YRS [facility] VACCINE Branch SARS-COV-2 COVID-19 Unknown Completed Unive rsity of MODERNA 12+ YRS [facility] VACCINE Branch Influenza Virus Unknown Completed Universit y of Vaccine [facility] IM, [place] [facility] Preserv and ABX Branch Free 6 MO-64 YRS (FLUCELVAX) SARS-COV-2 COVID-19 Unknown Completed Unive rsity of VACCINE 12 YRS+, [place] Me dical BIVALENT 0.5ML, IM, Branc h (MODERNA-BLUE TOP) Influenza Virus Unknown Completed Universit y of Vaccine Quad IM 3+ [facility] Branch SARS-COV-2 COVID 19 Unknown Completed Unive rsity of BERNICE SUCROSE [place] [facility] VACCINE 12+, Branch [id number], 0.3 ML (30 MCG), IM PFIZER (STARR TOP) TDAP Unknown Completed [facility] SARS-COV-2 COVID-19 Unknown Completed Unive rsity of MODERNA 12+ YRS [facility] VACCINE Branch SARS-COV-2 COVID-19 Unknown Completed Unive rsity of MODERNA 12+ YRS [facility] VACCINE Branch Influenza Virus Unknown Completed Universit y of Vaccine [facility] IM, [place] Me dical Preserv and ABX Branch Free 6 MO-64 YRS (FLUCELVAX) SARS-COV-2 COVID-19 Unknown Completed Unive rsity of VACCINE 12 YRS+, [place] Me dical BIVALENT 0.5ML, IM, Branc h (MODERNA-BLUE TOP) Influenza Virus Unknown Completed Universit y of Vaccine [facility] IM 3+ [facility] SARS-COV-2 COVID 19 Unknown Completed Unive rsity of BERNICE SUCROSE [place] [facility] VACCINE 12+, Branch [id number], 0.3 ML (30 MCG), IM PFIZER (STARR TOP) TDAP Unknown Completed [facility] SARS-COV-2 COVID-19 Unknown Completed Unive rsity of MODERNA 12+ YRS [facility] VACCINE Branch SARS-COV-2 COVID-19 Unknown Completed Unive rsity of MODERNA 12+ YRS [facility] VACCINE Branch Influenza Virus Unknown Completed Universit y of Vaccine [facility] IM, [place] [facility] Preserv and ABX Branch Free 6 MO-64 YRS (FLUCELVAX) SARS-COV-2 COVID-19 Unknown Completed Unive rsity of VACCINE 12 YRS+, [place] Me dical BIVALENT 0.5ML, IM, Branc h (MODERNA-BLUE TOP) Influenza Virus Unknown Completed Universit y of Vaccine [facility] IM 3+ [facility] Branch SARS-COV-2 COVID 19 Unknown Completed Unive rsity of BERNICE SUCROSE [place] [facility]ica l VACCINE 12+, Branch [id number], 0.3 ML (30 MCG), IM PFIZER (STARR TOP) Influenza Four-QIV Unknown Completed [facility] 3YR+ ([id number]) Medical Center Vital Signs Vital Name Observation Time Observation Value Comments Source HEIGHT 2019-12-14 17:00:00 167.6 cm WEIGHT 2019-12-14 17:00:00 80.74 kg Systolic blood 2023-01-01 15:17:00 93 mm[Hg] Univer sity of pressure [place] [facility] Diastolic blood 2023-01-01 15:17:00 70 mm[Hg] Unive rsity of pressure [place] [facility] Heart rate 2023-01-01 15:17:00 68 /min Universi ty of [place] [facility] Respiratory rate 2023-01-01 15:17:00 15 /min Univ ersity of [place] [facility] Oxygen saturation in 2023-01-01 15:17:00 96 /min University of Arterial blood by [place] [facility]ang Pulse oximetry Branch Body temperature 2023-01-01 14:14:00 36.56 [place] Univ ersity of [place] [facility] Systolic blood 2022-12-25 20:33:00 125 mm[Hg] Univer sity of pressure [place] [facility] Diastolic blood 2022-12-25 20:33:00 70 mm[Hg] Unive rsity of pressure [place] [facility] Heart rate 2022-12-25 20:33:00 70 /min [facility]i ty [facility] [place] [facility] Body temperature 2022-12-25 20:33:00 36.44 Carolynn Univ ersity of [place] [facility] Body height 2022-12-25 20:33:00 167.6 cm [facility] [place] [facility] Body weight 2022-12-25 20:33:00 83.553 kg [facility] [place] [facility] BMI 2022-12-25 20:33:00 29.73 kg/m2 [facility] [place] [facility] Oxygen saturation in 2022-12-25 20:33:00 99 /min University of Arterial blood by [place] [facility]ang Pulse oximetry Branch Systolic blood 2022-11-05 19:32:00 129 mm[Hg] Univer sity of pressure [place] [facility] Diastolic blood 2022-11-05 19:32:00 68 mm[Hg] Unive rsity of pressure [place] [facility] Heart rate 2022-11-05 19:32:00 73 /min [facility] [place] [facility] Body temperature 2022-11-05 19:32:00 36.83 Carolynn Univ ersity of [place] [facility] Body height 2022-11-05 19:32:00 167.6 cm [facility]i ty [facility] [place] [facility] Body weight 2022-11-05 19:32:00 83.734 kg [facility] [place] [facility] BMI 2022-11-05 19:32:00 29.80 kg/m2 [facility] [place] [facility] Oxygen saturation in 2022-11-05 19:32:00 95 /min University of Arterial blood by [place] [facility] Pulse oximetry Branch Systolic blood 2022-10-28 15:30:00 129 mm[Hg] Univer sity of pressure [place] [facility] Diastolic blood 2022-10-28 15:30:00 74 mm[Hg] Unive rsity of pressure [place] [facility] Heart rate 2022-10-28 15:20:00 64 /min [facility]i ty [facility] [place] [facility] Body height 2022-10-28 15:20:00 167.6 cm [facility] [place] [facility] Body weight 2022-10-28 15:20:00 85.095 kg [facility] [place] [facility] BMI 2022-10-28 15:20:00 30.28 kg/m2 [facility] [place] [facility] Oxygen saturation in 2022-10-28 15:20:00 97 /min University of Arterial blood by [place] [facility] Pulse oximetry Branch Systolic blood 2022-08-24 18:27:00 118 mm[Hg] Univer sity of pressure [place] [facility] Diastolic blood 2022-08-24 18:27:00 70 mm[Hg] Unive rsity of pressure [place] [facility] Heart rate 2022-08-24 18:27:00 77 /min [facility]i [facility] [place] [facility] Body temperature 2022-08-24 18:27:00 36.61 Carolynn Univ ersity of [place] [facility] Respiratory rate 2022-08-24 18:27:00 16 /min Univ ersity of [place] [facility] Body height 2022-08-24 18:27:00 167.6 cm [facility] [place] [facility] Body weight 2022-08-24 18:27:00 83.462 kg [facility] [place] [facility] BMI 2022-08-24 18:27:00 29.70 kg/m2 [facility] [place] [facility] Oxygen saturation in 2022-08-24 18:27:00 99 /min University of Arterial blood by [facility] devang Pulse oximetry Branch Systolic blood 2022-07-21 18:35:00 104 mm[Hg] Univer sity of pressure [place] [facility] Diastolic blood 2022-07-21 18:35:00 65 mm[Hg] Unive rsity of pressure [place] [facility] Heart rate 2022-07-21 18:35:00 73 /min [facility] [place] [facility] Body height 2022-07-21 18:35:00 167.6 cm [facility] [place] [facility] Body weight 2022-07-21 18:35:00 83.19 kg [facility]i [facility] [place] [facility] BMI 2022-07-21 18:35:00 29.60 kg/m2 [facility] [place] [facility] Oxygen saturation in 2022-07-21 18:35:00 98 /min University of Arterial blood by [facility] Pulse oximetry Branch Systolic blood 2022-06-25 18:12:00 118 mm[Hg] Univer sity of pressure [place] [facility] Diastolic blood 2022-06-25 18:12:00 70 mm[Hg] Unive rsity of pressure [place] [facility] Heart rate 2022-06-25 18:12:00 60 /min [facility] [place] [facility] Body temperature 2022-06-25 18:12:00 36.78 Carolynn Univ ers[facility] of [place] [facility] Body height 2022-06-25 18:12:00 167.6 cm [facility] [place] [facility] Body weight 2022-06-25 18:12:00 83.915 kg [facility] [place] [facility] BMI 2022-06-25 18:12:00 29.86 kg/m2 [facility] [place] [facility] Oxygen saturation in 2022-06-25 18:12:00 100 /min University of Arterial blood by [facility] devang Pulse oximetry Branch Systolic blood 2022-01-30 16:35:00 134 mm[Hg] Univer sity of pressure [place] [facility] Diastolic blood 2022-01-30 16:35:00 59 mm[Hg] Unive rsity of pressure [place] [facility] Heart rate 2022-01-30 16:35:00 64 /min [facility] [place] [facility] Respiratory rate 2022-01-30 16:35:00 16 /min Univ ersity of [place] [facility] Oxygen saturation in 2022-01-30 16:35:00 100 /min University of Arterial blood by [place] [facility] Pulse oximetry Branch Body temperature 2022-01-30 14:06:00 37.11 Carolynn Univ ers[facility] [place] [facility] Body weight 2022-01-21 20:00:00 79.833 kg [facility] [place] [facility] BMI 2022-01-21 20:00:00 27.98 kg/m2 [facility] [place] [facility] Systolic blood 2022-01-30 16:35:00 134 mm[Hg] Univer sity of pressure [place] [facility] Diastolic blood 2022-01-30 16:35:00 59 mm[Hg] Unive rsity of pressure [place] [facility] Heart rate 2022-01-30 16:35:00 64 /min [facility] [place] [facility] Respiratory rate 2022-01-30 16:35:00 16 /min Univ ersity of [place] [facility] Oxygen saturation in 2022-01-30 16:35:00 100 /min University of Arterial blood by [place] [facility] Pulse oximetry Branch Body temperature 2022-01-30 14:06:00 37.11 [place]ynn Univ ers[facility] [place] [facility] Body weight 2022-01-21 20:00:00 79.833 kg [facility] [place] [facility] BMI 2022-01-21 20:00:00 27.98 kg/m2 [facility] [place] [facility] Systolic blood 2022-01-09 16:06:00 128 mm[Hg] Univer sity of pressure [place] [facility] Diastolic blood 2022-01-09 16:06:00 65 mm[Hg] Unive rsity of pressure [place] [facility] Respiratory rate 2022-01-09 16:03:00 13 /min Univ ersity of [place] [facility] Heart rate 2022-01-09 16:02:00 64 /min [facility] [place] [facility] Oxygen saturation in 2022-01-09 16:02:00 96 /min University of Arterial blood by [place] [facility] Pulse oximetry Branch Body temperature 2022-01-09 15:31:00 36.72 Carolynn Univ [facility] [place] [facility] Body height 2021-12-30 15:19:00 152.4 cm [facility] [place] [facility] Body weight 2021-12-30 15:19:00 83 kg [facility] [place] [facility] BMI 2021-12-30 15:19:00 35.74 kg/m2 [facility] [place] [facility] Systolic blood 2022-01-09 12:49:00 108 mm[Hg] Univer sity of pressure [place] [facility] Diastolic blood 2022-01-09 12:49:00 53 mm[Hg] Unive rsity of pressure [place] [facility] Heart rate 2022-01-09 12:49:00 64 /min [facility] [place] [facility] Body temperature 2022-01-09 12:49:00 36.78 Carolynn Univ [facility] [place] [facility] Respiratory rate 2022-01-09 12:49:00 14 /min Univ ersity of [place] [facility] Oxygen saturation in 2022-01-09 12:49:00 99 /min University of Arterial blood by [place] Pulse oximetry Branch Body height 2021-12-30 15:19:00 152.4 cm [facility] [place] [facility] Body weight 2021-12-30 15:19:00 83 kg [facility] [place] [facility] BMI 2021-12-30 15:19:00 35.74 kg/m2 [facility] [place] [facility] Systolic blood 2022-01-02 14:41:00 123 mm[Hg] Univer sity of pressure [place] [facility] Diastolic blood 2022-01-02 14:41:00 84 mm[Hg] Unive rsity of pressure [place] [facility] Heart rate 2022-01-02 14:41:00 68 /min [facility] [place] [facility] Body temperature 2022-01-02 14:41:00 36.33 [place] Univ [facility] [place] [facility] Respiratory rate 2022-01-02 14:41:00 18 /min Univ ersity of [place] [facility] Body height 2022-01-02 14:41:00 168.9 cm [facility] [place] [facility] Body weight 2022-01-02 14:41:00 81.92 kg [facility] [place] [facility] BMI 2022-01-02 14:41:00 28.71 kg/m2 [facility] [place] [facility] Oxygen saturation in 2022-01-02 14:41:00 95 /min University of Arterial blood by [facility] Pulse oximetry Branch Systolic blood 2021-12-11 18:09:00 136 mm[Hg] Univer sity of pressure [place] [facility] Diastolic blood 2021-12-11 18:09:00 71 mm[Hg] Unive rsity of pressure [facility] Heart rate 2021-12-11 18:08:00 82 /min Universi [facility] Body height 2021-12-11 18:08:00 152.4 cm Universi [facility] Body weight 2021-12-11 18:08:00 83.008 kg Universi [facility] BMI 2021-12-11 18:08:00 35.74 kg/m2 [facility] Oxygen saturation in 2021-12-11 18:08:00 98 /min [facility] Arterial blood by [facility] Pulse oximetry Branch HEIGHT 2019-12-14 17:00:00 167.6 cm WEIGHT 2019-12-14 17:00:00 80.74 kg Procedures Procedure Date / Time Performing Clinician Source Performed [place] TIME OR 2023-01-01 14:28:22 Maddie Schafer [facility] (NON-REPORTABLE) Medical [place] EXTERNAL PROVIDER 2022-12-30 05:01:00 Doctor Unassigned, No [facility] ersity [facility] RECORDS Name Medical Branch SARS-COV-2 COVID 19 BERNICE 2022-12-25 20:54:18 [facility] VACCINE 12+, Medical Bra [facility] , 0.3 ML (30 MCG), IM PFIZER (STARR TOP) CONSENT/REFUSAL FOR 2022-12-25 19:39:36 Doctor Unassigned, [facility]REATMENT Name Medical Branch ASSIGNMENT OF BENEFITS 2022-12-25 19:39:17 Doctor Unassigned, No [facility] Name Medical Branch EXTERNAL PROVIDER 2022-12-25 05:01:00 Doctor Unassigned, No [facility] Name Medical Branch EXTERNAL PROVIDER 2022-11-24 05:01:00 Doctor Unassigned, No [facility] Name Medical Branch AUTHORIZATION TO RELEASE 2022-10-28 05:01:00 Doctor Unassigned, No [facility] TO [facility] Name Medical Branch COLONOSCOPY (ENDO) 2022-01-30 15:16:30 Doctor Unassigned, No [facility] [place] Name Medical Branch COLONOSCOPY (ENDO) 2022-01-30 15:16:30 Doctor Unassigned, No Uni [facility] Medical Branch COLONOSCOPY 2022-01-30 15:14:00 Taryn Skelton [place] [facility] [place] [facility] [place] DAY SURGERY - [facility] 2022-01-30 06:01:00 Doctor Unassigned, No Univ ersity of [facility] Medical Branch METATARSAL OSTEOTOMY 2022-01-09 13:45:00 Maddie Schafer [facility] [place] DAY SURGERY - [facility] 2022-01-09 06:01:00 Doctor Unassigned, No [facility] AUTHORIZATION TO RELEASE 2022-01-02 05:01:00 Doctor Unassigned, No [facility] TO [facility] Name Medical Branch AUTHORIZATION TO RELEASE 2022-01-02 05:01:00 Doctor Unassigned, No [facility] PH[facility] TO [facility] Medical Branch EXTERNAL PROVIDER 2021-12-30 05:01:00 Doctor Unassigned, No [facility] [employer] [facility] [employer] [facility] Medical Branch EXTERNAL PROVIDER 2021-12-30 05:01:00 Doctor Unassigned, No [facility] [place] CBC WITH DIFF 2021-12-15 16:58:00 [facility] o [facility] FLU VACC ([id number]), 6 2021-12-11 18:49:11 [facility] MO-64 YRS, .5ML, IM, Medical Bra n[place] QUAD (FLUCELVAX) SARS-COV-2 COVID-19 2021-12-11 18:49:11 [facility] VACCINE 18 YRS+, Medical Branch BIVALENT 0.5ML, IM (MODERNA BOOSTER) HB ECG ROUTINE & RHYTHM 2021-12-11 18:08:41 [facility] Medical Branch MEDICAL 2021-12-07 05:01:00 Doctor Unassigned, No [facility] RELEASE/CLEARANCE FORMS [facility] Plan of Care Planned Activity Planned Date Details Comments Source Future Scheduled 2022-10-30 Influenza Vaccine (#1) [facility] 00:00:00 [code = Influenza Vaccine [facility] (#1)] Future Scheduled 2022-10-30 Influenza Vaccine (#1) [facility] 00:00:00 [code = Influenza Vaccine [facility] (#1)] Future Scheduled 2021-01-[address] [facility] Test 00:00:00 Counseling and Screening [facility] (12+) [code = Tobacco Cessation Counseling and Screening (12+)] Future Scheduled 2021-01-[address] [facility] Test 00:00:00 Counseling and Screening [facility] (12+) [code = Tobacco Cessation Counseling and Screening (12+)] Future Scheduled 2010 SHINGLES VACCINES ([address] [facility] Test 00:00:00 2) [code = SHINGLES Medical Center VACCINES (1 of 2)] Future Scheduled 2010 SHINGLES VACCINES ([address] [facility] Test 00:00:00 2) [code = SHINGLES Medical Center VACCINES (1 of 2)] Future Scheduled 2005 Lipid panel (procedure) [facility] Test 00:00:00 [code = 69574055] Medical Ce nter Future Scheduled 2005 Lipid panel (procedure) [facility] 00:00:00 [code = 19024036] Medical Ce nter Future Scheduled 1981 Screening for malignant [facility] 00:00:00 neoplasm of cervix Medical C enter (procedure) [code = 600908719] Future Scheduled 1981 Screening for malignant [facility] 00:00:00 neoplasm of cervix Medical C enter (procedure) [code = 576744323] Future Scheduled 1979-06-03 DTAP/TDAP/TD VACCINES ([address] [facility] 00:00:00 - Tdap) [code = Medical Cent er DTAP/TDAP/TD VACCINES (1 - Tdap)] Future Scheduled 1979-06-03 DTAP/TDAP/TD VACCINES ([address] [facility] 00:00:00 - Tdap) [code = Medical Cent er DTAP/TDAP/TD VACCINES (1 - Tdap)] Future Scheduled 1978 HEPATITIS C [facility]CRE[facility]ING [facility] 00:00:00 [code = HEPATITIS C Medical Center SCREENING] Future Scheduled 1978 HEPATITIS C [facility]:00 [code = HEPATITIS C Medical Center SCREENING] Future Scheduled 1975-06-03 Human immunodeficiency [facility]00 virus screening Medical Cent er (procedure) [code = 619543870] Future Scheduled 1975-06-[address] Human immunodeficiency [facility] 00:[facility]:00 virus screening Medical Cent er (procedure) [code = 076287440] Future Scheduled 1960 COVID-19 VACCINE (#1) [facility] 00:[facility]:00 [code = COVID-19 VACCINE Med ical Center (#1)] Future Scheduled 1960 COVID-19 VACCINE (#1) [facility] 00:00:00 [code = COVID-19 VACCINE Med ical Center (#1)] Future Scheduled 1960 Screening for malignant [facility] 00:00:00 neoplasm of breast Medical C enter (procedure) [code = 652306495] Future Scheduled 1960 CT Colonography (combo) [facility] 00:00:00 [code = CT Colonography [facility] (combo)] Future Scheduled 1960 Screening for malignant [facility] 00:00:00 neoplasm of colon Medical Ce nter (procedure) [code = 126297967] Future Scheduled 1960 Screening for malignant [facility] 00:00:00 neoplasm of colon Medical Ce nter (procedure) [code = 852170660] Future Scheduled 1960 Screening for malignant [facility] 00:00:00 neoplasm of colon Medical Ce nter (procedure) [code = 833560643] Future Scheduled 1960 Screening for malignant [facility] 00:00:00 neoplasm of colon Medical Ce nter (procedure) [code = 330485776] Future Scheduled 1960 Sigmoidoscopy [code = [facility] S[facility]oidoscopy] Medical Cente r Future Scheduled 1960 Screening for malignant [facility] 00:00:00 neoplasm of breast Medical C enter (procedure) [code = 344607290] Future Scheduled 1960 CT Colonography (combo) [facility] 00:00:00 [code = CT Colonography [facility] (combo)] Future Scheduled 1960 Screening for malignant [facility] 00:00:00 neoplasm of colon Medical Ce nter (procedure) [code = 565263051] Future Scheduled 1960 Screening for malignant [facility] 00:00:00 neoplasm of colon Medical Ce nter (procedure) [code = 886210342] Future Scheduled 1960 Screening for malignant [facility] 00:00:00 neoplasm of colon Medical Ce nter (procedure) [code = 727302652] Future Scheduled 1960 Screening for malignant [facility] 00:00:00 neoplasm of colon Medical Ce nter (procedure) [code = 476805940] Future Scheduled 1960 Sigmoidoscopy [code = [facility] Sigmoidoscopy] Medical Cente r Encounters Start End Encounter Admission Attending Care Care Encounter Source Date/Time Date/Time Type Type Clinicians Facility Department ID 2021-03-26 [facility] [id number] Common 14:19:10 Maria Esther [id number] [facility] 2019-12-14 Inpatient ER WILIAM, [facility] Neurosurger [id number] [facility] 16:09:00 CHIMKAMA y 2023-02-23 2023-02-23 Outpatient R GISELL VALENTIN [facility] [id number] Univers 08:00:00 08:00:00 GISELL VALENTIN [facility] 2023-01-01 2023-01-01 [facility] [id number] Univers 06:58:00 10:34:00 MADDIE bocanegra of [facility] 2023-01-01 2023-01-01 [facility] 1.2.840.114 [id number] Univers 06:58:00 10:34:00 Encounter Maddie LOWRY 350.1.13.10 ity of [place] 4.2.7.2.686 Clarissa s SURGICAL [id number] [place] [id number] [place] 2022-12-30 2022-12-30 Orders Doctor GARBER 1.2.840.114 [id number] Univers 00:00:00 00:00:00 Only Unassigned, DAMARIS 350.1.13.10 [place] [facility] 4.2.7.2.686 Rudy as [phone] [address] 2022-12-25 2022-12-25 Outpatient R GISELL VALENTIN [facility] [id number] Univers 15:00:00 16:05:50 GISELL VALENTIN [facility] 2022-12-25 2022-12-25 Office [facility] 1.2.840.114 [id number] Univers 15:00:00 16:05:50 Visit [facility] 350.1.13.10 ity of [place] 4.2.7.2.686 Rudy as JULIO?BLEA [id number] [address] MEDICAL OFFICE BUILDING 2022-12-25 2022-12-25 Orders Doctor JCARLOS 1.2.840.114 [id number] Univers 00:00:00 00:00:00 Only Unassigned, DAMARIS 350.1.13.10 [place] [facility] 4.2.7.2.686 Rudy as [id number] [address] 2022-11-30 2022-11-30 Outpatient R NORMACARRIE PelletierINE [facility] [id number] Univers 15:40:00 15:40:00 GISELL VALENTIN [facility] 2022-11-24 2022-11-24 Orders Doctor JCARLOS 1.2.840.114 [id number] Univers 00:00:00 00:00:00 Only Unassigned, DAMARIS 350.1.13.10 [place] [facility] 4.2.7.2.686 Rudy as [id number] [address] 2022-11-13 2022-11-13 Outpatient R CARRIE VALENTININE [facility] [id number] Univers 00:00:00 00:00:00 GISELL VALENTIN [facility] 2022-11-11 2022-11-11 Refill [facility] 1.2.840.114 [id number] Univers 00:00:00 00:00:00 [facility] 350.1.13.10 ity of [place] 4.2.7.2.686 Rudy as JULIO?BLEA [id number] [address] MEDICAL OFFICE BUILDING 2022-11-05 2022-11-05 Outpatient R NORMACARRIE PelletierINE [facility] [id number] Univers 14:40:00 14:54:10 NORMACARRIE PelletierINE [facility] 2022-11-05 2022-11-05 Office [facility] 1.2.840.114 [id number] Univers 14:40:00 14:54:10 Visit [facility] 350.1.13.10 ity of [place] 4.2.7.2.686 Rudy as JULIO?BLEA [id number] [address] MEDICAL OFFICE [facility] 2022-10-28 2022-10-28 Outpatient R HOMERO GISELL [facility] [id number] Univers 10:40:00 11:11:30 [facility] 2022-10-28 2022-10-28 Office [facility] 1.2.840.114 [id number] Univers 10:40:00 11:11:30 Visit [facility] 350.1.13.10 ity of [place] 4.2.7.2.686 Rudy as JULIO?BLEA [id number] [address] MEDICAL OFFICE [facility] 2022-10-28 2022-10-28 Orders Doctor JCARLOS 1.2.840.114 [id number] Univers 00:00:00 00:00:00 Only Unassigned, DAMARIS 350.1.13.10 [place] [facility] 4.2.7.2.686 Rudy as [id number] [address] 2022-10-27 2022-10-27 Refill [facility] 1.2.840.114 [id number] Univers 00:00:00 00:00:00 Gisell HEALTH 350.1.13.10 ity of [place] 4.2.7.2.686 Rudy as JULIO?BLEA [id number] [address] MEDICAL OFFICE [facility] 2022-10-20 2022-10-20 Outpatient R NORMAVahe GISELL [facility] [id number] Univers 14:20:00 14:20:00 HOMERO GISELL [facility] 2022-08-24 2022-08-24 Outpatient R GISELL VALENTIN [facility] [id number] Univers 13:40:00 14:28:19 GISELL VALENTIN [facility] 2022-08-24 2022-08-24 Office [facility] 1.2.840.114 [id number] Univers 13:40:00 14:28:19 Visit [facility] 350.1.13.10 [facility] 4.2.7.2.686 Rudy as JULIO?BLEA [id number] [address] MEDICAL OFFICE [facility] 2022-08-11 2022-08-11 Outpatient R NORMACARRIE PelletierINE [facility] [id number] Univers 10:20:00 10:20:00 NORMACARRIE PelletierINE sahra [facility] 2022-07-21 2022-07-21 Outpatient R NORMAVaheGISELL [facility] [id number] Univers 14:11:04 23:59:00 HOMEROCARRIEGISELL sahra [facility] 2022-07-21 2022-07-21 Office [facility] 1.2.840.114 [id number] Univers 13:40:00 14:14:12 Visit [facility] 350.1.13.10 [facility] 4.2.7.2.686 Rudy as JULIO?BLEA [id number] [address] MEDICAL OFFICE [facility] 2022-06-25 2022-06-25 Office [facility] 1.2.840.114 [id number] Univers 13:20:00 13:40:00 Visit [place] 350.1.13.10 ity of [place] 4.2.7.2.686 Rudy as JULIO?BLEA [id number] [address] MEDICAL OFFICE BUILDING 2022-06-25 2022-06-25 Outpatient R CARRIE VALENTININE [facility] [id number] Univers 13:20:00 13:20:00 HOMERO GISELL raymundovahe [facility] 2022-03-11 2022-03-11 Outpatient R HOMERO [facility] [id number] Univers 11:08:26 23:59:00 GISELL bocanegra [facility] 2022-03-11 2022-03-11 [facility] 1.2.840.114 [id number] Univers 11:08:26 23:59:00 Encounter Gisell LOWRY 350.1.13.10 [place] [id number] [facility] [address] 2022-02-27 2022-02-27 Telephone [facility] 1.2.614.204 [id number] Univers 00:00:00 00:00:00 [facility] 350.1.13.10 it [place].2.[place] - [id number] Med [facility] [address] 2022-01-30 2022-01-30 Outpatient R [facility] DEXTER [id number] Univers 08:02:00 10:45:00 [facility] 2022-01-30 2022-01-30 [facility] 1.2.840.114 [id number] Univers 08:02:00 10:45:00 Encounter Taryn LOWRY 350.1.13.10 [place] of [place] [id number] [facility] [address] 2022-01-30 2022-01-30 Surgery [facility] 1.2.840.114 [id number] Univers 09:25:00 10:42:00 Taryn LOWRY 350.1.13.10 i ty of [place] [id number] [facility] [address] 2022-01-30 2022-01-30 Orders Doctor JCARLOS 1.2.840.114 [id number] Univers 00:00:00 00:00:00 Only Unassigned, DAMARIS 350.1.13.10 [place] [facility] 4.2.7.2.686 Rudy as [id number] [facility] [address] 2022-01-09 2022-01-09 Outpatient Al SCHAFER [facility] SOR [id number] Univers 06:39:00 10:17:00 MADDIE bocanegra [facility] 2022-01-09 2022-01-09 Hospital [facility] 1.2.840.114 [id number] Univers 06:39:00 10:17:00 Encounter Maddie Aguila ALEN 350.1.13.10 it[facility] 4.2.7.2.[place] [id number] [facility] [address] [place] 2022-01-09 2022-01-09 Surgery [facility] 1.2.840.114 [id number] Univers 07:15:00 08:52:00 Maddie Aguila ALEN 350.1.13.10 i ty of [place]2.[place] [id number] [facility] [address] [place] 2022-01-09 2022-01-09 Orders Doctor JCARLOS 1.2.840.114 [id number] Univers 00:00:00 00:00:00 Only Unassigned, DAMARIS 350.1.13.10 [place] [facility] 4.2.7.2.686 Rudy as [id number] [address] 2022-01-02 2022-01-02 [facility] [id number] Univers 09:30:00 10:09:45 DENISSE bocanegra o f [facility] 2022-01-02 2022-01-02 Office [facility] 1.2.840.114 [id number] Univers 09:30:00 10:09:45 Visit Denisse LOWRY 350.1.13.10 it[place] PROFESS[place] [id number] Ut dana MUSTAFA [address] [place] BUILDING 2021-12-19 2021-12-19 Telephone [facility] 1.2.164.728 [id number] Univers 00:00:00 00:00:00 [facility] 350.1.13.10 ity of [place] 4.2.7.2.686 Rudy as JULIO?BLEA [id number] Ut dana QUINONESEY [address] [place] MEDICAL OFFICE [facility] 2021-12-19 2021-12-19 Telephone [facility] 1.2.262.865 [id number] Univers 00:00:00 00:00:00 [facility] 350.1.13.10 ity of [place] 4.2.7.2.686 Rudy as JULIO?BLEA [phone] [facility] [address] [facility] OFFICE [facility] 2021-12-15 2021-12-15 Automatic Centrifugal Station Operator Lab, Ang - Db [facility] 1.2.840.1 14 [id number] Univers 11:45:00 12:00:00 Visit Homero [facility] 350.1.13.10 ity of [place] 4.2.7.2.686 Rudy as JULIO?BLEA [id number] [facility] [address] [facility] OFFICE [facility] 2021-12-15 2021-12-15 Outpatient [facility] [id number] Univers 11:45:00 11:45:00 [facility] 2021-12-11 2021-12-11 Office [facility] 1.2.840.114 [id number] Univers 13:00:00 14:24:20 Visit [facility] 350.1.13.10 ity of [place] 4.2.7.2.686 Rudy as JULIO?BLEA [id number] [address] OFFICE [facility] 2021-12-11 2021-12-11 [facility] [id number] Univers 13:00:00 14:24:20 [facility] 2021-12-07 2021-12-07 Orders Doctor JCARLOS 1.2.840.114 [id number] Univers 00:00:00 00:00:00 Only Unassigned, DAMARIS 350.1.13.10 [place] [facility] 4.2.7.2.686 Rudy as [id number] [address] 2020-01-02 2020-01-02 Outpatient EL [facility] [id number] [facility] 00:00:00 00:00:00 Results Test Description Test Time [...] L [Au tomated message] The system which [employer] nerated this result transmit ld reference range: [...] 33.3 g/dL 31.6-35.1 RDW-SD (test code = 47451-5) 43.5 fL 39-49.9 RDW-CV (test code = 788-0) 12.9 % 12-15.5 PLT (test code = 777-3) See_Comment [Au tomated message] The system which [employer] nerated this result transmit ld reference range: 166 - 35 8 10*3/?L. The reference range was not used to interpret th is result as normal/abnormal . MPV (test code = 33288-4) 11.1 fL 9.5-12.9 NRBC/100 WBC (test code = See_Comment [ Automated message] The [id number]) system which [employer] nerated this result transmit ld reference range: 0.0 - 10 .0 /100 WBCs. The reference r amaury was not used to interpr et this result as normal/abnor mal. NRBC x10^3 (test code = See_Comment [Au tomated message] The 6473534321) system which [employer] nerated this result transmit ld reference range: 10*3/?L. The reference range was not u sed to interpret this result as normal/abnormal . GRAN MAT (NEUT) % (test code 66.2 % = 770-8) IMM GRAN % (test code = 0.20 % [id number]) LYMPH % (test code = 736-9) 16.2 % MONO % (test code = 5905-5) 11.9 % EOS % (test code = 713-8) 4.7 % BASO % (test code = 706-2) 0.8 % GRAN MAT x10^3(ANC) (test 3.40 10*3/uL 1.88-7.09 code = 6322410054) IMM GRAN x10^3 (test code = 0-0.06 7772952497) LYMPH x10^3 (test code = 0.83 10*3/uL 1.32-3.29 L 731-0) MONO x10^3 (test code = 0.61 10*3/uL 0.33-0.92 742-7) EOS x10^3 (test code = 0.24 10*3/uL 0.03-0.39 711-2) BASO x10^3 (test code = 0.04 10*3/uL 0.01-0.07 704-7) Lab Interpretation (test Abnormal code = 40209-5) [facility] METABOLIC [id number] 05:32:00 Test Item Value Reference Range Interpretation [...] S NOT APPLICABLE FOR DIALYSIS PATIEN TS. Bolter Helper ID - PIAYA LCBC W/PLT COUNT & AUTO [id number] 04:53:00 Test Item Value Reference Range Interpretation [...] (test code = 2801) ANG, KYPHOPLASTY, THORACIC, [id number] 18:11:00What level(s) should be performed->I35Fjunvy for exam:->compresion fracture 50 % [facility] 1960 Sex: FFINAL REPORT History: T12 [...] deployed in the T12 vertebral body compression f racture was reduced. Approximately 3 cc of methyl [...] reported as (Ka,r): 1425 mGy Signed: Jcarlos [place] Verified Date/Time: 12/19/2019 18:11:28 Reading Location: [facility] P048 Angio Body Reading Room SARS-COV2/RT-PCR ([facility])2019-12-19 10:30:00 Test Item Value Reference Range Interpretation Comments SARS-COV2/RT-PCR (test code Negative Not Detected, Negative, = 2703167) See external report for linked test SARS-COV-2 PERFORMING LAB [facility] (test code = 7517070) Negative results do not preclude SARS-CoV-2 infection [...] of the Act.Fact Sheet for Healthcare Pro viders:https://www.IPextreme/Documents/Xpert%20Xpress%20SARS%20CoV-2/Fact%20Sh eets/302-3802%10EYCL-GSJ-0%20HEALTHCARE%20PROVIDERS%20FACT%20SHEET.pdfFact Sheet for Healthcare Patients:https://www.ENOVIX.VC4Africa/Documents/Xpert%20Xpress%20SARS%20CoV-2/Fact%20Sheets/302-3801%20SARS-COV -2%20PATIENT%20FACT%20SHEET.pdfPerforming Laboratory:[address]rich.[place], [place] [address]JQOCF METABOLIC [id number] 05:08:00 Test Item Value Reference Range Interpretation [...] S NOT APPLICABLE FOR DIALYSIS PATIEN TS. Bolter Helper ID - EDASICBC W/PLT COUNT & AUTO [id number] 04:31:00 Test Item Value Reference Range Interpretation [...] (BEAKER) (test code = 2801) BASIC METABOLIC [id number] 06:27:00 Test Item Value Reference Range Interpretation [...] S NOT APPLICABLE FOR DIALYSIS PATIEN TS. Bolter Helper ID - DBCBC W/PLT COUNT & AUTO [id number] 06:04:00 Test Item Value Reference Range Interpretation [...] (BEAKER) (test code = 2801) BASIC METABOLIC [id number] 05:22:00 Test Item Value Reference Range Interpretation [...] S NOT APPLICABLE FOR DIALYSIS PATIEN TS. Bolter Helper ID - EDASICBC W/PLT COUNT & AUTO [id number] 04:49:00 Test Item Value Reference Range Interpretation [...] (test code = 2801) MR, SPINE, THORACIC, [id number] 01:29:00Unlisted Reason for Exam - Click Yes and Enter Reason Below->YesUnlisted Reason for Exam->T12 vertebral compression fracture [facility] 1960 Sex: FFINAL REPORT MR Thoracic spine with and without contrast. CLINICAL HISTORY: Mid-back pain, compression fracture [id number] vertebral compression fracture TECHNIQUE: MRI of the [...] lordosis centered at C5-6 seen on the freelance court stenographer view. IMPRESSION: Acute compression fracture of the T12 vertebral body with 3 mm retropulsion of posterior fracture fragments into the canal resulting in mild spinal canal stenosis. There is likely disruption of the anterior longitudinal ligament at T11-12 with sprain of the posterior longitudinal ligament. No mass effect cord signal abnormality. No abnormal enhancement in the thoracic spine. Signed: Rose Avinaeport Verified Date/Time: 12/16/2019 01:29:28 BASIC METABOLIC [id number] 07:17:00 Test Item Value Reference Range Interpretation [...] S NOT APPLICABLE FOR DIALYSIS PATIEN TS. Bolter Helper ID - PIAYA LPROTHROMBIN [id number] 06:50:00 Test Item Value Reference Range Interpretation [...] mechanical heart valves.CBC W/PLT COUNT & AUTO [id number] 06:38:00 Test Item Value Reference Range Interpretation [...] code = 2801) CT, SPINE, THORACIC, WO [id number] 00:51:00Unlisted Reason for Exam - Click Yes and Enter Reason Below->No [facility] 1960 Sex: FFINAL REPORT CT Thoracic [...] T12 vertebral body with retropulsion of the p osterior fracture fragments into the canal by approximately 3 mm resulting in mild spinal canal stenosis. There is mild associated focal thoracic kyphosis at this level. Otherwise there is maintenance of the thoracic alignment and curvature. Remainder of the vertebral body heights are maintained. The v isualized soft tissues are grossly unremarkable. Bilateral lower [...] of intrathecal contrast somewhat limits evaluation of thesoft tissue contents of the central canal. Multilevel degenerative changes with disc space narrowing, facet hypertrophy and osteophytosis, worst at L2-3 where there is vacuum disc phenomenon.. Vascularcalcifications of the normal caliber thoracic aorta. IMPRESSION:Age indeterminate compression fracture of T12 with retropulsion of the posterior fracture fragments into the canal by approximately 3 mm resulting in mild spinal canal stenosis. No lumbar fracture or dislocation. 4 mm pulmonary nodule in the left upper lobe. Recommend follow-up CT chest in 12 months to ensure stability if patient is highrisk. Signed: Rose Avina MDReport Verified Date/Time: 12/15/2019 00:51:27 CT, SPINE, LUMBAR, WO [id number] 00:51:00Unlisted Reason for Exam - Click Yes and Enter Reason Below->No [facility] 1960 Sex: FFINAL REPORT CT Thoracic [...] patient is high risk. Signed: Rose Avina [facility] Verified Date/Time: 12/15/2019 00:51:27
--- NOTE | 2023-01-03 14:08 | RAD REPORT ---
EXAM DESCRIPTION: RAD - Foot Left 3 View - 01/03/2023 12:51 pm CLINICAL HISTORY: recent surgery to 1st toe, fell and hurt same toe yesterday COMPARISON: Foot Left 3 View dated 04/08/2017; Foot Left 3 View dated 07/19/2016 TECHNIQUE: Left foot, 3 views. FINDINGS: First metatarsophalangeal arthroplasty changes. On the oblique view, there is somewhat asy mmetric distraction of the lateral aspect of the proximal first digit phalanx arthroplasty component relative to the underlying bone. Small triangular fracture fragments, present along the lateral aspec t of the distal first metatarsal. No air or foreign body in the soft tissues. IMPRESSION: Distal first metatarsal periprosthetic small fractures. Asymmetric distraction between the proximal first digit phalanx arthroplasty component relative to th e underlying bone bilaterally. Please correlate with immediate postoperative appearance.
--- NOTE | 2023-01-03 14:21 | EDPHYS ---
Physician Documentation [facility] Name: Vivian Fatima Age: 62 yrs Sex: Female : 1960 Arrival Date: 01/03/2023 Time: 11:59 Bed 14 Private MD: ED Physician Sigifredo Angeles HPI: 01/03 12:49 This 62 yrs old Female presents to ER via Wheelchair with complaints of Fall Injury - - rn Post Surgery. 12:49 Details of fall: The patient fell from an upright position. Onset: The symptoms/episode rn began/occurred yesterday. Associated injuries: The patient sustained Left great toe. Severity of symptoms: At their worst the symptoms were mild, in the emergency department the symptoms are unchanged. The patient has not experienced similar symptoms in the past. Patient reports has recurrent falls, just had surgery to the left foot, base of great toe 2 days ago. Patient tripped and fell, stubbing the same great toe. Denies any other injury. Wants to make sure that the toe is okay.. Historical: - Allergies: 12:14 Latex; cm10 - PMHx: 12:14 Bipolar disorder; cm10 - PSHx: 12:14 section; back sx; hysterectomy; cm10 - Immunization history:: Adult Immunizations unknown. - Social history:: Smoking status: Patient denies any tobacco usage or history of. - Family history:: not pertinent. - Hospitalizations: : No recent hospitalization is reported. ROS: 12:49 Constitutional: Negative for fever, chills, and weight loss, MS/Extremity: Positive for rn injury and pain to the left great toe Exam: 12:49 Constitutional: This is a well developed, well nourished patient who is awake, alert, rn and in no acute distress. MS/ Extremity: Pulses equal, no cyanosis. Neurovascular intact. Mild tenderness at the base of the left great toe with surrounding postoperative changes of ecchymosis and sutured wound that is clean dry and intact. No active bleeding. No open wounds or dehiscence noted. No gross deformity Vital Signs: 12:12 BP 132 / 66; Pulse 62; Resp 18; Pulse Ox 98% ; Weight 81.19 kg; Height 5 ft. 6 in. ; cm10 Pain 6/10; 13:06 BP 135 / 76; Pulse 56; Resp 16 S; Pulse Ox 100% on R/A; kc6 14:18 BP 145 / 68; Pulse 53; Resp 18 S; Pulse Ox 100% on R/A; kc6 12:12 Body Mass Index 28.89 (81.19 kg, 167.64 cm) cm10 12:12 Pain Scale: Adult cm10 MDM: 12:06 Patient medically screened. rn 14:19 Differential diagnosis: contusion, fracture, sprain, strain. Data reviewed: vital rn signs, nurses notes, radiologic studies, plain films, and as a result, I will discharge patient. Independent interpretation of the following test(s) in the Emergency Department X-Ray: My interpretation is X-ray left foot shows small fracture fragments distal first metatarsal of the left foot per my interpretation.. Counseling: I had a detailed discussion with the patient and/or guardian regarding the historical points, exam findings, and any diagnostic results supporting the discharge/admit diagnosis, radiology results, the need for outpatient follow up, to return to the emergency department if symptoms worsen or persist or if there are any questions or concerns that arise at home. Special discussion: I discussed with the patient/guardian in detail that at this point there is no indication for admission to the hospital. It is understood, however, that if the symptoms persist or worsen the patient needs to return immediately for re-evaluation. ED course: Patient with periprosthetic small fracture fragments on x-ray, otherwise still well aligned prosthesis. Already in boot, will DC home with immediate urgent follow-up with her foot surgeon to reassess injury and need for further procedures. I have personally reviewed all of the results, including but not limited to imaging deemed necessary to safely discharge this patient at this time. All results given to and printed out for patient. I personally went over all the results with the patient and answered all questions. Patient will follow-up with PCP and or specialist as discussed. Return precautions given and understood.. 01/03 12:14 Order name: XRAY Foot LEFT 3 View; Complete Time: 14:12 rn Administered Medications: No medications were administered Disposition Summary: 01/03/23 14:21 Discharge Ordered Notes: Location: Home rn Problem: new rn Symptoms: have improved rn Condition: Stable rn Diagnosis - Displaced fracture of fifth metatarsal bone, left foot, initial encounter for rn closed fracture Followup: rn - With: Private Physician - When: 2 - 3 days - Reason: Recheck today's complaints, Re-evaluation by your physician Discharge Instructions: - Discharge Summary Sheet rn - Metatarsal Fracture rn Forms: - Medication Reconciliation Form rn - Thank You Letter rn - Antibiotic ross furnace operator - Prescription Opioid Use rn - Patient Portal Instructions rn - Leadership Thank You Letter rn - SBAR form eb Signatures: Dispatcher [employer] Sigifredo Neri MD MD rn Martinez, Clarissa, RN RN cm10
--- NOTE | 2023-01-03 14:21 | ER ---
Nurse's Notes [facility] Name: Vivian Fatima Age: 62 yrs Sex: Female : 1960 Arrival Date: 01/03/2023 Time: 11:59 Bed 14 Private MD: Diagnosis: Displaced fracture of fifth metatarsal bone, left foot, initial encounter for closed fracture Presentation: 01/03 12:12 Chief complaint: Patient states: 2 falls recently. Pt states that she fell out of bed cm10 and today she tripped and fell. Pt states that she just had a joint replaced on her great toe on her left foot. Pt states that when she fell today her toe bent back. 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 Coronavirus screen: Vaccine status: Patient reports receiving the 2nd dose of the covid vaccine. Client denies travel out of the [place] in the last 14 days. Ebola Screen: Patient denies travel to an Ebola-affected area in the 21 days before illness onset. No symptoms or risks identified at this time. Initial Sepsis Screen: Does the patient meet any 2 criteria? No. Patient's initial sepsis screen is negative. Does the patient have a suspected source of infection? No. Patient's initial sepsis screen is negative. Risk Assessment: Do you want to hurt yourself or someone else? Patient reports no desire to harm self or others. Onset of symptoms was January 03, 2023. 12:12 Method Of Arrival: Wheelchair cm10 12:12 Acuity: LAYO 4 cm10 Historical: - Allergies: 12:14 Latex; cm10 - PMHx: 12:14 Bipolar disorder; cm10 - PSHx: 12:14 section; back sx; hysterectomy; cm10 - Immunization history:: Adult Immunizations unknown. - Social history:: Smoking status: Patient denies any tobacco usage or history of. - Family history:: not pertinent. - Hospitalizations: : No recent hospitalization is reported. Screenin:30 [facility] ED Fall Risk Assessment (Adult) History of falling in the last 3 months, kc6 including since admission Yes- single mechanical fall (1 pt) Confusion or Disorientation No (0 pts) Intoxicated or Sedated No (0 pts) Impaired Gait No (0 pts) Mobility Assist Device Used No (0 pt) Altered Elimination No (0 pt) Score/Fall Risk Level 0 - 2 = Low Risk. Abuse screen: Denies threats or abuse. Denies injuries from another. Nutritional screening: No deficits noted. Tuberculosis screening: No symptoms or risk factors identified. Assessment: 12:30 Reassessment:. General: Appears in no apparent distress. comfortable, Behavior is calm, kc6 cooperative, appropriate for age. Pain: Complains of pain in left foot. Neuro: Level of Consciousness is awake, alert, obeys commands, Oriented to person, place, time, situation, Appropriate for age. Cardiovascular: Capillary refill < 3 seconds. Respiratory: Airway is patent Trachea midline Respiratory effort is even, unlabored, Respiratory pattern is regular, symmetrical. GI: No signs and/or symptoms were reported involving the gastrointestinal system. : No signs and/or symptoms were reported regarding the genitourinary system. EENT: No signs and/or symptoms were reported regarding the EENT system. Derm: Skin is healthy with good turgor, Skin is pink, warm \T\ dry. Wound noted left first toe Wound is wound appears to be covered in a nonadherent dressing and wrapped in gauze. Musculoskeletal: No signs and/or symptoms reported regarding the musculoskeletal system. Circulation, motion, and sensation intact. Capillary refill < 3 seconds, Range of motion: intact in all extremities. 13:30 Reassessment: Patient appears in no apparent distress at this time. No changes from kc6 previously documented assessment. Patient and/or family updated on plan of care and expected duration. Pain level reassessed. Patient is alert, oriented x 3, equal unlabored respirations, skin warm/dry/pink. 14:30 Reassessment: Patient appears in no apparent distress at this time. No changes from kc6 previously documented assessment. Patient and/or family updated on plan of care and expected duration. Pain level reassessed. Patient is alert, oriented x 3, equal unlabored respirations, skin warm/dry/pink. Vital Signs: 12:12 BP 132 / 66; Pulse 62; Resp 18; Pulse Ox 98% ; Weight 81.19 kg; Height 5 ft. 6 in. ; cm10 Pain 6/10; 13:06 BP 135 / 76; Pulse 56; Resp 16 S; Pulse Ox 100% on R/A; kc6 14:18 BP 145 / 68; Pulse 53; Resp 18 S; Pulse Ox 100% on R/A; kc6 12:12 Body Mass Index 28.89 (81.19 kg, 167.64 cm) cm10 12:12 Pain Scale: Adult cm10 ED Course: 12:00 Patient arrived in ED. rg4 12:05 Sigifredo Angeles MD is Attending Physician. rn 12:14 Triage completed. cm10 12:14 Arm band placed on Patient placed in an exam room, on a stretcher. cm10 12:30 Patient has correct armband on for positive identification. Bed in low position. Call kc6 light in reach. Side rails up X 1. Adult w/ patient. Client placed on continuous cardiac and pulse oximetry monitoring. NIBP monitoring applied. 12:30 Patient maintains SpO2 saturation greater than 95% on room air. kc6 12:53 XRAY Foot LEFT 3 View In Process Unspecified. EDMS 13:02 Torri Palacio, RN is Primary Nurse. kc6 14:43 No provider procedures requiring assistance completed. Patient did not have IV access kc6 during this emergency room visit. Administered Medications: No medications were administered Medication: 14:43 VIS not applicable for this client. kc6 Outcome: 14:21 Discharge ordered by . rn 14:43 Discharged to home via wheelchair, with family, kc6 14:43 Condition: good 14:43 Discharge instructions given to patient, Instructed on discharge instructions, follow up and referral plans. wound care, Demonstrated understanding of instructions, follow-up care, wound care, 14:44 Patient left the ED. kc6 Signatures: Dispatcher [employer] EDMS Sigifredo Angeles MD MD rn Garcia, Rubi rg4 Torri Palacio, RN RN kc6 Malu Vale RN RN 10
[2023-01-03 15:06] VITALS: O2SAT 100
[2023-01-03 15:09] VITALS: BP 145/68
== END 2023-01-03 14:44 | disposition home or self-care (01) ==
LOC: ER 11:59
DX: S92.352A Displaced fracture of fifth metatarsal bone, left foot, initial encounter for closed fracture (principal); Z91.040 Latex allergy status
CPT/HCPCS: 99284

== ENCOUNTER → 2023-05-14 | Emergency (ER) | payer BC ==
[~2023-05-14] MED LIST: ACETAMINOPHEN 500 MG TAB ONE; KETOROLAC 30 MG/ML INJ ONE; LIDOCAINE 4% PATCH ONE
[2023-05-14 08:26] LABS: Absolute Eosinophils 0.3 K/uL (0-0.5); Absolute Lymphocytes (CBC) 2.1 K/uL (0.7-4.9); Absolute Monocytes 0.7 K/uL (0.1-1.3); Absolute Neutrophil 3.1 K/uL (1.8-8.0); Basophils % 0.2 % (0-1.3); Eosinophils % 5.6 % (0-4.4); Hematocrit 35.7 % (36.0-45.0); Hemoglobin 12.3 g/dL (12.0-15.0); Lymphocytes % 33.3 % (15.3-44.8); MCH 30.7 pg (27.0-35.0); MCHC 34.4 g/dL (32.0-36.0); MCV 89.4 fL (80-100); MPV 8.2 fL (7.6-11.3); Monocytes % 11.1 % (3.3-12.3); Neutrophils % 49.8 % (41.7-73.7); Nucleated Red Blood Cells % 0.1 % (0-0); Platelets 256 thou/uL (152-406); Red Cell Distribution Width 13.1 % (12.1-15.2)
[2023-05-14 08:40] LABS: Anion Gap 6.8 mEq/L (5.0-15.0); Potassium 3.8 mEq/L (3.5-5.1)
--- NOTE | 2023-05-14 10:03 | RAD REPORT ---
EXAM DESCRIPTION: MRI - Lumbar Spine Con - 05/14/2023 9:40 am CLINICAL HISTORY: Urinary incontinence COMPARISON: 2019 CT lumbar spine TECHNIQUE: Sagittal T1, T2 and STIR weighted sequences were obtained. Axial T1 and T2 sequences were obtained through the lumbar disc levels. FINDINGS: Cement has been placed into an old moderate T12 compression fracture. T12-L1 unremarkable Small disc bulge L1-2 with mild ligamentum flavum hypertrophy. Mild posterior subluxation of L2 on L3. Mild to moderate compression deformity L2 vertebral body compatible with an old fracture. Small right lateral disc herniation L2-3 compresses the right neural foramina. L3-4 unremarkable Mild spondylosis L4-5 and L5-S1 No significant abnormal signal within the bones IMPRESSION: Small to moderate old compression fracture L2 vertebral body Small right lateral disc herniation L2-3 compresses the right neural foramina
[2023-05-14 10:50] LABS: Specific Gravity 1.008 (1.005-1.030); Sqamous Epithelial <5 /HPF (None Seen); Urine Bacteria <20 /HPF (<20); Urine Bilirubin NEGATIVE (Negative); Urine Blood Negative (Negative); Urine Clarity Turbid (Clear); Urine Color Light-Yellow (Yellow); Urine Culture Reflex Order REFLEXED; Urine Glucose NEGATIVE (Negative); Urine Ketones NEGATIVE (Negative); Urine Micro Reflex YN NO BILL MICROSCOPIC; Urine Nitrite NEGATIVE (Negative); Urine Protein NEGATIVE (Negative); Urine RBC <5 /HPF (None Seen); Urine Urobilinogen Normal (Normal); Urine WBC 20-50 /HPF (<5); Urine WBC Clump Rare /HPF (None Seen)
--- NOTE | 2023-05-14 11:04 | ER ---
Nurse's Notes [facility] Name: Vivian Fatima Age: 62 yrs Sex: Female : 1960 Arrival Date: 05/14/2023 Time: 07:57 Bed 6 Private MD: Diagnosis: UTI/ Urinary tract infection, site not specified Presentation: 05/13 08:11 Chief complaint: Patient states: Loss of urine control increasing over the past few ll1 months. Has Bulging discs and fractures in lower lumbar area. No fever or painful urination. Coronavirus screen: Vaccine status: Patient reports receiving the 2nd dose of the covid vaccine. Client denies travel out of the [place] in the last 14 days. At this time, the client does not indicate any symptoms associated with coronavirus-19. Ebola Screen: Patient denies travel to an Ebola-affected area in the 21 days before illness onset. Initial Sepsis Screen: Does the patient meet any 2 criteria? No. Patient's initial sepsis screen is negative. Does the patient have a suspected source of infection? No. Patient's initial sepsis screen is negative. Risk Assessment: Do you want to hurt yourself or someone else? Patient reports no desire to harm self or others. Onset of symptoms was December 30, 2022. 08:11 Method Of Arrival: Ambulatory ll1 08:11 Acuity: LAYO 3 ll1 Historical: - Allergies: 08:11 Latex; ll1 - PMHx: 08:11 Bipolar disorder; ll1 - PSHx: 08:11 back sx; section; hysterectomy; ll1 - Immunization history:: Adult Immunizations up to date. - Social history:: Smoking status: . Screenin:14 [facility] ED Fall Risk Assessment (Adult) History of falling in the last 3 months, ll1 including since admission No falls in past 3 months (0 pts) Confusion or Disorientation No (0 pts) Intoxicated or Sedated No (0 pts) Impaired Gait No (0 pts) Mobility Assist Device Used No (0 pt) Altered Elimination Yes (1 pt) Score/Fall Risk Level 0 - 2 = Low Risk Maintained a safe environment, Provided non-skid footwear, Hourly rounding (assess needs \T\ fall precautionary measures) done. Abuse screen: Denies threats or abuse. Nutritional screening: No deficits noted. Tuberculosis screening: No symptoms or risk factors identified. Assessment: 08:13 General: Appears uncomfortable, Behavior is calm, cooperative, appropriate for age. ll1 Pain: Complains of pain in lower back Pain currently is 5 out of 10 on a pain scale. Quality of pain is described as aching. Musculoskeletal: Circulation, motion, and sensation intact. Capillary refill < 3 seconds, Reports pain in lower back. 08:41 Reassessment: No changes from previously documented assessment. Patient and/or family ll1 updated on plan of care and expected duration. Pain level reassessed. Patient is alert, oriented x 3, equal unlabored respirations, skin warm/dry/pink. 10:28 Reassessment: Patient appears in no apparent distress at this time. Patient and/or nj1 family updated on plan of care and expected duration. Pain level reassessed. Patient is alert, oriented x 3, equal unlabored respirations, skin warm/dry/pink. 11:17 Reassessment: Patient is alert, oriented x 3, equal unlabored respirations, skin aa5 warm/dry/pink. Vital Signs: 08:11 BP 168 / 75; Pulse 56; Resp 16; Temp 97.1; Pulse Ox 100% on R/A; Weight 81.65 kg; ll1 Height 5 ft. 6 in. ; Pain 5/10; 10:30 BP 157 / 59; Pulse 55; Resp 17; Pulse Ox 100% ; Pain 5/10; nj1 08:11 Body Mass Index 29.05 (81.65 kg, 167.64 cm) ll1 08:11 Pain Scale: Adult ll1 10:30 Pain Scale: Adult nj1 ED Course: 08:01 Patient arrived in ED. mg5 08:02 Alex Castro MD is Attending Physician. ec2 08:03 Arm band placed on Patient placed in an exam room, on a stretcher. ll1 08:10 Stalin Olvera RN is Primary Nurse. ll1 08:13 Triage completed. ll1 08:15 Patient has correct armband on for positive identification. Bed in low position. Call ll1 light in reach. ER procedures and process. 08:15 Initial lab(s) drawn, by me, sent to lab. Inserted saline lock: 20 gauge in right aa5 antecubital area, using aseptic technique. Blood collected. 08:19 socks given to pt. aa5 09:25 MRI Lumbar Spine wo Con In Process Unspecified. EDMS 09:59 Lights dimmed. Warm blanket given. Pillow given. jg11 09:59 PO fluids given. jg11 10:30 Provided Education on: call light, fall precautions. nj1 11:16 Pt took out IV prior to me walking in the room, IV catheter intact and bleeding aa5 controlled. Administered Medications: 08:41 Drug: Ketorolac IVP 15 mg IVP once Route: IVP; Site: right antecubital; ll1 10:28 Follow up: Response: No adverse reaction nj1 08:41 Drug: Acetaminophen PO 1000 mg PO once Route: PO; ll1 10:28 Follow up: Response: No adverse reaction nj1 08:41 Drug: Lidoderm Topical Patch 5 % (700 mg/patch) 1 patches Topical once; leave on for 12 ll1 hours; cover most painful area; may cut into smaller pieces Route: Topical; Site: affected area; 10:28 Follow up: Response: No adverse reaction nj1 Medication: 08:41 VIS not applicable for this client. ll1 Outcome: 11:03 Discharge ordered by . ec2 11:17 Discharged to home ambulatory, aa5 11:17 Condition: stable 11:17 Discharge instructions given to patient, Instructed on discharge instructions, follow up and referral plans. medication usage, Demonstrated understanding of instructions, follow-up care, medications, Prescriptions given X 1, 11:18 Patient left the ED. aa5 Signatures: Dispatcher [employer] Pat Syed RN RN aa5 Stalin Olvera RN RN 1 Roseline Kang RN RN nj1 Cherelle Amaro 5 Alex Castro MD MD ec2 Kamaljit Weeks [facility] [place]
--- NOTE | 2023-05-14 11:04 | EDPHYS ---
Physician Documentation [facility] Name: Vivian Fatima Age: 62 yrs Sex: Female : 1960 Arrival Date: 05/14/2023 Time: 07:57 Bed 6 Private MD: ED Physician Alex Castro HPI: 05/13 08:08 This 62 yrs old Female presents to ER via Unassigned with complaints of ec2 Urinary Problem. 08:08 Patient arrives today for evaluation of urinary concerns. Reports she is having urinary ec2 incontinence, denies bowel incontinence. Reports increased urinary frequency as well. Patient reports no significant abdominal pain, no nausea or vomiting, no fevers or chills. Reports history of L-spine injury previous plasty. Previous disc herniations as well. Reports no recent falls or trauma.. 08:09 She reports symptoms have been progressive for the past several months. . ec2 Historical: - Allergies: 08:11 Latex; ll1 - PMHx: 08:11 Bipolar disorder; ll1 - PSHx: 08:11 back sx; section; hysterectomy; ll1 - Immunization history:: Adult Immunizations up to date. - Social history:: Smoking status: . ROS: 08:08 Constitutional: as per hpi ec2 Exam: 08:08 Constitutional: GEN: NAD Head: atraumatic Eyes: EOMI Ears: External ears are ec2 normal. CV: regular rate LUNGS: no respiratory distress ABD: non-distended, soft, not guarding, not rigid SKIN: no evidence of rashes MSK: no evidence of trauma, no C/T/L-spine TTP. NEURO: moves all extremities equally, bilateral lower extremities with equal strength, intact sensation, no focal neurologic deficits appreciated. Vital Signs: 08:11 BP 168 / 75; Pulse 56; Resp 16; Temp 97.1; Pulse Ox 100% on R/A; Weight 81.65 kg; ll1 Height 5 ft. 6 in. ; Pain 5/10; 10:30 BP 157 / 59; Pulse 55; Resp 17; Pulse Ox 100% ; Pain 5/10; nj1 08:11 Body Mass Index 29.05 (81.65 kg, 167.64 cm) ll1 08:11 Pain Scale: Adult ll1 10:30 Pain Scale: Adult nj1 MDM: 08:02 Patient medically screened. ec2 08:08 Data reviewed: vital signs. ED course: Patient arrives today for evaluation of urinary ec2 incontinence. Examination remarkable for well-appearing neuro intact individual is otherwise in no acute distress. Given the patient's previous L-spine surgeries, and increasing urinary incontinence, will obtain MRI of the L-spine to evaluate for spinal cord pathology. Additionally will obtain lab work, urine studies. Evaluating for UTI, electrolyte disturbances, L-spine pathology.. 09:23 ED course: CBC is reassuring, metabolic profile with appropriate electrolytes. Pending ec2 urine studies and MRI. . 10:05 ED course: MRI of the L-spine shows a spinal cord emergent pathology.. ec2 10:55 ED course: Urine is questionably infectious, will start on antibiotics given the ec2 patient's symptoms.. 05/13 08:07 Order name: CBC with Diff; Complete Time: 09:22 ec2 05/13 08:07 Order name: BMP; Complete Time: 09:22 ec2 05/13 08:07 Order name: UAM; Complete Time: 10:55 ec2 05/13 10:57 Order name: Urine Culture EDMS 05/13 08:07 Order name: MRI Lumbar Spine wo Con; Complete Time: 10:04 ec2 05/13 08:15 Order name: IV Start; Complete Time: 08:24 ll1 Administered Medications: 08:41 Drug: Ketorolac IVP 15 mg IVP once Route: IVP; Site: right antecubital; ll1 10:28 Follow up: Response: No adverse reaction nj1 08:41 Drug: Acetaminophen PO 1000 mg PO once Route: PO; ll1 10:28 Follow up: Response: No adverse reaction nj1 08:41 Drug: Lidoderm Topical Patch 5 % (700 mg/patch) 1 patches Topical once; leave on for 12 ll1 hours; cover most painful area; may cut into smaller pieces Route: Topical; Site: affected area; 10:28 Follow up: Response: No adverse reaction nj1 Disposition Summary: 05/14/23 11:03 Discharge Ordered Notes: Location: Home ec2 Condition: Stable ec2 Diagnosis - UTI/ Urinary tract infection, site not specified ec2 Followup: ec2 - With: Private Physician - When: - Reason: Re-evaluation by your physician Discharge Instructions: - Discharge Summary Sheet ec2 - Urinary Tract Infection, Adult, [id number] ec2 Forms: - Medication Reconciliation Form ec2 - Thank You Letter ec2 - Antibiotic Education ec2 - Prescription Opioid Use ec2 - Patient Portal Instructions ec2 - Leadership Thank You Letter ec2 Prescriptions: - Cephalexin 500 mg Oral capsule - take 1 capsule ORAL route every 12 hours for 5 days; 10 capsule; Refills: 0, ec2 Product Selection Permitted Signatures: Dispatcher [employer] Stalin Maya RN RN ll1 Alex Castro MD MD ec2 Roseline Kang RN nj1 Corrections: (The following items were deleted from the chart) 10:28 09:52 Soha giles. ec2 nj1
[2023-05-14 11:52] VITALS: BP 157/59; TEMP 97.1; O2SAT 100
== END ==
LOC: ER 07:57
DX: N39.0 Urinary tract infection, site not specified (principal); Z91.040 Latex allergy status
CPT/HCPCS: 87088; 85025; 81001; 87086; 80048; 36415; 87077; 87186; 72148; 96374; 99284; J2001

== ENCOUNTER 2023-08-24 19:51 | Emergency (ER) | payer BC ==
[2023-08-24 20:54] LABS: Absolute Eosinophils 0.1 K/uL (0-0.5); Absolute Lymphocytes (CBC) 1.3 K/uL (0.7-4.9); Absolute Monocytes 0.5 K/uL (0.1-1.3); Absolute Neutrophil 3.9 K/uL (1.8-8.0); Basophils % 0.8 % (0-1.3); Eosinophils % 2.5 % (0-4.4); Hematocrit 32.6 % (36.0-45.0); Hemoglobin 10.9 g/dL (12.0-15.0); Lymphocytes % 22.1 % (15.3-44.8); MCH 30.9 pg (27.0-35.0); MCHC 33.5 g/dL (32.0-36.0); MCV 92.3 fL (80-100); MPV 7.5 fL (7.6-11.3); Monocytes % 8.4 % (3.3-12.3); Neutrophils % 66.2 % (41.7-73.7); Nucleated Red Blood Cells % 0.1 % (0-0); Platelets 303 thou/uL (152-406); RBC Red Blood Cell Count 3.53 M/uL (3.86-4.86); Red Cell Distribution Width 15.7 % (12.1-15.2)
[2023-08-24 20:57] LABS: PT Prothrombin Time 10.2 SECONDS (9.4-12.5); PTT, Activated Partial Thromb 32.7 SECONDS (24.3-36.9); Protime INR 0.93
[2023-08-24 21:09] LABS: ALT/SGPT 19 U/L (13-56); AST/SGOT 13 U/L (15-37); Albumin 3.3 g/dL (3.4-5.0); Alkaline Phosphatase 84 U/L (45-117); Anion Gap 6.7 mEq/L (5.0-15.0); BUN Blood Urea Nitrogen 16 mg/dL (7-18); Bicarbonate 28 mEq/L (21-32); Bilirubin Total 0.4 mg/dL (0.2-1.0); Globulin 3.2 g/dL (2.3-3.5); Glomerular Filtration Rate 56 ml/min (=/>90); Glucose Level 101 mg/dL (74-106); Potassium 3.7 mEq/L (3.5-5.1); Protein, Total 6.5 g/dL (6.4-8.2); Sodium Level 139 mEq/L (136-145)
[2023-08-24 21:12] LABS: Bilirubin Direct < 0.2 mg/dL (0-0.2); Bilirubin Indirect, Calculated 0.2 mg/dL (0.2-0.8)
[2023-08-24 21:25] LABS: Specific Gravity > 1.030 (1.005-1.030); Sqamous Epithelial <5 /HPF (None Seen); Urine Bacteria <20 /HPF (<20); Urine Bilirubin NEGATIVE (Negative); Urine Blood Negative (Negative); Urine Clarity Turbid (Clear); Urine Color Yellow (Yellow); Urine Culture Reflex Order NOT NEEDED; Urine Glucose NEGATIVE (Negative); Urine Ketones NEGATIVE (Negative); Urine Microscopic Reflex YN ORDER UMIC; Urine Mucus Slight /HPF (None Seen); Urine Nitrite NEGATIVE (Negative); Urine Protein 1+ (Negative); Urine RBC <5 /HPF (None Seen); Urine Urobilinogen Normal (Normal); Urine WBC <5 /HPF (<5)
[2023-08-24 21:43] LABS: Barbiturates NEGATIVE (NEGATIVE); Benzodiazepines POSITIVE (NEGATIVE); Cocaine NEGATIVE (NEGATIVE); METHAMPHETAM NEGATIVE (NEGATIVE); Methadone NEGATIVE (NEGATIVE); Opiates NEGATIVE (NEGATIVE); Phencyclidine NEGATIVE (NEGATIVE); THC Cannibis NEGATIVE (NEGATIVE)
--- NOTE | 2023-08-24 21:48 | EDPHYS ---
Physician Documentation [facility] Name: Vivian Fatima Age: 63 yrs Sex: Female : 1960 Arrival Date: 08/24/2023 Time: 19:51 Bed 2 Private MD: ED Physician Patrice Polk HPI: 08/23 20:33 This 63 yrs old Female presents to ER via Wheelchair with complaints of Suicidal sp3 Ideation, Fall Injury - knee inj. 20:33 63-year-old female with a history of chronic back pain, bipolar disease with prior sp3 hospitalization "many years ago" and currently on Prozac and Lamictal and Tizanidine for back pain which patient and state make her "loopy". Over the last month she has had increased sensation of suicidal ideation with no set plan. She is been seeing her PCP today PCP referred her to the ED for potential inpatient hospitalization for her symptoms. She denies any somatic symptoms including headache, neck pain, chest pain, shortness of breath, back pain, abdominal pain, nausea, vomiting, diarrhea, rash, any illicit drug use or any other signs or symptoms on ROS at this time. She denies psychosis, hearing voices or seeing things or any hallucinations at all.. Historical: - Allergies: 20:13 Latex; as6 - PMHx: 20:13 Back pain (bulging disc); Bipolar disorder; as6 - PSHx: 20:13 back sx; section; hysterectomy; as6 - Immunization history:: Adult Immunizations up to date. - Infectious Disease History:: Denies. - Social history:: Smoking status: Patient denies any tobacco usage or history of. ROS: 20:34 Constitutional: Negative for fever, chills, and weight loss, Eyes: Negative for injury, sp3 pain, redness, and discharge, Neck: Negative for injury, pain, and swelling, Cardiovascular: Negative for chest pain, palpitations, and edema, Respiratory: Negative for shortness of breath, cough, wheezing, and pleuritic chest pain, Abdomen/GI: Negative for abdominal pain, nausea, vomiting, diarrhea, and constipation, Back: Negative for injury and pain, MS/Extremity: Negative for injury and deformity, Skin: Negative for injury, rash, and discoloration, Neuro: Negative for headache, weakness, numbness, tingling, and seizure, Endocrine: Negative for neck swelling, polydipsia, polyuria, polyphagia, and marked weight changes, Hematologic/Lymphatic: Negative for swollen nodes, abnormal bleeding, and unusual bruising, 20:34 All other systems are negative, Exam: 20:35 Constitutional: This is a well developed, well nourished patient who is awake, alert, sp3 and in no acute distress. Head/Face: Normocephalic, atraumatic. Eyes: Pupils equal round and reactive to light, extra-ocular motions intact. Lids and lashes normal. Conjunctiva and sclera are non-icteric and not injected. Cornea within normal limits. Periorbital areas with no swelling, redness, or edema. Neck: Trachea midline, no thyromegaly or masses palpated, and no cervical lymphadenopathy. Supple, full range of motion without nuchal rigidity, or vertebral point tenderness. No Meningismus. Chest/axilla: Normal chest wall appearance and motion. Nontender with no deformity. No lesions are appreciated. Cardiovascular: Regular rate and rhythm with a normal S1 and S2. No gallops, murmurs, or rubs. Normal PMI, no JVD. No pulse deficits. Respiratory: Lungs have equal breath sounds bilaterally, clear to auscultation and percussion. No rales, rhonchi or wheezes noted. No increased work of breathing, no retractions or nasal flaring. Abdomen/GI: Soft, non-tender, with normal bowel sounds. No distension or tympany. No guarding or rebound. No evidence of tenderness throughout. Back: No spinal tenderness. No costovertebral tenderness. Full range of motion. Skin: Warm, dry with normal turgor. Normal color with no rashes, no lesions, and no evidence of cellulitis. MS/ Extremity: Pulses equal, no cyanosis. Neurovascular intact. Full, normal range of motion. Neuro: Awake and alert, GCS 15, oriented to person, place, time, and situation. Cranial nerves II-XII grossly intact. Motor strength 5/5 in all extremities. Sensory grossly intact. Cerebellar exam normal. Normal gait. 20:35 Psych: patient with active suicidal ideation without plan. No psychosis noted. Patient is not manic in any manner.. 20:40 ECG was reviewed by the Attending Physician. EKG demonstrates sinus bradycardia at 54 sp3 bpm with normal intervals, normal QRS, normal axis, normal ST/T-segment's without evidence of acute ischemia. Vital Signs: 20:11 BP 92 / 42; Pulse 58; Resp 16; Temp 97.6; Pulse Ox 98% ; Weight 77.11 kg; Height 5 ft. as6 6 in. ; Pain 10/10; 20:40 BP 104 / 57; Pulse 57; Pulse Ox 99% on R/A; tm6 21:38 BP 115 / 58; Pulse 51; Resp 13; Pulse Ox 100% on R/A; Pain 0/10; tm6 23:28 BP 112 / 60; Pulse 52; Resp 14; Temp 97.6(TE); Pulse Ox 100% on R/A; Pain 0/10; tm6 20:11 Body Mass Index 27.44 (77.11 kg, 167.64 cm) as6 20:11 Pain Scale: Adult as6 21:38 Pain Scale: Adult tm6 23:28 Pain Scale: Adult tm6 MDM: 20:13 Patient medically screened. sp3 20:35 Data reviewed: vital signs, nurses notes, lab test result(s), EKG. ED course: sp3 63-year-old female with suicidal ideation that would benefit from inpatient hospitalization. Will obtain [facility] consult and initial workup to rule out medical event is underway. Probable transfer once this is complete.. 08/23 20:14 Order name: Acetaminophen; Complete Time: 21:41 [facility] 08/23 20:14 Order name: Basic Metabolic Panel; Complete Time: 21:41 [facility] 08/23 20:14 Order name: CBC with Diff; Complete Time: 21:41 [facility] 08/23 20:14 Order name: ETOH Level; Complete Time: 21:41 [facility] 08/23 20:14 Order name: Hepatic Function; Complete Time: 21:41 [facility] 08/23 20:14 Order name: PT-INR; Complete Time: 21:41 [facility] 08/23 20:14 Order name: Ptt, Activated; Complete Time: 21:41 [facility] 08/23 20:14 Order name: Salicylate; Complete Time: 21:47 [facility] 08/23 20:14 Order name: Urinalysis w/ reflexes; Complete Time: 21:41 [facility] 08/23 20:14 Order name: Urine Drug Screen; Complete Time: 21:47 [facility] 08/23 20:14 Order name: EKG; Complete Time: 20:14 sp3 08/23 20:14 Order name: EKG - Nurse/Tech; Complete Time: 20:41 sp3 08/23 20:14 Order name: IV Saline Lock; Complete Time: 20:41 sp3 08/23 20:14 Order name: Labs collected and sent; Complete Time: 20:41 sp3 08/23 20:14 Order name: Suicide Precautions; Complete Time: 20:41 sp3 08/23 20:14 Order name: Suicide Screening (Dubois); Complete Time: 20:41 sp3 Administered Medications: No medications were administered Disposition Summary: 08/24/23 21:48 Transfer Ordered Notes: Transfer Location: [facility] sp3 Reason: Higher level of care sp3 Condition: Stable sp3 Problem: an acute exacerbation sp3 Symptoms: have worsened sp3 Accepting Physician: JASON(08/24/23 23:30) tm6 Diagnosis - Suicidal ideation, major depression, bipolar disease sp3 Discharge Instructions: - Discharge Summary Sheet rv1 Forms: - Medication Reconciliation Form sp3 - SBAR form rv1 Signatures: Dispatcher [employer] EDPatrice Stafford MD MD sp3 Eduardo Stokes RN RN as6 Minerva Webber RN RN tm6 Corrections: (The following items were deleted from the chart) 20:14 20:14 ACETAMINOPHEN+C.LAB.BRZ ordered. EDMS EDMS 20:14 20:14 BASIC METABOLIC PANEL+C.LAB.BRZ ordered. EDMS EDMS 20:14 20:14 CBC+H.LAB.BRZ ordered. EDMS EDMS 20:14 20:14 ETHANOL+C.LAB.BRZ ordered. EDMS EDMS 20:14 20:14 HEPATIC FUNCTION+C.LAB.BRZ ordered. EDMS EDMS 20:14 20:14 PROTIME (+INR)+COAG.LAB.BRZ ordered. EDMS EDMS 20:14 20:14 PTT, ACTIVATED+COAG.LAB.BRZ ordered. EDMS EDMS 20:14 20:14 SALICYLATE+C.LAB.BRZ ordered. EDMS EDMS 20:14 20:14 Urinalysis+U.LAB.BRZ ordered. EDMS EDMS 20:14 20:14 URINE DRUG SCREEN+UC.LAB.BRZ ordered. EDMS EDMS 23:30 21:48 TBD sp3 tm6
--- NOTE | 2023-08-24 21:48 | ER ---
Nurse's Notes [facility] Name: Vivian Fatima Age: 63 yrs Sex: Female : 1960 Arrival Date: 08/24/2023 Time: 19:51 Bed 2 Private MD: Diagnosis: Suicidal ideation, major depression, bipolar disease Presentation: 08/23 20:11 Chief complaint: Patient states: "I want to . I don't want to live anymore". as6 Coronavirus screen: At this time, the client does not indicate any symptoms associated with coronavirus-19. Ebola Screen: No symptoms or risks identified at this time. Initial Sepsis Screen: Does the patient meet any 2 criteria? No. Patient's initial sepsis screen is negative. Does the patient have a suspected source of infection? No. Patient's initial sepsis screen is negative. Risk Assessment: Do you want to hurt yourself or someone else? Patient reports desire/thoughts of hurting themselves or someone else. Provider notified. Onset of symptoms was June 2023. 20:11 Acuity: LAYO 2 as6 20:11 Method Of Arrival: Wheelchair as6 Historical: - Allergies: 20:13 Latex; as6 - PMHx: 20:13 Back pain (bulging disc); Bipolar disorder; as6 - PSHx: 20:13 back sx; section; hysterectomy; as6 - Immunization history:: Adult Immunizations up to date. - Infectious Disease History:: Denies. - Social history:: Smoking status: Patient denies any tobacco usage or history of. Screenin:13 [facility] ED Fall Risk Assessment (Adult) History of falling in the last 3 months, tm6 including since admission Yes- single mechanical fall (1 pt) Confusion or Disorientation No (0 pts) Intoxicated or Sedated Yes (3 pts) Impaired Gait No (0 pts) Mobility Assist Device Used No (0 pt) Altered Elimination No (0 pt) Score/Fall Risk Level 3 or more points = High Risk Oriented to surroundings, Maintained a safe environment, Educated pt \\T\\ family on fall prevention, incl call for assistance when getting out of bed, Provided non-skid footwear. Abuse screen: Denies threats or abuse. Denies injuries from another. Nutritional screening: No deficits noted. Tuberculosis screening: No symptoms or risk factors identified. Assessment: 20:13 General: Appears in no apparent distress. Behavior is calm, cooperative, drowsy. Pain: tm6 Denies pain. Neuro: Level of Consciousness is awake, obeys commands, lethargic, Oriented to person, place, time, situation. Cardiovascular: Patient's skin is warm and dry. Rhythm is regular. Respiratory: Airway is patent Respiratory effort is even, unlabored, Respiratory pattern is regular, symmetrical. GI: No signs and/or symptoms were reported involving the gastrointestinal system. Abdomen is round non-distended. : No signs and/or symptoms were reported regarding the genitourinary system. EENT: No signs and/or symptoms were reported regarding the EENT system. Derm: Wound noted left knee Wound is scrape on left knee, small amount of blood. Musculoskeletal: Reports pain in back Pain is 0 out of 10 on a pain scale. chronic pain in back. 21:37 Reassessment: patient has eyes closed, remains at bedside. tm6 21:37 Reassessment: to take patient's wallet home. All other patient belongings, tm6 including clothing, phone, shoes, and purse sent to security. 22:11 Reassessment: nurse to nurse given to Johanna at [facility]. General: tm6 Appears in no apparent distress. Behavior is calm, cooperative. Neuro: Level of Consciousness is awake, alert, obeys commands, Oriented to person, place, time, situation. 23:29 Reassessment: Patient appears in no apparent distress at this time. Patient and/or tm6 family updated on plan of care and expected duration. Pain level reassessed. Patient is alert, oriented x 3, equal unlabored respirations, skin warm/dry/pink. patient picked up by [facility]. 23:30 Reassessment: belongings sent with patient and EMS. tm6 Psych: 20:13 Roberts Suicide Severity Screening: In the past month, have you wished you were tm6 or wished you could go to sleep and not wake up? Patient responds "yes." Based off the client's responses additional C-SSRS screening is required. "In the past month, have you actually had any thoughts of killing yourself?" Patient responds "yes." Based off the client's response additional Roberts suicide severity screening questions to be further documented on paper forms. "In your lifetime, have you ever done anything, started to do anything, or prepared to do anything to end your life?" Patient responds "yes." Patient reports suicidal intent within 3 past months. Subjective: Patient's mood is sad, hopeless, Delusions are denied, Hallucinations are denied Having thoughts of suicide. Plan for suicide is to take all of her pills. Objective: Patient is cooperative, Speech is slow, Affect is flat, Patient has mutilated themselves by cutting in the past. Interventions: Removed personal items and placed in bag. Patient placed in hospital gown. Searched person for dangerous items. Safety Checks: Personal items have been removed. Door is open. Visitors are present. Pt denies substance abuse. 21:17 Interventions: Urine collected and sent for urine drug test. tm6 Vital Signs: 20:11 BP 92 / 42; Pulse 58; Resp 16; Temp 97.6; Pulse Ox 98% ; Weight 77.11 kg; Height 5 ft. as6 6 in. ; Pain 10/10; 20:40 BP 104 / 57; Pulse 57; Pulse Ox 99% on R/A; tm6 21:38 BP 115 / 58; Pulse 51; Resp 13; Pulse Ox 100% on R/A; Pain 0/10; tm6 23:28 BP 112 / 60; Pulse 52; Resp 14; Temp 97.6(TE); Pulse Ox 100% on R/A; Pain 0/10; tm6 20:11 Body Mass Index 27.44 (77.11 kg, 167.64 cm) as6 20:11 Pain Scale: Adult as6 21:38 Pain Scale: Adult tm6 23:28 Pain Scale: Adult tm6 ED Course: 19:52 Patient arrived in ED. ra3 20:00 Patrice Polk MD is Attending Physician. sp3 20:13 Triage completed. as6 20:13 Arm band placed on. as6 20:13 Patient has correct armband on for positive identification. Bed in low position. Side tm6 rails up X2. Adult w/ patient. Provided Education on: plan of care. Client placed on continuous cardiac and pulse oximetry monitoring. NIBP monitoring applied. Pulse ox on. NIBP on. Noise minimized. 20:13 EKG done, by ED staff, reviewed by Patrice Polk MD. Inserted saline lock: 22 gauge in tm6 left antecubital area, using aseptic technique. 20:34 Minerva Webber, RN is Primary Nurse. tm6 20:41 Acetaminophen Sent. tm6 20:41 Basic Metabolic Panel Sent. tm6 20:41 CBC with Diff Sent. tm6 20:41 ETOH Level Sent. tm6 20:41 Hepatic Function Sent. tm6 20:41 PT-INR Sent. tm6 20:41 Ptt, Activated Sent. tm6 20:41 Salicylate Sent. tm6 21:18 Urine Drug Screen Sent. tm6 21:18 Urinalysis w/ reflexes Sent. tm6 21:18 Salicylate Sent. tm6 21:45 Faxed pt clinicals to the following facilities for placement; [facility] and [address] 23:29 No provider procedures requiring assistance completed. IV discontinued, intact, tm6 bleeding controlled, No redness/swelling at site. Pressure dressing applied. Administered Medications: No medications were administered Medication: 20:13 VIS not applicable for this client. tm6 Outcome: 21:48 ER care complete, transfer ordered by . sp3 23:30 Transferred by ground EMS tm6 23:30 Condition: stable 23:30 Instructed on the need for transfer, 23:30 Patient left the ED. tm6 Signatures: Patrice Polk MD MD sp3 Eduardo Stokes RN RN as6 Felisha Altman rv Minerva Webber, JUAN RN tm6 Amaya Adkins 3
[2023-08-24 23:47] VITALS: TEMP 97.6
[2023-08-25 00:12] VITALS: BP 112/60; O2SAT 100
--- NOTE | 2023-08-25 13:49 | EKG ---
Test Date: 2023-08-24 Test Time: 20:22:06 Sound Mixer: RASHEEDA MEASUREMENT RESULTS: Intervals: Rate: 54 SD: 154 QRSD: 86 QT: 436 QTc: 413 [place]: P: -5 SD: 154 QRS: 10 T: 5 INTERPRETIVE STATEMENTS: Sinus bradycardia Otherwise normal ECG No previous ECG available for comparison Electronically Signed On 08-25-23 13:47:49 CDT by Jai Cabello
== END 2023-08-24 23:30 ==
LOC: ER 19:51
DX: R45.851 Suicidal ideations (principal); F31.9 Bipolar disorder, unspecified
CPT/HCPCS: 36415; 80048; 80076; 80143; 80179; 80307; 81001; 82077; 85025; 85610; 85730; 93005

== ENCOUNTER 2024-03-26 13:15 | Emergency (ER) | payer BC ==
[2024-03-26] MEDS ORDERED: KETOROLAC 30 MG/ML INJ ONE (14:00)
--- NOTE | 2024-03-26 14:47 | RAD REPORT ---
EXAM: Chest Single View HISTORY: PAIN COMPARISON: 01/31/2020 FINDINGS: LUNGS/PLEURA: Increased prominence of the pulmonary interstitium. MEDIASTINUM: The mediastinal silhouette is within normal limits. CARDIAC: The cardiac silhouette is within normal limits. UPPER ABDOMEN: No significant abnormality. BONES: No acute abnormality. LINES/TUBES/OTHER: N/A IMPRESSION: Nonspecific prominence of the pulmonary interstitium. No focal consolidation or edema.
--- NOTE | 2024-03-26 14:49 | RAD REPORT ---
EXAMINATION: Ribs Left CLINICAL INDICATION: Female, 63 years old. PAIN COMPARISON: No prior exam. FINDINGS: Question nondisplaced left lateral sixth rib fracture. There is some limitation due to underpenetrati on. No pneumothorax. IMPRESSION: Question nondisplaced left lateral sixth rib fracture. No displaced rib fractures are identified or p neumothorax.
--- NOTE | 2024-03-26 16:46 | EDPHYS ---
Physician Documentation [facility] Name: Vivian Fatima Age: 63 yrs Sex: Female : 1960 Arrival Date: 03/26/2024 Time: 13:15 Bed DX4 Private MD: ED Physician Sigifredo Angeles HPI: 03/26 17:13 This 63 yrs old Female presents to ER via Ambulatory with complaints of Fall Injury, kb rib pain. 17:13 Patient is a 63-year-old female who comes in for left lateral rib pain that began kb approximately 2 hours ago after falling. States she was pulled down by her dog. Denies LOC, hitting head, any other injuries. Pain worse with movement, deep breath.. Historical: - Allergies: 13:30 No Known Allergies; db - PMHx: 13:30 Back pain (bulging disc); Bipolar disorder; db - PSHx: 13:30 back sx; section; hysterectomy; db - Immunization history:: Adult Immunizations unknown. - Infectious Disease History:: Denies. - Social history:: Smoking status: Patient denies any tobacco usage or history of. ROS: 17:07 Constitutional: As per HPI kb Exam: 17:12 Constitutional: This is a well developed, well nourished patient who is awake, alert, kb and in no acute distress. Head/Face: Normocephalic, atraumatic. ENT: Moist Mucous membranes Cardiovascular: Regular rate Respiratory: Respirations even and unlabored. No increased work of breathing. Talking in full sentences Abdomen/GI: Soft, non-tender. No distention Skin: Warm, dry with normal turgor. Normal color. MS/ Extremity: Pulses equal, no cyanosis. Neurovascular intact. Full, normal range of motion. Neuro: Awake and alert, GCS 15, oriented to person, place, time, and situation. 17:12 Chest/axilla: Inspection: normal, Palpation: tenderness, that is moderate, of the left lateral posterior chest and left lateral anterior chest, Vital Signs: 13:30 BP 112 / 71; Pulse 75; Resp 16; Temp 97.4(TE); Pulse Ox 99% ; Weight 81.19 kg; Height 5 db ft. 6 in. ; 13:30 Body Mass Index 28.89 (81.19 kg, 167.64 cm) db MDM: 13:22 Medical Screening Exam initiated kb 17:08 Differential diagnosis: contusion, fracture. Data reviewed: vital signs, nurses notes. kb Counseling: I had a detailed discussion with the patient and/or guardian regarding the historical points, exam findings, and any diagnostic results supporting the discharge/admit diagnosis, radiology results, the need for outpatient follow up, a family practitioner, to return to the emergency department if symptoms worsen or persist or if there are any questions or concerns that arise at home. 03/26 13:31 Order name: Chest Single View XRAY; Complete Time: 15:01 kb 03/26 13:31 Order name: Ribs Left XRAY; Complete Time: 15:01 kb Administered Medications: 14:03 Drug: Ketorolac IM 30 mg IM once Route: IM; Site: right deltoid; db 14:33 Follow up: Response: No adverse reaction ko1 Disposition Summary: 03/26/24 16:46 Discharge Ordered Notes: Location: Home kb Condition: Stable kb Diagnosis - Fracture of one rib, left side kb Followup: kb - With: Emergency Department - When: As needed - Reason: Worsening of condition Followup: kb - With: Private Physician - When: 2 - 3 days - Reason: Recheck today's complaints, Continuance of care, Re-evaluation by your physician Discharge Instructions: - Discharge Summary Sheet kb - Rib Fracture, [id number] kb Forms: - Medication Reconciliation Form kb - Antibiotic Education kb - Prescription Opioid Use kb - Patient Portal Instructions kb - Leadership Thank You Letter kb Prescriptions: - Tramadol 50 mg Oral Tablet - take 1 tablet ORAL route every 8 hours as needed; 12 tablet; Refills: 0, kb Product Selection Permitted Addendum: 03/27/2024 17:20 Co-signature as Attending Physician, Sigifredo Angeles MD I reviewed the patient's care r n provided by the Advanced Practice Provider and agree with the diagnosis and treatment plan. Signatures: Dispatcher [employer] EDBrandie Pittman, MARCELO-Timoteo ROBERTSON-Sigifredo Hernandez MD MD rn Benton, Danielle, RN RN db Oliver, Kathy RN ko1 Corrections: (The following items were deleted from the chart) 03/26 13:31 13:31 Chest Single View+RAD.RAD.BRZ ordered. EDVA EDMS
--- NOTE | 2024-03-26 16:46 | ER ---
Nurse's Notes [facility] Name: Vivian Fatima Age: 63 yrs Sex: Female : 1960 Arrival Date: 03/26/2024 Time: 13:15 Bed DX4 Private MD: Diagnosis: Fracture of one rib, left side Presentation: 03/26 13:28 Chief complaint: Patient states: LEFT SIDE TODAY AFTER FALL TODAY. STATES WAS WALKING db DOG AND WAS PULLED AND FELL. Coronavirus screen: Client denies travel out of the [place] in the last 14 days. At this time, the client does not indicate any symptoms associated with coronavirus-19. Ebola Screen: Patient negative for fever greater than or equal to 101.5 degrees Fahrenheit, and additional compatible Ebola Virus Disease symptoms Patient denies exposure to infectious person. Patient denies travel to an Ebola-affected area in the 21 days before illness onset. No symptoms or risks identified at this time. Initial Sepsis Screen: Does the patient meet any 2 criteria? No. Patient's initial sepsis screen is negative. Does the patient have a suspected source of infection? No. Patient's initial sepsis screen is negative. Risk Assessment: Do you want to hurt yourself or someone else? Patient reports no desire to harm self or others. Onset of symptoms was March 26, 2024. 13:28 Method Of Arrival: Ambulatory db 13:28 Acuity: LAYO 3 db Triage Assessment: 13:30 General: Appears in no apparent distress. uncomfortable, Behavior is calm, cooperative. db Pain: Complains of pain in posterior aspect of left lateral abdomen and anterior aspect of left lateral abdomen. Neuro: Level of Consciousness is awake, alert, obeys commands, Oriented to person, place, time, situation. Respiratory: Airway is patent Respiratory effort is even, unlabored, Respiratory pattern is regular, symmetrical. Historical: - Allergies: 13:30 No Known Allergies; db - PMHx: 13:30 Back pain (bulging disc); Bipolar disorder; db - PSHx: 13:30 back sx; section; hysterectomy; db - Immunization history:: Adult Immunizations unknown. - Infectious Disease History:: Denies. - Social history:: Smoking status: Patient denies any tobacco usage or history of. Vital Signs: 13:30 BP 112 / 71; Pulse 75; Resp 16; Temp 97.4(TE); Pulse Ox 99% ; Weight 81.19 kg; Height 5 db ft. 6 in. ; 13:30 Body Mass Index 28.89 (81.19 kg, 167.64 cm) db ED Course: 13:15 Patient arrived in ED. am2 13:22 Brandie Tirado FNP-C is [facility]. kb 13:22 Sigifredo Angeles MD is Attending Physician. kb 13:30 Triage completed. db 13:30 Arm band placed on. db 14:32 Chest Single View XRAY In Process Unspecified. EDMS 14:32 Ribs Left XRAY In Process Unspecified. EDMS 16:56 Leticia Ibrahim, RN is Primary Nurse. hb Administered Medications: 14:03 Drug: Ketorolac IM 30 mg IM once Route: IM; Site: right deltoid; db 14:33 Follow up: Response: No adverse reaction ko1 Outcome: 16:46 Discharge ordered by . kb 16:56 Patient left the ED. hb Signatures: Dispatcher [employer] EDID Brandie Tirado FNP-C [employer]-Ckb Leticia Ibrahim, RN RN Marcia Sigala am2 Ana Rebollar RN RN ko1 Estella Long, RN RN db
[2024-03-26 19:59] VITALS: BP 112/71; TEMP 97.4; O2SAT 99
== END 2024-03-26 16:56 | disposition home or self-care (01) ==
LOC: ER 13:15
DX: S22.32XA Fracture of one rib, left side, initial encounter for closed fracture (principal)
CPT/HCPCS: 71045; 96372; 99283

== ENCOUNTER 2024-07-22 15:57 | Emergency (ER) | payer BC ==
[2024-07-22] MEDS ORDERED: NA CHLORIDE 0.9% 2,000 ML ONE (16:52)
[2024-07-22] MEDS ORDERED: ONDANSETRON 4 MG/2 ML VIAL ONE (16:52)
[2024-07-22 17:19] LABS: Absolute Lymphocytes (CBC) 0.7 K/uL (0.7-4.9); Absolute Monocytes 0.9 K/uL (0.1-1.3); Absolute Neutrophil 12.3 K/uL (1.8-8.0); Basophils % 0.3 % (0-1.3); Hematocrit 42.8 % (36.0-45.0); Hemoglobin 14.7 g/dL (12.0-15.0); Lymphocytes % 5.1 % (15.3-44.8); MCH 31.2 pg (27.0-35.0); MCHC 34.4 g/dL (32.0-36.0); MCV 90.7 fL (80-100); MPV 8.7 fL (7.6-11.3); Monocytes % 6.2 % (3.3-12.3); Neutrophils % 88.4 % (41.7-73.7); Platelets 329 thou/uL (152-406); RBC Red Blood Cell Count 4.72 M/uL (3.86-4.86); Red Cell Distribution Width 14.1 % (12.1-15.2)
[2024-07-22 17:34] LABS: Albumin 4.2 g/dL (3.4-5.0); Albumin/Globulin Ratio 0.9 (1.1-1.8); Anion Gap 12.4 mEq/L (5.0-15.0); Bilirubin Total 0.6 mg/dL (0.2-1.0); Globulin 4.9 g/dL (2.3-3.5); Potassium 3.4 mEq/L (3.5-5.1); Protein, Total 9.1 g/dL (6.4-8.2)
[2024-07-22] MEDS ORDERED: POTASSIUM CL SA 10 MEQ TAB PO ONE (17:56)
[2024-07-22] MEDS ORDERED: PROMETHAZINE INJ 25 MG/ML AMP ONE (18:12)
[2024-07-22] MEDS ORDERED: MORPHINE 2 MG/ML SYR ONE (18:12)
[2024-07-22 18:35] LABS: Blood Morphology Comment NOT SEEN (NOT SEEN); Platelet Estimate ADEQ; White Blood Cell Scan OK (OK)
--- NOTE | 2024-07-22 19:00 | EDPHYS ---
Physician Documentation [facility] Name: Vivian Fatima Age: 64 yrs Sex: Female : 1960 Arrival Date: 07/22/2024 Time: 15:57 Bed DIS4 Private MD: ED Physician Ellis Juarez HPI: 07/22 18:08 This 64 yrs old Female presents to ER via Ambulatory with complaints of dr5 Vomiting. 18:08 The patient presents to the emergency department with nausea, vomiting. Onset: The dr5 symptoms/episode began/occurred yesterday. Patient is a 60-year-old female with history of bipolar disorder coming in with nausea vomiting started yesterday. Patient reports that she started semaglutide and instead of taking the 0.1 mL that was prescribed, she accidentally took 1 mL. Patient denies fever.. Historical: - Allergies: 16:35 No Known Allergies; me1 - PMHx: 16:35 Back pain (bulging disc); Bipolar disorder; me1 - PSHx: 16:35 back sx; section; hysterectomy; me1 - Immunization history:: Adult Immunizations up to date. - Infectious Disease History:: Denies. - Social history:: Smoking status: Patient denies any tobacco usage or history of. ROS: 18:08 Constitutional: as per hpi dr5 Exam: 18:08 Constitutional: This is a well developed, well nourished patient who is awake, alert, dr5 and in no acute distress. Head/Face: Normocephalic, atraumatic. ENT: Nares patent. No nasal discharge, no septal abnormalities noted. Tympanic membranes are normal and external auditory canals are clear. Oropharynx with no redness, swelling, or masses, exudates, or evidence of obstruction, uvula midline. Mucous membranes moist. Neck: Trachea midline, no thyromegaly or masses palpated, and no cervical lymphadenopathy. Supple, full range of motion without nuchal rigidity, or vertebral point tenderness. No Meningismus. Chest/axilla: Normal chest wall appearance and motion. Nontender with no deformity. No lesions are appreciated. Cardiovascular: Regular rate and rhythm with a normal S1 and S2. Normal PMI, no JVD. No pulse deficits. Respiratory: Lungs have equal breath sounds bilaterally, clear to auscultation. No rales, rhonchi or wheezes noted. No increased work of breathing, no retractions or nasal flaring. Back: No spinal tenderness. No costovertebral tenderness. Full range of motion. Skin: Warm, dry with normal turgor. Normal color with no rashes, no lesions, and no evidence of cellulitis. MS/ Extremity: Pulses equal, no cyanosis. Neurovascular intact. Full, normal range of motion. Neuro: Awake and alert, GCS 15, oriented to person, place, time, and situation. Cranial nerves II-XII grossly intact. Motor strength 5/5 in all extremities. Sensory grossly intact. Cerebellar exam normal. Normal gait. Vital Signs: 16:33 BP 168 / 102; Pulse 125; Resp 17; Temp 98.3; Pulse Ox 100% ; Weight 81.65 kg; Height 5 me1 ft. 6 in. ; 17:10 BP 134 / 80; Pulse 94; Resp 18; Pulse Ox 100% on R/A; mb9 16:33 Body Mass Index 29.05 (81.65 kg, 167.64 cm) me1 MDM: 16:23 Medical Screening Exam initiated dr5 18:08 Differential diagnosis: Nonspecific abd pain, gastritis, Medication overdose. Data dr5 reviewed: vital signs, nurses notes. I considered the following discharge prescriptions or medication management in the emergency department Medications were administered in the Emergency Department. See MAR. Care significantly affected by the following chronic conditions: BPD, Back Pain. Care significantly affected by the following Social Determinants of Health: Poor access to healthcare and/or lack of insurance, Poor access to transportation, Problems related to employment. Counseling: I had a detailed discussion with the patient and/or guardian regarding the historical points, exam findings, and any diagnostic results supporting the discharge/admit diagnosis, the presence of at least one elevated blood pressure reading (>120/80) during this emergency department visit, lab results, the need for outpatient follow up, for definitive care, a family practitioner, to return to the emergency department if symptoms worsen or persist or if there are any questions or concerns that arise at home. Medication response: morphine markedly relieved the patient's pain. Symptoms have improved, Response to treatment: the patient's symptoms have markedly improved after treatment. ED course: Patient was given 2 L of fluids, Zofran, morphine, Phenergan with improved symptoms. Recommended patient not take injection for 3 weeks to allow medication to dissipate. Will send patient home with antinausea medications. All questions answered and she is feeling much better.. 18:13 Transition of care: After a detail discussion of the patient's case, care is dr5 transferred to Geri John PA-C. 07/22 16:36 Order name: CBC with Diff; Complete Time: 18:48 dr5 07/22 16:36 Order name: CMP; Complete Time: 17:38 dr5 07/22 18:35 Order name: CBC Smear Scan; Complete Time: 18:48 EDMS 07/22 17:12 Order name: IV Saline Lock; Complete Time: 17:12 mb9 Administered Medications: 17:11 Drug: NS 0.9% IV 2000 ml IV at 1000 ml once; to be given as a bolus over 60 minutes mb9 Route: IV; Rate: 1000 ml; Site: right antecubital; 18:17 Follow up: Response: No adverse reaction; IV Status: Completed infusion mb9 17:11 Drug: Ondansetron IVP 4 mg IVP once; over 2 minutes Route: IVP; Site: right antecubital;mb9 17:57 Follow up: Response: No adverse reaction mb9 17:57 Not Given (Duplicate Order): ns 0.9% 1000 ml IV at 1000 ml once; to be given as a bolus mb9 over 60 minutes 18:05 Drug: Potassium Chloride PO 40 mEq PO once Route: PO; mb9 18:17 Follow up: Response: No adverse reaction mb9 18:12 Drug: promethazine Liquid 25 mg IV at per protocol Per protocol Route: IV; Rate: per mb9 protocol; Site: right antecubital; 19:31 Follow up: Response: No adverse reaction km10 18:17 Drug: morphine IVP or IV 2 mg IVP once over 4 mins Route: IVP; Infused Over: 4 mins; mb9 Site: right antecubital; 19:31 Follow up: Response: No adverse reaction; Pain is decreased km10 Disposition Summary: 07/22/24 18:59 Discharge Ordered Notes: Location: Home sb4 Condition: Stable sb4 Diagnosis - Nausea with vomiting, unspecified sb4 Followup: dr5 - With: Emergency Department - When: As needed - Reason: Worsening of condition Followup: dr5 - With: Private Physician - When: 1 - 2 days - Reason: Recheck today's complaints, Continuance of care, Re-evaluation by your physician Discharge Instructions: - Discharge Summary Sheet dr5 - Nausea and Vomiting, Adult dr5 Forms: - Patient Portal Instructions sb4 - Leadership Thank You Letter sb4 Prescriptions: - ondansetron 4 mg Oral Tablet,disintegrating - take 1 tablet ORAL route every 8 hours as needed for nausea and vomiting; 10 sb4 tablet; Refills: 0, Product Selection Permitted Addendum: 07/24/2024 12:35 Co-signature as Attending Physician, Ellis Juarez MD I agree with the assessment and c orellana plan of care. Signatures: Dispatcher [employer] Ellis Mahmood MD MD cha Brown, Sophia, PA-C PA-C sb4 Wendy Alicea RN RN mb9 Naheed Kearns RN RN me1 Heath Real, CHEMICAL PROCESSING LABORER-C CHEMICAL PROCESSING LABORER-[facility]5 Ilsa Ferrell RN km10
--- NOTE | 2024-07-22 19:00 | ER ---
Nurse's Notes [facility] Name: Vivian Fatima Age: 64 yrs Sex: Female : 1960 Arrival Date: 07/22/2024 Time: 15:57 Bed DIS4 Private MD: Diagnosis: Nausea with vomiting, unspecified Presentation: 07/22 16:33 Chief complaint: Patient states: took first dose of semaglutide yesterday at noon and me1 has had n/v since 4:30 PM yesterday. Coronavirus screen: At this time, the client does not indicate any symptoms associated with coronavirus-19. Ebola Screen: No symptoms or risks identified at this time. Initial Sepsis Screen: Does the patient meet any 2 criteria? HR > 90 bpm. Does the patient have a suspected source of infection? No. Patient's initial sepsis screen is negative. Risk Assessment: Do you want to hurt yourself or someone else? Patient reports no desire to harm self or others. Onset of symptoms was July 21, 2024. 16:33 Method Of Arrival: Ambulatory [facility] 16:33 Acuity: LAYO 3 [facility] Historical: - Allergies: 16:35 No Known Allergies; me1 - PMHx: 16:35 Back pain (bulging disc); Bipolar disorder; me1 - PSHx: 16:35 back sx; section; hysterectomy; me1 - Immunization history:: Adult Immunizations up to date. - Infectious Disease History:: Denies. - Social history:: Smoking status: Patient denies any tobacco usage or history of. Screenin:10 [facility] ED Fall Risk Assessment (Adult) History of falling in the last 3 months, mb9 including since admission No falls in past 3 months (0 pts) Confusion or Disorientation No (0 pts) Intoxicated or Sedated No (0 pts) Impaired Gait No (0 pts) Mobility Assist Device Used No (0 pt) Altered Elimination No (0 pt) Score/Fall Risk Level 0 - 2 = Low Risk Oriented to surroundings, Maintained a safe environment, Educated pt \T\ family on fall prevention, incl call for assistance when getting out of bed. Abuse screen: Denies threats or abuse. Nutritional screening: No deficits noted. Tuberculosis screening: No symptoms or risk factors identified. Assessment: 17:09 General: Appears in no apparent distress. Behavior is calm, cooperative. Pain: mb9 Complains of pain in abdomen Pain does not radiate. Quality of pain is described as aching. Neuro: Foss Agitation-Sedation Scale (RASS): 0 - Alert and Calm Level of Consciousness is awake, alert, obeys commands, Oriented to person, place, time, situation, Appropriate for age. Cardiovascular: Patient's skin is warm and dry. Respiratory: Airway is patent Respiratory effort is even, unlabored, Respiratory pattern is regular, symmetrical. GI: Abdomen is round non-distended, Bowel sounds present X 4 quads. Abd is soft Abdomen is tender to palpation X 4 quads. Reports nausea, vomiting. : No signs and/or symptoms were reported regarding the genitourinary system. EENT: No signs and/or symptoms were reported regarding the EENT system. Derm: Skin is pink, warm \T\ dry. Musculoskeletal: Range of motion: intact in all extremities. 18:32 Reassessment: No changes from previously documented assessment. Patient and/or family mb9 updated on plan of care and expected duration. Pain level reassessed. Patient is alert, oriented x 3, equal unlabored respirations, skin warm/dry/pink. Vital Signs: 16:33 BP 168 / 102; Pulse 125; Resp 17; Temp 98.3; Pulse Ox 100% ; Weight 81.65 kg; Height 5 me1 ft. 6 in. ; 17:10 BP 134 / 80; Pulse 94; Resp 18; Pulse Ox 100% on R/A; mb9 16:33 Body Mass Index 29.05 (81.65 kg, 167.64 cm) nm1 ED Course: 15:59 Patient arrived in ED. im 16:22 Heath Real FNP-C is PHCP. dr5 16:22 Ellis Juarez MD is Attending Physician. dr5 16:35 Triage completed. me1 16:35 Arm band placed on Patient placed in waiting room. me1 16:54 Wendy Alicea RN is Primary Nurse. mb9 17:08 Initial lab(s) drawn, by nm, sent to lab. Inserted saline lock: 20 gauge in right mb9 antecubital area, using aseptic technique. Blood collected. Flushed with 10 mL NS. 17:10 Placed in gown. Bed in low position. Call light in reach. Side rails up X 1. Provided mb9 Education on: press call light if needing anything. Client placed on continuous cardiac and pulse oximetry monitoring. NIBP monitoring applied. 17:11 CMP Sent. mb9 17:12 CBC with Diff Sent. mb9 17:13 No provider procedures requiring assistance completed. mb9 Administered Medications: 17:11 Drug: NS 0.9% IV 2000 ml IV at 1000 ml once; to be given as a bolus over 60 minutes mb9 Route: IV; Rate: 1000 ml; Site: right antecubital; 18:17 Follow up: Response: No adverse reaction; IV Status: Completed infusion mb9 17:11 Drug: Ondansetron IVP 4 mg IVP once; over 2 minutes Route: IVP; Site: right antecubital;mb9 17:57 Follow up: Response: No adverse reaction mb9 17:57 Not Given (Duplicate Order): ns 0.9% 1000 ml IV at 1000 ml once; to be given as a bolus mb9 over 60 minutes 18:05 Drug: Potassium Chloride PO 40 mEq PO once Route: PO; mb9 18:17 Follow up: Response: No adverse reaction mb9 18:12 Drug: promethazine Liquid 25 mg IV at per protocol Per protocol Route: IV; Rate: per mb9 protocol; Site: right antecubital; 19:31 Follow up: Response: No adverse reaction km10 18:17 Drug: morphine IVP or IV 2 mg IVP once over 4 mins Route: IVP; Infused Over: 4 mins; mb9 Site: right antecubital; 19:31 Follow up: Response: No adverse reaction; Pain is decreased km10 Medication: 17:10 VIS not applicable for this client. mb9 Outcome: 18:59 Discharge ordered by MD. major 21:43 Patient left the ED. jb4 Signatures: Graham More RN RN jb4 Geri John, PA-C PA-C [id number] Wendy Alicea RN RN mb9 Azul Collins Michelle RN RN me1 Heath Real, MIXING TANK OPERATOR-C MIXING TANK OPERATOR-Cdr5 Ilsa Ferrell, JUAN RN km10
[2024-07-22 22:33] VITALS: TEMP 98.3; O2SAT 100
[2024-07-22 22:36] VITALS: BP 134/80
== END 2024-07-22 21:43 | disposition home or self-care (01) ==
LOC: ER 15:57
DX: R11.2 Nausea with vomiting, unspecified (principal)
CPT/HCPCS: 96361; 85025; 36415; 80053; 96375; 96374; 99284; J2550; J2270; J2405; J7030

== ENCOUNTER 2024-11-19 16:20 | Emergency (ER) | payer BC ==
--- NOTE | 2024-11-19 17:11 | RAD REPORT ---
EXAMINATION: Humerus Left VIEWS: Two views CLINICAL INDICATION: Female, 64 years old. PAIN COMPARISON: No prior exams IMPRESSION: No acute fracture. No acute soft tissue abnormality.
--- NOTE | 2024-11-19 17:20 | RAD REPORT ---
EXAMINATION: Spine Lumbar Wo Con CLINICAL INDICATION: Female, 64 years old. fall, low back pain, previous spinal fractures and surgery TECHNIQUE: Axial CT images were obtained through the lumbar spine in soft tissue and bone windows wit hout intravenous contrast. Coronal and Sagittal reformatted images were created from the data set. One or more of the following dose reduction techniques were used: Automated exposure control, adjustm ent of the mA and/ or kV according to patient size, and/or iterative reconstruction. Unless otherwise specified, incidental findings do not require dedicated imaging follow-up. [id number]. COMPARISON: 07/19/2023 FINDINGS: For purposes of this dictation, it is assumed that there are 5 non rib-bearing lumbar type vertebrae, and the most caudal fully segmented lumbar vertebra is labeled L5. ALIGNMENT: The lumbar spine demonstrates normal alignment without scoliosis or spondylolisthesis. BONES: Prior T12 vertebral augmentation. Remote inferior endplate fracture of L2. No acute fracture i dentified. DEGENERATIVE: Broad-based disc bulge present at the L2-3 level results in mild central spinal stenosi s. SOFT TISSUE: No soft tissue abnormalities. IMPRESSION: No acute lumbar spine abnormalities.
--- NOTE | 2024-11-19 17:29 | ER ---
Nurse's Notes [facility] Name: Vivian Fatima Age: 64 yrs Sex: Female : 1960 Arrival Date: 11/19/2024 Time: 16:20 Bed 27 Private MD: Diagnosis: Low back pain;Contusion of lower back and pelvis Presentation: 11/19 16:30 Coronavirus screen: Client denies travel out of the [place] in the last 14 days. Ebola kj2 Screen: No symptoms or risks identified at this time. Initial Sepsis Screen: Does the patient meet any 2 criteria? No. Patient's initial sepsis screen is negative. Does the patient have a suspected source of infection? No. Patient's initial sepsis screen is negative. Risk Assessment: Do you want to hurt yourself or someone else? Patient reports no desire to harm self or others. 16:40 Chief complaint: EMS states: fell backwards onto hardwood floor. Care prior to arrival: kj2 None. Mechanism of Injury: Fall from standing position. Trauma event details: Injury occurred: November 19, 2024. 16:40 Acuity: LAYO 3 kj2 16:40 Method Of Arrival: EMS: [facility] kj2 17:49 Onset of symptoms was November 19, 2024. kj2 Historical: - Allergies: 16:42 No Known Allergies; kj2 - PMHx: 16:39 Back pain (bulging disc); Bipolar disorder; kj2 - PSHx: 16:39 back sx; section; hysterectomy; kj2 - Immunization history:: Adult Immunizations unknown. - Infectious Disease History:: Denies. - Immunization history: Last tetanus immunization: unknown. - Family history:: not pertinent. - Social history:: Smoking status: unknown. - Hospitalizations: : No recent hospitalization is reported. Screenin:30 [facility] ED Fall Risk Assessment (Adult) History of falling in the last 3 months, kj2 including since admission Yes- single mechanical fall (1 pt) Confusion or Disorientation No (0 pts) Intoxicated or Sedated No (0 pts) Impaired Gait No (0 pts) Mobility Assist Device Used No (0 pt) Altered Elimination No (0 pt) Score/Fall Risk Level 0 - 2 = Low Risk Maintained a safe environment, Hourly rounding (assess needs \T\ fall precautionary measures) done. Abuse screen: Denies threats or abuse. Denies injuries from another. Nutritional screening: No deficits noted. Tuberculosis screening: No symptoms or risk factors identified. Primary Survey: 16:30 Reassessment Alertness and Airway: Awake and alert. The airway is patent. Airway Patent kj2 Breathing: Spontaneous respiratory effort, equal unlabored respirations, breath sounds clear bilaterally, regular pattern with symmetrical chest rise and fall. Respiratory effort Spontaneous. 16:41 NO uncontrolled hemorrhage observed. Breathing/Chest: Spontaneous respiratory effort, kj2 equal unlabored respirations, breath sounds clear bilaterally, regular pattern, symmetrical chest rise and fall. Respiratory effort: spontaneous, Breath sounds: clear, bilaterally. Circulation: No external hemorrhage present. Regular and strong central pulse, skin warm/dry/normal color. Disability Pupils are equal, round, reactive to light and accommodation. Exposure/Environment: All clothing and personal items were removed. Forensic evidence collection is not deemed to be indicated at this time. Items placed in patient belonging bag. Secondary Survey: 16:42 Gastrointestinal: No deficits noted. : No deficits noted. kj2 Assessment: 16:20 General: Appears in no apparent distress. uncomfortable, Behavior is cooperative. Pain: kj2 Complains of pain in low back Pain currently is 9 out of 10 on a pain scale. Neuro: Level of Consciousness is awake, alert, obeys commands, Oriented to person, place, time, situation. Cardiovascular: Patient's skin is warm and dry. Respiratory: Airway is patent Respiratory effort is even, unlabored. GI: No signs and/or symptoms were reported involving the gastrointestinal system. : No signs and/or symptoms were reported regarding the genitourinary system. 17:30 Reassessment: No changes from previously documented assessment. Patient and/or family kj2 updated on plan of care and expected duration. Pain level reassessed. Patient is alert, oriented x 3, equal unlabored respirations, skin warm/dry/pink. Vital Signs: 16:20 BP 146 / 78; Pulse 64; Resp 20; Temp 98.2; Pulse Ox 100% on R/A; kj2 17:26 Weight 80.29 kg; Height 5 ft. 6 in. ; kj2 17:26 BP 140 / 81; Pulse 65; Resp 20; Temp 98; Pulse Ox 100% ; kj2 17:26 Body Mass Index 28.57 (80.29 kg, 167.64 cm) kj2 Joe Coma Score: 16:30 Eye Response: spontaneous(4). Motor Response: obeys commands(6). Verbal Response: kj2 oriented(5). Total: 15. Trauma Score (Adult): 16:30 Eye Response: spontaneous(1); Verbal Response: oriented(1); Motor Response: obeys kj2 commands(2); Systolic BP: > 89 mm Hg(4); Respiratory Rate: 10 to 29 per min(4); Joe Score: 15; Trauma Score: 12 ED Course: 16:26 Patient arrived in ED. eb 16:27 Sigifredo Angeles MD is Attending Physician. rn 16:30 Arm band placed on Patient placed on a stretcher. kj2 16:30 Patient has correct armband on for positive identification. Placed in gown. Bed in low kj2 position. Provided Education on: call light. 16:30 Patient maintains SpO2 saturation greater than 95% on room air. kj2 16:37 Liana Mari RN is Primary Nurse. kj2 16:41 Triage completed. kj2 17:00 XRAY Humerus LEFT In Process Unspecified. EDMS 17:12 CT Lumbar Spine Wo Con In Process Unspecified. EDMS 17:49 No provider procedures requiring assistance completed. Patient did not have IV access kj2 during this emergency room visit. 17:50 Thermoregulation: none needed. kj2 Administered Medications: No medications were administered Medication: 17:47 VIS not applicable for this client. kj2 Intake: 17:56 PO: 120ml (Water); Total: 120ml. kj2 Outcome: 17:29 Discharge ordered by . rn 17:49 Discharged to home ambulatory, kj2 17:49 Condition: stable 17:49 Discharge instructions given to patient, family, Instructed on discharge instructions, follow up and referral plans. Demonstrated understanding of instructions, follow-up care, 17:49 Patient's length of stay was not longer than 2 hours. 17:56 Patient left the ED. kj2 Signatures: Dispatcher [employer] EDMS Sigifredo Angeles MD MD rn Botello, Elizabeth eb Jordan, Krystal, RN RN kj2
--- NOTE | 2024-11-19 17:29 | EDPHYS ---
Physician Documentation [facility] Name: Vivian Fatima Age: 64 yrs Sex: Female : 1960 Arrival Date: 11/19/2024 Time: 16:20 Bed 27 Private MD: ED Physician Sigifredo Angeles HPI: 11/19 17:24 This 64 yrs old Female presents to ER via EMS with complaints of Low Back Pain, Fall rn Injury. 17:24 Patient reports 2 family members were arguing, she got in between and fell back, rn landing on hard with floor and reports mild low back pain. Has had low back surgery in the past. Does not feel like she broke her back again but is having mild back pain. She did not want to come for evaluation but her family convinced her. Also reports mild pain to the left upper extremity and region of humerus. No head injury or LOC.. Historical: - Allergies: 16:42 No Known Allergies; kj2 - PMHx: 16:39 Back pain (bulging disc); Bipolar disorder; kj2 - PSHx: 16:39 back sx; section; hysterectomy; kj2 - Immunization history:: Adult Immunizations unknown. - Infectious Disease History:: Denies. - Immunization history: Last tetanus immunization: unknown. - Family history:: not pertinent. - Social history:: Smoking status: unknown. - Hospitalizations: : No recent hospitalization is reported. ROS: 17:24 Constitutional: Negative for fever, chills, and weight loss, Neck: Negative for injury, rn pain, and swelling, Cardiovascular: Negative for chest pain, palpitations, and edema, Respiratory: Negative for shortness of breath, cough, wheezing, and pleuritic chest pain, Abdomen/GI: Negative for abdominal pain, nausea, vomiting, diarrhea, and constipation, Back: Positive for low back pain MS/Extremity: Positive for left humerus pain Skin: Negative for injury, rash, and discoloration, Neuro: Negative for headache, weakness, numbness, tingling, and seizure, Exam: 17:24 Constitutional: This is a well developed, well nourished patient who is awake, alert, rn and in no acute distress. Patient on cell phone, no acute distress Head/Face: Normocephalic, atraumatic. Neck: No midline cervical tenderness Cardiovascular: Regular rate and rhythm. No pulse deficits. Respiratory: No increased work of breathing, no retractions or nasal flaring. Abdomen/GI: Soft, nontender Back: Mild paralumbar tenderness, no step-off MS/ Extremity: Pulses equal, no cyanosis. Neurovascular intact. Full, normal range of motion. Equal circumference. Neuro: Awake and alert, GCS 15, oriented to person, place, time, and situation. Motor strength 5/5 in all extremities. Sensory grossly intact. Vital Signs: 16:20 BP 146 / 78; Pulse 64; Resp 20; Temp 98.2; Pulse Ox 100% on R/A; kj2 17:26 Weight 80.29 kg; Height 5 ft. 6 in. ; kj2 17:26 BP 140 / 81; Pulse 65; Resp 20; Temp 98; Pulse Ox 100% ; kj2 17:26 Body Mass Index 28.57 (80.29 kg, 167.64 cm) kj2 Joe Coma Score: 16:30 Eye Response: spontaneous(4). Motor Response: obeys commands(6). Verbal Response: kj2 oriented(5). Total: 15. Trauma Score (Adult): 16:30 Eye Response: spontaneous(1); Verbal Response: oriented(1); Motor Response: obeys kj2 commands(2); Systolic BP: > 89 mm Hg(4); Respiratory Rate: 10 to 29 per min(4); Holliday Score: 15; Trauma Score: 12 MDM: 16:27 Medical Screening Exam initiated rn 17:24 Differential diagnosis: strain, fracture, contusion. Data reviewed: vital signs, nurses rn notes, radiologic studies, CT scan, plain films, and as a result, I will discharge patient. Counseling: I had a detailed discussion with the patient and/or guardian regarding the historical points, exam findings, and any diagnostic results supporting the discharge/admit diagnosis, radiology results, the need for outpatient follow up, to return to the emergency department if symptoms worsen or persist or if there are any questions or concerns that arise at home. Special discussion: I discussed with the patient/guardian in detail that at this point there is no indication for admission to the hospital. It is understood, however, that if the symptoms persist or worsen the patient needs to return immediately for re-evaluation. Based on the history and exam findings, there is no indication for further emergent testing or inpatient evaluation. I discussed with the patient/guardian the need to see the back specialist for further evaluation of the symptoms. I discussed with the patient/guardian the need to see the primary care provider for further evaluation of the symptoms. ED course: I have personally reviewed all of the results, including but not limited to imaging deemed necessary to safely discharge this patient at this time. All results given to and printed out for patient. I personally went over all the results with the patient and answered all questions. Patient will follow-up with PCP and or specialist as discussed. Return precautions given and understood.. 11/19 16:34 Order name: CT Lumbar Spine Wo Con; Complete Time: 17:24 rn 11/19 16:34 Order name: XRAY Humerus LEFT; Complete Time: 17:24 rn Administered Medications: No medications were administered Disposition Summary: 11/19/24 17:29 Discharge Ordered Notes: Location: Home rn Problem: new rn Symptoms: have improved rn Condition: Stable rn Diagnosis - Low back pain rn - Contusion of lower back and pelvis rn Followup: rn - With: Private Physician - When: As needed - Reason: Recheck today's complaints, Re-evaluation by your physician Discharge Instructions: - Discharge Summary Sheet rn - Acute Back Pain, Adult rn - Contusion rn Forms: - Medication Reconciliation Form rn - Antibiotic dietary internship - Prescription Opioid Use rn - Patient Portal Instructions rn - Leadership Thank You Letter rn Signatures: Dispatcher [employer] EDSigifredo Maldonado MD MD rn Jordan, Krystal, RN RN kj2 Corrections: (The following items were deleted from the chart) 16:35 16:35 Spine Lumbar Wo Con+CT.RAD.BRZ ordered. EDMS EDMS 16:35 16:35 Humerus Left+RAD.RAD.BRZ ordered. EDMS EDMS
[2024-11-19 18:12] VITALS: O2SAT 100
[2024-11-19 18:13] VITALS: BP 140/81; TEMP 98
== END 2024-11-19 17:56 | disposition home or self-care (01) ==
LOC: ER 16:20
DX: S30.0XXA Contusion of lower back and pelvis, initial encounter (principal); W18.39XA Other fall on same level, initial encounter; Y93.89 Activity, other specified; Y92.9 Unspecified place or not applicable; M54.50 Low back pain, unspecified
CPT/HCPCS: 72131; 99284